=== PATIENT | male | born 1960 | race Caucasian/White ===

== ENCOUNTER 2016-11-16 23:42 | Inpatient (IN) ==
[2016-11-16] MEDS ORDERED: MORPHINE 2 MG/ML SYRINGE IVP STA (23:49)
[2016-11-16] MEDS ORDERED: SOLU-MEDROL 125 MG IVP STA (23:49)
[2016-11-16] MEDS ORDERED: LASIX IVP STA (23:49)
[2016-11-16] MEDS ORDERED: DUONEB NEB STA (23:49)
[2016-11-16] MEDS ORDERED: ROCEPHIN 1 GM in SODIUM CHLORIDE 50 ML IV STA (23:49)
[2016-11-16 23:51] VITALS: BMI 36.6
--- NOTE | 2016-11-16 23:53 | ED.PDOC ---
General ED Provider: Dr. [address]IMA [address] Chief Complaint: Shortness of Air Stated Complaint: Been coughing congestion for 4 days, today short of breath, not able to talk. no chest pain Time Seen by Physician: 23:51 Mode of Arrival: Walk-In Information Source: Patient Primary Care Provider: ANASTASIA RANDALL Nursing and Triage Documentation Reviewed and Agree: Yes Respiratory Complaint Exam - Shortness of Air Complaint/Exam Symptoms Are: Still present Timing: Constant Initial Severity: Severe Current Severity: Severe Character: Reports: Dyspnea at rest Aggravating: Reports: None, Movement Alleviating: Reports: None Associated Signs and Symptoms: Reports: Cough, Wheezing, Rapid breathing. Denies: Chest pain with cough, Chest pain, Fever, Chills, Diaphoresis, Nasal congestion, Dizziness, Calf pain, Calf swelling, Edema, Labored breathing, Decreased intake History of Healthcare-Acquired Pneumonia: No Pulmonary Embolism Risk Factors: Reports: None Cardiac Risk Factors: Reports: Prior ID, CAD, Hypertension, CHF Pseudomonas Risk Factors: Reports: None Tuberculosis Risk Factors: Reports: None Home Oxygen Use: No Recent Stress Test: No Recent Echo/LV Function: No Respiratory Distress: Moderate Stridor Present: No Tracheal Deviation: No Subcutaneous Emphysema: No Accessory Muscle Use: Yes Diminished Breath Sounds: Yes Prolonged Expiratory Phase: Yes Unable to Speak Full Sentences: Yes Fatigue: No Leg Swelling: No Favio's Sign Present: No Grunting Respirations: No Kussmaul Respirations: No Differential Diagnoses: CHF, COPD Exacerbation, ID, Pneumonia Quality Indicators for AMI: EKG in 10min., ASA Given if indicated Review of Systems - Review Of Systems Constitutional: Reports: Weakness Eyes: Reports: No symptoms Ears, Nose, Mouth, Throat: Reports: No symptoms Respiratory: Reports: Cough, Orthopnea, Short of air Cardiac: Reports: No symptoms GI: Reports: No symptoms : Reports: No symptoms Musculoskeletal: Reports: No symptoms Skin: Reports: No symptoms Neurological: Reports: No symptoms Endocrine: Reports: No symptoms Hematologic/Lymphatic: Reports: No symptoms All Other Systems: Reviewed and Negative Past Medical History - Past Medical History Previously Healthy: No Endocrine: Reports: Dyslipidemia Cardiovascular: Reports: CAD, ID, Hypertension Respiratory: Reports: None Hematological: Reports: None Gastrointestinal: Reports: None Genitourinary: Reports: None Neuro/Psych: Reports: Depression Musculoskeletal: Reports: Arthritis, Back Pain Cancer: Reports: None Other Pertinent Past Medical History: htn chol mi depr cabg hernia - Surgical History General Surgical History: Reports: CABG, Hernia Repair - Family History Family History: Reports: Unknown - Social History Smoking Status: Current every day smoker, Light tobacco smoker Smoking Cessation Counseling Time: > 3 min - 10 min Hx Substance Use: No Alcohol Screening: None - Immunizations Tetanus Shot up to Date: Yes Physical Exam - Physical Exam Appearance: Ill-appearing, Obese Ill-appearing: Severe Eyes: WILVER, EOMI, Conjunctiva clear ENT: Ears normal, Nose normal, Oropharynx normal Respiratory: Airway patent, Breath sounds diminished, Crackles Cardiovascular: RRR, Pulses normal, No rub, No murmur GI/: Soft, Nontender, No masses, Bowel sounds normal, No Organomegaly Musculoskeletal: Normal strength, ROM intact, No edema, No calf tenderness Skin: Warm, Dry, Normal color Neurological: Sensation intact, Motor intact, Reflexes intact, Cranial nerves intact, Alert, Oriented Psychiatric: Affect appropriate Interpretation - Radiology Interpretation Radiology Interpretation By: Radiologist Radiology Results: Negative Exam Interpreted: CT Scan Critical Care Note - Critical Care Note Total Time (mins): 0 Course - Course Hematology/Chemistry: 11/16/16 23:48 11/16/16 00:50 Orders, Labs, Meds: Lab Review 11/16/16 11/16/16 11/17/16 00:50 23:48 00:25 WBC 11.99 H RBC 5.65 Hgb 16.3 Hct 49.3 MCV 87.3 MCH 28.8 MCHC 33.1 RDW Coeff of Moris 12.9 Plt Count 249 Immature Gran % (Auto) 0.6 Neut % (Auto) 65.6 Lymph % (Auto) 20.0 [place] % (Auto) 9.0 Eos % (Auto) 4.4 Baso % (Auto) 0.4 Immature Gran # (Auto) 0.1 Neut # 7.9 H Lymph # 2.4 [place] # 1.1 Eos # 0.5 Baso # 0.1 D-Dimer 0.61 Puncture Site O2 Saturation ABG pH ABG pCO2 ABG pO2 ABG HCO3 ABG Total CO2 ABG Base Excess Douglas Test FiO2 % Sodium 139 Potassium 4.0 Chloride 100 Carbon Dioxide 25 Anion Gap 18.0 BUN 12 Creatinine 0.84 Estimated GFR (MDRD) 95.00 BUN/Creatinine Ratio 14.28 Glucose 142 H Calcium 9.8 Total Bilirubin 0.75 AST 30 ALT 33 Alkaline Phosphatase 112 Total Creatine Kinase 96 Troponin I 0.0970 B-Natriuretic Peptide 324 H Total Protein 7.8 Albumin 4.1 Globulin 3.7 Albumin/Globulin Ratio 1.11 Urine Color Yellow Urine Clarity Clear Urine pH 5.5 Ur Specific [place] 1.015 Urine Protein 1+ Urine Glucose (UA) Negative Urine Ketones Negative Urine Blood 3+ Urine Nitrite Negative Urine Bilirubin Negative Urine Urobilinogen 0.2 Ur Leukocyte Esterase Negative Urine Microscopic RBC 10-20 Ur Squamous Epith Cells 0-2 Hyaline Casts 2-5 Granular Casts 2-5 11/17/16 00:31 WBC RBC Hgb Hct MCV MCH MCHC RDW Coeff of Moris Plt Count Immature Gran % (Auto) Neut % (Auto) Lymph % (Auto) [place] % (Auto) Eos % (Auto) Baso % (Auto) Immature Gran # (Auto) Neut # Lymph # [place] # Eos # Baso # D-Dimer Puncture Site Lb O2 Saturation 90.0 L ABG pH 7.395 ABG pCO2 44.8 ABG pO2 60.0 L ABG HCO3 27.5 H ABG Total CO2 29 H ABG Base Excess 3 H Douglas Test + FiO2 % 21.0 Sodium Potassium Chloride Carbon Dioxide Anion Gap BUN Creatinine Estimated GFR (MDRD) BUN/Creatinine Ratio Glucose Calcium Total Bilirubin AST ALT Alkaline Phosphatase Total Creatine Kinase Troponin I B-Natriuretic Peptide Total Protein Albumin Globulin Albumin/Globulin Ratio Urine Color Urine Clarity Urine pH Ur Specific [place] Urine Protein Urine Glucose (UA) Urine Ketones Urine Blood Urine Nitrite Urine Bilirubin Urine Urobilinogen Ur Leukocyte Esterase Urine Microscopic RBC Ur Squamous Epith Cells Hyaline Casts Granular Casts Orders Category Date Time Status ABG DRAW REQUEST Stat CARDIO 11/16/16 23:50 Completed EKG-(ED ONLY) Stat CARDIO 11/16/16 23:49 Completed NEBULIZER TREATMENT Stat CARDIO 11/16/16 23:50 Completed ED IV/MEDIPORT/POWERPORT .ONCE EMERGENCY 11/16/16 23:49 Active ABG Stat LAB 11/17/16 00:31 Completed B-TYPE NATRIURETIC PEPTIDE Stat LAB 11/16/16 00:50 Completed CBC W/ AUTO DIFF Stat LAB 11/16/16 23:48 Completed COMPREHENSIVE METABOLIC PANEL Stat LAB 11/16/16 00:50 Completed CREATINE KINASE Stat LAB 11/16/16 00:50 Completed D-DIMER Stat LAB 11/16/16 00:50 Completed TROPONIN I Stat LAB 11/16/16 00:50 Completed UA [URINALYSIS C & S IF INDICATED] Stat LAB 11/17/16 00:25 Completed 0.9 % Sodium Chloride [Saline Flush] MEDS 11/16/16 23:49 Ordered 1 syr IVF PRN PRN Aspirin [Aspirin Chewable] MEDS 11/16/16 23:54 Discontinued 324 mg PO ONCE STA Ceftriaxone Sodium [Rocephin] MEDS 11/16/16 23:55 Discontinued 1 gm .ROUTE .STK-MED ONE Ceftriaxone Sodium [Rocephin] 1 gm MEDS 11/16/16 23:49 Discontinued 0.9 % Sodium Chloride [Sodium Chloride] 50 ml IV ONCE Furosemide [Lasix] MEDS 11/16/16 23:49 Discontinued 40 mg IVP ONCE STA Ipratropium/Albuterol Neb [Duoneb] MEDS 11/16/16 23:49 Discontinued 1 vial NEB ONCE STA Methylprednisolone Sod Succ/Pf [Solu-Medrol 125 mg] MEDS 11/16/16 23:49 Discontinued 125 mg IVP ONCE STA Morphine Sulfate [Morphine 2 mg/ml Syringe] MEDS 11/16/16 23:49 Discontinued 2 mg IVP ONCE STA CT CHEST W/O CONTRAST Stat RADS 11/16/16 23:49 Completed Medications Generic Name Dose Route Start Last Admin Trade Name Freq PRN Reason Stop Dose Admin Sodium Chloride 1 syr 11/16/16 23:49 11/17/16 00:07 Saline Flush IVF 1 syr PRN PRN Administration To flush IV Discontinued Medications Generic Name Dose Route Start Last Admin Trade Name Freq PRN Reason Stop Dose Admin Albuterol/Ipratropium 1 vial 11/16/16 23:49 11/17/16 00:08 Duoneb NEB 11/16/16 23:50 1 vial ONCE STA Administration Aspirin 324 mg 11/16/16 23:54 11/17/16 00:13 Aspirin Chewable PO 11/16/16 23:55 324 mg ONCE STA Administration Furosemide 40 mg 11/16/16 23:49 11/16/16 23:57 Lasix IVP 11/16/16 23:50 40 mg ONCE STA Administration Ceftriaxone Sodium 1 gm/ 50 mls @ 75 mls/hr 11/16/16 23:49 11/17/16 00:13 Sodium Chloride IV 11/17/16 00:28 75 mls/hr ONCE STA Administration Methylprednisolone Sodium Succinate 125 mg 11/16/16 23:49 11/17/16 00:00 Solu-Medrol 125 Mg IVP 11/16/16 23:50 125 mg ONCE STA Administration Morphine Sulfate 2 mg 11/16/16 23:49 11/17/16 00:02 Morphine 2 Mg/Ml Syringe IVP 11/16/16 23:50 2 mg ONCE STA Administration Vital Signs: Temp Pulse Resp BP Pulse Ox 11/16/16 23:43 98 F 92 H 32 H 222/117 H 88 L Departure - Departure Time of Disposition: 01:08 Disposition: ADMITTED INPATIENT Discharge Problem: Hypertensive urgency, Obstructive chronic bronchitis with exacerbation Instructions: COPD (Chronic Obstructive Pulmonary Disease) (ED) Condition: Stable Pt referred to PMD for follow-up: No Allergies/Adverse Reactions: Allergies No Known Allergies Allergy (Verified 11/16/16 23:51) Home Medications: Ambulatory Orders Aspirin [Adult Low Dose Aspirin EC] 81 mg PO DAILY 06/30/16 Atenolol 25 mg PO BID 06/30/16 Clopidogrel Bisulfate [Plavix] 75 mg PO DAILY 06/30/16 Hydrochlorothiazide 12.5 mg PO DAILY 06/30/16 Hydrocodone/Acetaminophen [[place] 7.5-325 Tablet] 1 tab PO Q6HR PRN #12 tablet Lisinopril [Zestril] 40 mg PO DAILY 06/30/16 Ondansetron HCl [Zofran Tab] 4 mg PO QID PRN #12 tablet 06/30/16 Pravastatin Sodium [Pravachol] 20 mg PO BEDTIME 06/30/16 Disposition Discussed With: Patient
[2016-11-16] MEDS ORDERED: ASPIRIN CHEWABLE PO STA (23:54)
[2016-11-16] MEDS ORDERED: ROCEPHIN ONE (23:55)
[2016-11-16 23:56] LABS: BASOPHILS # (AUTO) 0.1 K/uL (0-0.2); BASOPHILS % (AUTO) 0.4 % (0.0-3.0); EOSINOPHILS # (AUTO) 0.5 K/ul (0.0-0.7); EOSINOPHILS % (AUTO) 4.4 % (0.0-7.0); HEMATOCRIT 49.3 % (42.0-52.0); HEMOGLOBIN 16.3 g/dl (14.0-18.0); IMMATURE GRANULOCYTE % (AUTO) 0.6 % (0.0-5.0); LYMPHOCYTES # (AUTO) 2.4 K/uL (0.60-3.4); MEAN CORPUSCULAR HEMOGLOBIN 28.8 pg (27.0-31.0); MEAN CORPUSCULAR HGB CONC 33.1 (31.8-35.4); MEAN CORPUSCULAR VOLUME 87.3 fl (80.0-94.0); MONOCYTES # (AUTO) 1.1 K/uL (0.4-2.0); NEUTROPHILS # (AUTO) 7.9 K/ul (2.0-6.9); NEUTROPHILS % (AUTO) 65.6; PLATELET COUNT 249 10^3/uL (140-440); RED BLOOD COUNT 5.65 10^6/ul (4.70-6.10); WHITE BLOOD COUNT 11.99 K/ul (4.2-10.2)
[2016-11-17 00:33] LABS: ABG PCO2 44.8 mmHg (35-45); ABG PH 7.395 (7.35-7.45)
[2016-11-17 00:33] LABS: BILIRUBIN,URINE Negative (NEGATIVE); KETONES,URINE Negative (NEGATIVE); LEUKOCYTE ESTERASE ,URINE Negative (NEGATIVE); NITRITE,URINE Negative (NEGATIVE); PH,URINE 5.5 (5-9); PROTEIN,URINE 1+ (NEGATIVE); URINE, BLOOD 3+ (NEGATIVE)
[2016-11-17 00:34] LABS: ABG BASE EXCESS 3 (-2.0-2.0); ABG HCO3 27.5 (22.0-26.0); ABG TCO2 29 (22.0-28.0)
[2016-11-17 00:39] LABS: ADD URINE MICROSCOPIC YES
[2016-11-17 00:42] LABS: ALBUMIN 4.1 g/dL (3.4-5.0); ALBUMIN/GLOBULIN RATIO 1.11; BILIRUBIN,TOTAL 0.75 mg/dL (0.00-1.20); BUN/CREATININE RATIO 14.28; CALCIUM 9.8 mg/dL (8.2-10.2); CREATININE 0.84 mg/dL (0.60-1.10); TOTAL PROTEIN 7.8 g/dL (6.4-8.2); TROPONIN I 0.097 ng/ml (0.0000-0.4000)
--- NOTE | 2016-11-17 01:03 | CT ---
Exam: CT of the chest without contrast History: Shortness of breath Technique: [address] of the chest without intravascular contrast FINDINGS: The lung windows show no infiltrative opacities. There is parenchymal scarring and hyper expansion. Atherosclerotic calcification of the aorta and coronary arteries. Prior coronary bypass . No acute findings of the chest wall soft tissues or bony thorax. No acute findings of the upper abdomen. Impression: 1. Chronic obstructive pulmonary disease and parenchymal scarring. No focal infiltrative opacities .
[2016-11-17] MEDS: DUONEB NEB SCH ×4 (05:05→23:07)
[2016-11-17] MEDS: SOLU-MEDROL 125 MG IVP SCH ×3 (05:18→20:53)
[2016-11-17 07:19] LABS: BASOPHILS % (AUTO) 0.2 % (0.0-3.0); EOSINOPHILS % (AUTO) 0.4 % (0.0-7.0); HEMATOCRIT 49.6 % (42.0-52.0); HEMOGLOBIN 16.7 g/dl (14.0-18.0); IMMATURE GRANULOCYTE % (AUTO) 0.8 % (0.0-5.0); LYMPHOCYTES # (AUTO) 0.9 K/uL (0.60-3.4); LYMPHOCYTES % (AUTO) 11.4 (10.0-50.0); MEAN CORPUSCULAR HEMOGLOBIN 29.3 pg (27.0-31.0); MEAN CORPUSCULAR HGB CONC 33.7 (31.8-35.4); MEAN CORPUSCULAR VOLUME 87.2 fl (80.0-94.0); MONOCYTES # (AUTO) 0.2 K/uL (0.4-2.0); MONOCYTES % (AUTO) 2.8 (0-10); NEUTROPHILS % (AUTO) 84.4; PLATELET COUNT 255 10^3/uL (140-440); RED BLOOD COUNT 5.69 10^6/ul (4.70-6.10); WHITE BLOOD COUNT 8.27 K/ul (4.2-10.2)
[2016-11-17 07:34] LABS: ALBUMIN 3.8 g/dL (3.4-5.0); ALBUMIN/GLOBULIN RATIO 1.06; ANION GAP 14.4; BILIRUBIN,TOTAL 0.54 mg/dL (0.00-1.20); BUN/CREATININE RATIO 13.46; CALCIUM 9.8 mg/dL (8.2-10.2); CREATININE 1.04 mg/dL (0.60-1.10); POTASSIUM 4.4 mmol/L (3.5-5.1); TOTAL PROTEIN 7.4 g/dL (6.4-8.2)
[2016-11-17 07:40] LABS: TROPONIN I 0.078 ng/ml (0.0000-0.4000)
[2016-11-17] MEDS: ASPIRIN EC PO SCH (08:55)
[2016-11-17] MEDS ORDERED: NON-FORMULARY MEDICATION (Hydrochlorothiazide [Hydrochlorothiazide] 12.5 MG) PO SCH ×22 (09:00)
[2016-11-17] MEDS ORDERED: TENORMIN PO SCH (09:00)
[2016-11-17] MEDS: ZESTRIL PO SCH (09:25)
[2016-11-17] MEDS: HYDROCHLOROTHIAZIDE PO SCH (09:25)
[2016-11-17] MEDS: NORCO 7.5-325 PO PRN ×2 (09:25→15:50)
[2016-11-17] MEDS: LOVENOX SUBCUT SCH (09:26)
[2016-11-17] MEDS: PLAVIX PO SCH (09:26)
[2016-11-17 14:06] LABS: TROPONIN I 0.054 ng/ml (0.0000-0.4000)
[2016-11-17] MEDS ORDERED: ROCEPHIN 1 GM in SODIUM CHLORIDE 50 ML IV SCH (21:00)
[2016-11-17] MEDS ORDERED: PRAVACHOL PO SCH (21:00)
[2016-11-17] MEDS ORDERED: AMBIEN PO PRN (21:03)
[2016-11-18] MEDS: DUONEB NEB SCH ×2 (05:22→11:21)
[2016-11-18] MEDS: SOLU-MEDROL 125 MG IVP SCH ×2 (05:48→13:32)
[2016-11-18 05:50] LABS: BASOPHILS % (AUTO) 0.2 % (0.0-3.0); HEMATOCRIT 46.9 % (42.0-52.0); HEMOGLOBIN 15.4 g/dl (14.0-18.0); IMMATURE GRANULOCYTE % (AUTO) 1.8 % (0.0-5.0); LYMPHOCYTES # (AUTO) 1.4 K/uL (0.60-3.4); LYMPHOCYTES % (AUTO) 7.1 (10.0-50.0); MEAN CORPUSCULAR HEMOGLOBIN 29.2 pg (27.0-31.0); MEAN CORPUSCULAR HGB CONC 32.8 (31.8-35.4); MEAN CORPUSCULAR VOLUME 88.8 fl (80.0-94.0); MONOCYTES # (AUTO) 1.2 K/uL (0.4-2.0); NEUTROPHILS # (AUTO) 16.4 K/ul (2.0-6.9); NEUTROPHILS % (AUTO) 84.9; PLATELET COUNT 265 10^3/uL (140-440); RED BLOOD COUNT 5.28 10^6/ul (4.70-6.10); WHITE BLOOD COUNT 19.27 K/ul (4.2-10.2)
[2016-11-18 06:09] LABS: ALBUMIN 3.5 g/dL (3.4-5.0); ALBUMIN/GLOBULIN RATIO 1.13; ANION GAP 12.8; BILIRUBIN,TOTAL 0.26 mg/dL (0.00-1.20); BUN/CREATININE RATIO 20.65; CALCIUM 9.5 mg/dL (8.2-10.2); CREATININE 0.92 mg/dL (0.60-1.10); POTASSIUM 4.8 mmol/L (3.5-5.1); TOTAL PROTEIN 6.6 g/dL (6.4-8.2)
[2016-11-18 06:31] LABS: CHOL/HDL RATIO 3.4 (4.5-6.4)
[2016-11-18] MEDS ORDERED: LASIX TAB PO STA (08:37)
[2016-11-18] MEDS: ASPIRIN EC PO SCH (08:55)
[2016-11-18] MEDS ORDERED: LOPRESSOR PO SCH (09:00)
[2016-11-18] MEDS: PLAVIX PO SCH (09:15)
[2016-11-18] MEDS: ZESTRIL PO SCH (09:15)
[2016-11-18] MEDS: LOVENOX SUBCUT SCH (09:16)
[2016-11-18] MEDS: HYDROCHLOROTHIAZIDE PO SCH (09:16)
[2016-11-18] MEDS: NORCO 7.5-325 PO PRN ×2 (09:23→15:03)
[2016-11-18 09:28] LABS: ABG BASE EXCESS 2 (-2.0-2.0); ABG HCO3 25.9 (22.0-26.0); ABG PCO2 38.2 mmHg (35-45); ABG TCO2 27 (22.0-28.0)
[2016-11-18] MEDS ORDERED: MICRO-K CAP PO SCH (09:30)
[2016-11-18 10:24] VITALS: TEMP 98.2
--- NOTE | 2016-11-18 11:51 | DI ---
EXAM: CHEST FRONTAL AND LATERAL VIEWS HISTORY: Chest pain. COMPARISON: None FINDINGS: Heart size is upper limit normal. Sternotomy wires are noted. There is diffuse, chronic appearing interstitial accentuation. Lungs are hyperinflated and there is relative lucency of the l nahomy zones suggesting emphysema. No acute infiltrates are seen. There is no consolidation, visible pleural fluid or pneumothorax. Bones reveal no acute fracture. IMPRESSION: Chronic obstructive pulmonary disease is suspected. Correlate clinically. No acute ca rdiopulmonary process. ]
--- NOTE | 2016-11-18 11:56 | US ---
EXAM: ULTRASOUND CAROTID DUPLEX, BILATERAL HISTORY: Weakness, lightheadedness and hypertension FINDINGS: Cabezas-scale ultrasound, color Doppler and spectral analysis was performed. Velocities are in meters per second. By cabezas scale and color Doppler imaging, there were regions of heterogeneous plaque formation ident ified within the carotid bulbs and internal carotid arteries. These regions of plaque appeared to r emain easily less than 50% vessel diameter. RIGHT: External carotid artery peak systolic velocity: 1.3 Common carotid artery peak systolic velocity/end diastolic velocity: 0.6/0.1 Internal carotid artery peak systolic velocity: 0.6 ICA/CCA peak systolic velocity ratio: 1.0 ICA end diastolic velocity: 0.2 LEFT: External carotid artery peak systolic velocity: 1.5 Common carotid artery peak systolic velocity/end diastolic velocity: 0.5/0.1 Internal carotid artery peak systolic velocity: 0.5 ICA/CCA peak systolic velocity ratio: 0.8 ICA end diastolic velocity: 0.2 The right and left vertebral arteries were antegrade. IMPRESSION: 1. By cabezas scale and color Doppler imaging, there were regions of heterogeneous plaque formation id entified within the carotid bulbs and internal carotid arteries. These regions of plaque appeared t o remain easily less than 50% vessel diameter. 2. Internal carotid artery peak systolic velocities and ICA/CCA peak systolic velocity ratios indic ate no hemodynamically significant stenosis bilaterally. 3. Both vertebral arteries were antegrade.
--- NOTE | 2016-11-18 13:02 | PCM.PROG ---
Attending Provider: ATTENDING PROVIDER: Dr. ANASTASIA RANDALL DATE OF SERVICE: 11/18/16 SUBJECTIVE: This 56 year old WHITE/ M was hospitalized 11/17/16. The patient was hospitalized with acute pulmonary edema and hypertensive urgency. The patient also had bronchitis with COPD. The patient's condition has improved remarkably and his respiratory failure has resolved. He is up and about. No chest pain, no PND, no orthopnea. No fever, no chills, no symptoms of CHF. The patient' s WBC is high probably due to steroids. REVIEW OF SYSTEMS: CONSTITUTIONAL: No night sweats. No fatigue, malaise, lethargy. No fever or chills. HEENT: Eyes: No visual changes. No eye pain. No eye discharge. ENT: No runny nose. No epistaxis. No sinus pain. No odynophagia. No congestion. RESPIRATORY: No cough, no congestion. No hemoptysis. CARDIOVASCULAR: No angina symptoms. No CHF symptoms. No atypical chest pain for CAD. No palpitations. No shortness of breath. GASTROINTESTINAL: No abdominal pain. No nausea or vomiting. No diarrhea or constipation. No hematemesis. No hematochezia. GENITOURINARY: No urgency. No frequency. No dysuria. No hematuria. No obstructive symptoms. No discharge. No pain. No significant abnormal bleeding. MUSCULOSKELETAL: No musculoskeletal pain; no joint swelling. NEUROLOGICAL: Awake, alert, oriented to time, place and person. No headache. No neck pain. No syncope. No seizures. No dizziness. PSYCHIATRIC: Not anxious. No depression. No suicidal thoughts. No homicidal thoughts. SKIN: No rash. No lesions. No wounds. ENDOCRINE: No unexplained weight loss. No weight gain. HEMATOLOGIC/LYMPHATIC: No anemia. No purpura. No petechiae. No prolonged or excessive bleeding. No palpable lymph nodes. PHYSICAL EXAMINATION: GENERAL: The patient is awake, alert and oriented, lying/sitting in bed in no distress. VITAL SIGNS: Temperature 97.2 F, Pulse 78, Respiratory Rate 15, BP 138/74, Pulse Ox 95% HEENT: Head normocephalic, atraumatic. Eyes: Extraocular muscles are intact. Pupils are equal, round and reactive to light and accommodation. Ears: No lesions. Nose appeared normal. Throat: No exudate or erythema. NECK: Supple. No JVD, no carotid bruit. No lymphadenopathy or thyromegaly. LUNGS: Harsh breath sounds. Clear to auscultation. Percussion note normal. Chest symmetrical. HEART: S1, S2, no S3. No murmurs. No cyanosis or clubbing. No ascites. Pulses: Dorsalis pedis and posterior tibial pulses +1 to +2 both sides. ABDOMEN: Soft. Non-tender. Bowel sounds active. No CVA tenderness. No mass felt. EXTREMITIES: No edema. Full range of motion of all extremities, equal. NEUROLOGIC: No focal deficit. Cranial nerves II through XII are grossly intact. No headache, no double vision or headache. SKIN: Not dry. Intact. Turgor-normal. LYMPHATIC: No palpable lymph nodes/no lymphedema. MUSCULOSKELETAL: Normal joints with no swelling. Muscle tone is normal. LAB REVIEW: 11/18/16 05:30 11/18/16 05:30 11/18/16 05:30: WBC 19.27 H D, RBC 5.28, Hgb 15.4, Hct 46.9, MCV 88.8, MCH 29.2 , MCHC 32.8, RDW Coeff of Moris 13.3, Plt Count 265, Immature Gran % (Auto) 1.8, Neut % (Auto) 84.9, Lymph % (Auto) 7.1 L, [place] % (Auto) 6.0, Eos % (Auto) 0.0, Baso % (Auto) 0.2, Immature Gran # (Auto) 0.4, Neut # 16.4 H, Lymph # 1.4, [place] # 1.2, Eos # 0.0, Baso # 0.0, Sodium 139, Potassium 4.8, Chloride 101, Carbon Dioxide 30, Anion Gap 12.8, BUN 19 H, Creatinine 0.92, Estimated GFR (MDRD) 85.00, BUN/Creatinine Ratio 20.65, Glucose 164 H, Hemoglobin A1c 5.9, Calcium 9.5, Total Bilirubin 0.26, AST 16, ALT 24, Alkaline Phosphatase 106, B- Natriuretic Peptide 174 H, Total Protein 6.6, Albumin 3.5, Globulin 3.1, Albumin /Globulin Ratio 1.13, Triglycerides 61, Cholesterol 124, LDL Cholesterol, Calc 76, VLDL Cholesterol 12, HDL Cholesterol 36, Cholesterol/HDL Ratio 3.4 L 11/17/16 13:20: Total Creatine Kinase 64, Troponin I 0.0540 ASSESSMENT: 1. Acute pulmonary edema resolved 2. Bronchitis resolved 3. COPD 4. Hypertension, under control 5. CABG with no symptoms of CAD 6. WBC is high due to steroids PLAN: 1. Carotid scan before discharge 2. PFT pending 3. Continue all medications - take regularly 4. Discontinue Hydrochlorothiazide 5. Take Lopressor instead of Atenolol 6. PFT is pending 7. Chest x-ray is pending 8. ABG 9. Prednisone 10 mg b.i.d. for 5 days 10. Keflex 500 mg b.i.d. 11. Lasix 20 mg p.o. daily and one now 12. K-Tab 10 mEq daily Plan and coordination of the patient's care discussed in the presence of Water Taxi Boat Mate and nurse. EDUCATION: Discussed discharge plan with the patient. Counseling for smoking done. Lifestyle modifications, weight loss, exercise discussed. Discussed medications and their side effects. Advised to take all medications as instructed on a regular basis. The patient voiced understanding and is in agreement. CONDITION: Stable SCRIBED BY: GURPREET PLATT Agricultural Equipment Test Engineer scribed while in presence of service performed by Dr. ANASTASIA RANDALL on 11/18/16 ([id number])
--- NOTE | 2016-11-18 13:29 | HP ---
DATE OF SERVICE: 11/17/16 REASON FOR HOSPITALIZATION: Shortness of breath HISTORY OF PRESENT ILLNESS: The patient is a 56 year old white male came to the emergency room, walked in with complaint of having shortness of breath, cough and congestive. On further questioning the patient also orthopnea for past couple of days. The patient in the emergency room had pulse of 92 per minute, respiratory rate 32, blood pressure 222/117 with 88% saturation. REVIEW OF SYSTEMS: CONSTITUTIONAL: No night sweats. Fatigue and weaknes. No fever or chills. HEENT: Eyes: No visual changes. No eye pain. No eye discharge. ENT: No runny nose. No epistaxis. No sinus pain. No sore throat. No odynophagia. No ear pain. No congestion. RESPIRATORY: Cough and congestion no yellowish sputum production. No hemoptysis. CARDIOVASCULAR: No angina symptoms. No CHF symptoms. No atypical chest pain for CAD. No palpitations. Shortness of breath on minimal exertion. PND and Orthopnea for last two to three days. no chest pain GASTROINTESTINAL: No abdominal pain. No nausea or vomiting. No diarrhea or constipation. No hematemesis. No hematochezia. Appetite somewhat compromised for last two to three days. GENITOURINARY: No urgency. No frequency. No dysuria. No hematuria. No obstructive symptoms. No discharge. No pain. No significant abnormal bleeding. MUSCULOSKELETAL: No musculoskeletal pain. No joint swelling. No arthritis. NEUROLOGICAL: No headache. No neck pain. No syncope. No seizures. No dizziness. PSYCHIATRIC: Not anxious. No depression. No suicidal thoughts. No homicidal thoughts. SKIN: No rash. No lesions. No wounds. ENDOCRINE: No unexplained weight loss. No weight gain. HEMATOLOGIC/LYMPHATIC: No anemia. No purpura. No petechiae. No prolonged or excessive bleeding. No palpable lymph nodes. PERSONAL/FAMILY/SOCIAL HISTORY: The patient is and lives by himself. He is heavy smoker. No alcohol use , quit drinking. Father at 45 with heart problems and alcoholism. Mother is still living. Brother at age 38 with cancer. 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 PAST MEDICAL/SURGICAL PROBLEMS: Coronary bypass surgery, April 2016 stent with coronary artery disease 2012 History of hypertension Dyslipidemia Obesity, BMI 36 MEDICATIONS: The patient is supposed to be on Zebeta but not taking [place] Hydrochlorothiazide Pravastatin Plavix Lisinopril The patient is still taking Atenolol 25mg twice a day ALLERGIES: None PHYSICAL EXAMINATION: GENERAL: The patient is oriented to time, place and person. VITAL SIGNS: Temperature 98.4, pulse 56, respiratory rate 17, blood pressure 126/68 and pulse ox 95%. HEENT: Head normocephalic, atraumatic. Eyes: Extraocular muscles are intact. Pupils are equal, round and reactive to light and accommodation. Ears: No lesions. Nose appeared normal. Throat: No exudate or erythema. NECK: Supple. No JVP 2cm, no carotid bruit. No lymphadenopathy or thyromegaly. LUNGS: Decreased breath sound with mild wheeze. Percussion note normal. Chest symmetrical. HEART: S1, S2, no S3. No murmurs. No cyanosis or clubbing. No ascites. Pulses: Dorsalis pedis and posterior tibial pulses +1 bilaterally. ABDOMEN: Soft. Nontender. Bowel sounds active. No CVA tenderness. No mass felt. EXTREMITIES: Trace pitting edema. Full range of motion of all extremities, equal. NEUROLOGIC: No focal deficit. Cranial nerves II through XII are grossly intact. No headache, no double vision or headache. Normal deep tendon reflexes. Mental status normal. SKIN: Not dry. Intact. Turgor - normal. LYMPHATIC: No palpable lymph nodes/no lymphedema. MUSCULOSKELETAL: Normal joints with no swelling. Muscle tone is normal. LABS: Hgb 16.3, hct 49, WBC 11,900 normal differential, creatinine 0.8, BUN 12, BNP 324, GFR 95cc per minute, D-dimer negative. ABG pO2 60, PCO2 24.8, pH 7.39 with 90% saturation on room air. Urine shows 3+ blood and 1+ Protein. ASSESSMENT: 1. Acute respiratory failure from acute pulmonary edema 2. Bronchitis with chronic lung disease 3. Severe hypertension 4. Coronary bypass surgery April 2016 5. Coronary artery disease with stent 2012 6. Hypertension 7. Dyslipidemia 8. Smoking 9. 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 History of obesity with BMI 37 PLAN: 1. Telemetry 2. Serial Cardiac Markers 3. Counseling for weight loss diet done, patient's BMI 37 ideal 33 plus or minus 2 4. DASH diet discussed 5. Blood pressure goal discussed which should be 135/85 6. Advised to continue the medications and be compliant 7. Congestive heart failure discussed in detail 8. Echocardiogram to evaluate LV function 9. Continue all the rest of the medications as before 10. Counseling for smoking done 11. Will do PFT 12. The patient will do Lipid profile 13. Discontinue Atenolol, start Lopressor 25mg twice a day 14. Chest x-ray in the morning 15. BNP in the morning. CONDITION: Stable PROGNOSIS: Guarded The patient is non-compliant about the medications and lifestyle. Coronary artery disease risk factors discussed with the patient. The patient is intelligent. TIME SPENT: More than 70 minutes. MTDD
[2016-11-18 14:15] VITALS: BP 124/63
--- NOTE | 2016-11-18 14:25 | CM.DICTOOL ---
ADMISSION: 11/17/16 01:17 DISCHARGE: 11/18/16 DATE OF SERVICE: 11/18/16 FINAL DIAGNOSIS BRONCHITIS, ACUTE (RESOLVED) COPD EXACERBATION CONGESTIVE HEART FAILURE (RESOLVED) HYPERTENSIVE URGENCY (RESOLVED) CAD AND HISTORY OF DC DYSLIPIDEMIA ARTHRITIS (BACK) DEPRESSION/ANXIETY SMOKER OVER 40 YEARS CABG-2 VESSEL, 04/28 HERNIA REPAIR Treatment Plan: IV ROCEPHIN IV SOLU-MEDROL DUONEBS Q 6 HOURS MEDICATION MANAGEMENT OXYGEN LABS/X-RAYS LAST VITALS Temp Pulse Resp BP Pulse Ox 98.2 F 83 20 131/80 91 L 11/18/16 10:00 11/18/16 10:00 11/18/16 10:00 11/18/16 10:00 11/18/16 10:00 ACTIVE MEDICATIONS Acetaminophen/Hydrocodone Bitart ([place] 7.5-325) 1 tab PO Q6HR PRN PRN Reason: Joint Pain Last Admin: 11/18/16 09:23 Dose: 1 tab Aspirin (Aspirin Ec) 81 mg PO DAILYWM [facility] Last Admin: 11/18/16 08:55 Dose: 81 mg Clopidogrel Bisulfate (Plavix) 75 mg PO DAILY [facility] Last Admin: 11/18/16 09:15 Dose: 75 mg Furosemide (Lasix Tab) 20 mg PO QDAC [facility] Lisinopril (Zestril) 40 mg PO DAILY [facility] Last Admin: 11/18/16 09:15 Dose: 40 mg Metoprolol Tartrate (Lopressor) 25 mg PO BID [facility] Last Admin: 11/18/16 09:15 Dose: 25 mg Ondancetrol HCL (Zofran) 4 mg PO QID PRN Potassium Chloride (Micro-K Cap) 10 meq PO DAILY [facility] Last Admin: 11/18/16 09:22 Dose: 10 meq Pravastatin Sodium (Pravachol) 20 mg PO BEDTIME [facility] Last Admin: 11/17/16 20:23 Dose: 20 mg Denotes medications that have been added during this stay that will be continued at discharge. ALLERGIES No Known Allergies Allergy (Verified 11/16/16 23:51) NEW PRESCRIPTIONS: DO NOT TAKE YOUR ATENOLOL (TENORMIN) DO NOT TAKE YOUR HYDROCHLOROTHIAZIDE (HCTZ) NEW PRESCRIPTIONS: K-TAB 10 MEQ, TAKE ONE TABLET BY MOUTH DAILY LASIX 20 MG, TAKE ONE TABLET BY MOUTH DAILY LOPRESSOR (METOPROLOL TARTRATE) 25 MG, TAKE ONE TABLET BY MOUTH TWICE DAILY KEFLEX 500 MG, TAKE ONE TABLET BY MOUTH TWICE DAILY FOR 5 (FIVE) DAYS ONLY PREDNISONE 10 MG, TAKE ONE TABLET BY MOUTH TWICE DAILY FOR 5 (FIVE) DAYS WITH FOOD SMOKING: SMOKING CESSATION TEACHING WAS PROVIDED. BOTH RISKS OF CONTINUATION AND BENEFITS OF CESSATION WERE DISCUSSED. THE PATIENT WAS RECEPTIVE TO THE INFORMATION PROVIDED. HOWEVER, HE DID NOT COMMIT TO A CESSATION PLAN. TEACHING WILL BE REINFORCED DURING THE SUBSEQUENT OFFICE VISITS. DISEASE SPECIFIC EDUCATION: COPD HYPERTENSION LIFE STYLE CHANGES NECESSARY TO REDUCE CARDIOPULMONARY RISK FACTORS HOME MEDICATIONS NEW MEDICATIONS FOLLOW UP LAB REVIEW: 11/18/16 05:30 11/18/16 05:30 11/18/16 09:25: Puncture Site R brach, O2 Saturation 92.0 L, ABG pH 7.440, ABG pCO2 38.2, ABG pO2 62.0 L, ABG HCO3 25.9, ABG Total CO2 27, ABG Base Excess 2, Douglas Test +, FiO2 % 21.0 11/18/16 09:09: Hemoglobin A1c 6.0 11/18/16 05:30: WBC 19.27 H D, RBC 5.28, Hgb 15.4, Hct 46.9, MCV 88.8, MCH 29.2 , MCHC 32.8, RDW Coeff of Moris 13.3, Plt Count 265, Immature Gran % (Auto) 1.8, Neut % (Auto) 84.9, Lymph % (Auto) 7.1 L, Bent % (Auto) 6.0, Eos % (Auto) 0.0, Baso % (Auto) 0.2, Immature Gran # (Auto) 0.4, Neut # 16.4 H, Lymph # 1.4, Bent # 1.2, Eos # 0.0, Baso # 0.0, Sodium 139, Potassium 4.8, Chloride 101, Carbon Dioxide 30, Anion Gap 12.8, BUN 19 H, Creatinine 0.92, Estimated GFR (MDRD) 85.00, BUN/Creatinine Ratio 20.65, Glucose 164 H, Hemoglobin A1c 5.9, Calcium 9.5, Total Bilirubin 0.26, AST 16, ALT 24, Alkaline Phosphatase 106, B- Natriuretic Peptide 174 H, Total Protein 6.6, Albumin 3.5, Globulin 3.1, Albumin /Globulin Ratio 1.13, Triglycerides 61, Cholesterol 124, LDL Cholesterol, Calc 76, VLDL Cholesterol 12, HDL Cholesterol 36, Cholesterol/HDL Ratio 3.4 L PLAN: DISCHARGE HOME TODAY RETURN TO THE OFFICE TO SEE DR. RANDALL IN 5-7 DAYS. PLEASE PHONE TO SCHEDULE YOUR APPOINTMENT [phone] RESUME YOUR HOME MEDICATIONS PER LIST PROVIDED BY THE NURSING STAFF DO NOT TAKE YOUR ATENOLOL (TENORMIN) DO NOT TAKE YOUR HYDROCHLOROTHIAZIDE (HCTZ) NEW PRESCRIPTIONS: K-TAB 10 MEQ, TAKE ONE TABLET BY MOUTH DAILY LASIX 20 MG, TAKE ONE TABLET BY MOUTH DAILY LOPRESSOR (METOPROLOL TARTRATE) 25 MG, TAKE ONE TABLET BY MOUTH TWICE DAILY KEFLEX 500 MG, TAKE ONE TABLET BY MOUTH TWICE DAILY FOR 5 (FIVE) DAYS ONLY PREDNISONE 10 MG, TAKE ONE TABLET BY MOUTH TWICE DAILY FOR 5 (FIVE) DAYS WITH FOOD ACTIVITY: GET PLENTY OF REST AT HOME. GRADUALLY INCREASE YOUR ACTIVITY LEVEL ACCORDING TO YOUR TOLERATION DIET: HEALTHY HEART SUMMARY: THE PATIENT IS ALERT AND ORIENTED X3. HE CURRENTLY RESIDES AT HOME. HE IS INDEPENDENT WITH ADL'S AND IS ABLE TO PROVIDE HIS OWN TRANSPORTATION. HE IS AMBULATORY INDEPENDENTLY AND REQUIRES NO ASSISTIVE DEVICES. HE HAS NO DME, HOME HEALTH OR HOMEMAKING SERVICES. HE DESIRES TO RETURN TO HIS HOME AT DISCHARGE. HIS SKIN TURGOR IS INTACT AND WELL HYDRATED. HE HAS NO DECUBITUS ULCERS AT DISCHARGE. ANASTASIA RANDALL M.D.
[2016-11-19] MEDS ORDERED: LASIX TAB PO SCH (06:30)
--- NOTE | 2016-11-21 13:13 | ECHO2D ---
Date of Exam: 11/17/16 Ordering Physician: ANASTASIA RANDALL Reason for Echo: ORTHOPNEA, PND, SEVERE HTN, CABG,CAD M-Mode Normal Adult Results LV Dimensions Normal Adult Results AoV Opening excursions >1.6 >1.6 LVEDD-base- 3.5-5.8 4,9 Ao root dimensions 2.0-3.7 3.6 LVESD-base- 3.1-4.6 L. Atrium dimensions 1.9-3.8 4.3 Post. Wall thickness 0.8-1.1 1.3 IV septum (thickness) 0.7-1.2 1.6 Post. Wall excursion 0.72-1.3 NORMAL Septal motion 0.4 Systolic motion R. Ventricular cavity 1.5-2.0 NORMAL LVEF 60% 32% Paradoxical septal wall motion MAYBE 2-D : HYPOKINETIC TO PARADOXICAL SEPTAL WALL MOTION, NO EFFUSION, NO THROMBUS, NORMAL VALVES, ENLARGED LEFT ATRIAL CAVITY M-MODE: MV: NORMAL AV: NORMAL TV: NORMAL PV: NORMAL CHAMBER SIZE: ENLARGED LEFT ATRIAL CAVITY WALL MOTION: HYPOKINETIC/PARADOXICAL SEPTAL WALL PERICARDIUM: NORMAL INTERPRETATION: 1. MODERATE LEFT VENTRICULAR HYPERTROPHY WITH ENLARGED LEFT ATRIAL CAVITY 2. LEFT VENTRICULAR EJECTION FRACTION 30 TO 35% 3. PARADOXICAL SEPTAL WALL MOTION 4. VALVES NORMAL MTDD
--- NOTE | 2016-11-24 08:36 | DS ---
DATE OF SERVICE: 11/18/16 FINAL DIAGNOSIS: 1. Bronchitis, acute (resolved) 2. COPD exacerbation 3. Congestive heart failure (resolved) 4. Hypertensive urgency(resolved) 5. CAD and history of [place] 6 Dyslipidemia 7. Arthritis (back) 8. Depression/ Anxiety 9. Smoker over 40 years 10.Coronary artery bypass grafting-2 vessel, 04/28 11.Hernia Repair LAST VITALS: Temperature 98.2, pulse 73, Respiratory rate 20, blood pressure 131/80 and pulse ox 91. DISCHARGE INSTRUCTIONS: Discharge home today. Return to office to see Dr. Rangel in 5-7 dyas. Resume home medications as per list provided by the nursing staff. Do not take Atenolol and do not take Hydrochlorothiazide. MEDICATIONS AT DISCHARGE: [place] 7.5-325 on tablet PO Q 6 hours PRN Aspirin 81mg PO daily Plavix 75mg PO daily Lasix 20mg PO QDAC Zestril 40mg PO daily Lopressor 25mg PO twice a day Zofran 4mg PO four times a day PRN Micro-K cap 10meq PO daily Pravachol 20mg PO bedtime ALLERGIES: No know allergies NEW PRESCRIPTIONS: DO NOT TAKE ATENOLOL( TENORMIN) DO NOT TAKE HYDROCHLOROTHIAZIDE K-Tab 10meq take one tablet by mouth daily Lasix 20mg take one tablet by mouth daily Lopressor 25mg take one tablet by mouth twice daily Keflex 500mg Take one tablet by mouth twice daily fro 5 days only Prednisone 10mg take one tablet by mouth twice daily for five days with food. DIET INSTRUCTIONS: Healthy heart ACTIVITY: Gurpreet plenty of rest at home. Gradually increase your activity level according to toleration SMOKING: Smoking cessation teaching was provided. Both risks of continuation and benefit of cessation were discussed. The patient was receptive to the information provided. However he did not commit to a cessation plan. Teaching will be reinforced during the subsequent office visits. DISEASE SPECIFIC EDUCATION: COPD Hypertension Life style Changes necessary to reduce Cardiopulmonary risk factors Home medications New medications Follow up HOSPITAL COURSE: The patient is a 56 year old male hospitalized with acute respiratory failure. The patient had CHF and bronchitis. The patient had hypertensive urgency and was treated with diarrhetic, steroids and antibiotics. The patient's condition improved and the patient has been discharged on Lasix and potassium. Hydrochlorothiazide was discontinued. Again the patient was strongly advised to quit smoking. All the risk factors for coronary artery disease discussed with him and how to modify them. The patient's BMI is 37 and advised to lose weight. [place] weight should be 23 plus or minus 2 BMI, the patient has a long way to go. The patient realized it would be very important for him to change is lifestyle. Advised to take his medications on regular basis. Echocardiogram was done which showed LVH with stiff left ventricle. His A1c was less than 6, hyperglycemia was from steroid use. His ABG on room with pO2 68, pCO2 35 and oxygen saturation more than 90%. PFT was also done during the hospital stay. CONDITION: Stable. TIME SPENT: More than 60 minutes. MTDD
--- NOTE | 2016-11-24 08:38 | PN ---
11/17/16: Level 5 This is a 24 hour, 2 day hospital stay. MTDD
== END 2016-11-18 15:06 | disposition home or self-care (01) | DRG 202 ==
LOC: ED 23:42 → MEDSURG A 11-17 01:17
PROVIDERS: ADMIT Internal Medicine; ATTEND Internal Medicine
DX: J20.9 Acute bronchitis, unspecified (principal); J81.0 Acute pulmonary edema; J44.0 Chronic obstructive pulmonary disease with (acute) lower respiratory infection; J44.1 Chronic obstructive pulmonary disease with (acute) exacerbation; I16.0 Hypertensive urgency; I50.9 Heart failure, unspecified; I10 Essential (primary) hypertension; E78.5 Hyperlipidemia, unspecified; I51.7 Cardiomegaly; I25.10 Atherosclerotic heart disease of native coronary artery without angina pectoris; M46.90 Unspecified inflammatory spondylopathy, site unspecified; F41.8 Other specified anxiety disorders; F17.210 Nicotine dependence, cigarettes, uncomplicated; I25.2 Old myocardial infarction; Z79.01 Long term (current) use of anticoagulants; Z79.899 Other long term (current) drug therapy; Z91.19 Patient's noncompliance with other medical treatment and regimen; Z95.1 Presence of aortocoronary bypass graft; Z68.37 Body mass index [BMI] 37.0-37.9, adult
CPT/HCPCS: 36415; 80053; 80061; 81001; 82550; 82803; 83036; 83880; 84484; 85025; 85379; 93005; 93010; 94640; 96365; 96375; 99284

== ENCOUNTER 2016-11-22 06:11 | Observation (INO) ==
[2016-11-22 06:12] VITALS: BMI 36.6
[2016-11-22] MEDS ORDERED: NORCO 7.5-325 PO STA (06:47)
[2016-11-22] MEDS ORDERED: DECADRON 4 MG/ML SDV IM STA (06:47)
--- NOTE | 2016-11-22 06:51 | ED.PDOC ---
General Stated Complaint: I went home last week, was doing fine, but still coughing, and today short of breath. brought by EMT, had breathing treatment says he got better. Time Seen by Physician: 06:48 Mode of Arrival: Wheelchair Information Source: Patient Nursing and Triage Documentation Reviewed and Agree: Yes <[address] - Last Filed: 11/22/16 06:53> <GELY HAYES - Last Filed: 11/22/16 08:59> ED Provider: Dr. GELY HAYES ([address]) (GELY HAYES) Chief Complaint: Shortness of Air Primary Care Provider: ANASTASIA RANDALL ([address]) (GELY HAYES) Respiratory Complaint Exam - Shortness of Air Complaint/Exam Symptoms Are: Still present Timing: Constant Initial Severity: Moderate Current Severity: None Character: Reports: Dyspnea at rest, Dyspnea on exertion Aggravating: Reports: Allergens, Movement Alleviating: Reports: None Associated Signs and Symptoms: Reports: Cough. Denies: Wheezing, Chest pain with cough, Chest pain, Fever, Chills, Diaphoresis, Nasal congestion, Dizziness , Calf pain, Calf swelling, Edema, Rapid breathing, Labored breathing, Decreased intake Related History: Reports: Similar episode History of Healthcare-Acquired Pneumonia: No Pulmonary Embolism Risk Factors: Reports: None Cardiac Risk Factors: Reports: None Pseudomonas Risk Factors: Reports: None Tuberculosis Risk Factors: Reports: None Home Oxygen Use: No Recent Stress Test: No Recent Echo/LV Function: Yes Respiratory Distress: None Stridor Present: No Tracheal Deviation: No Subcutaneous Emphysema: No Accessory Muscle Use: No Retractions: Not Present Diminished Breath Sounds: Yes Prolonged Expiratory Phase: No Unable to Speak Full Sentences: No Fatigue: No Leg Swelling: No Favio's Sign Present: No Grunting Respirations: No Differential Diagnoses: Pneumonia, Bronchitis <[address] - Last Filed: 11/22/16 06:53> Review of Systems - Review Of Systems Constitutional: Reports: No symptoms Eyes: Reports: No symptoms Ears, Nose, Mouth, Throat: Reports: No symptoms Respiratory: Reports: Cough, Short of air Cardiac: Reports: No symptoms GI: Reports: No symptoms : Reports: No symptoms Musculoskeletal: Reports: No symptoms Skin: Reports: No symptoms Neurological: Reports: No symptoms Endocrine: Reports: No symptoms Hematologic/Lymphatic: Reports: No symptoms All Other Systems: Reviewed and Negative <[address] - Last Filed: 11/22/16 06:53> Past Medical History - Past Medical History Previously Healthy: No Endocrine: Reports: Dyslipidemia Cardiovascular: Reports: CAD, [place], Hypertension, CHF Respiratory: Reports: None Hematological: Reports: None Gastrointestinal: Reports: None Genitourinary: Reports: None Neuro/Psych: Reports: Depression Musculoskeletal: Reports: Arthritis, Back Pain Cancer: Reports: None Other Pertinent Past Medical History: htn chol mi depr cabg hernia - Surgical History General Surgical History: Reports: CABG, Hernia Repair - Family History Family History: Reports: Unknown - Social History Smoking Status: Former smoker Hx Substance Use: No Alcohol Screening: None - Immunizations Tetanus Shot up to Date: Yes <[address] - Last Filed: 11/22/16 06:53> Physical Exam - Physical Exam Appearance: Well-appearing Eyes: WILVER, EOMI, Conjunctiva clear ENT: Ears normal, Nose normal, Oropharynx normal Respiratory: Airway patent, Breath sounds diminished Cardiovascular: RRR, Pulses normal, No rub, No murmur GI/: Soft, Nontender, No masses, Bowel sounds normal, No Organomegaly Musculoskeletal: Normal strength, ROM intact, No edema, No calf tenderness Skin: Warm, Dry, Normal color Neurological: Sensation intact, Motor intact, Reflexes intact, Cranial nerves intact, Alert, Oriented Psychiatric: Affect appropriate, Mood appropriate <[address] - Last Filed: 11/22/16 06:53> Critical Care Note - Critical Care Note Total Time (mins): 0 <[address] - Last Filed: 11/22/16 06:53> Course - Course Hematology/Chemistry: 11/22/16 07:05 11/22/16 07:05 <GELY HAYES - Last Filed: 11/22/16 08:59> - Course Orders, Labs, Meds: Lab Review 11/22/16 11/22/16 06:54 07:05 WBC 11.38 H D RBC 5.36 Hgb 15.8 Hct 47.5 MCV 88.6 MCH 29.5 MCHC 33.3 RDW Coeff of Moris 12.9 Plt Count 214 Immature Gran % (Auto) 0.9 Neut % (Auto) 72.3 Lymph % (Auto) 15.8 Dixon % (Auto) 7.6 Eos % (Auto) 3.0 Baso % (Auto) 0.4 Immature Gran # (Auto) 0.1 Neut # 8.2 H Lymph # 1.8 Dixon # 0.9 Eos # 0.3 Baso # 0.0 Puncture Site R brach O2 Saturation 91.0 L ABG pH 7.39 ABG pCO2 41.0 ABG pO2 61.0 L ABG HCO3 25 ABG Total CO2 26 ABG Base Excess 0 Douglas Test + FiO2 % 21.0 Sodium 138 Potassium 4.5 Chloride 103 Carbon Dioxide 28 Anion Gap 11.5 BUN 13 Creatinine 0.80 Estimated GFR (MDRD) 100.00 BUN/Creatinine Ratio 16.25 Glucose 112 H Calcium 8.9 Total Bilirubin 0.31 AST 48 H ALT 79 H Alkaline Phosphatase 103 Total Creatine Kinase 70 Troponin I 0.1290 B-Natriuretic Peptide 454 H Total Protein 6.6 Albumin 3.5 Globulin 3.1 Albumin/Globulin Ratio 1.13 Orders Category Date Time Status ABG DRAW REQUEST Stat CARDIO 11/22/16 06:54 Completed EKG-(ED ONLY) Stat CARDIO 11/22/16 06:54 Completed ABG Stat LAB 11/22/16 06:54 Completed BNP [B-TYPE NATRIURETIC PEPTIDE] Stat LAB 11/22/16 07:05 Completed CBC W/ AUTO DIFF Stat LAB 11/22/16 07:05 Completed COMPREHENSIVE METABOLIC PANEL Stat LAB 11/22/16 07:05 Completed CREATINE KINASE Stat LAB 11/22/16 07:05 Completed TROPONIN I Stat LAB 11/22/16 07:05 Completed Dexamethasone 4 mg/ml Inj [Decadron 4 mg/ml Sdv] MEDS 11/22/16 06:47 Discontinued 4 mg IM ONCE STA Hydrocodone Bit/Acetaminophen [[place] 7.5-325] MEDS 11/22/16 06:47 Discontinued 1 tab PO ONCE STA Lisinopril [Zestril] MEDS 11/22/16 08:06 Discontinued 40 mg PO ONCE STA Metoprolol Tartrate [Lopressor] MEDS 11/22/16 08:06 Discontinued 25 mg PO ONCE STA CHEST, 2 VIEWS PA & LAT Stat RADS 11/22/16 06:47 Completed Medications Discontinued Medications Generic Name Dose Route Start Last Admin Trade Name Freq PRN Reason Stop Dose Admin Acetaminophen/Hydrocodone Bitart 1 tab 11/22/16 06:47 11/22/16 07:24 [place] 7.5-325 PO 11/22/16 06:48 1 tab ONCE STA Administration Dexamethasone Sodium Phosphate 4 mg 11/22/16 06:47 11/22/16 07:25 Decadron 4 Mg/Ml Sdv IM 11/22/16 06:48 4 mg ONCE STA Administration Lisinopril 40 mg 11/22/16 08:06 11/22/16 08:17 Zestril PO 11/22/16 08:07 40 mg ONCE STA Administration Metoprolol Tartrate 25 mg 11/22/16 08:06 11/22/16 08:17 Lopressor PO 11/22/16 08:07 25 mg ONCE STA Administration ([address]) (GELY HAYES) Vital Signs: Temp Pulse Resp BP Pulse Ox 11/22/16 06:12 98.2 F 93 H 20 177/86 H 95 ([address]) (GELY HAYES) Departure - Departure Time of Disposition: 07:20 Pt referred to PMD for follow-up: Yes Disposition Discussed With: Patient <[address] - Last Filed: 11/22/16 06:53> - Departure Pt referred to PMD for follow-up: Yes (pmd admitt) <GELY HAYES - Last Filed: 11/22/16 08:59> - Departure Disposition: HOME SELF-CARE Discharge Problem: URTI (acute upper respiratory infection) Instructions: Upper Respiratory Infection (ED) Condition: Stable Additional Instructions: Medication compliance discussed avoid smoke Continue taking Keflex and Prednisone ( patient has them) f/u in office in 2 days Prescriptions: Albuterol Sulfate [Ventolin Hfa] 18 gm IH TID #1 hfa.aer.ad Codeine/Promethazine Syrup [Phenergan with Codeine 6.25/10 mg/5 ml] 5 ml PO Q8H #1 bottle Allergies/Adverse Reactions: Allergies No Known Allergies Allergy (Verified 11/22/16 06:22) Home Medications: Ambulatory Orders Aspirin [Adult Low Dose Aspirin EC] 81 mg PO DAILY 06/30/16 Clopidogrel Bisulfate [Plavix] 75 mg PO DAILY 06/30/16 Hydrocodone/Acetaminophen [[place] 7.5-325 Tablet] 1 tab PO Q6HR PRN #12 tablet 08 /18/16 Lisinopril [Zestril] 40 mg PO DAILY 06/30/16 Ondansetron HCl [Zofran Tab] 4 mg PO QID PRN #12 tablet 06/30/16 Pravastatin Sodium [Pravachol] 20 mg PO BEDTIME 06/30/16 Cephalexin [Keflex] 500 mg PO Q12HR #10 capsule 11/18/16 Furosemide [Lasix Tab] 20 mg PO QDAC #30 tablet 11/18/16 Metoprolol Tartrate [Lopressor] 25 mg PO BID #60 tablet 11/18/16 Potassium Chloride [K-Tab ER] 10 meq PO DAILY #30 tablet.er 11/18/16 Prednisone 10 mg PO BIDWM #10 tablet 11/18/16 Albuterol Sulfate [Ventolin Hfa] 18 gm IH TID #1 hfa.aer.ad 11/22/16 Codeine/Promethazine Syrup [Phenergan with Codeine 6.25/10 mg/5 ml] 5 ml PO Q8H #1 bottle 11/22/16
--- NOTE | 2016-11-22 07:08 | DI ---
EXAM: PA and lateral views of the chest HISTORY: Cough COMPARISON: Chest x-ray 11/18/2016 FINDINGS: The cardiomediastinal silhouette is unchanged with intact sternotomy wires. There is no p neumothorax or pleural effusion. There is no consolidation, nodule or mass. There is flattening of the diaphragm. There is mild central airway thickening. The osseous structures are unremarkable. IMPRESSION: Findings consistent with chronic obstructive pulmonary disease with central airway thic kening that may be a chronic change versus acute small airways inflammation.
[2016-11-22 07:19] LABS: BASOPHILS % (AUTO) 0.4 % (0.0-3.0); EOSINOPHILS # (AUTO) 0.3 K/ul (0.0-0.7); HEMATOCRIT 47.5 % (42.0-52.0); HEMOGLOBIN 15.8 g/dl (14.0-18.0); IMMATURE GRANULOCYTE % (AUTO) 0.9 % (0.0-5.0); LYMPHOCYTES # (AUTO) 1.8 K/uL (0.60-3.4); LYMPHOCYTES % (AUTO) 15.8 (10.0-50.0); MEAN CORPUSCULAR HEMOGLOBIN 29.5 pg (27.0-31.0); MEAN CORPUSCULAR HGB CONC 33.3 (31.8-35.4); MEAN CORPUSCULAR VOLUME 88.6 fl (80.0-94.0); MONOCYTES # (AUTO) 0.9 K/uL (0.4-2.0); MONOCYTES % (AUTO) 7.6 (0-10); NEUTROPHILS # (AUTO) 8.2 K/ul (2.0-6.9); NEUTROPHILS % (AUTO) 72.3; PLATELET COUNT 214 10^3/uL (140-440); RED BLOOD COUNT 5.36 10^6/ul (4.70-6.10); WHITE BLOOD COUNT 11.38 K/ul (4.2-10.2)
[2016-11-22 07:40] LABS: ABG BASE EXCESS 0 (-2.0-2.0); ABG HCO3 25 (22.0-26.0); ABG PH 7.39 (7.35-7.45); ABG TCO2 26 (22.0-28.0)
[2016-11-22 07:59] LABS: ALBUMIN 3.5 g/dL (3.4-5.0); ALBUMIN/GLOBULIN RATIO 1.13; ANION GAP 11.5; BILIRUBIN,TOTAL 0.31 mg/dL (0.00-1.20); BUN/CREATININE RATIO 16.25; CALCIUM 8.9 mg/dL (8.2-10.2); CREATININE 0.8 mg/dL (0.60-1.10); POTASSIUM 4.5 mmol/L (3.5-5.1); TOTAL PROTEIN 6.6 g/dL (6.4-8.2); TROPONIN I 0.129 ng/ml (0.0000-0.4000)
[2016-11-22] MEDS ORDERED: LOPRESSOR PO STA (08:06)
[2016-11-22] MEDS ORDERED: ZESTRIL PO STA (08:06)
[2016-11-22] MEDS ORDERED: LASIX IVP STA (09:08)
[2016-11-22] MEDS ORDERED: SODIUM CHLORIDE 1,000 ML IV SCH ×2 (09:30→12:52)
[2016-11-22] MEDS ORDERED: LASIX TAB PO SCH (10:30)
[2016-11-22] MEDS: PLAVIX PO SCH (10:30)
[2016-11-22] MEDS: MICRO-K CAP PO SCH (10:30)
[2016-11-22] MEDS: ASPIRIN EC PO SCH (10:30)
[2016-11-22] MEDS: PREDNISONE PO SCH ×2 (10:30→16:53)
[2016-11-22] MEDS: KEFLEX PO SCH ×2 (10:30→21:10)
[2016-11-22] MEDS: NORCO 7.5-325 PO PRN (15:00)
[2016-11-22 15:56] LABS: TROPONIN I 0.111 ng/ml (0.0000-0.4000)
[2016-11-22] MEDS ORDERED: PRAVACHOL PO SCH (21:00)
[2016-11-22] MEDS ORDERED: LOPRESSOR PO SCH (21:00)
[2016-11-22] MEDS ORDERED: AMBIEN PO PRN (21:08)
[2016-11-22] MEDS: LIBRIUM PO SCH (21:10)
[2016-11-22 23:21] LABS: TROPONIN I 0.09 ng/ml (0.0000-0.4000)
[2016-11-23] MEDS: NORCO 7.5-325 PO PRN (04:34)
[2016-11-23 05:17] LABS: BASOPHILS # (AUTO) 0.1 K/uL (0-0.2); BASOPHILS % (AUTO) 0.3 % (0.0-3.0); EOSINOPHILS # (AUTO) 0.3 K/ul (0.0-0.7); EOSINOPHILS % (AUTO) 2.3 % (0.0-7.0); HEMATOCRIT 45.6 % (42.0-52.0); HEMOGLOBIN 14.7 g/dl (14.0-18.0); IMMATURE GRANULOCYTE % (AUTO) 0.9 % (0.0-5.0); LYMPHOCYTES # (AUTO) 2.6 K/uL (0.60-3.4); LYMPHOCYTES % (AUTO) 17.1 (10.0-50.0); MEAN CORPUSCULAR HGB CONC 32.2 (31.8-35.4); MEAN CORPUSCULAR VOLUME 89.9 fl (80.0-94.0); MONOCYTES % (AUTO) 6.7 (0-10); NEUTROPHILS # (AUTO) 10.8 K/ul (2.0-6.9); NEUTROPHILS % (AUTO) 72.7; PLATELET COUNT 243 10^3/uL (140-440); RED BLOOD COUNT 5.07 10^6/ul (4.70-6.10); WHITE BLOOD COUNT 14.89 K/ul (4.2-10.2)
[2016-11-23 05:57] LABS: ALBUMIN 3.1 g/dL (3.4-5.0); ALBUMIN/GLOBULIN RATIO 1.11; ANION GAP 9.4; BILIRUBIN,TOTAL 0.52 mg/dL (0.00-1.20); BUN/CREATININE RATIO 18.75; CALCIUM 8.4 mg/dL (8.2-10.2); CREATININE 0.8 mg/dL (0.60-1.10); POTASSIUM 4.4 mmol/L (3.5-5.1); TOTAL PROTEIN 5.9 g/dL (6.4-8.2)
[2016-11-23] MEDS ORDERED: LASIX TAB PO SCH (06:30)
[2016-11-23] MEDS ORDERED: LOPRESSOR PO SCH (09:00)
[2016-11-23] MEDS ORDERED: NON-FORMULARY MEDICATION (Potassium Chloride [K-Tab Er] 10 MEQ) PO SCH (09:00)
[2016-11-23] MEDS ORDERED: ZESTRIL PO SCH (09:00)
[2016-11-23] MEDS ORDERED: NORCO 7.5-325 MG/15 ML PO STA (09:35)
[2016-11-23] MEDS: KEFLEX PO SCH (09:48)
[2016-11-23] MEDS ORDERED: NORCO 7.5-325 PO STA (09:48)
[2016-11-23] MEDS: PLAVIX PO SCH (09:49)
[2016-11-23] MEDS: PREDNISONE PO SCH (09:49)
[2016-11-23] MEDS: ASPIRIN EC PO SCH (09:50)
[2016-11-23] MEDS: LIBRIUM PO SCH (09:50)
[2016-11-23] MEDS: MICRO-K CAP PO SCH (09:51)
[2016-11-23 11:37] VITALS: BP 126/59; TEMP 97.9
--- NOTE | 2016-11-24 12:59 | PN ---
DATE OF SERVICE: 11/22/16 SUBJECTIVE: The patient is a 56 year old gentleman who was recently discharged from the [facility] for the shortness of breath and bronchitis came back today morning to the emergency room for the shortness of breath, coughing and elevated blood pressure. The patient given Decadron breathing treatment and Clonidine despite that the patient blood pressure was still high. Chest x-ray was negative. The patient forgot to take home medication and all of them were given; Zestril and omeprazole by Dr. Carvalho. The blood pressure was still elevated so patient was admitted to the hospital for the observation. REVIEW OF SYSTEMS: CONSTITUTIONAL: No fever, no chills. HEENT: Normal. ENDOCRINE: No weight gain, no weight loss. CVS: No angina symptoms. No CHF symptoms. No palpitations. No atypical chest pain for CAD. No shortness of breath. No PND, no orthopnea. RESPIRATORY: No cough, no hemoptysis. GI: No nausea, no vomiting. No abdominal pain. : No hematuria. No polyuria. MUSCULOSKELETAL:. No joint swelling. PSYCHIATRIC: Not anxious. No depression. No suicidal thoughts. No homicidal thoughts. SKIN: Intact. No rash. PHYSICAL EXAMINATION: V/S: Blood pressure 178/73, respiratory 16, heart rate 73 and temperature afebrile and saturation is 95 % on the room air. HEENT: Normocephalic, atraumatic. Ears, eyes, nose and throat normal. Mucosa dry. Pallor positive. No icterus. NECK: Supple. No JVD, no carotid bruit. No lymphadenopathy. LUNGS:Decreased with some crackles. No rales or rhonchi. HEART: S1, S2 normal. No S3. No murmur, gallop or regurgitation. ABDOMEN: Soft, nontender. Bowel sounds active. No rigidity. No rebound or guarding. No CVA tenderness. EXTREMITIES: No clubbing, cyanosis or pedal edema. MUSCULOSKELETAL: No joint swelling. NEUROLOGIC: Awake, alert, oriented times three. No focal deficit. LYMPHATIC: No lymph nodes palpable. SKIN: Intact. LABS: Sodium 138, potassium 4.5, chloride 103, Bicarb 28, BUN 13, creatinine 0.8, glucose 112, AST 48 ALT 79, BNP 454, WBC 11.38, hgb 15.8, hct 47.5 and plt count 214. ASSESSMENT: 1. Uncontrolled hypertension 2. Upper respiratory infection 3. Chronic heart failure 4. Coronary artery disease, bypass surgery PLAN: 1. Admit patient for the observation 2. Resume home medication 3. Diet is cardiac and healthy 4. Activity as tolerated 5. Librium 10mg twice a day 6. Continue the Keflex and Prednisone Will follow the patient in daily rounds. TIME SPENT: More than 30 minutes MTDD
--- NOTE | 2016-12-07 15:40 | SSS ---
DATE OF SERVICE: 11/23/16 REASON FOR ADMISSION: Uncontrolled hypertension. HISTORY OF PRESENT ILLNESS: Recent hospital stay 11/17/16 to 11/18/16 with hypertensive urgency and COPD. Blood pressure as high as 222/117 then. Back to ER with blood pressure 17/86 despite medication change. REVIEW OF SYSTEMS: CONSTITUTIONAL: No night sweats. No fatigue, malaise, lethargy. No fever or chills. HEENT: Eyes: No visual changes. No eye pain. No eye discharge. ENT: No runny nose. No epistaxis. No sinus pain. No sore throat. No odynophagia. No ear pain. No congestion. RESPIRATORY: Cough, no congestion. No hemoptysis. CARDIOVASCULAR: No angina symptoms. No CHF symptoms. No atypical chest pain for CAD. No palpitations. Shortness of breath improved with NEB. GASTROINTESTINAL: No abdominal pain. No nausea or vomiting. No diarrhea or constipation. No hematemesis. No hematochezia. GENITOURINARY: No urgency. No frequency. No dysuria. No hematuria. No obstructive symptoms. No discharge. No pain. No significant abnormal bleeding. MUSCULOSKELETAL: No musculoskeletal pain. No joint swelling. Neck pain- arthritis. NEUROLOGICAL: Awake, alert, oriented to time, place and person. No headache. No neck pain. No syncope. No seizures. No dizziness. PSYCHIATRIC: Not anxious. No depression. No suicidal thoughts. No homicidal thoughts. SKIN: No rash. No lesions. No wounds. ENDOCRINE: No unexplained weight loss. No weight gain. HEMATOLOGIC/LYMPHATIC: No anemia. No purpura. No petechiae. No prolonged or excessive bleeding. No palpable lymph nodes. PAST HISTORY: Congestive Heart Failure Coronary Artery Disease with history of [place] Status post 2 valve Coronary artery bypass grafting 04/28 Dyslipidemia Arthritis-back Depression/ Anxiety Hernia Repair Smoker x 40 years. PERSONAL/FAMILY HISTORY/SOCIAL HISTORY: Single, resides with significant other. Tobacco use, denies alcohol use or substance use. Independent with ADL's. No Home Health or Homemaking services able to provide own transportation. PHYSICAL EXAMINATION: GENERAL: The patient is a 56 year old male, height 5'5, weight 22 pounds. VITAL SIGNS: Blood pressure 176/88, heart rate 86, respiratory rate 24, temperature 97.8 and pulse ox 93% on room air. HEENT: Head normocephalic, atraumatic. Eyes: Extraocular muscles are intact. Pupils are equal, round and reactive to light and accommodation. Ears: No lesions. Nose appeared normal. Throat: No exudate or erythema. NECK: Supple. No JVD, no carotid bruit. No lymphadenopathy or thyromegaly. LUNGS: Bilaterally equal. Percussion note normal. Chest symmetrical. HEART: S1, S2, no S3. No murmurs. No cyanosis or clubbing. No ascites. Pulses: Dorsalis pedis and posterior tibial pulses +1 to +2 both sides. ABDOMEN: Soft. Nontender. Bowel sounds active. No CVA tenderness. No mass felt. EXTREMITIES: No edema. Full range of motion of all extremities, equal. NEUROLOGIC: No focal deficit. Cranial nerves II through XII are grossly intact. No headache, no double vision or headache. Awake, alert and oriented times 3. SKIN: Not dry. Intact. Turgor - normal. LYMPHATIC: No palpable lymph nodes/no lymphedema. MUSCULOSKELETAL: Normal joints with no swelling. Muscle tone is normal. Old/present records reviewed: Yes. Office records reviewed: Yes. EDUCATION CARRIED OUT: Cardiovascular risk factors Life style changes necessary to reduce. Smoking cessation Medications Follow-up Hypertension ALLERGIES: No known drug allergies MEDICATIONS: Pravachol Zestril Potassium [place] Plavix ASA Lasix Keflex Prednisone Lopressor Codeine with Phenergan Ventolin Hfa LABS/EKG'S/X-RAY/ECHO/ABG: WBC 11.38, hgb 15.8, hct 47.5 and plt count 214. Sodium 138, potassium 4.5, chloride 103, bicarb 28, BUN 13, creatinine 0.80 and glucose 112. Cardiac markers x3 negative. BNP 454. ABG at room air 91% sat, pH 7.39, pCO2 61, HCO3 25 and TCO2 26. Chest x-ray COPD chronic vs acute small airway thickening. PROGRESS NOTES: Feeling better today. Blood pressure increase this AM. Change Lopressor to 25mg PO twice a day. Blood pressure reading is improved with medication changes. DIAGNOSES: 1. Acute Bronchitis 2. Congestive heart failure 3. Coronary artery disease status post stent 4. Nicotine use 5. DJD Spine RECOMMENDATIONS/PLAN: 1. Discharge home 2. Follow-up Dr. Rangel as scheduled 3. Decreased Metoprolol to 50mg PO twice a day 4. Finish Keflex and Prednisone prescriptions 5. Plenty of rest at home 6. Stop Smoking TIME SPENT: More than 70 minutes. MTDD
== END 2016-11-23 13:45 | disposition home or self-care (01) ==
LOC: ED 06:11 → MEDSURG A 09:07 → INTOOBSV 09:07 → OBSVTOIN 09:07
PROVIDERS: ADMIT Emergency Medicine; ATTEND Emergency Medicine
DX: J20.9 Acute bronchitis, unspecified (principal); J44.0 Chronic obstructive pulmonary disease with (acute) lower respiratory infection; I50.9 Heart failure, unspecified; I10 Essential (primary) hypertension; I25.10 Atherosclerotic heart disease of native coronary artery without angina pectoris; I25.2 Old myocardial infarction; E78.5 Hyperlipidemia, unspecified; F17.210 Nicotine dependence, cigarettes, uncomplicated; Z95.1 Presence of aortocoronary bypass graft; Z79.01 Long term (current) use of anticoagulants; Z79.899 Other long term (current) drug therapy
CPT/HCPCS: 36415; 80053; 82550; 82803; 83880; 84484; 85025; 87081; 93005; 93010; 96361; 96372; 96374; 99284

== ENCOUNTER 2016-12-27 08:40 | Inpatient (IN) ==
[2016-12-27 08:47] VITALS: BMI 37.4
[2016-12-27] MEDS ORDERED: DUONEB NEB STA (08:47)
[2016-12-27] MEDS ORDERED: ROBITUSSIN DM SYRUP PO STA (08:53)
[2016-12-27] MEDS ORDERED: NORCO 10-325 PO STA ×2 (09:19→15:57)
--- NOTE | 2016-12-27 09:22 | DI ---
EXAM: Chest two views HISTORY: Chest pain COMPARISON: 11/18/2016 TECHNIQUE: Two views of the chest were performed FINDINGS: There is lower airway bronchial wall thickening. Lungs are mildly hyperinflated There is no definite airspace consolidation. There is no pleural effusion or pneumothorax. The heart is bor derline enlarged, unchanged in size. The mediastinal contour is unchanged, noting atherosclerosis. Median sternotomy wires.. There is no acute abnormality of the bones. IMPRESSION: Lower airway thickening may represent reactive airways disease or bronchiolitis. There may be a component of chronic obstructive pulmonary disease. No definite airspace consolidation.
[2016-12-27 09:30] LABS: BASOPHILS % (AUTO) 0.3 % (0.0-3.0); EOSINOPHILS # (AUTO) 0.1 K/ul (0.0-0.7); EOSINOPHILS % (AUTO) 1.9 % (0.0-7.0); HEMATOCRIT 46.2 % (42.0-52.0); HEMOGLOBIN 15.6 g/dl (14.0-18.0); IMMATURE GRANULOCYTE % (AUTO) 0.6 % (0.0-5.0); LYMPHOCYTES # (AUTO) 1.1 K/uL (0.60-3.4); LYMPHOCYTES % (AUTO) 17.9 (10.0-50.0); MEAN CORPUSCULAR HEMOGLOBIN 29.2 pg (27.0-31.0); MEAN CORPUSCULAR HGB CONC 33.8 (31.8-35.4); MEAN CORPUSCULAR VOLUME 86.5 fl (80.0-94.0); MONOCYTES # (AUTO) 0.8 K/uL (0.4-2.0); MONOCYTES % (AUTO) 12.3 (0-10); NEUTROPHILS # (AUTO) 4.1 K/ul (2.0-6.9); PLATELET COUNT 187 10^3/uL (140-440); RED BLOOD COUNT 5.34 10^6/ul (4.70-6.10); WHITE BLOOD COUNT 6.19 K/ul (4.2-10.2)
[2016-12-27 09:31] LABS: ABG PCO2 38.6 mmHg (35-45); ABG PH 7.431 (7.35-7.45)
[2016-12-27 09:32] LABS: ABG BASE EXCESS 1 (-2.0-2.0); ABG HCO3 25.7 (22.0-26.0); ABG TCO2 27 (22.0-28.0)
--- NOTE | 2016-12-27 09:37 | ED.PDOC ---
General ED Provider: Dr. DOV TSAI JR Chief Complaint: Shortness of Air Stated Complaint: patient states he has been coughing up clear -yellow phlegm. states clear nasal drainage also. patient states lungs are burning. denies fever or chills. states he is very weak.short of breath[ End ]since 12/27 97.8 85 28 88% 195/99 8[ End ]severe soa cough nasal prod clear yellow chf chest discomfort Time Seen by Physician: 08:45 Mode of Arrival: Walk-In Information Source: Patient Exam Limitations: No limitations, Clinical condition Primary Care Provider: ANASTASIA RANDALL Nursing and Triage Documentation Reviewed and Agree: No Review of Systems - Review Of Systems Constitutional: Reports: Malaise, Weakness Eyes: Reports: No symptoms Ears, Nose, Mouth, Throat: Reports: Nose discharge, Throat pain Respiratory: Reports: Cough (productive yellow), Short of air, Wheezing ( gurgling) Cardiac: Denies: Chest pain GI: Reports: No symptoms : Reports: No symptoms Musculoskeletal: Reports: No symptoms Skin: Reports: No symptoms Neurological: Reports: No symptoms Endocrine: Reports: No symptoms Hematologic/Lymphatic: Reports: No symptoms All Other Systems: Other Past Medical History - Past Medical History Previously Healthy: No Endocrine: Reports: Dyslipidemia Cardiovascular: Reports: CAD, [place], Hypertension, CHF Respiratory: Reports: COPD Hematological: Reports: None Gastrointestinal: Reports: None Genitourinary: Reports: Kidney stones Neuro/Psych: Reports: Depression Musculoskeletal: Reports: Arthritis, Back Pain Cancer: Reports: None - Surgical History General Surgical History: Reports: CABG (double bypass 6 months ago), Hernia Repair - Family History Family History: Reports: Unknown - Social History Smoking Status: Former smoker Hx Substance Use: No Alcohol Screening: None Physical Exam - Physical Exam Appearance: Ill-appearing, Obese Ill-appearing: Moderate Pain Distress: Moderate Eyes: WILVER, EOMI, Conjunctiva clear ENT: Ears normal, Nose normal, Oropharynx normal, Erythema (dry mucus membranes) Neck: Supple Respiratory: Airway patent, Breath sounds equal, Breath sounds diminished, Rhonchi, Wheezes Cardiovascular: RRR, Pulses normal, No rub, No murmur GI/: Soft, Nontender, No masses, Bowel sounds normal, No Organomegaly Musculoskeletal: Normal strength, ROM intact, No edema, No calf tenderness Skin: Warm, Dry, Normal color Neurological: Sensation intact, Motor intact, Reflexes intact, Cranial nerves intact, Alert, Oriented Psychiatric: Affect appropriate, Mood appropriate Critical Care Note - Critical Care Note Total Time (mins): 0 Course - Course Hematology/Chemistry: 12/27/16 09:05 12/27/16 09:05 Orders, Labs, Meds: Lab Review 12/27/16 12/27/16 12/27/16 08:46 09:05 11:15 WBC 6.19 RBC 5.34 Hgb 15.6 Hct 46.2 MCV 86.5 MCH 29.2 MCHC 33.8 RDW Coeff of Moris 13.2 Plt Count 187 Immature Gran % (Auto) 0.6 Neut % (Auto) 67.0 Lymph % (Auto) 17.9 [place] % (Auto) 12.3 H Eos % (Auto) 1.9 Baso % (Auto) 0.3 Immature Gran # (Auto) 0.0 Neut # 4.1 Lymph # 1.1 [place] # 0.8 Eos # 0.1 Baso # 0.0 D-Dimer 0.84 Puncture Site Lbrach O2 Saturation 91.0 L ABG pH 7.431 ABG pCO2 38.6 ABG pO2 60.0 L ABG HCO3 25.7 ABG Total CO2 27 ABG Base Excess 1 FiO2 % 21.0 Sodium 139 Potassium 4.2 Chloride 100 Carbon Dioxide 28 Anion Gap 15.2 BUN 9 Creatinine 0.81 Estimated GFR (MDRD) 99.00 BUN/Creatinine Ratio 11.11 Glucose 108 H Calcium 9.7 Total Bilirubin 1.01 AST 30 ALT 39 Alkaline Phosphatase 96 Total Creatine Kinase 127 CK-MB (CK-2) 2.0 CK-MB (CK-2) % 1.01719 Troponin I 0.2120 B-Natriuretic Peptide 895 H Total Protein 7.0 Albumin 3.7 Globulin 3.3 Albumin/Globulin Ratio 1.12 Urine Color Yellow Urine Clarity Clear Urine pH 7.0 Ur Specific [place] 1.015 Urine Protein 1+ Urine Glucose (UA) Negative Urine Ketones Negative Urine Blood 2+ Urine Nitrite Negative Urine Bilirubin Negative Urine Urobilinogen 0.2 Ur Leukocyte Esterase Negative Urine Microscopic RBC 10-20 Ur Squamous Epith Cells Not present Orders Category Date Time Status ABG DRAW REQUEST Stat CARDIO 12/27/16 08:46 Completed EKG-(ED ONLY) Stat CARDIO 12/27/16 08:46 Completed NEBULIZER TREATMENT Stat CARDIO 12/27/16 08:47 Completed ED APPLY O2 .ONCE EMERGENCY 12/27/16 09:38 Active ED IV/MEDIPORT/POWERPORT .ONCE EMERGENCY 12/27/16 08:46 Active ABG Stat LAB 12/27/16 08:46 Completed B-TYPE NATRIURETIC PEPTIDE Stat LAB 12/27/16 09:05 Completed BLOOD CULTURE Stat LAB 12/27/16 09:05 Received CBC W/ AUTO DIFF Stat LAB 12/27/16 09:05 Completed COMPREHENSIVE METABOLIC PANEL Stat LAB 12/27/16 09:05 Completed CREATINE KINASE Stat LAB 12/27/16 09:05 Completed D-DIMER Stat LAB 12/27/16 09:05 Completed SPUTUM CULTURE Stat LAB 12/27/16 10:00 Received TROPONIN I Stat LAB 12/27/16 09:05 Completed UA [URINALYSIS C & S IF INDICATED] Stat LAB 12/27/16 11:15 Completed 0.9 % Sodium Chloride [Saline Flush] MEDS 12/27/16 08:46 Active 1 syr IVF PRN PRN Ceftriaxone Sodium [Rocephin] MEDS 12/27/16 09:43 Discontinued 1 gm .ROUTE .STK-MED ONE Ceftriaxone Sodium [Rocephin] 1 gm MEDS 12/27/16 09:38 Discontinued 0.9 % Sodium Chloride [Sodium Chloride] 100 ml IV ONCE Furosemide [Lasix] MEDS 12/27/16 10:21 Discontinued 60 mg IVP ONCE STA Guaifenesin/Dextromethorphan [Robitussin Dm Syrup] MEDS 12/27/16 08:53 Discontinued 10 ml PO ONCE STA Hydrocodone Bit/Acetaminophen [[place] 10-325] MEDS 12/27/16 09:19 Discontinued 1 tab PO ONCE STA Ipratropium/Albuterol Neb [Duoneb] MEDS 12/27/16 08:47 Discontinued 1 vial NEB ONCE STA Methylprednisolone Sod Succ/Pf [Solu-Medrol 125 mg] MEDS 12/27/16 09:38 Discontinued 125 mg IVP ONCE STA CHEST, 1V AP ONLY Stat RADS 12/27/16 08:46 Completed Medications Generic Name Dose Route Start Last Admin Trade Name Freq PRN Reason Stop Dose Admin Acetaminophen 650 mg 12/27/16 12:27 Tylenol PO Q4H PRN Mild Pain Acetaminophen/Hydrocodone Bitart 1 tab 12/27/16 21:00 [place] 10-325 PO BID JULIANN Albuterol Sulfate 1 puff 12/27/16 15:00 12/27/16 17:34 Proair Hfa IH 1 puff TID JULIANN Administration Aspirin 81 mg 12/28/16 09:00 Aspirin Ec PO DAILY JULIANN Clopidogrel Bisulfate 75 mg 12/27/16 12:30 12/27/16 13:20 Plavix PO 75 mg DAILY JULIANN Administration Furosemide 20 mg 12/27/16 21:00 Lasix Tab PO BID JULIANN Hydrochlorothiazide 12.5 mg 12/28/16 09:00 Hydrochlorothiazide PO DAILY [facility] Ceftriaxone Sodium 1 gm/ 50 mls @ 75 mls/hr 12/28/16 09:00 Sodium Chloride IV DAILY JULIANN Ipratropium [place] 1 vial 12/27/16 18:00 12/27/16 18:25 Atrovent 0.02% Neb NEB 1 vial RTBID JULIANN Administration Lisinopril 40 mg 12/28/16 09:00 Zestril PO DAILY [facility] Methylprednisolone Sodium Succinate 125 mg 12/27/16 18:00 12/27/16 17:34 Solu-Medrol 125 Mg IVP 125 mg Q12H JULIANN Administration Metoprolol Tartrate 25 mg 12/27/16 21:00 Lopressor PO BID [facility] Potassium Chloride 10 meq 12/28/16 09:00 Micro-K Cap PO DAILY [facility] Pravastatin Sodium 20 mg 12/27/16 21:00 Pravachol PO BEDTIME JULIANN Sodium Chloride 1 syr 12/27/16 08:46 12/27/16 09:50 Saline Flush IVF 1 syr PRN PRN Administration To flush IV Discontinued Medications Generic Name Dose Route Start Last Admin Trade Name Freq PRN Reason Stop Dose Admin Acetaminophen/Hydrocodone Bitart 1 tab 12/27/16 09:19 12/27/16 09:27 [place] 10-325 PO 12/27/16 09:20 1 tab ONCE STA Administration Acetaminophen/Hydrocodone Bitart 1 tab 12/27/16 15:57 12/27/16 17:34 [place] 10-325 PO 12/27/16 15:58 1 tab ONCE STA Administration Albuterol/Ipratropium 1 vial 12/27/16 08:47 12/27/16 09:24 Duoneb NEB 12/27/16 08:48 1 vial ONCE STA Administration Furosemide 60 mg 12/27/16 10:21 12/27/16 10:28 Lasix IVP 12/27/16 10:22 60 mg ONCE STA Administration Guaifenesin/Dextromethorphan 10 ml 12/27/16 08:53 12/27/16 09:15 Robitussin Dm Syrup PO 12/27/16 08:54 10 ml ONCE STA Administration Ceftriaxone Sodium 1 gm/ 100 mls @ 100 mls/hr 12/27/16 09:38 12/27/16 09:53 Sodium Chloride IV 12/27/16 10:37 100 mls/hr ONCE STA Administration Methylprednisolone Sodium Succinate 125 mg 12/27/16 09:38 12/27/16 09:52 Solu-Medrol 125 Mg IVP 12/27/16 09:39 125 mg ONCE STA Administration Methylprednisolone Sodium Succinate 125 mg 12/27/16 13:00 Solu-Medrol 125 Mg IVP Q12HR JULIANN Vital Signs: Temp Pulse Resp BP Pulse Ox 12/27/16 08:45 97.8 F 85 28 H 195/99 H 88 L Departure - Departure Time of Disposition: 12:25 Disposition: ADMITTED INPATIENT Discharge Problem: Obstructive chronic bronchitis with exacerbation Condition: Stable Pt referred to PMD for follow-up: Yes Allergies/Adverse Reactions: Allergies No Known Allergies Allergy (Verified 12/27/16 08:47) Home Medications: Ambulatory Orders Aspirin [Adult Low Dose Aspirin EC] 81 mg PO DAILY 06/30/16 Clopidogrel Bisulfate [Plavix] 75 mg PO DAILY 06/30/16 Lisinopril [Zestril] 40 mg PO DAILY 06/30/16 Pravastatin Sodium [Pravachol] 20 mg PO BEDTIME 06/30/16 Potassium Chloride [K-Tab ER] 10 meq PO DAILY #30 tablet.er 11/18/16 Albuterol Sulfate [Ventolin Hfa] 18 gm IH TID #1 hfa.aer.ad 11/22/16 Furosemide [Lasix Tab] 20 mg PO BID 12/27/16 Hydrochlorothiazide 12.5 mg PO DAILY 12/27/16 Hydrocodone Bit/Acetaminophen [[place] 10-325] 1 tab PO BID 12/27/16 Metoprolol Tartrate [Lopressor] 25 mg PO BID 12/27/16
[2016-12-27] MEDS ORDERED: SOLU-MEDROL 125 MG IVP STA (09:38)
[2016-12-27] MEDS ORDERED: ROCEPHIN 1 GM in SODIUM CHLORIDE 100 ML IV STA (09:38)
[2016-12-27] MEDS ORDERED: ROCEPHIN ONE (09:43)
[2016-12-27 10:04] LABS: ALBUMIN 3.7 g/dL (3.4-5.0); ALBUMIN/GLOBULIN RATIO 1.12; ANION GAP 15.2; BILIRUBIN,TOTAL 1.01 mg/dL (0.00-1.20); BUN/CREATININE RATIO 11.11; CALCIUM 9.7 mg/dL (8.2-10.2); CREATININE 0.81 mg/dL (0.60-1.10); POTASSIUM 4.2 mmol/L (3.5-5.1); TROPONIN I 0.212 ng/ml (0.0000-0.4000)
[2016-12-27] MEDS ORDERED: LASIX IVP STA (10:21)
[2016-12-27 11:18] LABS: BILIRUBIN,URINE Negative (NEGATIVE); KETONES,URINE Negative (NEGATIVE); LEUKOCYTE ESTERASE ,URINE Negative (NEGATIVE); NITRITE,URINE Negative (NEGATIVE); PROTEIN,URINE 1+ (NEGATIVE); URINE, BLOOD 2+ (NEGATIVE)
[2016-12-27 11:19] LABS: ADD URINE MICROSCOPIC YES
[2016-12-27] MEDS ORDERED: TYLENOL PO PRN (12:27)
[2016-12-27] MEDS ORDERED: SOLU-MEDROL 125 MG IVP SCH (13:00)
[2016-12-27] MEDS: PLAVIX PO SCH (13:20)
--- NOTE | 2016-12-27 14:03 | HP ---
DATE OF SERVICE: 12/27/16 REASON FOR HOSPITALIZATION: Shortness of breath HISTORY OF PRESENT ILLNESS: The patient is a 56 year old male with history of coronary artery disease, CABG , congestive heart failure, non-compliant with medications and doesn't usually come to the office. The patient has been having coughing, congestion from 2-3 days. Woke up today very short of breath and not able to breath so came to the emergency room and seen by Dr. Ferreira in the emergency room. Blood pressure 195/99 , respiratory rate 28, heart rate 85, saturation [address] at [address] time [address] Ferreira did the ABG and showed the pH 7.43, pCO2 38.6, pO2 60. Chest x-ray showed the pulmonary congestion, BNP 895 and at that time the patient was admitted the hospital secondary to the hypertensive urgency, acute on chronic heart failure. REVIEW OF SYSTEMS: CONSTITUTIONAL: No night sweats. Weakness and tiredness. No fever or chills. HEENT: Eyes: No visual changes. No eye pain. No eye discharge. ENT: No runny nose. No epistaxis. No sinus pain. No sore throat. No odynophagia. No ear pain. No congestion. RESPIRATORY: No cough, no congestion. No hemoptysis. CARDIOVASCULAR: No angina symptoms. No CHF symptoms. No atypical chest pain for CAD. No palpitations. Shortness of breath. GASTROINTESTINAL: No abdominal pain. No nausea or vomiting. No diarrhea or constipation. No hematemesis. No hematochezia. GENITOURINARY: No urgency. No frequency. No dysuria. No hematuria. No obstructive symptoms. No discharge. No pain. No significant abnormal bleeding. MUSCULOSKELETAL: No musculoskeletal pain. No joint swelling. No arthritis. NEUROLOGICAL: No headache. No neck pain. No syncope. No seizures. No dizziness. PSYCHIATRIC: Not anxious. No depression. No suicidal thoughts. No homicidal thoughts. SKIN: No rash. No lesions. No wounds. ENDOCRINE: No unexplained weight loss. No weight gain. HEMATOLOGIC/LYMPHATIC: No anemia. No purpura. No petechiae. No prolonged or excessive bleeding. No palpable lymph nodes. PERSONAL/FAMILY/SOCIAL HISTORY: The patient smokes 2-3 cigarettes per day. No alcohol and no drugs. Family history is significant for the diabetes. PAST MEDICAL/SURGICAL PROBLEMS: CAD, status post stent in 2012 and 2013 and 2016 double bypass Heart attack 2013 Hypertension Dyslipidemia Osteoarthritis Nicotine use Non-compliance Bypass surgery Double hernia surgery Depression MEDICATIONS: Prevocal Zestril Aspirin Plavix Potassium Ventolin [place] Hydrochlorothiazide Lopressor Lasix ALLERGIES: No known allergies. PHYSICAL EXAMINATION: VITAL SIGNS: Blood pressure 195/99, respiratory rate 28, heart rate 88, temperature 97.8 by time I examined the patient already had a Lasix and the saturation went up to 92%, respiratory rate 20 and blood pressure 156/90. HEENT: Head normocephalic, atraumatic. Eyes: Extraocular muscles are intact. Pupils are equal, round and reactive to light and accommodation. Ears: No lesions. Nose appeared normal. Throat: No exudate or erythema. Mucosa dry. NECK: Supple. No JVD, no carotid bruit. No lymphadenopathy or thyromegaly. LUNGS: Decreased and clear to auscultation. Percussion note normal. Chest symmetrical. HEART: S1, S2, no S3. No murmurs. No cyanosis or clubbing. No ascites. Pulses: Dorsalis pedis and posterior tibial pulses +1 to +2 both sides. ABDOMEN: Soft. Nontender. Bowel sounds active. No CVA tenderness. No mass felt. EXTREMITIES: No edema. Full range of motion of all extremities, equal. NEUROLOGIC: No focal deficit. Cranial nerves II through XII are grossly intact. No headache, no double vision or headache. SKIN: Not dry. Intact. Turgor - normal. LYMPHATIC: No palpable lymph nodes/no lymphedema. MUSCULOSKELETAL: Normal joints with no swelling. Muscle tone is normal. LABS: WBC 6.19, hgb 15.6, hct 46.2, plt count 187, sodium 139, potassium 4.2, chloride 100, bicarb 28, BUN 9, creatinine 0.81 and glucose 108. BNP 895. First set of cardiac enzymes are negative. EKG no acute changes. Chest x-ray pulmonary congestion. ASSESSMENT: 1. Acute on chronic heart failure 2. Hypertension 3. Dyslipidemia 4. CABG 5. Osteoarthritis 6. DJD spine PLAN: 1. Admit patient to the regular floor 2. CBC and CMP today and and daily 3. Cardiac enzymes and Troponin 4. Lasix 5. Continue Albuterol 6. Aspirin 7. Plavix 8. Hydrochlorothiazide 9. Hydrocodone 10.Lisinopril 11.Lopressor 12.Potassium 13.Pravastatin 14.Daily I&O's 15.Activity as much as tolerated Will follow the patient in daily rounds. TIME SPENT: More than 65 minutes. MTDD
[2016-12-27] MEDS: SOLU-MEDROL 125 MG IVP SCH (17:34)
[2016-12-27] MEDS: PROAIR HFA IH SCH ×2 (17:34→21:31)
[2016-12-27] MEDS: ATROVENT 0.02% NEB NEB SCH (18:25)
[2016-12-27 18:58] LABS: TROPONIN I 0.158 ng/ml (0.0000-0.4000)
[2016-12-27 19:00] LABS: CREATINE KINASE MB 2.4 ng/ml (0.0-3.6)
[2016-12-27] MEDS ORDERED: LOPRESSOR PO SCH (21:00)
[2016-12-27] MEDS: NORCO 10-325 PO SCH (21:31)
[2016-12-27] MEDS: LOPRESSOR PO SCH (21:31)
[2016-12-27] MEDS: PRAVACHOL PO SCH (21:32)
[2016-12-27] MEDS: LASIX TAB PO SCH (21:32)
[2016-12-28 03:11] LABS: BASOPHILS % (AUTO) 0.2 % (0.0-3.0); HEMOGLOBIN 14.7 g/dl (14.0-18.0); IMMATURE GRANULOCYTE % (AUTO) 0.6 % (0.0-5.0); LYMPHOCYTES # (AUTO) 0.9 K/uL (0.60-3.4); LYMPHOCYTES % (AUTO) 7.7 (10.0-50.0); MEAN CORPUSCULAR HEMOGLOBIN 29.1 pg (27.0-31.0); MEAN CORPUSCULAR HGB CONC 33.4 (31.8-35.4); MEAN CORPUSCULAR VOLUME 87.1 fl (80.0-94.0); MONOCYTES # (AUTO) 0.6 K/uL (0.4-2.0); NEUTROPHILS # (AUTO) 10.3 K/ul (2.0-6.9); NEUTROPHILS % (AUTO) 86.5; PLATELET COUNT 208 10^3/uL (140-440); RED BLOOD COUNT 5.05 10^6/ul (4.70-6.10); WHITE BLOOD COUNT 11.91 K/ul (4.2-10.2)
[2016-12-28 03:31] LABS: ALBUMIN 3.3 g/dL (3.4-5.0); ALBUMIN/GLOBULIN RATIO 1.03; BILIRUBIN,TOTAL 0.43 mg/dL (0.00-1.20); BUN/CREATININE RATIO 23.8; CALCIUM 9.4 mg/dL (8.2-10.2); CREATININE 0.84 mg/dL (0.60-1.10); TOTAL PROTEIN 6.5 g/dL (6.4-8.2)
[2016-12-28 03:49] LABS: TROPONIN I 0.119 ng/ml (0.0000-0.4000)
[2016-12-28 03:50] LABS: CREATINE KINASE MB 2.7 ng/ml (0.0-3.6)
[2016-12-28] MEDS: ATROVENT 0.02% NEB NEB SCH (05:13)
[2016-12-28] MEDS: SOLU-MEDROL 125 MG IVP SCH (05:26)
[2016-12-28] MEDS: LASIX TAB PO SCH ×2 (08:51→17:10)
[2016-12-28] MEDS: ZESTRIL PO SCH (08:51)
[2016-12-28] MEDS: NORCO 10-325 PO SCH (08:51)
[2016-12-28] MEDS: ASPIRIN EC PO SCH (08:51)
[2016-12-28] MEDS: ROCEPHIN 1 GM in SODIUM CHLORIDE 100 ML IV SCH (08:51)
[2016-12-28] MEDS: PLAVIX PO SCH (08:51)
[2016-12-28] MEDS: MICRO-K CAP PO SCH (08:52)
[2016-12-28] MEDS: HYDROCHLOROTHIAZIDE PO SCH (08:52)
[2016-12-28] MEDS: LOPRESSOR PO SCH ×2 (08:52→21:09)
[2016-12-28] MEDS ORDERED: NON-FORMULARY MEDICATION (Hydrochlorothiazide [Hydrochlorothiazide] 12.5 MG) PO SCH ×22 (09:00)
[2016-12-28] MEDS ORDERED: NON-FORMULARY MEDICATION (Potassium Chloride [K-Tab Er] 10 MEQ) PO SCH (09:00)
[2016-12-28] MEDS ORDERED: ROCEPHIN 1 GM in SODIUM CHLORIDE 50 ML IV SCH (09:00)
[2016-12-28] MEDS: DUONEB NEB SCH ×3 (11:11→23:05)
[2016-12-28] MEDS: SOLU-MEDROL 40 MG IVP SCH ×2 (13:51→22:02)
[2016-12-28] MEDS ORDERED: NORCO 10-325 ONE (15:20)
[2016-12-28] MEDS: NORCO 10-325 PO PRN ×2 (15:22→21:22)
[2016-12-28] MEDS: PRAVACHOL PO SCH (21:09)
[2016-12-29] MEDS: DUONEB NEB SCH ×2 (05:06→11:20)
[2016-12-29] MEDS: SOLU-MEDROL 40 MG IVP SCH ×2 (05:38→14:22)
[2016-12-29] MEDS: LASIX TAB PO SCH (05:38)
[2016-12-29 07:02] LABS: BASOPHILS % (AUTO) 0.1 % (0.0-3.0); HEMATOCRIT 48.2 % (42.0-52.0); HEMOGLOBIN 15.8 g/dl (14.0-18.0); IMMATURE GRANULOCYTE % (AUTO) 3.2 % (0.0-5.0); LYMPHOCYTES # (AUTO) 1.6 K/uL (0.60-3.4); LYMPHOCYTES % (AUTO) 7.4 (10.0-50.0); MEAN CORPUSCULAR HEMOGLOBIN 29.2 pg (27.0-31.0); MEAN CORPUSCULAR HGB CONC 32.8 (31.8-35.4); MEAN CORPUSCULAR VOLUME 88.9 fl (80.0-94.0); MONOCYTES # (AUTO) 1.3 K/uL (0.4-2.0); NEUTROPHILS # (AUTO) 17.7 K/ul (2.0-6.9); NEUTROPHILS % (AUTO) 83.3; PLATELET COUNT 261 10^3/uL (140-440); RED BLOOD COUNT 5.42 10^6/ul (4.70-6.10); WHITE BLOOD COUNT 21.25 K/ul (4.2-10.2)
[2016-12-29 08:18] LABS: ALBUMIN 3.8 g/dL (3.4-5.0); ALBUMIN/GLOBULIN RATIO 1.09; ANION GAP 20.4; BILIRUBIN,TOTAL 0.31 mg/dL (0.00-1.20); BUN/CREATININE RATIO 27.9; CALCIUM 9.4 mg/dL (8.2-10.2); CREATININE 0.86 mg/dL (0.60-1.10); POTASSIUM 4.4 mmol/L (3.5-5.1); TOTAL PROTEIN 7.3 g/dL (6.4-8.2)
[2016-12-29] MEDS: ROCEPHIN 1 GM in SODIUM CHLORIDE 100 ML IV SCH (09:53)
[2016-12-29] MEDS: ASPIRIN EC PO SCH (09:53)
[2016-12-29] MEDS: HYDROCHLOROTHIAZIDE PO SCH (09:54)
[2016-12-29] MEDS: LOPRESSOR PO SCH (09:54)
[2016-12-29] MEDS: PLAVIX PO SCH (09:55)
[2016-12-29] MEDS: ZESTRIL PO SCH (09:55)
[2016-12-29] MEDS: MICRO-K CAP PO SCH (09:55)
[2016-12-29] MEDS: NORCO 10-325 PO PRN (10:04)
--- NOTE | 2016-12-29 11:38 | CM.DICTOOL ---
ADMISSION: 12/27/16 11:57 DISCHARGE: 12/29/16 DATE OF SERVICE: 12/29/16 FINAL DIAGNOSIS BRONCHITIS, ACUTE COPD CAD WITH HISTORY OF DC HYPERTENSION CHF ARTHRITIS (BACK) DEPRESSION/ANXIETY FORMER SMOKER (40 YEARS) CABG X2 VESSEL, 07/29 HERNIA REPAIR LAST VITALS Temp Pulse Resp BP Pulse Ox 98.1 F 86 20 164/82 H 94 L 12/29/16 06:00 12/29/16 06:00 12/29/16 06:00 12/29/16 06:00 12/29/16 06:00 ACTIVE MEDICATIONS Acetaminophen/Hydrocodone Bitart ([place] 10-325) 1 tab PO BID PRN PRN Reason: pain Last Admin: 12/29/16 10:04 Dose: 1 tab Albuterol Sulfate (Ventolin Hfa) 18 gm IH TID Aspirin (Aspirin Ec) 81 mg PO DAILY [facility] Last Admin: 12/29/16 09:53 Dose: 81 mg Clopidogrel Bisulfate (Plavix) 75 mg PO DAILY [facility] Last Admin: 12/29/16 09:55 Dose: 75 mg Furosemide (Lasix Tab) 20 mg PO BIDAC [facility] Last Admin: 12/29/16 05:38 Dose: 20 mg Hydrochlorothiazide (Hydrochlorothiazide) 12.5 mg PO DAILY [facility] Last Admin: 12/29/16 09:54 Dose: 12.5 mg Lisinopril (Zestril) 40 mg PO DAILY [facility] Last Admin: 12/29/16 09:55 Dose: 40 mg Metoprolol Tartrate (Lopressor) 25 mg PO BID [facility] Last Admin: 12/29/16 09:54 Dose: 25 mg Potassium Chloride (Micro-K Cap) 10 meq PO DAILY [facility] Last Admin: 12/29/16 09:55 Dose: 10 meq Pravastatin Sodium (Pravachol) 20 mg PO BEDTIME [facility] Last Admin: 12/28/16 21:09 Dose: 20 mg ALLERGIES No Known Allergies Allergy (Verified 12/27/16 08:47) NEW PRESCRIPTIONS: 1. KELFEX 500 MG, TAKE ONE TABLET BY MOUTH TWICE DAILY FOR 5 (FIVE) DAYS 2. PREDNISONE 10 MG, TAKE ONE TABLET BY MOUTH TWICE DAILY WITH FOOD FOR 5 ( FIVE) DAYS 3. USE CONTINUOUS OXYGEN AT 2L/NC SMOKING: STOPPED SMOKING JUST RECENTLY ENCOURAGEMENT PROVIDED WITH REGARD TO CONTINUATION OF THE COMPLETE SMOKING CESSATION. THE PATIENT HAS VERBALIZED HIS PLAN TO CONTINUE COMPLETE CESSATION. DISEASE SPECIFIC EDUCATION: BRONCHITIS COPD OXYGEN USE HOME MEDICATIONS NEW PRESCRIPTIONS FOLLOW UP LAB REVIEW: 12/29/16 06:30 12/29/16 06:30 12/29/16 06:30: WBC 21.25 H D, RBC 5.42, Hgb 15.8, Hct 48.2, MCV 88.9, MCH 29.2 , MCHC 32.8, RDW Coeff of [place] 13.5, Plt Count 261, Immature Gran % (Auto) 3.2, Neut % (Auto) 83.3, Lymph % (Auto) 7.4 L, [place] % (Auto) 6.0, Eos % (Auto) 0.0, Baso % (Auto) 0.1, Immature Gran # (Auto) 0.7, Neut # 17.7 H, Lymph # 1.6, [place] # 1.3, Eos # 0.0, Baso # 0.0, Sodium 139, Potassium 4.4, Chloride 98, Carbon Dioxide 25, Anion Gap 20.4, BUN 24 H, Creatinine 0.86, Estimated GFR (MDRD) 92.00, BUN/Creatinine Ratio 27.90, Glucose 113 H, Calcium 9.4, Total Bilirubin 0.31, AST 39 H, ALT 54, Alkaline Phosphatase 113, Total Protein 7.3, Albumin 3.8 , Globulin 3.5, Albumin/Globulin Ratio 1.09 PLAN: DISCHARGE HOME TODAY RETURN TO SEE DR. STREET IN 5-7 DAYS. PHONE THE OFFICE TO SCHEDULE YOUR APPOINTMENT ([phone]) RESUME YOUR HOME MEDICATIONS PER LIST PROVIDED BY THE NURSING STAFF NEW PRESCRIPTIONS: 1. KELFEX 500 MG, TAKE ONE TABLET BY MOUTH TWICE DAILY FOR 5 (FIVE) DAYS 2. PREDNISONE 10 MG, TAKE ONE TABLET BY MOUTH TWICE DAILY WITH FOOD FOR 5 ( FIVE) DAYS 3. USE CONTINUOUS OXYGEN AT 2L/NC [facility] WILL PROVIDE YOUR OXYGEN AND SUPPLIES # [phone] DIET: HEALTHY HEART ACTIVITY: GET PLENTY OF REST AT HOME. GRADUALLY INCREASE YOUR ACTIVITY LEVEL ACCORDING TO YOUR TOLERATION SUMMARY: THE PATIENT IS ALERT AND ORIENTED X3. HE CURRENTLY RESIDES AT HOME. HE HAS BEEN INDEPENDENT WITH ADL'S. AT DISCHARGE MR. PEREIRA WILL REQUIRE CONTINUOUS OXYGEN AT 2L/NC. WE HAVE DISCUSSED HIS OXYGEN NEEDS WITH HIM. HE HAS VOICED A GOOD UNDERSTANDING OF THE INFORMATION PROVIDED AND IS AGREEABLE TO BE COMPLIANT WITH THESE OXYGEN INSTRUCTIONS. AT DISCHARGE HE DESIRES TO RETURN TO HIS HOME. HIS SKIN TURGOR IS INTACT AND WITHOUT DECUBITUS ULCERS. MR. PEREIRA IS AFEBRILE. HE IS ABLE TO BE UP AND AMBULATORY INDEPENDENTLY. THE PATIENT IS AWARE AND AGREEABLE FOR DISCHARGE TODAY. HALIMA STREET M.D.
--- NOTE | 2016-12-29 12:41 | DI ---
Examination: Two radiographic images of the chest. Comparison: 12/27/2016. Reason for study: Shortness of breath with cough. FINDINGS: No pneumothorax, pleural effusion, focal consolidation. Similar appearing operative teran ges are noted after midline sternotomy. There is flattening of the hemidiaphragms bilaterally. The cardiac silhouette is unchanged. Impression: 1. No acute cardiopulmonary findings. 2. Likely chronic obstructive pulmonary disease.
[2016-12-29 14:25] VITALS: BP 151/72; TEMP 98
--- NOTE | 2017-01-04 12:49 | DS ---
DATE OF SERVICE: 12/29/16 FINAL DIAGNOSIS: 1. Acute on chronic heart failure 2. Bronchitis, acute 3. COPD 4. Coronary artery disease with history of [place] 5. Hypertension 6. Congestive heart failure 7. Arthritis (back) 8. Depression/anxiety 9. Former smoker(40 years) 10. CABG x2 vessel, 07/29 11. Hernia repair. LAST VITALS: Temperature 98.1, pulse 86, respiratory rate 20, blood pressure 164/82 and pulse ox 94%. DISCHARGE INSTRUCTIONS: Discharge home today. Return to Dr. Mcnamara in 5-7 days. Resume home medication sas per list provided by the nursing staff. MEDICATIONS AT DISCHARGE: [place] 10-325 PO twice a day PRN Ventolin 18grams IH three times a day Plavix 75mg PO daily Lasix 20mg PO twice a day Hydrochlorothiazide 12.5mg PO daily Zestril 40mg PO daily Lopressor 25mg Po twice a day Micro-k Cap 10 meq PO daily Pravachol 20mg PO bedtime ALLERGIES: No known allergies NEW PRESCRIPTIONS: Keflex 500mg , take one tablet by mouth twice daily for five days Prednisone 10mg take one tablet by mouth twice daily with food for five days Use Continuous oxygen at 2 liters nasal cannula DIET INSTRUCTIONS: Healthy heart ACTIVITY: Get plenty of rest at home. Gradually increase activity level according to toleration. SMOKING: Stopped smoking just recently Encouragement provided with regard to continuation of the complete smoking cessation. The patient has verbalized his plan to continue complete cessation. DISEASE SPECIFIC EDUCATION: Bronchitis COPD Oxygen use Home medications New prescriptions Followup. HOSPITAL COURSE: This is a 56 year old male with a history of COPD, acute heart failure history with bypass surgery came to the emergency room with the shortness of breath, cough and congestion. ABG showed the pH 7.431, pCO2 38.6, pO2 60 and BNP 895. The chest x-ray showed the pulmonary congestion and at that time the patient is admitted to the hospital with antibiotics, steroids and Lasix were give. With the given Lasix the patient was a lot better. With breathing treatment, steroids and antibiotics he was more up and about and walking. Ambulated out of the room to the outside. The patient was hypoxic and was elevated for the home oxygen. Repeat chest x-ray did not show any acute findings, COPD. WBC was 21, 000 mostly from the steroids. As patient was doing fine and did not have any complications the patient being discharged home. TIME SPENT: More than 40 minutes today. MAURICE
--- NOTE | 2017-01-04 12:55 | PN ---
DATE OF SERVICE: 12/29/16 SUBJECTIVE: This is a 56 year old male with a history of COPD, acute heart failure history with bypass surgery came to the emergency room with the shortness of breath, cough and congestion. ABG showed the pH 7.431, pCO2 38.6, pO2 60 and BNP 895. The chest x-ray showed the pulmonary congestion and at that time the patient is admitted to the hospital with antibiotics, steroids and Lasix were give. With the given Lasix the patient was a lot better. With breathing treatment, steroids and antibiotics he was more up and about and walking. Ambulated out of the room to the outside. The patient was hypoxic and was elevated for the home oxygen. Repeat chest x-ray did not show any acute findings, COPD. WBC was 21, 000 mostly from the steroids. As patient was doing fine and did not have any complications the patient being discharged home. REVIEW OF SYSTEMS: CONSTITUTIONAL: No fever, no chills. HEENT: Normal. ENDOCRINE: No weight gain, no weight loss. CVS: No angina symptoms. No CHF symptoms. No palpitations. No atypical chest pain for CAD. No shortness of breath. No PND, no orthopnea. RESPIRATORY: No cough, no hemoptysis. GI: No nausea, no vomiting. No abdominal pain. : No hematuria. No polyuria. MUSCULOSKELETAL:. No joint swelling. PSYCHIATRIC: Not anxious. No depression. No suicidal thoughts. No homicidal thoughts. SKIN: Intact. No rash. PHYSICAL EXAMINATION: V/S: blood pressure 115/72, respiratory rate 16, heart rate 75 and temperature 98.0. HEENT: Normocephalic, atraumatic. Ears, eyes, nose and throat normal. Mucosa dry. NECK: Supple. No JVD, no carotid bruit. No lymphadenopathy. LUNGS: Decreased and clear to auscultation. No rales or rhonchi. HEART: S1, S2 normal. No S3. No murmur, gallop or regurgitation. ABDOMEN: Soft, nontender. Bowel sounds active. No rigidity. No rebound or guarding. No CVA tenderness. EXTREMITIES: No clubbing, cyanosis or pedal edema. MUSCULOSKELETAL: No joint swelling. NEUROLOGIC: Awake, alert, oriented times three. No focal deficit. LYMPHATIC: No lymph nodes palpable. SKIN: Intact. LABS: WBc 21.25, hgb 15.8, hct 48.2, plt count 261, sodium 139, potassium 4.4, chloride 98, bicarb 21, BUN 24, creatinine 0.86 and glucose 113. ASSESSMENT: 1. Acute on chronic heart failure 2. Bronchitis 3. Coronary artery disease with history of [place] 4. Hypertension 5. Congestive heart failure 6. Arthritis 7. Depression/anxiety 8. Former smoker 9. CABG 10. Hernia repair. PLAN: 1. Discharge patient home 2. New medication Keflex, Prednisone 3. Continue the Oxygen at 2 liters, the patient does qualify for the oxygen and he had completed a 2-step exercised for 5-10 minutes which dropped the saturation below 88% so he is automatically qualified. Discussed about the oxygen use and the importance and the patient verbalized the understanding. TIME SPENT: More than 30 minutes MTDD
--- NOTE | 2017-01-04 13:20 | PN ---
DATE OF SERVICE: 12/28/16 SUBJECTIVE: The patient was admitted with the congestive heart failure exacerbation, shortness of breath. He is feeling better going in and out of the hospital and walking all over the hospital. Says that the oxygen is helping him and he is feeling better. He did not have any questions. Still has some coughing and congestion otherwise no new problems. REVIEW OF SYSTEMS: CONSTITUTIONAL: No fever, no chills. HEENT: Normal. ENDOCRINE: No weight gain, no weight loss. CVS: No angina symptoms. No CHF symptoms. No palpitations. No atypical chest pain for CAD. No shortness of breath. No PND, no orthopnea. RESPIRATORY: Some cough and congestion, no hemoptysis. GI: No nausea, no vomiting. No abdominal pain. : No hematuria. No polyuria. MUSCULOSKELETAL:. No joint swelling. PSYCHIATRIC: Not anxious. No depression. No suicidal thoughts. No homicidal thoughts. SKIN: Intact. No rash. PHYSICAL EXAMINATION: V/S: Blood pressure 127/69, respiratory rate 16, heart rate 70 and temperature 96.9. HEENT: Normocephalic, atraumatic. Ears, eyes, nose and throat normal. Mucosa dry. NECK: Supple. No JVD, no carotid bruit. No lymphadenopathy. LUNGS: Decreased and clear to auscultation. No rales or rhonchi. HEART: S1, S2 normal. No S3. No murmur, gallop or regurgitation. ABDOMEN: Soft, nontender. Bowel sounds active. No rigidity. No rebound or guarding. No CVA tenderness. EXTREMITIES: No clubbing, cyanosis or pedal edema. MUSCULOSKELETAL: No joint swelling. NEUROLOGIC: Awake, alert, oriented times three. No focal deficit. LYMPHATIC: No lymph nodes palpable. SKIN: Intact. LABS: WBC 11.91, hgb 14.7, hct 44.0, plt count 208, sodium 137, potassium 4.0, chloride 98, bicarb 28, BUN 20 and creatinine 0.84. ASSESSMENT: 1. Acute on chronic heart failure 2. Upper respiratory infection 3. Coronary artery disease, bypass surgery 4. Diabetes Mellitus 5. Hypertension 6. Dyslipidemia PLAN: 1. Continue Rocephin, DUO NEBS and steroids 2. Daily I&O's 3. Out of bed to chair activity as tolerated. TIME SPENT: More than 30 minutes MTDD
== END 2016-12-29 14:25 | disposition home or self-care (01) | DRG 292 ==
LOC: ED 08:40 → MEDSURG B 11:57
PROVIDERS: ADMIT Emergency Medicine; ATTEND Emergency Medicine
DX: I50.9 Heart failure, unspecified (principal); J44.0 Chronic obstructive pulmonary disease with (acute) lower respiratory infection; J44.1 Chronic obstructive pulmonary disease with (acute) exacerbation; J20.9 Acute bronchitis, unspecified; E11.9 Type 2 diabetes mellitus without complications; I10 Essential (primary) hypertension; I25.10 Atherosclerotic heart disease of native coronary artery without angina pectoris; I25.2 Old myocardial infarction; E78.5 Hyperlipidemia, unspecified; M19.90 Unspecified osteoarthritis, unspecified site; F41.8 Other specified anxiety disorders; Z95.1 Presence of aortocoronary bypass graft; Z87.891 Personal history of nicotine dependence; Z79.01 Long term (current) use of anticoagulants; Z79.899 Other long term (current) drug therapy
CPT/HCPCS: 36415; 80053; 81001; 82550; 82553; 82803; 83880; 84484; 85025; 85379; 87040; 87070; 87081; 93005; 93010; 94640; 94761; 96365; 96375; 99284

== ENCOUNTER 2017-01-03 13:50 | Outpatient (CLI) ==
--- NOTE | 2017-01-03 14:56 | CT ---
EXAM: CT abdomen pelvis with contrast HISTORY: Abdominal pain and distension with back pain and known history of injury. Patient with hi story of prior appendectomy and hysterectomy. COMPARISON: None TECHNIQUE: Serial axial images of the abdomen pelvis were performed after IV contrast was administe red. These were obtained from the lung bases through the inferior pelvis. FINDINGS: The lung bases demonstrate ground-glass nodule in the left lung base measuring 0.6 cm in diameter on image six. The liver is unremarkable. The gallbladder is normal without inflammation. The adrenal glands are unremarkable. The kidneys are normal. The spleen is unremarkable. The pancreas is normal. The st omach is normal. The small bowel in the abdomen pelvis is normal. The colon demonstrates diverticulosis without dive rticulitis. Appendix is not identified consistent with prior appendectomy. There has been a prior hysterectomy. The urinary bladder is partially distended. There is no free air, free fluid or lymp hadenopathy. The osseous structures demonstrate degenerative disease and facet arthropathy. IMPRESSION: 1. No acute intra-abdominal or pelvic process to account for patient's symptoms. 2. Changes of prior hysterectomy and appendectomy. 3. 0.6 cm ground-glass nodule in the left lung base may be postinflammatory. Follow-up as clinical ly indicated. 4. Diverticulosis without diverticulitis.
== END 2017-01-03 13:51 | disposition home or self-care (01) ==
LOC: RAD 13:50
PROVIDERS: ATTEND Internal Medicine
DX: M54.5 Low back pain (principal)

== ENCOUNTER 2017-01-04 12:21 | Outpatient (CLI) ==
--- NOTE | 2017-01-04 13:44 | DI ---
EXAM: Left knee, two-view HISTORY: Bilateral knee pain COMPARISON: None FINDINGS: No fracture or dislocation. Small retropatellar osteophyte formation. The medial, latera l, and patellofemoral compartments are normal in height. No joint effusion. Atherosclerotic vascular calcification. IMPERSSION: Very mild patellofemoral osteoarthritis.
--- NOTE | 2017-01-04 13:44 | DI ---
EXAM: RIGHT KNEE. HISTORY: Knee pain. FINDINGS: Right knee two-view. Articular cartilage width is normal. There is no fracture or joint effusion. Bone density and soft tissues are within normal limits. IMPRESSION: Within normal limits.
--- NOTE | 2017-01-04 13:53 | DI ---
EXAM: Cervical spine three views HISTORY: Neck pain COMPARISON: None TECHNIQUE: Three-view cervical spine were performed FINDINGS: Vertebral bodies normal height. No fracture. No subluxation. Mild marginal osteophyte formation. Mild uncovertebral and facet hypertrophy. Prevertebral soft tissues appear normal. Mil d atherosclerotic carotid calcifications on the left. IMPRESSION: Mild chronic discogenic degenerative disease and facet arthrosis.
== END 2017-01-04 12:22 | disposition home or self-care (01) ==
LOC: RAD 12:21
PROVIDERS: ATTEND Internal Medicine
DX: M25.562 Pain in left knee (principal); M25.561 Pain in right knee; M54.2 Cervicalgia

== ENCOUNTER 2017-03-10 09:07 | Outpatient (CLI) ==
--- NOTE | 2017-03-10 10:37 | DI ---
EXAM: Chest two views HISTORY: Cough and COMPARISON: 12/29/2016 TECHNIQUE: Two views of the chest were performed FINDINGS: Lungs are hyperinflated with scarring. No airspace consolidation There is no pleural ef fusion or pneumothorax. The heart is normal in size. The mediastinal contour is normal. Median st ernotomy wires.. There are no acute abnormalities of the bones. IMPRESSION: Chronic obstructive pulmonary disease with scarring . No acute cardiopulmonary process .
== END 2017-03-10 09:08 | disposition home or self-care (01) ==
LOC: RAD 09:07
PROVIDERS: ATTEND Emergency Medicine
DX: R05 Cough (principal)

== ENCOUNTER 2017-03-10 16:11 | Emergency (ER) ==
[2017-03-10 16:16] VITALS: BP 171/85; TEMP 97.7; BMI 38.4
[2017-03-10] MEDS ORDERED: ATIVAN PO STA (16:30)
[2017-03-10] MEDS ORDERED: DUONEB NEB STA (16:44)
[2017-03-10 16:52] LABS: BASOPHILS % (AUTO) 0.3 % (0.0-3.0); EOSINOPHILS # (AUTO) 0.3 K/ul (0.0-0.7); EOSINOPHILS % (AUTO) 3.8 % (0.0-7.0); HEMATOCRIT 43.8 % (42.0-52.0); HEMOGLOBIN 14.3 g/dl (14.0-18.0); IMMATURE GRANULOCYTE % (AUTO) 0.3 % (0.0-5.0); LYMPHOCYTES # (AUTO) 1.4 K/uL (0.60-3.4); LYMPHOCYTES % (AUTO) 18.5 (10.0-50.0); MEAN CORPUSCULAR HEMOGLOBIN 28.7 pg (27.0-31.0); MEAN CORPUSCULAR HGB CONC 32.6 (31.8-35.4); MEAN CORPUSCULAR VOLUME 87.8 fl (80.0-94.0); MONOCYTES # (AUTO) 0.4 K/uL (0.4-2.0); MONOCYTES % (AUTO) 5.9 (0-10); NEUTROPHILS # (AUTO) 5.3 K/ul (2.0-6.9); NEUTROPHILS % (AUTO) 71.2; PLATELET COUNT 184 10^3/uL (140-440); RED BLOOD COUNT 4.99 10^6/ul (4.70-6.10); WHITE BLOOD COUNT 7.46 K/ul (4.2-10.2)
[2017-03-10 17:10] LABS: ABG BASE EXCESS 5 (-2.0-2.0); ABG HCO3 29.8 (22.0-26.0); ABG PCO2 51.2 mmHg (35-45); ABG PH 7.373 (7.35-7.45); ABG TCO2 31 (22.0-28.0)
[2017-03-10 17:23] LABS: ALBUMIN 3.6 g/dL (3.4-5.0); ALBUMIN/GLOBULIN RATIO 1.2; ANION GAP 13.1; BILIRUBIN,TOTAL 0.31 mg/dL (0.00-1.20); BUN/CREATININE RATIO 23.68; CALCIUM 9.5 mg/dL (8.2-10.2); CREATININE 0.76 mg/dL (0.60-1.10); POTASSIUM 4.1 mmol/L (3.5-5.1); TOTAL PROTEIN 6.6 g/dL (6.4-8.2); TROPONIN I 0.071 ng/ml (0.0000-0.4000)
[2017-03-10] MEDS ORDERED: DECADRON 4 MG/ML SDV IM STA (17:41)
--- NOTE | 2017-03-10 17:45 | ED.PDOC ---
General ED Provider: Dr. GELY HAYES Chief Complaint: Shortness of Air Stated Complaint: shortness of breath Time Seen by Physician: 16:11 Mode of Arrival: Walk-In Information Source: Patient Exam Limitations: No limitations Primary Care Provider: ANASTASIA RANDALL Nursing and Triage Documentation Reviewed and Agree: Yes Respiratory Complaint Exam - Respiratory Complaint/Exam Symptoms Are: Resolved Timing: Intermittent Initial Severity: Mild Current Severity: None Location: Chest Character: Reports: Non-productive cough Aggravating: Reports: None Alleviating: Reports: Spontaneous resolution Associated Signs and Symptoms: Denies: Rapid breathing, Dyspnea, Fever, Chills, Chest pain, Pleuritic chest pain, Wheezing, Hemoptysis, Dizziness, Calf pain, Calf swelling, Edema, URI, Nasal congestion, Hoarseness, Sinus discomfort, Vomiting, Sore throat, Weight loss, Decreased oral intake, Increased thirst, Increased appetite, Increased urination Related History: Reports: Similar episode History of Healthcare-Acquired Pneumonia: No Related Surgical History: Reports: None Review of Systems - Review Of Systems Constitutional: Reports: No symptoms Eyes: Reports: No symptoms Ears, Nose, Mouth, Throat: Reports: No symptoms Respiratory: Reports: Cough, Short of air Cardiac: Reports: No symptoms GI: Reports: No symptoms : Reports: No symptoms Musculoskeletal: Reports: No symptoms Skin: Reports: No symptoms Neurological: Reports: No symptoms Endocrine: Reports: No symptoms Hematologic/Lymphatic: Reports: No symptoms All Other Systems: Reviewed and Negative Past Medical History - Past Medical History Previously Healthy: No Endocrine: Reports: Dyslipidemia Cardiovascular: Reports: CAD, [place], Hypertension, CHF Respiratory: Reports: COPD Hematological: Reports: None Gastrointestinal: Reports: None Genitourinary: Reports: Kidney stones Neuro/Psych: Reports: Depression Musculoskeletal: Reports: Arthritis, Back Pain Cancer: Reports: None Other Pertinent Past Medical History: htn chol mi depr cabg hernia - Surgical History General Surgical History: Reports: CABG (double bypass 6 months ago), Hernia Repair - Family History Family History: Reports: Unknown - Social History Smoking Status: Former smoker Hx Substance Use: No Alcohol Screening: None Physical Exam - Physical Exam Appearance: Well-appearing, No pain distress, Well-nourished Eyes: WILVER, EOMI, Conjunctiva clear ENT: Ears normal, Nose normal, Oropharynx normal Respiratory: Airway patent, Breath sounds clear, Breath sounds equal, Respirations nonlabored Cardiovascular: RRR, Pulses normal, No rub, No murmur GI/: Soft, Nontender, No masses, Bowel sounds normal, No Organomegaly Musculoskeletal: Normal strength, ROM intact, No edema, No calf tenderness Skin: Warm, Dry, Normal color Neurological: Sensation intact, Motor intact, Reflexes intact, Cranial nerves intact, Alert, Oriented Psychiatric: Affect appropriate, Mood appropriate Interpretation - Radiology Interpretation Radiology Interpretation By: Radiologist (COPD) Physician Notification - Case Discussed Physician Notified: RANDALL Time of Notification: 17:46 Critical Care Note - Critical Care Note Total Time (mins): 0 Course - Course Hematology/Chemistry: 03/10/17 14:45 03/10/17 14:45 Orders, Labs, Meds: Lab Review 03/10/17 03/10/17 14:45 16:46 WBC 7.46 RBC 4.99 Hgb 14.3 Hct 43.8 MCV 87.8 MCH 28.7 MCHC 32.6 RDW Coeff of Moris 12.8 Plt Count 184 Immature Gran % (Auto) 0.3 Neut % (Auto) 71.2 Lymph % (Auto) 18.5 Banks % (Auto) 5.9 Eos % (Auto) 3.8 Baso % (Auto) 0.3 Immature Gran # (Auto) 0.0 Neut # 5.3 Lymph # 1.4 Banks # 0.4 Eos # 0.3 Baso # 0.0 Puncture Site Rr O2 Saturation 92.0 L ABG pH 7.373 ABG pCO2 51.2 H ABG pO2 68.0 L ABG HCO3 29.8 H ABG Total CO2 31 H ABG Base Excess 5 H Douglas Test + O2 Delivery Device Nc Oxygen Liter Flow 3.00 FiO2 % 32.0 Sodium 138 Potassium 4.1 Chloride 102 Carbon Dioxide 27 Anion Gap 13.1 BUN 18 Creatinine 0.76 Estimated GFR (MDRD) 106.00 BUN/Creatinine Ratio 23.68 Glucose 169 H Calcium 9.5 Total Bilirubin 0.31 AST 30 ALT 33 Alkaline Phosphatase 87 Total Creatine Kinase 110 Troponin I 0.0710 B-Natriuretic Peptide 231 H Total Protein 6.6 Albumin 3.6 Globulin 3.0 Albumin/Globulin Ratio 1.20 Orders Category Date Time Status ABG DRAW REQUEST Stat CARDIO 03/10/17 16:46 Completed EKG-(ED ONLY) Stat CARDIO 03/10/17 16:45 Completed NEBULIZER TREATMENT Stat CARDIO 03/10/17 16:44 Completed ABG Stat LAB 03/10/17 16:46 Completed B-TYPE NATRIURETIC PEPTIDE Stat LAB 03/10/17 14:45 Completed CBC W/ AUTO DIFF Stat LAB 03/10/17 14:45 Completed COMPREHENSIVE METABOLIC PANEL Stat LAB 03/10/17 14:45 Completed CREATINE KINASE Stat LAB 03/10/17 14:45 Completed TROPONIN I Stat LAB 03/10/17 14:45 Completed Ipratropium/Albuterol Neb [Duoneb] MEDS 03/10/17 16:44 Discontinued 1 vial NEB ONCE STA Lorazepam [Ativan] MEDS 03/10/17 16:30 Discontinued 0.5 mg PO ONCE STA Medications Discontinued Medications Generic Name Dose Route Start Last Admin Trade Name Freq PRN Reason Stop Dose Admin Albuterol/Ipratropium 1 vial 03/10/17 16:44 03/10/17 17:21 Duoneb NEB 03/10/17 16:45 1 vial ONCE STA Administration Lorazepam 0.5 mg 03/10/17 16:30 03/10/17 17:02 Ativan PO 03/10/17 16:31 0.5 mg ONCE STA Administration Vital Signs: Temp Pulse Resp BP Pulse Ox 03/10/17 16:11 97.7 F 82 20 171/85 H 84 L Departure - Departure Time of Disposition: 17:46 (DISCUSSED LABS, ABG TODAY CXR PT MAY GO HOME) Disposition: HOME SELF-CARE Discharge Problem: COPD exacerbation Instructions: COPD (Chronic Obstructive Pulmonary Disease) (ED), How Your Lungs Work (ED), Chronic Bronchitis (ED), Emphysema (ED) Condition: Good Pt referred to PMD for follow-up: No Additional Instructions: Please call your Family Physician as soon as possible to schedule a follow-up appointment. Allergies/Adverse Reactions: Allergies No Known Allergies Allergy (Verified 12/27/16 08:47) Home Medications: Ambulatory Orders Aspirin [Adult Low Dose Aspirin EC] 81 mg PO DAILY 06/30/16 Clopidogrel Bisulfate [Plavix] 75 mg PO DAILY 06/30/16 Lisinopril [Zestril] 40 mg PO DAILY 06/30/16 Pravastatin Sodium [Pravachol] 20 mg PO BEDTIME 06/30/16 Potassium Chloride [K-Tab ER] 10 meq PO DAILY #30 tablet.er 11/18/16 Albuterol Sulfate [Ventolin Hfa] 18 gm IH TID #1 hfa.aer.ad 11/22/16 Furosemide [Lasix Tab] 20 mg PO BID 12/27/16 Hydrochlorothiazide 12.5 mg PO DAILY 12/27/16 Hydrocodone Bit/Acetaminophen [[place] 10-325] 1 tab PO BID 12/27/16 Metoprolol Tartrate [Lopressor] 25 mg PO BID 12/27/16
== END 2017-03-10 17:55 | disposition home or self-care (01) ==
LOC: ED 16:11
DX: J44.1 Chronic obstructive pulmonary disease with (acute) exacerbation (principal); I25.810 Atherosclerosis of coronary artery bypass graft(s) without angina pectoris; I10 Essential (primary) hypertension; I50.9 Heart failure, unspecified; E78.5 Hyperlipidemia, unspecified; I25.2 Old myocardial infarction; Z79.899 Other long term (current) drug therapy; R05 Cough
CPT/HCPCS: 36415; 80053; 82550; 82803; 83880; 84484; 85025; 93005; 93010; 94640; 99283

== ENCOUNTER 2017-03-27 14:57 | Emergency (ER) ==
[2017-03-27 15:04] VITALS: BP 174/72; TEMP 98.3; BMI 37.4
[2017-03-27] MEDS ORDERED: NORCO 10-325 PO STA (16:02)
[2017-03-27] MEDS ORDERED: DUONEB NEB STA (16:03)
[2017-03-27] MEDS ORDERED: SOLU-MEDROL 125 MG IM STA (16:03)
--- NOTE | 2017-03-27 16:04 | ED.PDOC ---
General ED Provider: Dr. DOV TSAI JR Chief Complaint: Respiratory Complaint Stated Complaint: short of air coughing, I am tired of coming here- won't I get better after stopping smoing? No income staying with friend who smokes Time Seen by Physician: 16:04 Mode of Arrival: Walk-In Information Source: Patient, Family Exam Limitations: No limitations Primary Care Provider: ANASTASIA RANDALL Nursing and Triage Documentation Reviewed and Agree: No Review of Systems - Review Of Systems Constitutional: Reports: Malaise, Weakness Eyes: Reports: No symptoms Ears, Nose, Mouth, Throat: Reports: No symptoms Respiratory: Reports: Cough, Short of air Cardiac: Reports: No symptoms GI: Reports: No symptoms : Reports: No symptoms Musculoskeletal: Reports: No symptoms Skin: Reports: No symptoms Neurological: Reports: No symptoms Hematologic/Lymphatic: Reports: No symptoms All Other Systems: Other Past Medical History - Past Medical History Previously Healthy: No Endocrine: Reports: Dyslipidemia Cardiovascular: Reports: CAD, [place], Hypertension, CHF Respiratory: Reports: COPD Hematological: Reports: None Gastrointestinal: Reports: None Genitourinary: Reports: Kidney stones Neuro/Psych: Reports: Depression Musculoskeletal: Reports: Arthritis, Back Pain Cancer: Reports: None - Surgical History General Surgical History: Reports: CABG (double bypass 6 months ago), Hernia Repair - Family History Family History: Reports: Unknown - Social History Smoking Status: Former smoker Hx Substance Use: No Alcohol Screening: None 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 Lives: Alone (with smoker) - Immunizations Tetanus Shot up to Date: Yes Physical Exam - Physical Exam Appearance: Well-appearing, Obese Ill-appearing: Mild Pain Distress: Mild Eyes: WILVER ENT: Ears normal, Nose normal, Oropharynx normal Neck: Supple Respiratory: Airway patent, Breath sounds equal, Breath sounds diminished, Respirations nonlabored, Rhonchi, Wheezes Cardiovascular: RRR, Pulses normal, No rub, No murmur GI/: Soft, Nontender, No masses, Bowel sounds normal, No Organomegaly Musculoskeletal: Normal strength, ROM intact, No edema, No calf tenderness Skin: Warm Neurological: Sensation intact, Motor intact, Reflexes intact, Cranial nerves intact, Alert, Oriented Psychiatric: Affect appropriate, Mood appropriate Interpretation - Radiology Interpretation Radiology Interpretation By: Radiologist Radiology Results: No acute changes Exam Interpreted: CXR Critical Care Note - Critical Care Note Total Time (mins): 0 Course - Course Orders, Labs, Meds: Orders Category Date Time Status NEBULIZER TREATMENT Stat CARDIO 03/27/17 16:03 Completed Hydrocodone Bit/Acetaminophen [[place] 10-325] MEDS 03/27/17 16:02 Discontinued 1 tab PO ONCE STA Ipratropium/Albuterol Neb [Duoneb] MEDS 03/27/17 16:03 Discontinued 1 vial NEB ONCE STA Methylprednisolone Sod Succ/Pf [Solu-Medrol 125 mg] MEDS 03/27/17 16:03 Discontinued 125 mg IM ONCE STA CHEST, 2 VIEWS PA & LAT Stat RADS 03/27/17 16:01 Completed Medications Discontinued Medications Generic Name Dose Route Start Last Admin Trade Name Freq PRN Reason Stop Dose Admin Acetaminophen/Hydrocodone Bitart 1 tab 03/27/17 16:02 03/27/17 16:22 [place] 10-325 PO 03/27/17 16:03 1 tab ONCE STA Administration Albuterol/Ipratropium 1 vial 03/27/17 16:03 03/27/17 16:21 Duoneb NEB 03/27/17 16:04 1 vial ONCE STA Administration Methylprednisolone Sodium Succinate 125 mg 03/27/17 16:03 03/27/17 16:23 Solu-Medrol 125 Mg IM 03/27/17 16:04 125 mg ONCE STA Administration Vital Signs: Temp Pulse Resp BP Pulse Ox 03/27/17 14:58 98.3 F 93 H 24 174/72 H 96 Departure - Departure Time of Disposition: 16:04 Disposition: HOME SELF-CARE Discharge Problem: Bronchitis, COPD exacerbation Instructions: Emphysema (ED), COPD (Chronic Obstructive Pulmonary Disease) (ED) , Chronic Lung Disease and Infection Prevention (ED), Smoke Inhalation (ED) Condition: Stable Pt referred to PMD for follow-up: Yes Additional Instructions: follow up PMD discuss pulmonary rehabilitation antibiotic until gone may use albuterol as needed for wheezing Prescriptions: Sulfamethoxazole/Trimethoprim [Bactrim Ds Tablet] 1 tab PO Q12HR #20 tablet Albuterol Sulfate [Proventil Hfa] 6.7 gm IH QID PRN #1 hfa.aer.ad PRN Reason: Wheezing Allergies/Adverse Reactions: Allergies No Known Allergies Allergy (Verified 12/27/16 08:47) Home Medications: Ambulatory Orders Aspirin [Adult Low Dose Aspirin EC] 81 mg PO DAILY 06/30/16 Clopidogrel Bisulfate [Plavix] 75 mg PO DAILY 06/30/16 Lisinopril [Zestril] 40 mg PO DAILY 06/30/16 Pravastatin Sodium [Pravachol] 20 mg PO BEDTIME 06/30/16 Potassium Chloride [K-Tab ER] 10 meq PO DAILY #30 tablet.er 11/18/16 Albuterol Sulfate [Ventolin Hfa] 18 gm IH TID #1 hfa.aer.ad 11/22/16 Furosemide [Lasix Tab] 20 mg PO BID 12/27/16 Hydrochlorothiazide 12.5 mg PO DAILY 12/27/16 Hydrocodone Bit/Acetaminophen [[place] 10-325] 1 tab PO BID 12/27/16 Metoprolol Tartrate [Lopressor] 25 mg PO BID 12/27/16 Albuterol Sulfate [Proventil Hfa] 6.7 gm IH QID PRN #1 hfa.aer.ad 03/27/17 Sulfamethoxazole/Trimethoprim [Bactrim Ds Tablet] 1 tab PO Q12HR #20 tablet
--- NOTE | 2017-03-27 16:30 | DI ---
EXAM: Chest two view, frontal and lateral views. HISTORY: Cough. COMPARISON: 03/10/2017. FINDINGS: Post CABG changes noted. Heart size is normal. Lungs are hyperexpanded with increased in terstitial markings and scattered areas of scarring which appears stable. No new consolidation, ple ural effusion or pneumothorax identified. Since the prior study, there has been no significant inte rval change. IMPRESSION: No acute process. Stable chronic changes.
== END 2017-03-27 17:51 | disposition home or self-care (01) ==
LOC: ED 14:57
DX: J44.0 Chronic obstructive pulmonary disease with (acute) lower respiratory infection (principal); J20.9 Acute bronchitis, unspecified; J44.1 Chronic obstructive pulmonary disease with (acute) exacerbation; Z79.899 Other long term (current) drug therapy; Z77.22 Contact with and (suspected) exposure to environmental tobacco smoke (acute) (chronic)
CPT/HCPCS: 94640; 96372; 99283

== ENCOUNTER 2017-08-01 12:29 | Outpatient (CLI) ==
[2017-08-01 12:55] LABS: BASOPHILS # (AUTO) 0.1 K/uL (0-0.2); BASOPHILS % (AUTO) 0.5 % (0.0-3.0); EOSINOPHILS # (AUTO) 0.5 K/ul (0.0-0.7); HEMATOCRIT 45.5 % (42.0-52.0); HEMOGLOBIN 15.3 g/dl (14.0-18.0); IMMATURE GRANULOCYTE % (AUTO) 0.3 % (0.0-5.0); LYMPHOCYTES # (AUTO) 2.2 K/uL (0.60-3.4); LYMPHOCYTES % (AUTO) 23.7 (10.0-50.0); MEAN CORPUSCULAR HEMOGLOBIN 29.1 pg (27.0-31.0); MEAN CORPUSCULAR HGB CONC 33.6 (31.8-35.4); MEAN CORPUSCULAR VOLUME 86.5 fl (80.0-94.0); MONOCYTES # (AUTO) 0.8 K/uL (0.4-2.0); MONOCYTES % (AUTO) 8.3 (0-10); NEUTROPHILS # (AUTO) 5.8 K/ul (2.0-6.9); NEUTROPHILS % (AUTO) 62.2; PLATELET COUNT 218 10^3/uL (140-440); RED BLOOD COUNT 5.26 10^6/ul (4.70-6.10); WHITE BLOOD COUNT 9.28 K/ul (4.2-10.2)
[2017-08-01 13:35] LABS: ALBUMIN 3.4 g/dL (3.4-5.0); ALBUMIN/GLOBULIN RATIO 0.92; ANION GAP 11.5; BILIRUBIN,TOTAL 0.44 mg/dL (0.00-1.20); BUN/CREATININE RATIO 13.15; CALCIUM 9.9 mg/dL (8.2-10.2); CHOL/HDL RATIO 3.4 (4.5-6.4); CREATININE 0.76 mg/dL (0.60-1.10); POTASSIUM 3.5 mmol/L (3.5-5.1); TOTAL PROTEIN 7.1 g/dL (6.4-8.2)
== END 2017-08-01 12:30 | disposition home or self-care (01) ==
LOC: LAB 12:29
PROVIDERS: ATTEND Internal Medicine
DX: E78.5 Hyperlipidemia, unspecified (principal); E66.9 Obesity, unspecified; J44.9 Chronic obstructive pulmonary disease, unspecified; Z12.5 Encounter for screening for malignant neoplasm of prostate
CPT/HCPCS: 36415; 80053; 80061; 83036; 84443; 85025

== ENCOUNTER 2017-08-02 11:56 | Observation (INO) ==
[2017-08-02] MEDS ORDERED: XOPENEX 1.25 MG NEB ONE (12:17)
[2017-08-02] MEDS ORDERED: TORADOL IVP STA (12:20)
[2017-08-02] MEDS ORDERED: ZOFRAN 4 MG/2 ML IVP STA (12:20)
[2017-08-02 12:28] VITALS: BMI 38.4
[2017-08-02 12:29] LABS: ABG BASE EXCESS 5 (-2.0-2.0); ABG HCO3 29.8 (22.0-26.0); ABG PCO2 49.8 mmHg (35-45); ABG PH 7.384 (7.35-7.45); ABG TCO2 31 (22.0-28.0)
[2017-08-02] MEDS ORDERED: NITROSTAT SL PRN ×2 (12:30→14:12)
[2017-08-02] MEDS: NORCO 10-325 PO PRN ×2 (12:53→21:03)
[2017-08-02] MEDS: LASIX IVP SCH (13:00)
[2017-08-02] MEDS: ZITHROMAX PO SCH (13:00)
[2017-08-02] MEDS: ROCEPHIN 1 GM in SODIUM CHLORIDE 50 ML IV SCH (13:00)
[2017-08-02] MEDS ORDERED: ATROPINE SULFATE PFS IVP PRN (14:12)
[2017-08-02] MEDS ORDERED: MORPHINE 4 MG/ML VIAL IVP PRN (14:12)
[2017-08-02] MEDS ORDERED: VISTARIL INJ IM PRN (14:12)
[2017-08-02] MEDS ORDERED: TYLENOL PO PRN (14:12)
[2017-08-02] MEDS: TUSSIONEX PO SCH ×2 (14:26→21:02)
[2017-08-02 15:13] LABS: ADD URINE MICROSCOPIC YES; BILIRUBIN,URINE Negative (NEGATIVE); KETONES,URINE Negative (NEGATIVE); LEUKOCYTE ESTERASE ,URINE Negative (NEGATIVE); NITRITE,URINE Negative (NEGATIVE); PROTEIN,URINE 1+ (NEGATIVE); URINE, BLOOD 2+ (NEGATIVE)
[2017-08-02 15:13] LABS: TROPONIN I 0.077 ng/ml (0.0000-0.4000)
[2017-08-02 15:14] LABS: CREATINE KINASE MB 3.3 ng/ml (0.0-3.6)
--- NOTE | 2017-08-02 15:35 | DI ---
Exam: Three x-rays of the chest. Comparison: By 15, 17 Reason for exam: Cough. FINDINGS: No pneumothorax, pleural effusion, or focal consolidation. There is flattening of the hem idiaphragms not significantly changed from the previous exam. Operative changes are seen after midli ne sternotomy and CABG. Impression: 1. No acute cardiopulmonary process. 2. Similar appearing postoperative changes and hemidiaphragmatic flattening consistent with chronic obstructive pulmonary disease.
[2017-08-02] MEDS: ATIVAN PO SCH ×2 (16:16→21:04)
[2017-08-02] MEDS: XOPENEX 1.25 MG NEB SCH ×2 (17:06→23:18)
[2017-08-02] MEDS: PULMICORT 0.5 MG/2 ML NEB SCH (17:07)
[2017-08-02] MEDS ORDERED: PULMICORT 0.25 MG/2 ML NEB SCH (18:00)
[2017-08-02] MEDS: PRAVACHOL PO SCH (21:03)
[2017-08-02] MEDS: LOPRESSOR PO SCH (21:04)
[2017-08-02 23:16] LABS: TROPONIN I 0.083 ng/ml (0.0000-0.4000)
[2017-08-02 23:23] LABS: CREATINE KINASE MB 3.2 ng/ml (0.0-3.6)
[2017-08-03] MEDS: XOPENEX 1.25 MG NEB SCH ×4 (05:04→22:48)
[2017-08-03] MEDS: PULMICORT 0.5 MG/2 ML NEB SCH ×2 (05:04→16:50)
[2017-08-03] MEDS: LASIX IVP SCH (05:58)
[2017-08-03] MEDS: ATIVAN PO SCH ×3 (08:18→21:25)
[2017-08-03] MEDS: PLAVIX PO SCH (08:18)
[2017-08-03] MEDS: TUSSIONEX PO SCH ×2 (08:18→21:26)
[2017-08-03] MEDS: HYDROCHLOROTHIAZIDE PO SCH (08:19)
[2017-08-03] MEDS: MICRO-K CAP PO SCH (08:19)
[2017-08-03] MEDS: ZESTRIL PO SCH (08:19)
[2017-08-03] MEDS: ZITHROMAX PO SCH (08:19)
[2017-08-03] MEDS: ASPIRIN EC PO SCH (08:20)
[2017-08-03] MEDS: LOPRESSOR PO SCH ×2 (08:21→21:25)
[2017-08-03] MEDS: ROCEPHIN 1 GM in SODIUM CHLORIDE 50 ML IV SCH (08:22)
[2017-08-03] MEDS ORDERED: DECADRON 4 MG/ML SDV IM STA (08:52)
[2017-08-03] MEDS ORDERED: NON-FORMULARY MEDICATION (Potassium Chloride [K-Tab Er] 10 MEQ) PO SCH (09:00)
[2017-08-03] MEDS ORDERED: NON-FORMULARY MEDICATION (Hydrochlorothiazide [Hydrochlorothiazide] 12.5 MG) PO SCH ×22 (09:00)
[2017-08-03] MEDS: NORCO 10-325 PO PRN ×3 (09:05→20:34)
--- NOTE | 2017-08-03 09:36 | PCM.PROG ---
Attending Provider: ATTENDING PROVIDER: Dr. ANASTASIA RANDALL DATE OF SERVICE: 08/03/17 SUBJECTIVE: This 57 year old WHITE/ M was hospitalized 08/02/17. The patient is seen with Janene, Nurse Practitioner. The patient is alert, sitting in chair. He states breathing is better today with chest x-ray showing COPD. REVIEW OF SYSTEMS: CONSTITUTIONAL: No night sweats. No fatigue, malaise, lethargy. No fever or chills. HEENT: Eyes: No visual changes. No eye pain. No eye discharge. ENT: No runny nose. No epistaxis. No sinus pain. No odynophagia. No congestion. RESPIRATORY: Cough productive of clear phlegm. No hemoptysis. No shortness of breath. CARDIOVASCULAR: No angina symptoms. No CHF symptoms. No atypical chest pain for CAD. No palpitations. No orthopnea.. GASTROINTESTINAL: No abdominal pain. No nausea or vomiting. No diarrhea or constipation. No hematemesis. No hematochezia. GENITOURINARY: No urgency. No frequency. No dysuria. No hematuria. No obstructive symptoms. No discharge. No pain. No significant abnormal bleeding. MUSCULOSKELETAL: No musculoskeletal pain; no joint swelling. NEUROLOGICAL: Awake, alert, oriented to time, place and person. No headache. No neck pain. No syncope. No seizures. No dizziness. PSYCHIATRIC: Not anxious. No depression. No suicidal thoughts. No homicidal thoughts. SKIN: No rash. No lesions. No wounds. ENDOCRINE: No unexplained weight loss. No weight gain. HEMATOLOGIC/LYMPHATIC: No anemia. No purpura. No petechiae. No prolonged or excessive bleeding. No palpable lymph nodes. PHYSICAL EXAMINATION: GENERAL: The patient is awake, alert and oriented, sitting in chair in no distress. VITAL SIGNS: Temperature 98.0 F, Pulse 80, Respiratory Rate 20, BP 164/86, Pulse Ox 93% HEENT: Head normocephalic, atraumatic. Eyes: Extraocular muscles are intact. Pupils are equal, round and reactive to light and accommodation. Ears: No lesions. Nose appeared normal. Throat: No exudate or erythema. NECK: Supple. No JVD, no carotid bruit. No lymphadenopathy or thyromegaly. LUNGS: Decreased breath sounds bilaterally. Clear to auscultation. Percussion note normal. Chest symmetrical. HEART: S1, S2, no S3. No murmurs. No cyanosis or clubbing. No ascites. Pulses: Dorsalis pedis and posterior tibial pulses +1 to +2 both sides. ABDOMEN: Soft. Non-tender. Bowel sounds active. No CVA tenderness. No mass felt. EXTREMITIES: No edema. Full range of motion of all extremities, equal. NEUROLOGIC: No focal deficit. Cranial nerves II through XII are grossly intact. No headache, no double vision or headache. SKIN: Not dry. Intact. Turgor-normal. LYMPHATIC: No palpable lymph nodes/no lymphedema. MUSCULOSKELETAL: Normal joints with no swelling. Muscle tone is normal. 08/02/17 22:40: Total Creatine Kinase 154, CK-MB (CK-2) 3.2, CK-MB (CK-2) % 2.59721, Myoglobin 84, Troponin I 0.0830 08/02/17 15:10: Urine Color Yellow, Urine Clarity Clear, Urine pH 6.0, Ur Specific [place] 1.020, Urine Protein 1+, Urine Glucose (UA) Negative, Urine Ketones Negative, Urine Blood 2+, Urine Nitrite Negative, Urine Bilirubin Negative, Urine Urobilinogen 0.2, Ur Leukocyte Esterase Negative, Urine Microscopic RBC 10-20, Urine Microscopic WBC 0-2, Ur Squamous Epith Cells Not present, Ur Renal Epithelial Cell 0-2 08/02/17 14:30: Total Creatine Kinase 146, CK-MB (CK-2) 3.3, CK-MB (CK-2) % 2.16933, Myoglobin 68, Troponin I 0.0770 08/02/17 14:16: Urine Color Cancelled, Urine Clarity Cancelled, Urine pH Cancelled, Ur Specific [place] Cancelled, Urine Protein Cancelled, Urine Glucose (UA) Cancelled, Urine Ketones Cancelled, Urine Blood Cancelled, Urine Nitrite Cancelled, Urine Bilirubin Cancelled, Urine Urobilinogen Cancelled, Ur Leukocyte Esterase Cancelled, Ur Microscopic Indic Cancelled, Urine Microscopic RBC Cancelled, Urine Microscopic WBC Cancelled, Ur Squamous Epith Cells Cancelled, Ur Transition Epith Cell Cancelled, Ur Renal Epithelial Cell Cancelled, Calcium Phosphate Cryst Cancelled, Calcium Oxalate Crystal Cancelled , Cystine Crystals Cancelled, Uric Acid Crystals Cancelled, Triple Phos Crystals Cancelled, Tyrosine Crystals Cancelled, Other Crystals Cancelled, Amorphous Sediment Cancelled, Urine Bacteria Cancelled, Fatty Casts Cancelled, Hyaline Casts Cancelled, Granular Casts Cancelled, Fine Granular Casts Cancelled , Coarse Granular Casts Cancelled, Waxy Casts Cancelled, RBC Casts Cancelled, Other Casts Cancelled, Urine Starch Cancelled, Urine Mucus Cancelled, Urine Trichomonas Cancelled, Urine Yeast Cancelled, Urine Sperm Cancelled, Ur Oval Fat Bodies Cancelled 08/02/17 12:45: TSH 0.630, Free T4 1.00 08/02/17 12:15: Puncture Site R rad, O2 Saturation 94.0 L, ABG pH 7.384, ABG pCO2 49.8 H, ABG pO2 71.0 L, ABG HCO3 29.8 H, ABG Total CO2 31 H, ABG Base Excess 5 H, Douglas Test +, O2 Delivery Device Nc, Oxygen Liter Flow 2.00 ASSESSMENT: 1. Acute bronchitis 2. COPD 3. Anxiety 4. Former smoker times 40 years PLAN: 1. 4 mg Decadron today 2. Rest 3. Anticipate d/c tomorrow 4. Continue nebs Plan and coordination of the patient's care discussed in the presence of Lieutenant Shift Supervisor and nurse. CONDITION: Stable SCRIBED BY: GURPREET PLATT Gas Distribution Supervisor scribed while in presence of service performed by Dr. ANASTASIA RANDALL/JANENE DOUGHERTY APRN on 08/03/17 ([id number])
[2017-08-03] MEDS: PRAVACHOL PO SCH (21:26)
[2017-08-04] MEDS: XOPENEX 1.25 MG NEB SCH ×4 (05:11→22:53)
[2017-08-04] MEDS: PULMICORT 0.5 MG/2 ML NEB SCH ×2 (05:11→17:17)
[2017-08-04] MEDS: LASIX IVP SCH (05:41)
[2017-08-04 05:47] LABS: BASOPHILS % (AUTO) 0.2 % (0.0-3.0); EOSINOPHILS # (AUTO) 0.1 K/ul (0.0-0.7); HEMATOCRIT 41.2 % (42.0-52.0); HEMOGLOBIN 13.9 g/dl (14.0-18.0); LYMPHOCYTES # (AUTO) 2.5 K/uL (0.60-3.4); LYMPHOCYTES % (AUTO) 18.7 (10.0-50.0); MEAN CORPUSCULAR HEMOGLOBIN 29.1 pg (27.0-31.0); MEAN CORPUSCULAR HGB CONC 33.7 (31.8-35.4); MEAN CORPUSCULAR VOLUME 86.4 fl (80.0-94.0); MONOCYTES # (AUTO) 1.1 K/uL (0.4-2.0); MONOCYTES % (AUTO) 8.2 (0-10); NEUTROPHILS # (AUTO) 9.3 K/ul (2.0-6.9); NEUTROPHILS % (AUTO) 70.9; PLATELET COUNT 205 10^3/uL (140-440); RED BLOOD COUNT 4.77 10^6/ul (4.70-6.10); WHITE BLOOD COUNT 13.15 K/ul (4.2-10.2)
[2017-08-04 06:12] LABS: ALBUMIN 3.2 g/dL (3.4-5.0); ALBUMIN/GLOBULIN RATIO 0.97; BILIRUBIN,TOTAL 0.27 mg/dL (0.00-1.20); BUN/CREATININE RATIO 23.28; CALCIUM 9.3 mg/dL (8.2-10.2); CREATININE 0.73 mg/dL (0.60-1.10); TOTAL PROTEIN 6.5 g/dL (6.4-8.2)
[2017-08-04] MEDS: ASPIRIN EC PO SCH (09:27)
[2017-08-04] MEDS: PREDNISONE PO SCH (09:28)
[2017-08-04] MEDS: ATIVAN PO SCH ×3 (09:28→21:45)
[2017-08-04] MEDS: HYDROCHLOROTHIAZIDE PO SCH (09:28)
[2017-08-04] MEDS: LOPRESSOR PO SCH ×2 (09:29→21:46)
[2017-08-04] MEDS: ZESTRIL PO SCH (09:29)
[2017-08-04] MEDS: TUSSIONEX PO SCH ×2 (09:30→21:46)
[2017-08-04] MEDS: PLAVIX PO SCH (09:30)
[2017-08-04] MEDS: MICRO-K CAP PO SCH (09:34)
[2017-08-04] MEDS: NORCO 10-325 PO PRN ×3 (09:35→21:46)
--- NOTE | 2017-08-04 09:57 | PCM.PROG ---
Attending Provider: ATTENDING PROVIDER: Dr. ANASTASIA RANDALL This patient is seen with Janene Marinelli, Nurse Practioner DATE OF SERVICE: 08/04/17 SUBJECTIVE: This 57 year old WHITE/ M was hospitalized 08/02/17. The patient is sitting in chair. He is alert, cough is productive of clear phlegm. Breathing is better. He has been eating 100% of meals. REVIEW OF SYSTEMS: CONSTITUTIONAL: No night sweats. No fatigue, malaise, lethargy. No fever or chills. HEENT: Eyes: No visual changes. No eye pain. No eye discharge. ENT: No runny nose. No epistaxis. No sinus pain. No odynophagia. No congestion. RESPIRATORY: Cough and congestion. No hemoptysis. No shortness of breath. CARDIOVASCULAR: No angina symptoms. No CHF symptoms. No atypical chest pain for CAD. No palpitations. No orthopnea.. GASTROINTESTINAL: No abdominal pain. No nausea or vomiting. No diarrhea or constipation. No hematemesis. No hematochezia. GENITOURINARY: No urgency. No frequency. No dysuria. No hematuria. No obstructive symptoms. No discharge. No pain. No significant abnormal bleeding. MUSCULOSKELETAL: No musculoskeletal pain; no joint swelling. NEUROLOGICAL: Awake, alert, oriented to time, place and person. No headache. No neck pain. No syncope. No seizures. No dizziness. PSYCHIATRIC: Not anxious. No depression. No suicidal thoughts. No homicidal thoughts. SKIN: No rash. No lesions. No wounds. ENDOCRINE: No unexplained weight loss. No weight gain. HEMATOLOGIC/LYMPHATIC: No anemia. No purpura. No petechiae. No prolonged or excessive bleeding. No palpable lymph nodes. PHYSICAL EXAMINATION: GENERAL: The patient is awake, alert and oriented, sitting in chair in no distress. VITAL SIGNS: Temperature 98.0 F, Pulse 94, Respiratory Rate 18, BP 122/71, Pulse Ox 95% HEENT: Head normocephalic, atraumatic. Eyes: Extraocular muscles are intact. Pupils are equal, round and reactive to light and accommodation. Ears: No lesions. Nose appeared normal. Throat: No exudate or erythema. NECK: Supple. No JVD, no carotid bruit. No lymphadenopathy or thyromegaly. LUNGS: Diminished breath sounds bilaterally. Clear to auscultation. Percussion note normal. Chest symmetrical. HEART: S1, S2, no S3. No murmurs. No cyanosis or clubbing. No ascites. Pulses: Dorsalis pedis and posterior tibial pulses +1 to +2 both sides. ABDOMEN: Soft. Non-tender. Bowel sounds active. No CVA tenderness. No mass felt. EXTREMITIES: No edema. Full range of motion of all extremities, equal. NEUROLOGIC: No focal deficit. Cranial nerves II through XII are grossly intact. No headache, no double vision or headache. SKIN: Not dry. Intact. Turgor-normal. LYMPHATIC: No palpable lymph nodes/no lymphedema. MUSCULOSKELETAL: Normal joints with no swelling. Muscle tone is normal. LAB REVIEW: 08/04/17 05:30 08/04/17 05:30 08/04/17 05:30: Sodium 138, Potassium 4.0, Chloride 101, Carbon Dioxide 25, Anion Gap 16.0, BUN 17, Creatinine 0.73, Estimated GFR (MDRD) 111.00, BUN/ Creatinine Ratio 23.28, Glucose 117 H, Calcium 9.3, Total Bilirubin 0.27, AST 23 , ALT 27, Alkaline Phosphatase 105, Total Protein 6.5, Albumin 3.2 L, Globulin 3.3, Albumin/Globulin Ratio 0.97 08/04/17 05:30: WBC 13.15 H, RBC 4.77, Hgb 13.9 L, Hct 41.2 L, MCV 86.4, MCH 29.1, MCHC 33.7, RDW Coeff of Moris 13.4, Plt Count 205, Immature Gran % (Auto) 1.0, Neut % (Auto) 70.9, Lymph % (Auto) 18.7, [place] % (Auto) 8.2, Eos % (Auto) 1.0, Baso % (Auto) 0.2, Immature Gran # (Auto) 0.1, Neut # 9.3 H, Lymph # 2.5, [place] # 1.1, Eos # 0.1, Baso # 0.0 ASSESSMENT: 1. Acute bronchitis 2. COPD 3. Anxiety 4. Former smoker times 40 years PLAN: 1. Stop Zithromax 2. Keflex 500 mg t.i.d. for 5 days 3. Prednisone 10 mg daily for 5 days 4. Nebulizer machine ordered for home due to COPD, long-term smoker, and chronic bronchitis. I discussed with the patient the need for this and he is willing to comply. Plan and coordination of the patient's care discussed in the presence of Cabin Worker and nurse. CONDITION: Stable SCRIBED BY: GURPREET PLATT Leather Flesher scribed while in presence of service performed by Dr. Randall/Janene Marinelli APRN on 08/04/17 ([id number])
[2017-08-04] MEDS: KEFLEX PO SCH ×2 (13:21→21:46)
--- NOTE | 2017-08-04 15:56 | HP ---
DATE OF SERVICE: 08/02/17 REASON FOR HOSPITALIZATION/HISTORY OF PRESENT ILLNESS: Complains of cough, congestion with yellow sputum with maybe fever x4 days, Orthopnea positive. Appetite is OK. Shortness of breath with exertion. . REVIEW OF SYSTEMS: CONSTITUTIONAL: No fever, Fatigue. HEENT: No sinus drainage, no sore throat. RESPIRATORY: Cough, no congestion. CARDIOVASCULAR: Atypical chest pain for coronary artery disease with cough right sided . No angina, CHF symptoms, palpitations. Shortness of breath. GASTROINTESTINAL: No melena or abdominal pain. No GERD. GENITOURINARY: No hematuria, no prostatism, no polyuria. COMPLIANCE AND CONTROL ANALYST: No blackout, no dizziness, no headache, no double vision. Gait. MUSCULOSKELETAL: Osteoarthritis pain unable to do activity, no joint swelling. ENDOCRINE: No weight loss, Weight gain 2 pounds in 2 weeks. SKIN: Not dry, no rash. PSYCHIATRIC: Anxious with shortness of breath, no depression, no suicidal thoughts, no homicidal thoughts. SOCIAL HISTORY: Marital Status: three times. Alcohol Usage: No. Tobacco Usage: No quit in 2015. FAMILY HISTORY: Father age 45 cardiac(alcoholic) Mother living Brother one twice brother age 38 cancer Sister one. MEDICAL/SURGICAL HISTORY: Hypertension High cholesterol Cardiac Hernia, years ago Stent 2012 CABG 04/29/16 MEDICATIONS: Aspirin 81mg PO daily Plavix 75mg PO daily Metoprolol tartrate 25mg twice a day K-tab 10mg PO daily Lisinopril 40mg PO daily Pravastatin 20mg PO daily [place] 10-325mg PO twice a day Nitroglycerin 0.4mg SL ALLERGIES: No known allergies. PHYSICAL EXAMINATION: V/S: Pulse 60, blood pressure 124/78, temperature 98.8 and pulse ox 92%. GENERAL APPEARANCE: Oriented times three. HEENT: Normal. NECK: No JVP, no bruits. RESPIRATORY: Decreased breath sounds. CARDIOVASCULAR: S1, S2, no S3, no murmurs. No cyanosis, clubbing. No ascites. GI/ABDOMEN: No tenderness. Bowel sounds are active. EXTREMITIES: edema, pulses +1, equal. COMPLIANCE AND CONTROL ANALYST: Deep tendon reflexes, sensory, motor and gait all normal. RECTAL: Refused/PROSTATE: 07/30 (0.5). ASSESSMENT: 1. Acute bronchitis/ COPD 2. CAD with stent 2012 3. CABG 2015 4. Quit smoking 2015 5. History fo CHF 6. COPD on oxygen 2 liter nasal cannula 7. Obesity 8. Dyslipidemia 9. 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 Gayle 04/28 PLAN: 1. Admit Regular 2. Routine Telemetry orders 3. Lasix 20mg IV now and QAM 4. ABG now 5. Oxygen 2 liter/cannula/min 6. T4 TSH 7. Diet Regular 8. Blood culture x2 9. Sputum culture 10. Rocephin 1 gram IV 24 hourly and one done now. 11. Toradol 30mg IV now / Zofran 4mg IV now. 12. Zithromax 500mg PO daily x3 days 13. Tussionex one teaspoon PO twice a day 14. Xopenex Q 6 hourly 15. NEBS 16. Pulmicort twice a day 17. Continue all home medications 18. Discontinue PO Lasix TIME SPENT: More than 70 minutes. MTDD
[2017-08-04] MEDS: PRAVACHOL PO SCH (21:45)
[2017-08-05 05:10] LABS: BASOPHILS # (AUTO) 0.1 K/uL (0-0.2); BASOPHILS % (AUTO) 0.6 % (0.0-3.0); EOSINOPHILS # (AUTO) 0.3 K/ul (0.0-0.7); HEMATOCRIT 39.6 % (42.0-52.0); HEMOGLOBIN 13.4 g/dl (14.0-18.0); IMMATURE GRANULOCYTE % (AUTO) 0.5 % (0.0-5.0); LYMPHOCYTES # (AUTO) 3.3 K/uL (0.60-3.4); MEAN CORPUSCULAR HEMOGLOBIN 29.6 pg (27.0-31.0); MEAN CORPUSCULAR HGB CONC 33.8 (31.8-35.4); MEAN CORPUSCULAR VOLUME 87.6 fl (80.0-94.0); MONOCYTES # (AUTO) 0.9 K/uL (0.4-2.0); MONOCYTES % (AUTO) 8.3 (0-10); NEUTROPHILS # (AUTO) 5.7 K/ul (2.0-6.9); NEUTROPHILS % (AUTO) 55.6; PLATELET COUNT 174 10^3/uL (140-440); RED BLOOD COUNT 4.52 10^6/ul (4.70-6.10); WHITE BLOOD COUNT 10.28 K/ul (4.2-10.2)
[2017-08-05] MEDS: PULMICORT 0.5 MG/2 ML NEB SCH (05:12)
[2017-08-05] MEDS: XOPENEX 1.25 MG NEB SCH ×2 (05:12→11:57)
[2017-08-05 05:37] LABS: ALBUMIN/GLOBULIN RATIO 1.03; ANION GAP 13.9; BILIRUBIN,TOTAL 0.22 mg/dL (0.00-1.20); BUN/CREATININE RATIO 30.13; CREATININE 0.73 mg/dL (0.60-1.10); POTASSIUM 3.9 mmol/L (3.5-5.1); TOTAL PROTEIN 5.9 g/dL (6.4-8.2)
[2017-08-05] MEDS: LASIX IVP SCH (05:41)
[2017-08-05] MEDS: NORCO 10-325 PO PRN ×2 (05:41→13:33)
[2017-08-05] MEDS: KEFLEX PO SCH ×2 (05:41→13:32)
[2017-08-05] MEDS: LOPRESSOR PO SCH (08:45)
[2017-08-05] MEDS: MICRO-K CAP PO SCH (08:45)
[2017-08-05] MEDS: ATIVAN PO SCH (08:46)
[2017-08-05] MEDS: ASPIRIN EC PO SCH (08:46)
[2017-08-05] MEDS: PLAVIX PO SCH (08:46)
[2017-08-05] MEDS: PREDNISONE PO SCH (08:46)
[2017-08-05] MEDS: ZESTRIL PO SCH (08:46)
[2017-08-05] MEDS: TUSSIONEX PO SCH (08:47)
[2017-08-05] MEDS: HYDROCHLOROTHIAZIDE PO SCH (08:47)
[2017-08-05 10:57] VITALS: BP 115/63; TEMP 96.9
--- NOTE | 2017-09-19 08:39 | PN ---
DATE OF SERVICE: 08/04/17 SUBJECTIVE: 57 year old white male hospitalized with acute bronchitis and severe chronic lung disease. The patient's shortness of breath has subsided and he is laying quietly without any distress in his bed. PHYSICAL EXAMINATION: VITAL SIGNS: Temperature 98, pulse 94, respiratory rate 18, blood pressure 122/ 71 and pulse ox 95%. HEENT: Head normocephalic, atraumatic. Eyes: Extraocular muscles are intact. Pupils are equal, round and reactive to light and accommodation. Ears: No lesions. Nose appeared normal. Throat: No exudate or erythema. NECK: Supple. No JVD, no carotid bruit. No lymphadenopathy or thyromegaly. LUNGS: Decreased breath sounds but clear to auscultation. Percussion note normal. Chest symmetrical. HEART: S1, S2, no S3. No murmurs. No cyanosis or clubbing. No ascites. Pulses: Dorsalis pedis and posterior tibial pulses +1 to +2 both sides. ABDOMEN: Soft. Nontender. Bowel sounds active. No CVA tenderness. No mass felt. EXTREMITIES: No edema. Full range of motion of all extremities, equal. NEUROLOGIC: No focal deficit. Cranial nerves II through XII are grossly intact. No headache, no double vision or headache. SKIN: Not dry. Intact. Turgor - normal. LYMPHATIC: No palpable lymph nodes/no lymphedema. MUSCULOSKELETAL: Normal joints with no swelling. Muscle tone is normal. CONDITION: Stable, cardiovascular status is stable. PLAN: 1. Strongly advised to quit smoking 2. His BMI is in the range of morbid obesity, strongly advised to lose weight 3. Counseling for weight loss 4. The patient is also advised to joint pulmonary rehab TIME SPENT: More than 30 minutes. Plan and coordination of the patient's care discussed in the presence of nurse. MAURICE
--- NOTE | 2017-09-27 15:27 | PN ---
DATE OF SERVICE: 08/05/17 SUBJECTIVE: 57 year old white male hospitalized on observation with shortness of breath, acute bronchitis, chronic lung disease. The patient almost had a panic type of problem with bronchospasm. The patient's condition has improved remarkably. REVIEW OF SYSTEMS: CONSTITUTIONAL: No night sweats. No fatigue, malaise, lethargy. No fever or chills. HEENT: Eyes: No visual changes. No eye pain. No eye discharge. ENT: No runny nose. No epistaxis. No sinus pain. No sore throat. No odynophagia. No congestion. RESPIRATORY: No cough, no congestion. No hemoptysis. No shortness of breath. CARDIOVASCULAR: No angina symptoms. No CHF symptoms. No atypical chest pain for CAD. No palpitations. No orthopnea. GASTROINTESTINAL: No abdominal pain. No nausea or vomiting. No diarrhea or constipation. No hematemesis. No hematochezia. GENITOURINARY: No urgency. No frequency. No dysuria. No hematuria. No obstructive symptoms. No discharge. No pain. No significant abnormal bleeding. MUSCULOSKELETAL: No musculoskeletal pain; no joint swelling. NEUROLOGICAL: No headache. No neck pain. No syncope. No seizures. No dizziness. PSYCHIATRIC: Not anxious. No depression. No suicidal thoughts. No homicidal thoughts. SKIN: No rash. No lesions. No wounds. ENDOCRINE: No unexplained weight loss. No weight gain. HEMATOLOGIC/LYMPHATIC: No anemia. No purpura. No petechiae. No prolonged or excessive bleeding. No palpable lymph nodes. PHYSICAL EXAMINATION: VITAL SIGNS: Temperature 97.1, pulse 82, respiratory rate 20, blood pressure 116/78 and pulse ox 91% on room air. HEENT: Head normocephalic, atraumatic. Eyes: Extraocular muscles are intact. Pupils are equal, round and reactive to light and accommodation. Ears: No lesions. Nose appeared normal. Throat: No exudate or erythema. NECK: Supple. No JVD, no carotid bruit. No lymphadenopathy or thyromegaly. LUNGS: Decreased breath sounds but clear to auscultation. Percussion note normal. Chest symmetrical. HEART: S1, S2, no S3. No murmurs. No cyanosis or clubbing. No ascites. Pulses: Dorsalis pedis and posterior tibial pulses +1 to +2 both sides. ABDOMEN: Soft. Nontender. Bowel sounds active. No CVA tenderness. No mass felt. EXTREMITIES: No edema. Full range of motion of all extremities, equal. NEUROLOGIC: No focal deficit. Cranial nerves II through XII are grossly intact. No headache, no double vision or headache. SKIN: Not dry. Intact. Turgor - normal. LYMPHATIC: No palpable lymph nodes/no lymphedema. MUSCULOSKELETAL: Normal joints with no swelling. Muscle tone is normal. ASSESSMENT: 1. Acute bronchitis seems to be resolving has responded to NEBS treatment and we are going to send him home with NEBS. Prescription written. We will also send him on steroids and antibiotics. PLAN: 1. The patient is advised to join cardiopulmonary rehab. He has history of coronary artery disease with stent, declined. 2. The patient is morbidly obese with BMI of close to 40 to exact 39. The patient is advised to lose weight. 3. Advised to quit smoking, counseling done TIME SPENT: More than 30 minutes. Plan and coordination of the patient's care discussed in the presence of nurse. MAURICE
--- NOTE | 2017-09-28 08:25 | DS ---
DATE OF SERVICE: 08/05/17 FINAL DIAGNOSIS: 1. Acute bronchitis with severe chronic lung disease 2. Chronic respiratory failure 3. Non-compliance in medications, lifestyle and followup 4. Coronary artery disease with stent 5. Morbid obesity 6. Hypertension 7. Dyslipidemia DISCHARGE INSTRUCTIONS: Discharge home. Have echocardiogram done as outpatient 2DM mode. Advised to discontinue Hydrochlorothiazide. Instruction to come back to my office visit for followup on Monday or Monday morning. MEDICATIONS AT DISCHARGE: Aspirin Plavix Zestril Pravastatin Potassium Lasix Snyder Metoprolol NEW PRESCRIPTIONS: Prednisone Keflex for four days NEBS treatment, prescription given DIET INSTRUCTIONS: Healthy heart ACTIVITY: Get plenty of rest at home. Gradually increase your activity level as tolerated. SMOKING: Counseling for smoking done. DISEASE SPECIFIC EDUCATION: New Medications Side effects Smoking Weight loss diet Anxiety HOSPITAL COURSE: 57 year old white male hospitalized with panic type of disorder a long with acute bronchitis with chronic lung disease. He was short of breath on minimal exertion, very anxious. The patient was put on angiolithic along with NEBS, steroids and antibiotics. His condition improved and he was educated about how to take long deep breaths when he has panic. He realized that was what he had. He was up and about. Cardiovascular status was stable with no evidence of CHF. The patient was discharged on Keflex and steroids. Side effects of steroids including avascular necrosis of the bone discussed. Also he is morbidly obese, advised to lose weight. Weight reducing diet discussed. Advised to quit smoking , counseling for smoking done. LABS: Hgb 13.4, hct 36, WBC 10,000 normal differential, creatinine 0.7, BUN 22, potassium 3.9. T4 and TSH normal. TIME SPENT: More than 60 minutes. CONDITION: Stable. MTDD
--- NOTE | 2017-09-28 08:26 | PN ---
08/02/17: Level 5, Observation 08/03/17: Intermediate, Observation 08/04/17: Intermediate, Observation 08/05/17: D as in discharge. Extensive MTDD
== END 2017-08-05 14:45 | disposition home or self-care (01) ==
LOC: OBSVTOIN 11:56 → MEDSURG B 11:56 → INTOOBSV 11:56
PROVIDERS: ADMIT Internal Medicine; ATTEND Internal Medicine
DX: J20.9 Acute bronchitis, unspecified (principal); J44.0 Chronic obstructive pulmonary disease with (acute) lower respiratory infection; J96.10 Chronic respiratory failure, unspecified whether with hypoxia or hypercapnia; R06.02 Shortness of breath; Z91.19 Patient's noncompliance with other medical treatment and regimen; I25.10 Atherosclerotic heart disease of native coronary artery without angina pectoris; E66.01 Morbid (severe) obesity due to excess calories; I10 Essential (primary) hypertension; E78.5 Hyperlipidemia, unspecified; F41.0 Panic disorder [episodic paroxysmal anxiety]; Z95.5 Presence of coronary angioplasty implant and graft; Z79.02 Long term (current) use of antithrombotics/antiplatelets; Z87.891 Personal history of nicotine dependence; Z71.3 Dietary counseling and surveillance; Z99.81 Dependence on supplemental oxygen; Z68.39 Body mass index [BMI] 39.0-39.9, adult
CPT/HCPCS: 36415; 80053; 81001; 82550; 82553; 82803; 83874; 84439; 84443; 84484; 85025; 87040; 87070; 93005; 93010; 94640; 99217; 99220; 99225

== ENCOUNTER 2017-08-26 07:51 | Emergency (ER) ==
[2017-08-26 08:03] VITALS: BP 198/111; TEMP 97.2; BMI 38.2
--- NOTE | 2017-08-26 08:13 | ED.PDOC ---
General ED Provider: Dr. SOFY HODGES Chief Complaint: Respiratory Complaint Stated Complaint: Pt with COPD presents with having run out of duoneb for his nebulizer and scared he will go into resp failure in few hours. Patient's duoneb is rx'd BID but patient has been using it TID or more. Has not called his PCP. Currently nervous but no resp distress. Pt also did not take any of his daily meds this AM because he was "focused on getting here." Time Seen by Physician: 08:00 Mode of Arrival: Walk-In Information Source: Patient Exam Limitations: No limitations Primary Care Provider: ANASTASIA RANDALL Nursing and Triage Documentation Reviewed and Agree: Yes Respiratory Complaint Exam - Shortness of Air Complaint/Exam Symptoms Are: Still present Timing: Constant Initial Severity: Mild Current Severity: Moderate Character: Reports: Dyspnea at rest, Dyspnea on exertion Aggravating: Reports: None Alleviating: Reports: Bronchodilators, Oxygen History of Healthcare-Acquired Pneumonia: No Pulmonary Embolism Risk Factors: Reports: None Cardiac Risk Factors: Reports: Prior HI, CAD, Hypertension Tuberculosis Risk Factors: Reports: None Home Oxygen Use: Yes (doesn't have his portable unit with him, tubing at mothers , bottle empty) Recent Stress Test: No Recent Echo/LV Function: No Respiratory Distress: Mild Stridor Present: No Tracheal Deviation: No Subcutaneous Emphysema: No Accessory Muscle Use: No Retractions: Not Present Diminished Breath Sounds: No Prolonged Expiratory Phase: No Unable to Speak Full Sentences: No Fatigue: No Leg Swelling: No Favio's Sign Present: No Grunting Respirations: No Kussmaul Respirations: No Differential Diagnoses: CHF, COPD Exacerbation, HI, Pneumonia, Pulmonary Embolism, Bronchitis Review of Systems - Review Of Systems Constitutional: Reports: No symptoms Eyes: Reports: No symptoms Ears, Nose, Mouth, Throat: Reports: No symptoms Respiratory: Reports: Cough (occasional OPERATIONAL REVIEW SERGEANT cough, no worse than normal for him) , Short of air Cardiac: Reports: No symptoms GI: Reports: No symptoms : Reports: No symptoms Musculoskeletal: Reports: Joint pain (chronic costochondritis on left side since CABG) Skin: Reports: No symptoms Neurological: Reports: No symptoms All Other Systems: Reviewed and Negative Past Medical History - Past Medical History Previously Healthy: No Endocrine: Reports: Dyslipidemia Cardiovascular: Reports: CAD, HI, Hypertension, CHF Respiratory: Reports: COPD Hematological: Reports: None Gastrointestinal: Reports: None Genitourinary: Reports: Kidney stones Neuro/Psych: Reports: Depression Musculoskeletal: Reports: Arthritis, Back Pain ("always painful" no worse this AM) Cancer: Reports: None Other Pertinent Past Medical History: htn chol mi depr cabg hernia - Surgical History General Surgical History: Reports: CABG (double bypass 6 months ago), Hernia Repair - Family History Family History: Reports: Unknown - Social History Smoking Status: Former smoker Hx Substance Use: No Alcohol Screening: None Lives: Alone - Immunizations Tetanus Shot up to Date: No Influenza Vaccine within 12 Months: No Pneumococcal Vaccine up to Date: No Physical Exam - Physical Exam Appearance: Well-appearing, No pain distress, Well-nourished Ill-appearing: None Pain Distress: None Eyes: WILVER, EOMI, Conjunctiva clear ENT: Ears normal, Nose normal, Oropharynx normal Neck: Supple Respiratory: Airway patent, Breath sounds equal, Respirations nonlabored, Wheezes (scattered end expiratory wheezes) Cardiovascular: RRR, Pulses normal, No rub, No murmur GI/: Soft, Nontender, No masses, Bowel sounds normal, No Organomegaly Musculoskeletal: Normal strength, ROM intact, No edema, No calf tenderness Skin: Warm, Dry, Normal color Neurological: Sensation intact, Motor intact, Reflexes intact, Cranial nerves intact, Alert, Oriented Psychiatric: Affect appropriate, Mood appropriate Interpretation - Radiology Interpretation Radiology Interpretation By: Radiologist Radiology Results: No acute changes Exam Interpreted: CXR Xray Comments: COPD Radiology Interpretation By: Radiologist Radiology Results: No acute changes Exam Interpreted: CT Scan Xray Comments: Chest PE protocol: No PE. COPD - EKG Interpretation Time of EKG #1: 08:46 Rate: Normal Rhythm: Sinus Ectopy: PVCs (occasional) [place]: NL ST Segment: Normal Interpretation: Possible Anterior infarct, age unknown;possible lateral ischemia Re-Evaluation - Re-Evaluation Time of Re-Evaluation: 10:03 Status: Improved Vital Signs Stable: Yes (BP: 190/101) Pain Level: 3/10 (chronic back pain - stable) Appearance: NAD Lungs: Clear Skin: Warm and Dry Neuro: Alert and Oriented X3 CV: RRR Critical Care Note - Critical Care Note Total Time (mins): 0 Course - Course Hematology/Chemistry: 08/26/17 08:40 08/26/17 08:40 Orders, Labs, Meds: Lab Review 08/26/17 08/26/17 08/26/17 08:40 08:40 08:40 WBC 8.41 RBC 5.08 Hgb 14.9 Hct 43.7 MCV 86.0 MCH 29.3 MCHC 34.1 RDW Coeff of Moris 13.7 Plt Count 176 Immature Gran % (Auto) 0.5 Neut % (Auto) 63.1 Lymph % (Auto) 21.9 [place] % (Auto) 6.8 Eos % (Auto) 7.3 H Baso % (Auto) 0.4 Immature Gran # (Auto) 0.0 Neut # 5.3 Lymph # 1.8 [place] # 0.6 Eos # 0.6 Baso # 0.0 D-Dimer (Manual) Sodium 137 Potassium 4.2 Chloride 106 Carbon Dioxide 26 Anion Gap 9.2 BUN 9 Creatinine 0.74 Estimated GFR (MDRD) 109.00 BUN/Creatinine Ratio 12.16 Glucose 113 H Calcium 9.6 Total Bilirubin 0.38 AST 21 ALT 29 Alkaline Phosphatase 97 Total Creatine Kinase 72 Troponin I 0.0970 B-Natriuretic Peptide 132 H Total Protein 6.5 Albumin 3.3 L Globulin 3.2 Albumin/Globulin Ratio 1.03 08/26/17 08:40 WBC RBC Hgb Hct MCV MCH MCHC RDW Coeff of Moris Plt Count Immature Gran % (Auto) Neut % (Auto) Lymph % (Auto) [place] % (Auto) Eos % (Auto) Baso % (Auto) Immature Gran # (Auto) Neut # Lymph # [place] # Eos # Baso # D-Dimer (Manual) 678.24 Sodium Potassium Chloride Carbon Dioxide Anion Gap BUN Creatinine Estimated GFR (MDRD) BUN/Creatinine Ratio Glucose Calcium Total Bilirubin AST ALT Alkaline Phosphatase Total Creatine Kinase Troponin I B-Natriuretic Peptide Total Protein Albumin Globulin Albumin/Globulin Ratio Orders Category Date Time Status EKG-(ED ONLY) Stat CARDIO 08/26/17 08:27 Completed NEBULIZER TREATMENT Stat CARDIO 08/26/17 08:21 Completed NPO REMINDER: IMAGING ONCE CARE 08/26/17 09:23 Completed BNP [B-TYPE NATRIURETIC PEPTIDE] Stat LAB 08/26/17 08:40 Completed CBC W/ AUTO DIFF Stat LAB 08/26/17 08:40 Completed CK [CREATINE KINASE] Stat LAB 08/26/17 08:40 Completed COMPREHENSIVE METABOLIC PANEL Stat LAB 08/26/17 08:40 Completed D-DIMER Stat LAB 08/26/17 08:40 Completed TROPONIN I Stat LAB 08/26/17 08:40 Completed Furosemide [Lasix Tab] MEDS 08/26/17 09:39 Discontinued 20 mg PO ONCE STA Hydrochlorothiazide MEDS 08/26/17 09:40 Discontinued 12.5 mg PO ONCE STA Ipratropium/Albuterol Neb [Duoneb] MEDS 08/26/17 08:21 Discontinued 1 vial NEB ONCE STA Lisinopril [Zestril] MEDS 08/26/17 09:38 Discontinued 40 mg PO ONCE STA Metoprolol Tartrate [Lopressor] MEDS 08/26/17 09:38 Discontinued 25 mg PO ONCE STA CHEST, 2 VIEWS PA & LAT Stat RADS 08/26/17 08:[address] CHEST PE PROTOCOL Stat RADS 08/26/17 09:23 Taken Medications Discontinued Medications Generic Name Dose Route Start Last Admin Trade Name Freq PRN Reason Stop Dose Admin Albuterol/Ipratropium 1 vial 08/26/17 08:21 08/26/17 08:30 Duoneb NEB 08/26/17 08:22 1 vial ONCE STA Administration Furosemide 20 mg 08/26/17 09:39 08/26/17 09:50 Lasix Tab PO 08/26/17 09:40 20 mg ONCE STA Administration Hydrochlorothiazide 12.5 mg 08/26/17 09:40 08/26/17 09:50 Hydrochlorothiazide PO 08/26/17 09:41 12.5 mg ONCE STA Administration Lisinopril 40 mg 08/26/17 09:38 08/26/17 09:49 Zestril PO 08/26/17 09:39 40 mg ONCE STA Administration Metoprolol Tartrate 25 mg 08/26/17 09:38 08/26/17 09:50 Lopressor PO 08/26/17 09:39 25 mg ONCE STA Administration Vital Signs: Temp Pulse Resp BP Pulse Ox 08/26/17 07:52 97.2 F L 87 22 198/111 H 89 L Departure - Departure Time of Disposition: 10:29 Disposition: HOME SELF-CARE Discharge Problem: COPD exacerbation Condition: Good Pt referred to PMD for follow-up: Yes (next week) Additional Instructions: call your doctor regarding getting samples of meds to last until can fill Rx Prescriptions: Ipratropium/Albuterol Neb [Duoneb] 1 vial NEB TID #40 vial.neb Allergies/Adverse Reactions: Allergies No Known Allergies Allergy (Verified 08/26/17 08:02) Home Medications: Ambulatory Orders Aspirin [Adult Low Dose Aspirin EC] 81 mg PO DAILY 06/30/16 Clopidogrel Bisulfate [Plavix] 75 mg PO DAILY 06/30/16 Lisinopril [Zestril] 40 mg PO DAILY 06/30/16 Pravastatin Sodium [Pravachol] 20 mg PO BEDTIME 06/30/16 Potassium Chloride [K-Tab ER] 10 meq PO DAILY #30 tablet.er 11/18/16 Furosemide [Lasix Tab] 20 mg PO BID 12/27/16 Hydrochlorothiazide 12.5 mg PO DAILY 12/27/16 Hydrocodone Bit/Acetaminophen [[place] 10-325] 1 tab PO BID 12/27/16 Metoprolol Tartrate [Lopressor] 25 mg PO BID 12/27/16 Nitroglycerin [Nitrostat] 0.4 mg SL DIRECTED 08/02/17 Ipratropium/Albuterol Neb [Duoneb] 1 vial NEB RTBID #60 vial.neb 08/05/17 Prednisone 10 mg PO BIDWM #10 tablet 08/05/17 Ipratropium/Albuterol Neb [Duoneb] 1 vial NEB TID #40 vial.neb 08/26/17 Disposition Discussed With: Patient
[2017-08-26] MEDS: DUONEB NEB STA (08:30)
[2017-08-26 08:45] LABS: BASOPHILS % (AUTO) 0.4 % (0.0-3.0); EOSINOPHILS # (AUTO) 0.6 K/ul (0.0-0.7); EOSINOPHILS % (AUTO) 7.3 % (0.0-7.0); HEMATOCRIT 43.7 % (42.0-52.0); HEMOGLOBIN 14.9 g/dl (14.0-18.0); IMMATURE GRANULOCYTE % (AUTO) 0.5 % (0.0-5.0); LYMPHOCYTES # (AUTO) 1.8 K/uL (0.60-3.4); LYMPHOCYTES % (AUTO) 21.9 (10.0-50.0); MEAN CORPUSCULAR HEMOGLOBIN 29.3 pg (27.0-31.0); MEAN CORPUSCULAR HGB CONC 34.1 (31.8-35.4); MONOCYTES # (AUTO) 0.6 K/uL (0.4-2.0); MONOCYTES % (AUTO) 6.8 (0-10); NEUTROPHILS # (AUTO) 5.3 K/ul (2.0-6.9); NEUTROPHILS % (AUTO) 63.1; PLATELET COUNT 176 10^3/uL (140-440); RED BLOOD COUNT 5.08 10^6/ul (4.70-6.10); WHITE BLOOD COUNT 8.41 K/ul (4.2-10.2)
--- NOTE | 2017-08-26 09:01 | DI ---
EXAM: Two-view chest. HISTORY: Chronic obstructive pulmonary disease exacerbation. COMPARISON: 08/02/2017. FINDINGS: Frontal and lateral views of the chest. There are postoperative changes from prior CABG. The lungs are hyperexpanded. Linear opacities seen in the upper lobes which has appearance of fibro tic change. The heart size and pulmonary vasculature are within normal limits. There is a nodular density overlying the anterior left third rib. This measures up to 10 mm and was not seen on prior study. The pulmonary interstitium is normal. The aorta is tortuous and calcified. The osseous st ructures show mild degenerative changes consistent with age. IMPRESSION: 1. Hyperexpansion of the chest consistent with chronic obstructive pulmonary disease. 2. No acute consolidation or effusion. Fibrotic changes. 3. Nodular density in left upper lobe is likely due to summation of rib shadows and vasculature. Re commend follow-up PA and lateral views the chest.
[2017-08-26 09:09] LABS: ALBUMIN 3.3 g/dL (3.4-5.0); ALBUMIN/GLOBULIN RATIO 1.03; ANION GAP 9.2; BILIRUBIN,TOTAL 0.38 mg/dL (0.00-1.20); BUN/CREATININE RATIO 12.16; CALCIUM 9.6 mg/dL (8.2-10.2); CREATININE 0.74 mg/dL (0.60-1.10); POTASSIUM 4.2 mmol/L (3.5-5.1); TOTAL PROTEIN 6.5 g/dL (6.4-8.2); TROPONIN I 0.097 ng/ml (0.0000-0.4000)
[2017-08-26] MEDS: ZESTRIL PO STA (09:49)
[2017-08-26] MEDS: LOPRESSOR PO STA (09:50)
[2017-08-26] MEDS: HYDROCHLOROTHIAZIDE PO STA (09:50)
[2017-08-26] MEDS: LASIX TAB PO STA (09:50)
--- NOTE | 2017-08-26 10:28 | CT ---
Exam: CT pulmonary angiography. HISTORY: Shortness of breath. Chronic obstructive pulmonary disease . COMPARISON: CT without contrast dated 11/17/2016. CONTRAST: 125 ml of Omnipaque 350 TECHNIQUE: Contiguous axial images at 3 mm intervals were obtained from the base of the lungs to the upper chest. IV contrast was given. 3D volume rendered images were also reviewed and saved to PACS . Coronaland sagittal MIP reformats were reviewed. FINDINGS: The pulmonary arteries are well opacified. There are no filling defects to suggest acute pulmonary embolus. The aorta is not well opacified. There is no aneurysm. No definite dissection. The great vessels are within normal limits. The heart size is within normal limits. There are posto perative changes from prior CABG. Coronary calcifications are seen. There is thickening of the left ventricular wall. There is a right hilar lymph node measuring 1.6 cm. No other significant adenopa thy is seen. Emphysematous changes and bullous changes are seen bilaterally. Focal linear opacities seen left upp er lobe which has appearance of atelectasis or fibrosis. This is increased in comparison to prior st udy. Superimposed pneumonia cannot be excluded. There are no suspicious pulmonary nodules. Airways are widely patent. There is no pleural thickening or pleural effusion. Limited views of the upper abdomen are unremarkable. IMPRESSION: 1. No CT evidence of acute pulmonary embolus or aortic dissection. 2. Diffuse emphysematous changes of the lungs with bullous disease. 3. Linear opacity in the left upper lobe has the appearance of atelectasis or fibrosis. This is inc reased in comparison to prior study. Superimposed pneumonia cannot be excluded. Correlate with hist ory and symptoms. 4. Right hilar adenopathy measuring up to 1.5 cm. 5. Coronary artery disease. Prior CABG.
== END 2017-08-26 10:44 | disposition home or self-care (01) ==
LOC: ED 07:51
DX: J44.1 Chronic obstructive pulmonary disease with (acute) exacerbation (principal); I10 Essential (primary) hypertension; I25.810 Atherosclerosis of coronary artery bypass graft(s) without angina pectoris; E78.5 Hyperlipidemia, unspecified; I25.2 Old myocardial infarction; Z79.899 Other long term (current) drug therapy; Z99.81 Dependence on supplemental oxygen
CPT/HCPCS: 36415; 80053; 82550; 83880; 84484; 85025; 85379; 93005; 93010; 94640; 99283

== ENCOUNTER 2017-08-26 12:16 | Emergency (ER) ==
[2017-08-26 12:16] VITALS: BMI 38.2
[2017-08-26 12:20] VITALS: BP 185/96; TEMP 98.6
--- NOTE | 2017-08-26 13:13 | ED.PDOC ---
General ED Provider: Dr. SOFY HODGES Chief Complaint: Shortness of Air Stated Complaint: Patient seen here for COPD exacerbation secondary to running out of Duonebs. Discharged at 1044. Returns because he is SOB again. Hasn't been home. Is O2 dependent but portable tanke is empty and tubing is at his mom' s which he can't get to because he has no transportation. States since discharge has been trying to fill Duoneb Rx despite having no money. Also c/o chronic back pain for which he takes pain med at home but didn't today. Requests one dose of pain for his 8-10 pain. Time Seen by Physician: 13:09 Mode of Arrival: Walk-In Information Source: Patient Exam Limitations: Physical impairment Primary Care Provider: ANASTASIA RANDALL Nursing and Triage Documentation Reviewed and Agree: Yes Respiratory Complaint Exam - Shortness of Air Complaint/Exam Onset/Duration: 1 day Symptoms Are: Still present Timing: Constant Initial Severity: Mild Current Severity: Moderate Character: Reports: Dyspnea at rest, Dyspnea on exertion Aggravating: Reports: None Alleviating: Reports: Bronchodilators, Oxygen Associated Signs and Symptoms: Reports: Cough (mild, nonproductive) Related History: Reports: Similar episode (COPD exacerbations) History of Healthcare-Acquired Pneumonia: No Pulmonary Embolism Risk Factors: Reports: None Cardiac Risk Factors: Reports: Smoking (doesn't smoke, dips snuff) Pseudomonas Risk Factors: Reports: Chronic Lung Disease Home Oxygen Use: Yes Recent Stress Test: No Recent Echo/LV Function: No Respiratory Distress: Mild Stridor Present: No Tracheal Deviation: No Subcutaneous Emphysema: No Accessory Muscle Use: No Retractions: Not Present Diminished Breath Sounds: No Prolonged Expiratory Phase: No Unable to Speak Full Sentences: No Fatigue: No Leg Swelling: No Favio's Sign Present: No Grunting Respirations: No Kussmaul Respirations: No Differential Diagnoses: COPD Exacerbation Review of Systems - Review Of Systems Constitutional: Reports: No symptoms Eyes: Reports: No symptoms Ears, Nose, Mouth, Throat: Reports: No symptoms Respiratory: Reports: Cough, Short of air Cardiac: Reports: No symptoms GI: Reports: No symptoms : Reports: No symptoms Musculoskeletal: Reports: No symptoms Skin: Reports: No symptoms Neurological: Reports: Anxiety All Other Systems: Reviewed and Negative Past Medical History - Past Medical History Previously Healthy: No Endocrine: Reports: Dyslipidemia Cardiovascular: Reports: CAD, [place], Hypertension, CHF Respiratory: Reports: COPD Hematological: Reports: None Gastrointestinal: Reports: None Genitourinary: Reports: Kidney stones Neuro/Psych: Reports: Depression Musculoskeletal: Reports: Arthritis, Back Pain ("always painful" no worse this AM) Cancer: Reports: None Other Pertinent Past Medical History: htn chol mi depr cabg hernia - Surgical History General Surgical History: Reports: CABG (double bypass 6 months ago), Hernia Repair - Family History Family History: Reports: Unknown - Social History Smoking Status: Former smoker Hx Substance Use: No Alcohol Screening: None - Immunizations Influenza Vaccine within 12 Months: No Pneumococcal Vaccine up to Date: No Physical Exam - Physical Exam Appearance: Well-appearing, Well-nourished Ill-appearing: None Pain Distress: Moderate Eyes: WILVER, EOMI, Conjunctiva clear ENT: Ears normal Neck: Supple Respiratory: Airway patent, Breath sounds clear, Breath sounds equal, Respirations nonlabored Cardiovascular: RRR, Pulses normal, No rub, No murmur GI/: Soft, Nontender, No masses, Bowel sounds normal, No Organomegaly Skin: Warm, Dry, Normal color Neurological: Sensation intact, Motor intact, Reflexes intact, Cranial nerves intact, Alert, Oriented Psychiatric: Affect appropriate, Mood appropriate Critical Care Note - Critical Care Note Total Time (mins): 0 Course - Course Vital Signs: Temp Pulse Resp BP Pulse Ox 08/26/17 12:17 98.6 F 90 20 185/96 H 89 L Departure - Departure Time of Disposition: 13:23 Disposition: HOME SELF-CARE Discharge Problem: COPD exacerbation COPD (chronic obstructive pulmonary disease) Qualifiers: COPD type: COPD with acute exacerbation Qualified Code(s): J44.1 - Chronic obstructive pulmonary disease with (acute) exacerbation Instructions: COPD (Chronic Obstructive Pulmonary Disease) (ED) Condition: Good Pt referred to PMD for follow-up: Yes Allergies/Adverse Reactions: Allergies No Known Allergies Allergy (Verified 08/26/17 08:02) Home Medications: Ambulatory Orders Aspirin [Adult Low Dose Aspirin EC] 81 mg PO DAILY 06/30/16 Clopidogrel Bisulfate [Plavix] 75 mg PO DAILY 06/30/16 Lisinopril [Zestril] 40 mg PO DAILY 06/30/16 Pravastatin Sodium [Pravachol] 20 mg PO BEDTIME 06/30/16 Potassium Chloride [K-Tab ER] 10 meq PO DAILY #30 tablet.er 11/18/16 Furosemide [Lasix Tab] 20 mg PO BID 12/27/16 Hydrochlorothiazide 12.5 mg PO DAILY 12/27/16 Hydrocodone Bit/Acetaminophen [[place] 10-325] 1 tab PO BID 12/27/16 Metoprolol Tartrate [Lopressor] 25 mg PO BID 12/27/16 Nitroglycerin [Nitrostat] 0.4 mg SL DIRECTED 08/02/17 Ipratropium/Albuterol Neb [Duoneb] 1 vial NEB RTBID #60 vial.neb 08/05/17 Prednisone 10 mg PO BIDWM #10 tablet 08/05/17 Ipratropium/Albuterol Neb [Duoneb] 1 vial NEB TID #40 vial.neb 08/26/17 Disposition Discussed With: Patient
[2017-08-26] MEDS: NORCO 10-325 PO STA (13:27)
[2017-08-26] MEDS: DUONEB NEB STA (13:32)
== END 2017-08-26 13:46 | disposition home or self-care (01) ==
LOC: ED 12:16
DX: J44.1 Chronic obstructive pulmonary disease with (acute) exacerbation (principal)
CPT/HCPCS: 94640; 99283

== ENCOUNTER 2017-10-06 11:08 | Emergency (ER) ==
[2017-10-06 11:08] VITALS: BMI 38.2
[2017-10-06] MEDS ORDERED: MORPHINE 4 MG/ML VIAL IVP STA ×3 (11:10→13:07)
[2017-10-06] MEDS ORDERED: ZOFRAN 4 MG/2 ML IVP STA (11:10)
[2017-10-06 11:13] VITALS: BP 220/132; TEMP 96
[2017-10-06 11:21] LABS: BASOPHILS # (AUTO) 0.1 K/uL (0-0.2); BASOPHILS % (AUTO) 0.6 % (0.0-3.0); EOSINOPHILS # (AUTO) 0.6 K/ul (0.0-0.7); EOSINOPHILS % (AUTO) 5.9 % (0.0-7.0); HEMATOCRIT 48.3 % (42.0-52.0); HEMOGLOBIN 16.4 g/dl (14.0-18.0); IMMATURE GRANULOCYTE % (AUTO) 0.3 % (0.0-5.0); LYMPHOCYTES # (AUTO) 2.3 K/uL (0.60-3.4); LYMPHOCYTES % (AUTO) 22.4 (10.0-50.0); MEAN CORPUSCULAR HEMOGLOBIN 29.2 pg (27.0-31.0); MEAN CORPUSCULAR VOLUME 86.1 fl (80.0-94.0); MONOCYTES % (AUTO) 9.7 (0-10); NEUTROPHILS # (AUTO) 6.1 K/ul (2.0-6.9); NEUTROPHILS % (AUTO) 61.1; PLATELET COUNT 229 10^3/uL (140-440); RED BLOOD COUNT 5.61 10^6/ul (4.70-6.10); WHITE BLOOD COUNT 10.04 K/ul (4.2-10.2)
[2017-10-06 11:22] LABS: ABG BASE EXCESS 2 (-2.0-2.0); ABG HCO3 25.8 (22.0-26.0); ABG PCO2 37.8 mmHg (35-45); ABG PH 7.442 (7.35-7.45); ABG TCO2 27 (22.0-28.0)
[2017-10-06 11:41] LABS: PARTIAL THROMBOPLASTIN TIME 22.5 SEC (23.9-40.0); PROTHROMBIN TIME 10.2 SEC (9.3-11.0)
[2017-10-06] MEDS ORDERED: MORPHINE 10 MG/ML SYRINGE IVP STA (11:42)
[2017-10-06] MEDS ORDERED: DUONEB NEB STA (11:42)
--- NOTE | 2017-10-06 11:46 | DI ---
Exam: Single x-ray of the chest. Comparison: CT PE protocol performed 08/26/2017. Chest x-ray performed 08/26/2017. Reason for exam: Pain, short of breath. FINDINGS: No pneumothorax, pleural effusion, or focal consolidation. There is blunting of the left costophrenic angle likely accentuated by positioning. Operative changes are seen after midline muniz otomy and CABG. Impression: Blunting of the left costophrenic angle may represent atelectasis or pneumonia and is likely accentua mohinder by positioning. Report faxed at [id number] hours on 10/06/2017
[2017-10-06 11:59] LABS: ALBUMIN 3.9 g/dL (3.4-5.0); ANION GAP 13.8; BILIRUBIN,TOTAL 0.44 mg/dL (0.00-1.20); BUN/CREATININE RATIO 15.85; CALCIUM 10.3 mg/dL (8.2-10.2); CREATININE 0.82 mg/dL (0.60-1.10); POTASSIUM 3.8 mmol/L (3.5-5.1); TOTAL PROTEIN 7.8 g/dL (6.4-8.2); TROPONIN I 0.13 ng/ml (0.0000-0.4000)
[2017-10-06 12:00] LABS: CREATINE KINASE MB 4.4 ng/ml (0.0-3.6)
[2017-10-06] MEDS ORDERED: LOPRESSOR IVP STA ×2 (12:08→13:07)
--- NOTE | 2017-10-06 12:25 | ED.PDOC ---
General ED Provider: Dr. GELY HAYES Chief Complaint: Chest Pain Stated Complaint: chest pain Time Seen by Physician: 11:13 (chest pain x 2 hours ) Mode of Arrival: Walk-In Information Source: Patient Exam Limitations: No limitations Primary Care Provider: ANASTASIA RANDALL Nursing and Triage Documentation Reviewed and Agree: Yes Cardiovascular Complaint Exam - Chest Pain Complaint/Exam Onset: Gradual Duration: 2 hours prior to arrival Symptoms Are: Still present (on arrival 05/22) Timing: Intermittent Length of Chest Pain Episodes: 2 hrs Initial Severity: Moderate Current Severity: Moderate Location: Reports: Midsternal, Left anterior Pain Radiates: Reports: None Character: Reports: Aching Aggravating: Reports: None (pain occured at rest he took 2 [employer]N [employer] ) Alleviating: Reports: Rest, Nitro Associated Signs and Symptoms: Reports: Cough, Short of air. Denies: Diaphoresis, Nausea, Vomiting, Fever, Palpitations, Hemoptysis (ON HOME 02 AT ALL TIMES ), Back pain, Abdominal pain, Dizziness, Calf pain, Calf swelling Related History: Reports: Similar episode History of Healthcare-Acquired Pneumonia: Reports: No AMI/ACS Risk Factors: Reports: Myocardial Infarction, Sedentary, Hypertension TAD Risk Factors: Reports: Hypertension Pulmonary Embolism Risk Factors: Reports: Bedrest Prior Care for this Complaint: Yes Recent Stress Test: No Recent Echo/LV Function: No JVD Present: No Subcutaneous Emphysema Present: No Diminshed Breath Sounds: Yes Reproducible Chest Wall Pain: No Bilateral Pulses Present: Yes Unequal Pulses Noted: No If Risk Factors for AMI/ACS Consider: EKG, Cardiac Enzymes Differential Diagnoses: Unstable Angina, CHF, Lower Resp. Infection Quality Indicators For Acute NE or Cardiac Chest Pain: EKG in 10min. Review of Systems - Review Of Systems Constitutional: Reports: Malaise Eyes: Reports: No symptoms Ears, Nose, Mouth, Throat: Reports: No symptoms Respiratory: Reports: Cough Cardiac: Reports: Chest pain GI: Reports: No symptoms : Reports: No symptoms Musculoskeletal: Reports: No symptoms Skin: Reports: No symptoms Neurological: Reports: No symptoms Endocrine: Reports: No symptoms Hematologic/Lymphatic: Reports: No symptoms All Other Systems: Reviewed and Negative Past Medical History - Past Medical History Previously Healthy: No Endocrine: Reports: Dyslipidemia Cardiovascular: Reports: CAD, [place], Hypertension, CHF Respiratory: Reports: COPD Hematological: Reports: None Gastrointestinal: Reports: None Genitourinary: Reports: Kidney stones Neuro/Psych: Reports: Depression Musculoskeletal: Reports: Arthritis, Back Pain ("always painful" no worse this AM) Cancer: Reports: None Other Pertinent Past Medical History: htn chol mi depr cabg hernia - Surgical History General Surgical History: Reports: CABG (double bypass 6 months ago), Hernia Repair - Family History Family History: Reports: Unknown - Social History Smoking Status: Former smoker Hx Substance Use: No Alcohol Screening: None - Immunizations Tetanus Shot up to Date: Yes Influenza Vaccine within 12 Months: No Pneumococcal Vaccine up to Date: No Physical Exam - Physical Exam Appearance: Well-appearing, No pain distress, Well-nourished Eyes: WILVER, EOMI, Conjunctiva clear ENT: Ears normal, Nose normal, Oropharynx normal Respiratory: Airway patent, Breath sounds clear, Breath sounds equal, Respirations nonlabored Cardiovascular: RRR, Pulses normal, No rub, No murmur GI/: Soft, Nontender, No masses, Bowel sounds normal, No Organomegaly Musculoskeletal: Normal strength, ROM intact, No edema, No calf tenderness Skin: Warm, Dry, Normal color Neurological: Sensation intact, Motor intact, Reflexes intact, Cranial nerves intact, Alert, Oriented Psychiatric: Affect appropriate, Mood appropriate Interpretation - Radiology Interpretation Radiology Interpretation By: Radiologist Radiology Results: No acute changes - Beauty Operator Apprentice Rate: Tachy Rhythm: Sinus - EKG Interpretation Rate: Tachy Rhythm: Sinus Physician Notification - Case Discussed Physician Notified: PMD Time of Notification: 12:26 (TRANSFER ) Critical Care Note - Critical Care Note Total Time (mins): 0 Course - Course Hematology/Chemistry: 10/06/17 11:15 10/06/17 11:15 Orders, Labs, Meds: Lab Review 10/06/17 10/06/17 10/06/17 11:10 11:15 11:15 WBC 10.04 RBC 5.61 Hgb 16.4 Hct 48.3 MCV 86.1 MCH 29.2 MCHC 34.0 RDW Coeff of Moris 13.3 Plt Count 229 Immature Gran % (Auto) 0.3 Neut % (Auto) 61.1 Lymph % (Auto) 22.4 [place] % (Auto) 9.7 Eos % (Auto) 5.9 Baso % (Auto) 0.6 Immature Gran # (Auto) 0.0 Neut # 6.1 Lymph # 2.3 [place] # 1.0 Eos # 0.6 Baso # 0.1 PT 10.2 INR 1.00 APTT 22.5 L D-Dimer (Manual) Puncture Site Rbrach O2 Saturation 95.0 ABG pH 7.442 ABG pCO2 37.8 ABG pO2 74.0 L ABG HCO3 25.8 ABG Total CO2 27 ABG Base Excess 2 O2 Delivery Device Nc Oxygen Liter Flow 3.00 Sodium Potassium Chloride Carbon Dioxide Anion Gap BUN Creatinine Estimated GFR (MDRD) BUN/Creatinine Ratio Glucose Calcium Total Bilirubin AST ALT Alkaline Phosphatase Total Creatine Kinase CK-MB (CK-2) CK-MB (CK-2) % Troponin I Total Protein Albumin Globulin Albumin/Globulin Ratio 10/06/17 10/06/17 11:15 11:15 WBC RBC Hgb Hct MCV MCH MCHC RDW Coeff of Moris Plt Count Immature Gran % (Auto) Neut % (Auto) Lymph % (Auto) [place] % (Auto) Eos % (Auto) Baso % (Auto) Immature Gran # (Auto) Neut # Lymph # [place] # Eos # Baso # PT INR APTT D-Dimer (Manual) 840.60 Puncture Site O2 Saturation ABG pH ABG pCO2 ABG pO2 ABG HCO3 ABG Total CO2 ABG Base Excess O2 Delivery Device Oxygen Liter Flow Sodium 139 Potassium 3.8 Chloride 101 Carbon Dioxide 28 Anion Gap 13.8 BUN 13 Creatinine 0.82 Estimated GFR (MDRD) 97.00 BUN/Creatinine Ratio 15.85 Glucose 112 H Calcium 10.3 H Total Bilirubin 0.44 AST 26 ALT 35 Alkaline Phosphatase 98 Total Creatine Kinase 131 CK-MB (CK-2) 4.4 H CK-MB (CK-2) % 3.17192 Troponin I 0.1300 Total Protein 7.8 Albumin 3.9 Globulin 3.9 Albumin/Globulin Ratio 1.00 Orders Category Date Time Status ABG DRAW REQUEST Stat CARDIO 10/06/17 11:10 Completed EKG-(ED ONLY) Stat CARDIO 10/06/17 11:09 Completed NEBULIZER TREATMENT Stat CARDIO 10/06/17 11:42 Ordered ED IV/MEDIPORT/POWERPORT .ONCE EMERGENCY 10/06/17 11:09 Active ABG Stat LAB 10/06/17 11:10 Completed CBC W/ AUTO DIFF Stat LAB 10/06/17 11:15 Completed COMPREHENSIVE METABOLIC PANEL Stat LAB 10/06/17 11:15 Completed CREATINE KINASE Stat LAB 10/06/17 11:15 Completed D-DIMER Stat LAB 10/06/17 11:15 Completed PARTIAL THROMBOPLASTIN TIME Stat LAB 10/06/17 11:15 Completed PT WITH INR Stat LAB 10/06/17 11:15 Completed TROPONIN I Stat LAB 10/06/17 11:15 Completed 0.9 % Sodium Chloride [Saline Flush] MEDS 10/06/17 11:09 Active 1 syr IVF PRN PRN Ipratropium/Albuterol Neb [Duoneb] MEDS 10/06/17 11:42 Discontinued 1 vial NEB ONCE STA Metoprolol Tartrate [Lopressor] MEDS 10/06/17 12:08 Discontinued 2.5 mg IVP ONCE STA Morphine Sulfate [Morphine 10 mg/ml Syringe] MEDS 10/06/17 11:42 Discontinued 4 mg IVP ONCE STA Morphine Sulfate [Morphine 4 mg/ml Vial] MEDS 10/06/17 11:10 Discontinued 4 mg IVP ONCE STA Morphine Sulfate [Morphine 4 mg/ml Vial] MEDS 10/06/17 11:47 Discontinued 4 mg IVP ONCE STA Ondansetron HCl/Pf [Zofran 4 mg/2 ml] MEDS 10/06/17 11:10 Discontinued 4 mg IVP ONCE STA CHEST, 1V AP ONLY Stat RADS 10/06/17 11:09 Completed Medications Generic Name Dose Route Start Last Admin Trade Name Freq PRN Reason Stop Dose Admin Sodium Chloride 1 syr 10/06/17 11:09 Saline Flush IVF PRN PRN To flush IV Discontinued Medications Generic Name Dose Route Start Last Admin Trade Name Freq PRN Reason Stop Dose Admin Albuterol/Ipratropium 1 vial 10/06/17 11:42 10/06/17 11:49 Duoneb NEB 10/06/17 11:43 1 vial ONCE STA Administration Metoprolol Tartrate 2.5 mg 10/06/17 12:08 10/06/17 12:19 Lopressor IVP 10/06/17 12:09 2.5 mg ONCE STA Administration Morphine Sulfate 4 mg 10/06/17 11:10 10/06/17 11:25 Morphine 4 Mg/Ml Vial IVP 10/06/17 11:11 4 mg ONCE STA Administration Morphine Sulfate 4 mg 10/06/17 11:42 10/06/17 11:50 Morphine 10 Mg/Ml Syringe IVP 10/06/17 11:43 Not Given ONCE STA Morphine Sulfate 4 mg 10/06/17 11:47 10/06/17 11:54 Morphine 4 Mg/Ml Vial IVP 10/06/17 11:48 4 mg ONCE STA Administration Ondansetron HCl 4 mg 10/06/17 11:10 10/06/17 11:25 Zofran 4 Mg/2 Ml IVP 10/06/17 11:11 4 mg ONCE STA Administration Vital Signs: Temp Pulse Resp BP Pulse Ox 10/06/17 11:09 96 F L 112 H 20 220/132 H 94 L WM Risk Score WM Risk Score: Risk Score Odds of by 30D 0 0.1 (0.1-0.2) 1 0.3 (0.2-0.3) 2 0.4 (0.3-0.5) 3 0.7 (0.6-0.9) 4 1.2 (1.0-1.5) 5 2.2 (1.9-2.6) 6 3.0 (2.5-3.6) 7 4.8 (3.8-6.1) Departure - Departure Time of Disposition: 12:26 Disposition: TSF SHORT-TRM HOSP Discharge Problem: Chest pain Instructions: Chest Pain (ED), Angina (ED) Condition: Good Pt referred to PMD for follow-up: Yes Additional Instructions: Please call your Family Physician as soon as possible to schedule a follow-up appointment. Allergies/Adverse Reactions: Allergies No Known Allergies Allergy (Verified 10/06/17 11:23) Home Medications: Ambulatory Orders Aspirin [Adult Low Dose Aspirin EC] 81 mg PO DAILY 06/30/16 Clopidogrel Bisulfate [Plavix] 75 mg PO DAILY 06/30/16 Lisinopril [Zestril] 40 mg PO DAILY 06/30/16 Pravastatin Sodium [Pravachol] 20 mg PO BEDTIME 06/30/16 Potassium Chloride [K-Tab ER] 10 meq PO DAILY #30 tablet.er 11/18/16 Furosemide [Lasix Tab] 20 mg PO BID 12/27/16 Hydrochlorothiazide 12.5 mg PO DAILY 12/27/16 Hydrocodone Bit/Acetaminophen [[place] 10-325] 1 tab PO BID 12/27/16 Metoprolol Tartrate [Lopressor] 25 mg PO BID 12/27/16 Nitroglycerin [Nitrostat] 0.4 mg SL DIRECTED 08/02/17 Ipratropium/Albuterol Neb [Duoneb] 1 vial NEB RTBID #60 vial.neb 08/05/17 Ipratropium/Albuterol Neb [Duoneb] 1 vial NEB TID #40 vial.neb 08/26/17 Disposition Discussed With: Patient
--- NOTE | 2017-10-06 13:38 | CT ---
EXAM: CTA chest with contrast using PE protocol. TECHNIQUE: Helical CTA of the chest was performed with contrast in axial plane with coronal and sagit sameer reconstructions and separate work station 3-D renderings. COMPARISON: CT chest from 08/26/2017 HISTORY: Chest pain. Short of breath FINDINGS: There are no filling defects in the pulmonary arteries to the level of the subsegmental branches. The re is no sign of ventricular strain. There is very advanced emphysematous change. Previously noted l inear scarring in the left anterior lung is improved on today's exam. There is no pathologic supracl avicular, axillary, mediastinal or hilar adenopathy. There is no pericardial effusion or pneumothorax. The aorta demonstrates minimal atherosclerotic calc ifications with no dissection or aneurysm. There are coronary calcifications. The upper abdomen is be nign with no acute abnormality. There are no acute osseous abnormalities. IMPRESSION: 1. No evidence for pulmonary embolus. 2. Advanced emphysematous changes. 3. Coronary calcifications.
== END 2017-10-06 14:00 | disposition short-term general hospital (02) ==
LOC: ED 11:08
DX: R07.9 Chest pain, unspecified (principal); R06.02 Shortness of breath; R05 Cough; I10 Essential (primary) hypertension; E78.5 Hyperlipidemia, unspecified; I25.2 Old myocardial infarction; I25.810 Atherosclerosis of coronary artery bypass graft(s) without angina pectoris; I50.9 Heart failure, unspecified; J44.9 Chronic obstructive pulmonary disease, unspecified; Z79.899 Other long term (current) drug therapy
CPT/HCPCS: 36415; 80053; 82550; 82553; 82803; 84484; 85025; 85379; 85610; 85730; 93005; 93010; 94640; 96374; 96375; 96376; 99285

== ENCOUNTER 2017-10-06 14:06 | Outpatient (CLI) ==
[2017-10-06 11:08] VITALS: BMI 38.2
== END 2017-10-06 14:07 | disposition short-term general hospital (02) ==
LOC: AMBL 14:06
PROVIDERS: ATTEND Internal Medicine
DX: R07.9 Chest pain, unspecified (principal); R00.0 Tachycardia, unspecified; R06.2 Wheezing

== ENCOUNTER 2017-10-24 03:04 | Inpatient (IN) ==
[2017-10-24] MEDS ORDERED: LASIX IVP STA (03:06)
[2017-10-24] MEDS ORDERED: SOLU-MEDROL 125 MG IVP STA (03:06)
[2017-10-24] MEDS ORDERED: DUONEB NEB STA (03:07)
[2017-10-24] MEDS ORDERED: XOPENEX 1.25 MG NEB STA (03:07)
[2017-10-24 03:20] LABS: BASOPHILS # (AUTO) 0.1 K/uL (0-0.2); BASOPHILS % (AUTO) 0.4 % (0.0-3.0); EOSINOPHILS # (AUTO) 0.6 K/ul (0.0-0.7); EOSINOPHILS % (AUTO) 5.2 % (0.0-7.0); HEMATOCRIT 46.6 % (42.0-52.0); HEMOGLOBIN 15.6 g/dl (14.0-18.0); IMMATURE GRANULOCYTE % (AUTO) 0.4 % (0.0-5.0); LYMPHOCYTES # (AUTO) 2.8 K/uL (0.60-3.4); MEAN CORPUSCULAR HEMOGLOBIN 29.4 pg (27.0-31.0); MEAN CORPUSCULAR HGB CONC 33.5 (31.8-35.4); MEAN CORPUSCULAR VOLUME 87.8 fl (80.0-94.0); MONOCYTES # (AUTO) 1.1 K/uL (0.4-2.0); MONOCYTES % (AUTO) 9.3 (0-10); NEUTROPHILS # (AUTO) 7.1 K/ul (2.0-6.9); NEUTROPHILS % (AUTO) 60.7; PLATELET COUNT 222 10^3/uL (140-440); RED BLOOD COUNT 5.31 10^6/ul (4.70-6.10); WHITE BLOOD COUNT 11.73 K/ul (4.2-10.2)
[2017-10-24 03:28] LABS: ABG BASE EXCESS -3 (-2.0-2.0); ABG HCO3 25.5 (22.0-26.0); ABG PCO2 67.8 mmHg (35-45); ABG PH 7.1854 (7.35-7.45); ABG TCO2 28 (22.0-28.0)
--- NOTE | 2017-10-24 03:34 | DI ---
EXAM: Single-view chest HISTORY: Dyspnea COMPARISON: Single-view chest 10/06/2017 FINDINGS: The cardiomediastinal silhouette is stable. There are emphysematous changes.. Sternal wi re sutures noted from previous CABG. . Subsegmental atelectasis is seen in both perihilar regions le ft greater than right.. There is no evidence of infiltrate or effusion. IMPRESSION: Stable cardiomediastinal silhouette. Emphysematous changes. Bilateral perihilar subsegmental atelectasis left greater than right
[2017-10-24] MEDS ORDERED: ATIVAN IVP STA (03:49)
[2017-10-24 04:12] LABS: ALBUMIN 3.3 g/dL (3.4-5.0); ALBUMIN/GLOBULIN RATIO 0.92; ANION GAP 15.2; BILIRUBIN,TOTAL 0.42 mg/dL (0.00-1.20); BUN/CREATININE RATIO 16.21; CALCIUM 9.1 mg/dL (8.2-10.2); CREATININE 0.74 mg/dL (0.60-1.10); POTASSIUM 4.2 mmol/L (3.5-5.1); TOTAL PROTEIN 6.9 g/dL (6.4-8.2); TROPONIN I 0.093 ng/ml (0.0000-0.4000)
[2017-10-24 04:13] LABS: CREATINE KINASE MB 6.6 ng/ml (0.0-3.6)
[2017-10-24 04:39] LABS: ABG BASE EXCESS 2 (-2.0-2.0); ABG HCO3 27.8 (22.0-26.0); ABG PCO2 50.4 mmHg (35-45); ABG TCO2 29 (22.0-28.0)
--- NOTE | 2017-10-24 05:35 | ED.PDOC ---
General ED Provider: Dr. NAVJOT KIM-ER Chief Complaint: Shortness of Air Stated Complaint: im sob Time Seen by Physician: 03:10 Mode of Arrival: Ambulance Information Source: EMT Exam Limitations: No limitations Primary Care Provider: ANASTASIA MEYER Nursing and Triage Documentation Reviewed and Agree: Yes Respiratory Complaint Exam - Respiratory Complaint/Exam Onset/Duration: a few hours Symptoms Are: Still present Timing: Constant Initial Severity: Mild Current Severity: Mild Character: Reports: Dry cough Aggravating: Reports: None Alleviating: Reports: Bronchodilators Associated Signs and Symptoms: Reports: Rapid breathing, Dyspnea. Denies: Fever , Chills, Chest pain, Pleuritic chest pain, Wheezing, Hemoptysis, Dizziness, Calf pain, Calf swelling, Edema, URI, Nasal congestion, Hoarseness, Sinus discomfort, Vomiting, Sore throat, Weight loss, Decreased oral intake, Increased thirst, Increased appetite, Increased urination Related History: Reports: Similar episode History of Healthcare-Acquired Pneumonia: No Cardiac Risk Factors: Reports: CAD, Elevated lipids, Diabetes, Hypertension, CHF Pseudomonas Risk Factors: Reports: Chronic Lung Disease Tuberculosis Risk Factors: Reports: Diabetes, Chronic Resp. Faliure Status Asthmaticus Risk Factors: Reports: None Home Oxygen Use: Yes Recent Stress Test: No Recent Echo/LV Function: No Current Antibiotic Use: No Current Asthma Medication Use: No Respiratory Distress: Moderate Inadequate Respiratory Effort: No Dysphagia Present: No Stridor Present: No JVD Present: No Accessory Muscle Use: No Retractions: Intercostal Diminished Breath Sounds: Yes Sinus Tenderness: None Grunting Respirations: No Kussmaul Respirations: No Differential Diagnoses: CHF, Pulmonary Edema, COPD Exacerbation, Pneumonia Non-Traumatic Chest Pain Syncope: EKG Performed Review of Systems - Review Of Systems Constitutional: Reports: No symptoms Eyes: Reports: No symptoms Ears, Nose, Mouth, Throat: Reports: No symptoms Respiratory: Reports: Cough, Short of air Cardiac: Reports: No symptoms GI: Reports: No symptoms : Reports: No symptoms Musculoskeletal: Reports: No symptoms Skin: Reports: No symptoms Neurological: Reports: No symptoms Endocrine: Reports: No symptoms Hematologic/Lymphatic: Reports: No symptoms All Other Systems: Reviewed and Negative Past Medical History - Past Medical History Previously Healthy: No Endocrine: Reports: Dyslipidemia Cardiovascular: Reports: CAD, [place], Hypertension, CHF Respiratory: Reports: COPD Hematological: Reports: None Gastrointestinal: Reports: None Genitourinary: Reports: Kidney stones Neuro/Psych: Reports: Depression Musculoskeletal: Reports: Arthritis, Back Pain ("always painful" no worse this AM) Cancer: Reports: None Other Pertinent Past Medical History: htn chol mi depr cabg hernia - Surgical History General Surgical History: Reports: CABG (double bypass 6 months ago), Hernia Repair - Family History Family History: Reports: Unknown - Social History Smoking Status: Former smoker Hx Substance Use: No Alcohol Screening: None - Immunizations Tetanus Shot up to Date: (UNKNOWN) Influenza Vaccine within 12 Months: No Pneumococcal Vaccine up to Date: No Physical Exam - Physical Exam Appearance: Well-appearing, No pain distress, Well-nourished Eyes: WILVER ENT: Ears normal, Nose normal, Oropharynx normal Neck: Supple Respiratory: Breath sounds diminished, Crackles, Wheezes, Retractions Cardiovascular: RRR GI/: Soft, Nontender, No masses, Bowel sounds normal, No Organomegaly Musculoskeletal: Normal strength, ROM intact, No edema, No calf tenderness Skin: Warm, Dry, Normal color Neurological: Sensation intact, Motor intact, Reflexes intact, Cranial nerves intact, Alert, Oriented Psychiatric: Affect appropriate, Mood appropriate, Anxious Interpretation - Radiology Interpretation Radiology Interpretation By: Radiologist Radiology Results: Negative Exam Interpreted: CT Scan - EKG Interpretation Time of EKG #1: 05:47 Rate: Normal Rhythm: Sinus Ectopy: None [place]: NL ST Segment: Normal Re-Evaluation - Re-Evaluation Time of Re-Evaluation: 05:47 Status: Improved Vital Signs Stable: Yes Pain Level: 0 Appearance: NAD Lungs: Clear Skin: Warm and Dry Neuro: Alert and Oriented X3 CV: RRR Physician Notification - Case Discussed Physician Notified: dr meyer Time of Notification: 05:47 Critical Care Note - Critical Care Note Total Time (mins): 60 Course - Course Hematology/Chemistry: 10/24/17 03:16 10/24/17 03:16 Orders, Labs, Meds: Lab Review 10/24/17 10/24/17 10/24/17 03:05 03:16 03:16 WBC 11.73 H RBC 5.31 Hgb 15.6 Hct 46.6 MCV 87.8 MCH 29.4 MCHC 33.5 RDW Coeff of Moris 13.3 Plt Count 222 Immature Gran % (Auto) 0.4 Neut % (Auto) 60.7 Lymph % (Auto) 24.0 [place] % (Auto) 9.3 Eos % (Auto) 5.2 Baso % (Auto) 0.4 Immature Gran # (Auto) 0.1 Neut # 7.1 H Lymph # 2.8 [place] # 1.1 Eos # 0.6 Baso # 0.1 D-Dimer (Manual) Puncture Site Lb O2 Saturation 99.0 ABG pH 7.1854 L* ABG pCO2 67.8 H ABG pO2 155.0 H ABG HCO3 25.5 ABG Total CO2 28 ABG Base Excess -3 L [place] Test + O2 Delivery Device Nrb Oxygen Liter Flow 15.00 FiO2 % 100.0 Sodium 136 Potassium 4.2 Chloride 101 Carbon Dioxide 24 Anion Gap 15.2 BUN 12 Creatinine 0.74 Estimated GFR (MDRD) 109.00 BUN/Creatinine Ratio 16.21 Glucose 178 H Lactic Acid Calcium 9.1 Total Bilirubin 0.42 AST 23 ALT 25 Alkaline Phosphatase 106 Total Creatine Kinase 136 CK-MB (CK-2) 6.6 H* CK-MB (CK-2) % 4.31527 Troponin I 0.0930 B-Natriuretic Peptide Total Protein 6.9 Albumin 3.3 L Globulin 3.6 Albumin/Globulin Ratio 0.92 Procalcitonin 10/24/17 10/24/17 10/24/17 03:16 03:16 03:30 WBC RBC Hgb Hct MCV MCH MCHC RDW Coeff of Moris Plt Count Immature Gran % (Auto) Neut % (Auto) Lymph % (Auto) [place] % (Auto) Eos % (Auto) Baso % (Auto) Immature Gran # (Auto) Neut # Lymph # [place] # Eos # Baso # D-Dimer (Manual) 899.75 Puncture Site O2 Saturation ABG pH ABG pCO2 ABG pO2 ABG HCO3 ABG Total CO2 ABG Base Excess [place] Test O2 Delivery Device Oxygen Liter Flow FiO2 % Sodium Potassium Chloride Carbon Dioxide Anion Gap BUN Creatinine Estimated GFR (MDRD) BUN/Creatinine Ratio Glucose Lactic Acid 12.8 Calcium Total Bilirubin AST ALT Alkaline Phosphatase Total Creatine Kinase CK-MB (CK-2) CK-MB (CK-2) % Troponin I B-Natriuretic Peptide 196 H Total Protein Albumin Globulin Albumin/Globulin Ratio Procalcitonin 10/24/17 10/24/17 03:30 04:30 WBC RBC Hgb Hct MCV MCH MCHC RDW Coeff of Moris Plt Count Immature Gran % (Auto) Neut % (Auto) Lymph % (Auto) [place] % (Auto) Eos % (Auto) Baso % (Auto) Immature Gran # (Auto) Neut # Lymph # [place] # Eos # Baso # D-Dimer (Manual) Puncture Site Lb O2 Saturation 96.0 ABG pH 7.350 ABG pCO2 50.4 H ABG pO2 91.0 ABG HCO3 27.8 H ABG Total CO2 29 H ABG Base Excess 2 [place] Test + O2 Delivery Device Bipap Oxygen Liter Flow FiO2 % 40.0 Sodium Potassium Chloride Carbon Dioxide Anion Gap BUN Creatinine Estimated GFR (MDRD) BUN/Creatinine Ratio Glucose Lactic Acid Calcium Total Bilirubin AST ALT Alkaline Phosphatase Total Creatine Kinase CK-MB (CK-2) CK-MB (CK-2) % Troponin I B-Natriuretic Peptide Total Protein Albumin Globulin Albumin/Globulin Ratio Procalcitonin < 0.05 Orders Category Date Time Status ABG DRAW REQUEST DAILY@0600 CARDIO 10/25/17 06:00 Ordered ABG DRAW REQUEST DAILY@0600 CARDIO 10/26/17 06:00 Ordered ABG DRAW REQUEST DAILY@0600 CARDIO 10/27/17 06:00 Ordered ABG DRAW REQUEST Stat CARDIO 10/24/17 03:05 Ordered ABG DRAW REQUEST Timed CARDIO 10/24/17 04:30 Ordered BIPAP Routine CARDIO 10/24/17 03:53 Ordered EKG-(ED ONLY) Stat CARDIO 10/24/17 03:05 Ordered NEBULIZER TREATMENT Stat CARDIO 10/24/17 03:07 Ordered NPO REMINDER: IMAGING ONCE CARE 10/24/17 04:06 Completed Senior Interaction Designer [ED CHILD CARE AIDE APPLIED] .ONCE EMERGENCY 10/24/17 03:07 Active ED IV/MEDIPORT/POWERPORT .ONCE EMERGENCY 10/24/17 03:06 Active ABG DAILY@0600 LAB 10/24/17 04:30 Completed ABG DAILY@0600 LAB 10/25/17 06:00 Ordered ABG DAILY@0600 LAB 10/26/17 06:00 Ordered ABG DAILY@0600 LAB 10/27/17 06:00 Ordered ABG Stat LAB 10/24/17 03:05 Completed B-TYPE NATRIURETIC PEPTIDE Stat LAB 10/24/17 03:16 Completed BLOOD CULTURE (ED ONLY) Stat LAB 10/24/17 03:30 Received CBC W/ AUTO DIFF Stat LAB 10/24/17 03:16 Completed COMPREHENSIVE METABOLIC PANEL Stat LAB 10/24/17 03:16 Completed CREATINE KINASE Stat LAB 10/24/17 03:16 Completed D-DIMER Stat LAB 10/24/17 03:16 Completed LACTIC ACID Stat LAB 10/24/17 03:30 Completed PROCALCITONIN Stat LAB 10/24/17 03:30 Completed TROPONIN I Stat LAB 10/24/17 03:16 Completed 0.9 % Sodium Chloride [Saline Flush] MEDS 10/24/17 03:06 Ordered 1 syr IVF PRN PRN Furosemide [Lasix] MEDS 10/24/17 03:06 Discontinued 40 mg IVP ONCE STA Ipratropium/Albuterol Neb [Duoneb] MEDS 10/24/17 03:07 Discontinued 1 vial NEB ONCE STA Levalbuterol HCl [Xopenex 1.25 mg] MEDS 10/24/17 03:07 Discontinued 1 vial NEB ONCE STA Lorazepam Inj [Ativan] MEDS 10/24/17 03:49 Discontinued 0.5 mg IVP ONCE STA Methylprednisolone Sod Succ/Pf [Solu-Medrol 125 mg] MEDS 10/24/17 03:06 Discontinued [address]CE [address] CHEST PE PROTOCOL Stat RADS 10/24/17 04:06 Completed CXR [CHEST, 1V AP ONLY] Stat RADS 10/24/17 03:06 Completed Medications Generic Name Dose Route Start Last Admin Trade Name Freq PRN Reason Stop Dose Admin Sodium Chloride 1 syr 10/24/17 03:06 10/24/17 03:14 Saline Flush IVF 1 syr PRN PRN Administration To flush IV Discontinued Medications Generic Name Dose Route Start Last Admin Trade Name Freq PRN Reason Stop Dose Admin Albuterol/Ipratropium 1 vial 10/24/17 03:07 10/24/17 03:05 Duoneb NEB 10/24/17 03:08 1 vial ONCE STA Administration Furosemide 40 mg 10/24/17 03:06 10/24/17 03:13 Lasix IVP 10/24/17 03:07 40 mg ONCE STA Administration Levalbuterol HCl 1 vial 10/24/17 03:07 10/24/17 03:55 Xopenex 1.25 Mg NEB 10/24/17 03:08 1 vial ONCE STA Administration Lorazepam 0.5 mg 10/24/17 03:49 10/24/17 03:58 Ativan IVP 10/24/17 03:50 0.5 mg ONCE STA Administration Methylprednisolone Sodium Succinate 125 mg 10/24/17 03:06 10/24/17 03:14 Solu-Medrol 125 Mg IVP 10/24/17 03:07 125 mg ONCE STA Administration Vital Signs: Temp Pulse Resp BP Pulse Ox 10/24/17 03:59 96.1 F L 10/24/17 03:50 97 10/24/17 03:05 95.4 F L 112 H 32 H 257/132 H 97 Departure - Departure Time of Disposition: 05:48 Disposition: ADMITTED INPATIENT Discharge Problem: Acute respiratory failure Qualifiers: Respiratory failure complication: hypoxia and hypercapnia Qualified Code(s): J96.01 - Acute respiratory failure with hypoxia; J96.02 - Acute respiratory failure with hypercapnia; J96.02 - Acute respiratory failure with hypercapnia; J96.02 - Acute respiratory failure with hypercapnia Instructions: COPD (Chronic Obstructive Pulmonary Disease) (ED) Condition: Stable Pt referred to PMD for follow-up: Yes Allergies/Adverse Reactions: Allergies No Known Allergies Allergy (Verified 10/24/17 03:13) Home Medications: Ambulatory Orders Aspirin [Adult Low Dose Aspirin EC] 81 mg PO DAILY 06/30/16 Clopidogrel Bisulfate [Plavix] 75 mg PO DAILY 06/30/16 Lisinopril [Zestril] 40 mg PO DAILY 06/30/16 Pravastatin Sodium [Pravachol] 20 mg PO BEDTIME 06/30/16 Potassium Chloride [K-Tab ER] 10 meq PO DAILY #30 tablet.er 11/18/16 Furosemide [Lasix Tab] 20 mg PO BID 12/27/16 Hydrochlorothiazide 12.5 mg PO DAILY 12/27/16 Hydrocodone Bit/Acetaminophen [[place] 10-325] 1 tab PO BID 12/27/16 Metoprolol Tartrate [Lopressor] 25 mg PO BID 12/27/16 Nitroglycerin [Nitrostat] 0.4 mg SL DIRECTED 08/02/17 Ipratropium/Albuterol Neb [Duoneb] 1 vial NEB RTBID #60 vial.neb 08/05/17 Ipratropium/Albuterol Neb [Duoneb] 1 vial NEB TID #40 vial.neb 08/26/17 Disposition Discussed With: Patient
--- NOTE | 2017-10-24 05:40 | CT ---
EXAM: CTA thorax HISTORY: Dyspnea elevated D-dimer COMPARISON: CTA thorax 10/06/2017 FINDINGS: Contiguous axial images obtained through the thorax following uneventful administration in travenous contrast utilizing 3-mm collimation.. Sagittal and coronal reconstructions were imaged and reviewed.. Source images were utilized to create rotating 3-D MIP images. The thoracic inlet is un remarkable.. There are subcentimeter pretracheal, AP and right hilar lymph nodes. Heart is normal in size without pericardial effusion. Sternal wire sutures noted from previous CABG. There is no evid ence of pulmonary embolus.. Redemonstrated are scattered areas of parenchymal scarring bilaterally wi th associated subsegmental atelectasis within both upper lobes and right middle lobe. There is no ev idence of infiltrate or effusion.. There are moderate emphysematous changes.. An incompletely visua lized cyst is seen within the interpolar region left kidney. IMPRESSION: No evidence of pulmonary embolus. Emphysematous changes with scattered areas of subsegmental atelectasis and scarring as described.. Prior median sternotomy and CABG
[2017-10-24] MEDS ORDERED: NITROSTAT SL PRN (06:00)
[2017-10-24 06:33] VITALS: BMI 40.1
[2017-10-24] MEDS: DUONEB NEB SCH ×5 (06:41→21:20)
[2017-10-24] MEDS: ROCEPHIN 1 GM in SODIUM CHLORIDE 50 ML IV SCH ×2 (08:40→09:00)
[2017-10-24] MEDS: MICRO-K CAP PO SCH (08:47)
[2017-10-24] MEDS: LOPRESSOR PO SCH ×2 (08:47→20:04)
[2017-10-24] MEDS: NORCO 10-325 PO SCH ×2 (08:47→20:03)
[2017-10-24] MEDS: ASPIRIN EC PO SCH (08:47)
[2017-10-24] MEDS: HYDROCHLOROTHIAZIDE PO SCH (08:48)
[2017-10-24] MEDS: LASIX TAB PO SCH ×2 (08:48→17:15)
[2017-10-24] MEDS: ZESTRIL PO SCH (08:48)
[2017-10-24] MEDS: PLAVIX PO SCH (08:49)
[2017-10-24] MEDS: SOLU-MEDROL 125 MG IVP SCH ×3 (08:49→20:05)
[2017-10-24] MEDS: LOVENOX SUBCUT SCH (08:49)
[2017-10-24] MEDS ORDERED: NON-FORMULARY MEDICATION (Potassium Chloride [K-Tab Er] 10 MEQ) PO SCH (09:00)
[2017-10-24] MEDS ORDERED: NON-FORMULARY MEDICATION (Hydrochlorothiazide [Hydrochlorothiazide] 12.5 MG) PO SCH ×22 (09:00)
--- NOTE | 2017-10-24 09:15 | PCM.PROG ---
Attending Provider: ATTENDING PROVIDER: Dr. ANASTASIA RANDALL DATE OF SERVICE: 10/24/17 SUBJECTIVE: This 57 year old WHITE/ M was hospitalized 10/24/17. The patient is hospitalized with acute respiratory failure. The patient is quite comfortable now, is not in distress. REVIEW OF SYSTEMS: CONSTITUTIONAL: No night sweats. No fatigue, malaise, lethargy. No fever or chills. HEENT: Eyes: No visual changes. No eye pain. No eye discharge. ENT: No runny nose. No epistaxis. No sinus pain. No odynophagia. No congestion. RESPIRATORY: Mild cough and shortness of breath on exertion. No hemoptysis. No PND. CARDIOVASCULAR: No angina symptoms. No CHF symptoms or coronary insufficiency. No atypical chest pain for CAD. No palpitations. No orthopnea.. GASTROINTESTINAL: No abdominal pain. No nausea or vomiting. No diarrhea or constipation. No hematemesis. No hematochezia. GENITOURINARY: No urgency. No frequency. No dysuria. No hematuria. No obstructive symptoms. No discharge. No pain. No significant abnormal bleeding. MUSCULOSKELETAL: No musculoskeletal pain; no joint swelling. NEUROLOGICAL: Awake, alert, oriented to time, place and person. No headache. No neck pain. No syncope. No seizures. No dizziness. PSYCHIATRIC: Not anxious. No depression. No suicidal thoughts. No homicidal thoughts. SKIN: No rash. No lesions. No wounds. ENDOCRINE: No unexplained weight loss. No weight gain. HEMATOLOGIC/LYMPHATIC: No anemia. No purpura. No petechiae. No prolonged or excessive bleeding. No palpable lymph nodes. PHYSICAL EXAMINATION: GENERAL: The patient is awake, alert and oriented, lying in bed in no distress. VITAL SIGNS: Temperature 97.6 F, Pulse 94, Respiratory Rate 24, BP 257/132, Pulse Ox 96% HEENT: Head normocephalic, atraumatic. Eyes: Extraocular muscles are intact. Pupils are equal, round and reactive to light and accommodation. Ears: No lesions. Nose appeared normal. Throat: No exudate or erythema. NECK: Supple. No JVD, no carotid bruit. No lymphadenopathy or thyromegaly. LUNGS: Clear to auscultation. Percussion note normal. Chest symmetrical. HEART: S1, S2, no S3. No murmurs. No cyanosis or clubbing. No ascites. Pulses: Dorsalis pedis and posterior tibial pulses +1 to +2 both sides. ABDOMEN: Soft. Non-tender. Bowel sounds active. No CVA tenderness. No mass felt. EXTREMITIES: No edema. Full range of motion of all extremities, equal. NEUROLOGIC: Alert, oriented times three. No focal deficit. Cranial nerves II through XII are grossly intact. No headache, no double vision or headache. SKIN: Warm, dry. Intact. Turgor-normal. LYMPHATIC: No palpable lymph nodes/no lymphedema. MUSCULOSKELETAL: Normal joints with no swelling. Muscle tone is normal. ASSESSMENT: 1. Acute respiratory failure resolving 2. Acute bronchitis 3. Chronic lung disease 4. Coronary artery disease 5. Hypertension 6. Dyslipidemia PLAN: 1. Continue steroids 2. Continue antibiotics 3. Continue nebs 4. Continue oxygen DISCUSSION: The patient is strongly advised to lose weight. He has massive abdominal obesity compromising the emphysematous lungs. Also advised pulmonary rehabilitation. The patient's problem is noncompliance of medications, diet, followup. He is intelligent. The patient's other problem is difficult to get consultants on case because in nearby area no one accepts IDPA and he has to travel long distance to see consultants like pulmonary, materials handling coordinator and he doesn' t have good transportation system to take him or has desire to go and wait for the physician to come and see him. If he has to wait a few minutes extra he walks out. I explained to him the seriousness of his medical conditions and advised to take care of himself Prognosis is poor unless he changes his lifestyle and follows the direction that health care personnel gives him. Plan and coordination of the patient's care discussed in the presence of Hand Frame Surgical Elastic Knitter and nurse. CONDITION: Stable SCRIBED BY: GURPREET PLATT Night Clerk Auditor scribed while in presence of service performed by Dr. ANASTASIA RANDALL on 10/24/17 ([id number])
[2017-10-24 09:36] LABS: CHOL/HDL RATIO 4.1 (4.5-6.4)
--- NOTE | 2017-10-24 14:35 | HP ---
DATE OF SERVICE: 10/24/17 HISTORY OF PRESENT ILLNESS: This is a 57-year-old white male who presented to the emergency room complaining of shortness of breath. He has a long history of COPD and CHF. PAST MEDICAL HISTORY: Coronary artery disease COPD on 3L of oxygen dependent Obesity Dyslipidemia Hypertension Osteoarthritis of the knees Degenerative joint disease of the spine Family history of colon cancer Congestive heart failure Status post double hernia repair Long history of noncompliance History of smoking PAST SURGICAL HISTORY: Coronary artery disease with two stents placed in [address] Gayle in April of 2016 Status post double hernia repair REVIEW OF SYSTEMS: CONSTITUTIONAL: No night sweats. No fatigue, malaise, lethargy. No fever or chills. The patient is in mild distress. HEENT: Eyes: No visual changes. No eye pain. No eye discharge. No blurry vision. ENT: No runny nose. No nasal congestion. No epistaxis. No sinus pain. No sore throat. No odynophagia. No ear pain. No congestion. RESPIRATORY: Positive for cough, no congestion. No hemoptysis. Positive for shortness of breath. CARDIOVASCULAR: No angina symptoms. No CHF symptoms. No atypical chest pain for CAD. No palpitations. No orthopnea. GASTROINTESTINAL: No abdominal pain. No nausea or vomiting. No diarrhea or constipation. No hematemesis. No hematochezia. GENITOURINARY: No urgency. No frequency. No dysuria. No hematuria. No obstructive symptoms. No discharge. No pain. No significant abnormal bleeding. MUSCULOSKELETAL: Positive for osteoarthritis. No joint swelling or redness. NEUROLOGICAL: The patient is alert, no confusion. No dizziness. No headache. No neck pain. No syncope. No seizures. No dizziness. PSYCHIATRIC: Anxious. No depression. No suicidal thoughts. No homicidal thoughts. SKIN: No rash. No lesions. No wounds. ENDOCRINE: No unexplained weight loss. No weight gain. HEMATOLOGIC/LYMPHATIC: No anemia. No purpura. No petechiae. No prolonged or excessive bleeding. No palpable lymph nodes. FAMILY: Father is at age 45. He was an alcoholic and had coronary artery disease. His mother is living. He had one brother who age 38 of some type of cancer. SOCIAL HISTORY: Single. He is a reformed smoker and has quit for several years. He did smoke one pack per day for approximately 30 years. He does not work. He has one child. He denies any alcohol or ilicit drug use. MEDICATIONS: Aspirin 81 mg daily Plavix 75 mg daily Lasix 20 mg b.i.d. Metoprolol Tartrate 25 mg b.i.d. K-Tab 10 mEq daily Pravastatin 20 mg daily [place] 10/325 b.i.d. p.r.n. Nitroglycerin p.r.n. Duonebs p.r.n. Hydrochlorothiazide 12.5 daily Buspar 5 mg daily Symbicort 160/4.5 two puffs daily ALLERGIES: PERCOCET PHYSICAL EXAMINATION: VITAL SIGNS: Temperature 96.1, heart rate 112, respirations 32, BP 257/132, pulse ox 97%. GENERAL: The patient is in mild respiratory distress. He is well-nourished. No pain or distress. HEENT: Head normocephalic, atraumatic. Eyes: Extraocular muscles are intact. Pupils are equal, round and reactive to light and accommodation. Ears: TMs within normal limits. No lesions. Nose appeared normal. Throat: No exudate or erythema. NECK: Supple. No JVD, no carotid bruit. No lymphadenopathy or thyromegaly. LUNGS: Severely diminished breath sounds bilaterally with bilateral expiratory wheezes, mild retractions. HEART: Regular rate and rhythm with sinus tachycardia. S1, S2, no S3. No murmurs, clicks or rubs. No cyanosis or clubbing. No ascites. Pulses: Dorsalis pedis and posterior tibial pulses +1 to +2 both sides. ABDOMEN: Soft. Nontender. Positive for abdominal obesity. Bowel sounds active times four quadrants. No palpable hepatosplenomegaly. No CVA tenderness. No mass felt. EXTREMITIES: No edema. Full range of motion of all extremities, equal. NEUROLOGIC: The patient is anxious. Alert and oriented times three. No focal deficit. Cranial nerves II through XII are grossly intact. No headache, no double vision or headache. SKIN: [employer], warm and dry. Intact. Turgor - normal. LYMPHATIC: No palpable lymph nodes/no lymphedema. MUSCULOSKELETAL: The patient has full range of motion of all four extremities, normal strength. No clubbing, no cyanosis. No joint swelling. No redness. Trace edema lower extremity. Negative Favio's sign bilaterally. LABS ON ADMISSION: White count 11.73, hemoglobin 15.6, hematocrit 46.6, platelet count 222. Sodium 136, potassium 4.2, BUN 12, creatinine 0.74, glucose 178. Initial blood gases on non rebreather at 100% with 15L of flow. 02 sat 99. pH 7.1854, pc02 67.8, p02 155, bicarb 25.5, total c02 28, base excess of negative 3. Repeat blood gases at 0430 this a.m. on an FI02 of 40% BIPAP showed 02 sat of 96, pH improved 7.350, pc02 50.4, p02 91, bicarb 27.8, total c02 29, base excess 2. AST 23, ALT 25, alkaline phosphatase 106, CK-MB 6.6, troponin 0.09, total protein 6.9, albumin 3.3, globulin 3.6, D. dimer 899. Lactic acid 12.8, BNP 196. Chest x-ray revealed stable cardiomediastinal silhouette, emphysematous changes, bilateral perihilar subsegmental atelectasis left greater than right. CTA of the thorax revealed no evidence of PE, changes associated with emphysema , atelectasis and scarring. ASSESSMENT: 1. ACUTE RESPIRATORY FAILURE 2. COPD, SEVERE, OXYGEN DEPENDENT 3. OBESITY 4. HISTORY OF NONCOMPLIANCE 5. FORMER SMOKER 6. HYPERTENSION PLAN: 1. Admit to Special Care Unit 2. Routine telemetry orders 3. Vasotec 1.25 mg IV for systolic greater than [address] on Lovenox 40 mg subQ daily 5. Continue home medications 6. Solu-Medrol 125 mg IV q.8hr 7. Rocephin 1 gm IV daily 8. Respiratory therapy consultation and evaluation 9. Neb treatments q.6hr scheduled 10. CBC, CMP daily 11. Will monitor closely TIME SPENT: More than 70 minutes. MTDD
[2017-10-24] MEDS: PULMICORT 0.5 MG/2 ML NEB SCH (17:54)
[2017-10-24] MEDS: PRAVACHOL PO SCH (20:03)
[2017-10-25] MEDS: DUONEB NEB SCH ×5 (01:00→22:52)
[2017-10-25 04:58] LABS: BASOPHILS % (AUTO) 0.1 % (0.0-3.0); HEMOGLOBIN 13.7 g/dl (14.0-18.0); IMMATURE GRANULOCYTE % (AUTO) 1.2 % (0.0-5.0); LYMPHOCYTES # (AUTO) 0.9 K/uL (0.60-3.4); MEAN CORPUSCULAR HEMOGLOBIN 29.3 pg (27.0-31.0); MEAN CORPUSCULAR HGB CONC 33.4 (31.8-35.4); MEAN CORPUSCULAR VOLUME 87.6 fl (80.0-94.0); MONOCYTES # (AUTO) 0.7 K/uL (0.4-2.0); MONOCYTES % (AUTO) 4.7 (0-10); NEUTROPHILS # (AUTO) 13.3 K/ul (2.0-6.9); PLATELET COUNT 229 10^3/uL (140-440); RED BLOOD COUNT 4.68 10^6/ul (4.70-6.10)
[2017-10-25] MEDS: PULMICORT 0.5 MG/2 ML NEB SCH ×2 (05:10→16:55)
[2017-10-25] MEDS: SOLU-MEDROL 125 MG IVP SCH ×3 (05:16→20:47)
[2017-10-25 05:21] LABS: ALBUMIN 2.9 g/dL (3.4-5.0); ALBUMIN/GLOBULIN RATIO 0.91; BILIRUBIN,TOTAL 0.26 mg/dL (0.00-1.20); BUN/CREATININE RATIO 26.19; CALCIUM 9.4 mg/dL (8.2-10.2); CREATININE 0.84 mg/dL (0.60-1.10); TOTAL PROTEIN 6.1 g/dL (6.4-8.2)
[2017-10-25 06:39] LABS: ABG BASE EXCESS 7 (-2.0-2.0); ABG HCO3 31.3 (22.0-26.0); ABG PCO2 47.1 mmHg (35-45); ABG TCO2 33 (22.0-28.0)
[2017-10-25] MEDS: HYDROCHLOROTHIAZIDE PO SCH (08:51)
[2017-10-25] MEDS: ROCEPHIN 1 GM in SODIUM CHLORIDE 50 ML IV SCH (08:51)
[2017-10-25] MEDS: ASPIRIN EC PO SCH (08:51)
[2017-10-25] MEDS: NORCO 10-325 PO PRN ×2 (08:51→17:43)
[2017-10-25] MEDS: LOPRESSOR PO SCH ×2 (08:52→20:48)
[2017-10-25] MEDS: ZESTRIL PO SCH (08:52)
[2017-10-25] MEDS: PLAVIX PO SCH (08:52)
[2017-10-25] MEDS: LOVENOX SUBCUT SCH (08:52)
[2017-10-25] MEDS: MICRO-K CAP PO SCH (08:52)
[2017-10-25] MEDS: LASIX TAB PO SCH ×2 (08:54→17:43)
[2017-10-25 09:13] LABS: ABG BASE EXCESS 4 (-2.0-2.0); ABG HCO3 27.9 (22.0-26.0); ABG PCO2 42.3 mmHg (35-45); ABG PH 7.427 (7.35-7.45); ABG TCO2 29 (22.0-28.0)
[2017-10-25] MEDS ORDERED: XANAX PO STA (10:36)
[2017-10-25] MEDS ORDERED: XANAX PO PRN (10:36)
--- NOTE | 2017-10-25 10:42 | PCM.PROG ---
Attending Provider: ATTENDING PROVIDER: Dr. ANASTASIA RANDALL DATE OF SERVICE: 10/25/17 SUBJECTIVE: This 57 year old WHITE/ M was hospitalized 10/24/17. The patient is hospitalized with acute respiratory failure. Condition improved. REVIEW OF SYSTEMS: CONSTITUTIONAL: No night sweats. No fatigue, malaise, lethargy. No fever or chills. HEENT: Eyes: No visual changes. No eye pain. No eye discharge. ENT: No runny nose. No epistaxis. No sinus pain. No odynophagia. No congestion. RESPIRATORY: Shortness of breath on minimal exertion. No cough, no congestion. No hemoptysis. CARDIOVASCULAR: No angina symptoms. No CHF symptoms. No atypical chest pain for CAD. No palpitations. No orthopnea.. GASTROINTESTINAL: No abdominal pain. No nausea or vomiting. No diarrhea or constipation. No hematemesis. No hematochezia. GENITOURINARY: No urgency. No frequency. No dysuria. No hematuria. No obstructive symptoms. No discharge. No pain. No significant abnormal bleeding. MUSCULOSKELETAL: No musculoskeletal pain; no joint swelling. NEUROLOGICAL: Awake, alert, oriented to time, place and person. No headache. No neck pain. No syncope. No seizures. No dizziness. PSYCHIATRIC: Not anxious. No depression. No suicidal thoughts. No homicidal thoughts. SKIN: No rash. No lesions. No wounds. ENDOCRINE: No unexplained weight loss. No weight gain. HEMATOLOGIC/LYMPHATIC: No anemia. No purpura. No petechiae. No prolonged or excessive bleeding. No palpable lymph nodes. PHYSICAL EXAMINATION: GENERAL: The patient is awake, alert and oriented, sitting in chair in no distress. VITAL SIGNS: Temperature 97.6 F, Pulse 91, Respiratory Rate 20, BP 140/60, Pulse Ox 92% HEENT: Head normocephalic, atraumatic. Eyes: Extraocular muscles are intact. Pupils are equal, round and reactive to light and accommodation. Ears: No lesions. Nose appeared normal. Throat: No exudate or erythema. NECK: Supple. No JVD, no carotid bruit. No lymphadenopathy or thyromegaly. LUNGS: Diminished breath sounds with wheeze. Percussion note normal. Chest symmetrical. HEART: S1, S2, no S3. No murmurs. No cyanosis or clubbing. No ascites. Pulses: Dorsalis pedis and posterior tibial pulses +1 to +2 both sides. ABDOMEN: Soft. Non-tender. Bowel sounds active. No CVA tenderness. No mass felt. EXTREMITIES: No edema. Full range of motion of all extremities, equal. NEUROLOGIC: No focal deficit. Cranial nerves II through XII are grossly intact. No headache, no double vision or headache. SKIN: Not dry. Intact. Turgor-normal. LYMPHATIC: No palpable lymph nodes/no lymphedema. MUSCULOSKELETAL: Normal joints with no swelling. Muscle tone is normal. LAB REVIEW: 10/25/17 04:30 10/25/17 04:30 10/25/17 06:00: Puncture Site R radial, O2 Saturation 95.0, ABG pH 7.430, ABG pCO2 47.1 H, ABG pO2 72.0 L, ABG HCO3 31.3 H, ABG Total CO2 33 H, ABG Base Excess 7 H, Douglas Test +, O2 Delivery Device Venturi mask, FiO2 % 40.0 10/25/17 04:30: Sodium 135 L, Potassium 4.0, Chloride 96 L, Carbon Dioxide 28, Anion Gap 15.0, BUN 22 H, Creatinine 0.84, Estimated GFR (MDRD) 95.00, BUN/ Creatinine Ratio 26.19, Glucose 161 H, Calcium 9.4, Total Bilirubin 0.26, AST 16 , ALT 20, Alkaline Phosphatase 89, Total Protein 6.1 L, Albumin 2.9 L, Globulin 3.2, Albumin/Globulin Ratio 0.91 10/25/17 04:30: WBC 15.10 H, RBC 4.68 L, Hgb 13.7 L, Hct 41.0 L, MCV 87.6, MCH 29.3, MCHC 33.4, RDW Coeff of Moris 13.3, Plt Count 229, Immature Gran % (Auto) 1.2, Neut % (Auto) 88.0, Lymph % (Auto) 6.0 L, [place] % (Auto) 4.7, Eos % (Auto) 0.0, Baso % (Auto) 0.1, Immature Gran # (Auto) 0.2, Neut # 13.3 H, Lymph # 0.9, [place] # 0.7, Eos # 0.0, Baso # 0.0 ASSESSMENT: 1. Acute respiratory failure seems to be resolving PLAN: 1. Oxygen saturation more than 92% on Venti-mask, decrease 3L 2. ABG on room air 3. Encourage to be up and about 4. The patient agreed to pulmonary rehab 5. Audio Engineer consulted for weight loss diet 6. Xanax 0.5 mg to help with sleep 7. PFT 8. Discussed pulmonary rehabilitation and the patient is interested Plan and coordination of the patient's care discussed in the presence of Teller Manager and nurse. CONDITION: Stable SCRIBED BY: GURPREET PLATT Social Services Manager scribed while in presence of service performed by Dr. ANASTASIA RANDALL on 10/25/17 ([id number])
[2017-10-25] MEDS ORDERED: XANAX PO SCH (20:00)
[2017-10-25] MEDS: XANAX PO SCH (20:47)
[2017-10-25] MEDS: PRAVACHOL PO SCH (20:48)
[2017-10-26 04:36] LABS: ABG BASE EXCESS 9 (-2.0-2.0); ABG HCO3 33.4 (22.0-26.0); ABG PCO2 53.8 mmHg (35-45); ABG PH 7.401 (7.35-7.45); ABG TCO2 35 (22.0-28.0)
[2017-10-26 04:59] LABS: BASOPHILS % (AUTO) 0.1 % (0.0-3.0); EOSINOPHILS % (AUTO) 0.1 % (0.0-7.0); HEMATOCRIT 42.7 % (42.0-52.0); HEMOGLOBIN 14.3 g/dl (14.0-18.0); IMMATURE GRANULOCYTE % (AUTO) 2.6 % (0.0-5.0); LYMPHOCYTES # (AUTO) 0.9 K/uL (0.60-3.4); LYMPHOCYTES % (AUTO) 5.6 (10.0-50.0); MEAN CORPUSCULAR HEMOGLOBIN 29.5 pg (27.0-31.0); MEAN CORPUSCULAR HGB CONC 33.5 (31.8-35.4); MONOCYTES # (AUTO) 0.6 K/uL (0.4-2.0); MONOCYTES % (AUTO) 3.7 (0-10); NEUTROPHILS # (AUTO) 14.3 K/ul (2.0-6.9); NEUTROPHILS % (AUTO) 87.9; PLATELET COUNT 223 10^3/uL (140-440); RED BLOOD COUNT 4.85 10^6/ul (4.70-6.10); WHITE BLOOD COUNT 16.27 K/ul (4.2-10.2)
[2017-10-26] MEDS: PULMICORT 0.5 MG/2 ML NEB SCH ×2 (05:00→17:22)
[2017-10-26] MEDS: DUONEB NEB SCH ×4 (05:00→22:48)
[2017-10-26 05:19] LABS: ALBUMIN 3.2 g/dL (3.4-5.0); ALBUMIN/GLOBULIN RATIO 0.91; BILIRUBIN,TOTAL 0.23 mg/dL (0.00-1.20); BUN/CREATININE RATIO 28.37; CALCIUM 9.7 mg/dL (8.2-10.2); CREATININE 0.74 mg/dL (0.60-1.10); TOTAL PROTEIN 6.7 g/dL (6.4-8.2)
[2017-10-26] MEDS: SOLU-MEDROL 125 MG IVP SCH ×2 (06:06→12:50)
[2017-10-26] MEDS: NORCO 10-325 PO PRN ×2 (06:07→16:15)
[2017-10-26] MEDS: LASIX TAB PO SCH ×2 (06:07→16:16)
[2017-10-26] MEDS: ASPIRIN EC PO SCH (08:56)
[2017-10-26] MEDS: HYDROCHLOROTHIAZIDE PO SCH (08:56)
[2017-10-26] MEDS: PLAVIX PO SCH (08:57)
[2017-10-26] MEDS: ROCEPHIN 1 GM in SODIUM CHLORIDE 50 ML IV SCH (08:57)
[2017-10-26] MEDS: LOVENOX SUBCUT SCH (08:57)
[2017-10-26] MEDS: MICRO-K CAP PO SCH (08:57)
[2017-10-26] MEDS: LOPRESSOR PO SCH ×2 (08:57→20:55)
[2017-10-26] MEDS: ZESTRIL PO SCH (08:58)
--- NOTE | 2017-10-26 09:44 | PCM.PROG ---
Attending Provider: ATTENDING PROVIDER: Dr. ANASATSIA RANDALL DATE OF SERVICE: 10/26/17 SUBJECTIVE: This 57 year old WHITE/ M was hospitalized 10/24/17. The patient is admitted with acute respiratory failure. The patient has chronic respiratory failure with severe hypoxemia and severe chronic lung disease. The patient has insomnia, is anxious and will add Trazodone. REVIEW OF SYSTEMS: CONSTITUTIONAL: No night sweats. No fatigue, malaise, lethargy. No fever or chills. HEENT: Eyes: No visual changes. No eye pain. No eye discharge. ENT: No runny nose. No epistaxis. No sinus pain. No odynophagia. No congestion. RESPIRATORY: Shortness of breath on exertion but in no distress. No cough, no congestion. No hemoptysis. CARDIOVASCULAR: No angina symptoms. No CHF symptoms or symptoms of coronary insufficiency. No atypical chest pain for CAD. No palpitations. No orthopnea.. GASTROINTESTINAL: No abdominal pain. No nausea or vomiting. No diarrhea or constipation. No hematemesis. No hematochezia. GENITOURINARY: No urgency. No frequency. No dysuria. No hematuria. No obstructive symptoms. No discharge. No pain. No significant abnormal bleeding. MUSCULOSKELETAL: No musculoskeletal pain; no joint swelling. NEUROLOGICAL: Awake, alert, oriented to time, place and person. No headache. No neck pain. No syncope. No seizures. No dizziness. PSYCHIATRIC: Anxious feeling. No depression. No suicidal thoughts. No homicidal thoughts. SKIN: No rash. No lesions. No wounds. ENDOCRINE: No unexplained weight loss. No weight gain. HEMATOLOGIC/LYMPHATIC: No anemia. No purpura. No petechiae. No prolonged or excessive bleeding. No palpable lymph nodes. PHYSICAL EXAMINATION: GENERAL: The patient is awake, alert and oriented, sitting in chair in no distress. VITAL SIGNS: Temperature 97.3 F, Pulse 56, Respiratory Rate 20, BP 132/60, Pulse Ox 94% HEENT: Head normocephalic, atraumatic. Eyes: Extraocular muscles are intact. Pupils are equal, round and reactive to light and accommodation. Ears: No lesions. Nose appeared normal. Throat: No exudate or erythema. NECK: Supple. No JVD, no carotid bruit. No lymphadenopathy or thyromegaly. LUNGS: Clear to auscultation. Percussion note normal. Chest symmetrical. HEART: S1, S2, no S3. No murmurs. No cyanosis or clubbing. No ascites. Pulses: Dorsalis pedis and posterior tibial pulses +1 to +2 both sides. ABDOMEN: Soft. Non-tender. Bowel sounds active. No CVA tenderness. No mass felt. EXTREMITIES: No edema. Full range of motion of all extremities, equal. NEUROLOGIC: No focal deficit. Cranial nerves II through XII are grossly intact. No headache, no double vision or headache. SKIN: Not dry. Intact. Turgor-normal. LYMPHATIC: No palpable lymph nodes/no lymphedema. MUSCULOSKELETAL: Normal joints with no swelling. Muscle tone is normal. LAB REVIEW: 10/26/17 04:30 10/26/17 04:30 10/26/17 04:30: Sodium 139, Potassium 4.0, Chloride 97 L, Carbon Dioxide 29, Anion Gap 17.0, BUN 21 H, Creatinine 0.74, Estimated GFR (MDRD) 109.00, BUN/ Creatinine Ratio 28.37, Glucose 172 H, Calcium 9.7, Total Bilirubin 0.23, AST 20 , ALT 24, Alkaline Phosphatase 108, Total Protein 6.7, Albumin 3.2 L, Globulin 3.5, Albumin/Globulin Ratio 0.91 10/26/17 04:30: WBC 16.27 H, RBC 4.85, Hgb 14.3, Hct 42.7, MCV 88.0, MCH 29.5, MCHC 33.5, RDW Coeff of [place]is 13.4, Plt Count 223, Immature Gran % (Auto) 2.6, Neut % (Auto) 87.9, Lymph % (Auto) 5.6 L, [place] % (Auto) 3.7, Eos % (Auto) 0.1, Baso % (Auto) 0.1, Immature Gran # (Auto) 0.4, Neut # 14.3 H, Lymph # 0.9, [place] # 0.6, Eos # 0.0, Baso # 0.0 10/26/17 04:30: Puncture Site Lb, O2 Saturation 90.0 L, ABG pH 7.401, ABG pCO2 53.8 H, ABG pO2 61.0 L, ABG HCO3 33.4 H, ABG Total CO2 35 H, ABG Base Excess 9 H , Douglas Test +, O2 Delivery Device Bnc, Oxygen Liter Flow 3.00, FiO2 % 32.0 10/25/17 09:10: Puncture Site R rad, O2 Saturation 92.0 L, ABG pH 7.427, ABG pCO2 42.3, ABG pO2 62.0 L, ABG HCO3 27.9 H, ABG Total CO2 29 H, ABG Base Excess 4 H, [place] Test +, O2 Delivery Device Nc, Oxygen Liter Flow 3.00 ASSESSMENT: 1. Acute respiratory failure resolved 2. The patient has chronic respiratory failure 3. Obesity 4. CAD 5. History of CHF 6. Dyslipidemia 7. Hypertension PLAN: 1. Continue steroids in the form of p.o. Prednisone 2. Nebs treatment 3. Antibiotics 4. The patient has agreed for pulmonary rehabilitation. 5. Trazodone is added 6. Xanax to be continued 7. D/C Solu-Medrol Plan and coordination of the patient's care discussed in the presence of Powerhouse Mechanic Apprentice and nurse. CONDITION: Stable SCRIBED BY: GURPREET PLATT Revenue Field Agent scribed while in presence of service performed by Dr. ANASTASIA RANDALL on 10/26/17 ([id number])
[2017-10-26] MEDS: XANAX PO SCH (20:55)
[2017-10-26] MEDS: PRAVACHOL PO SCH (20:55)
[2017-10-26] MEDS ORDERED: DESYREL PO SCH (21:00)
[2017-10-27] MEDS: DUONEB NEB SCH ×2 (05:03→11:03)
[2017-10-27] MEDS: PULMICORT 0.5 MG/2 ML NEB SCH (05:04)
[2017-10-27] MEDS: LASIX TAB PO SCH (05:35)
[2017-10-27] MEDS: NORCO 10-325 PO PRN ×2 (05:35→12:50)
[2017-10-27 05:51] LABS: BASOPHILS % (AUTO) 0.1 % (0.0-3.0); EOSINOPHILS % (AUTO) 0.1 % (0.0-7.0); HEMATOCRIT 43.9 % (42.0-52.0); HEMOGLOBIN 14.4 g/dl (14.0-18.0); IMMATURE GRANULOCYTE % (AUTO) 2.2 % (0.0-5.0); LYMPHOCYTES # (AUTO) 1.3 K/uL (0.60-3.4); LYMPHOCYTES % (AUTO) 9.4 (10.0-50.0); MEAN CORPUSCULAR HEMOGLOBIN 29.1 pg (27.0-31.0); MEAN CORPUSCULAR HGB CONC 32.8 (31.8-35.4); MEAN CORPUSCULAR VOLUME 88.7 fl (80.0-94.0); MONOCYTES # (AUTO) 0.8 K/uL (0.4-2.0); MONOCYTES % (AUTO) 5.6 (0-10); NEUTROPHILS # (AUTO) 11.4 K/ul (2.0-6.9); NEUTROPHILS % (AUTO) 82.6; PLATELET COUNT 224 10^3/uL (140-440); RED BLOOD COUNT 4.95 10^6/ul (4.70-6.10); WHITE BLOOD COUNT 13.87 K/ul (4.2-10.2)
[2017-10-27 06:14] LABS: ALBUMIN 3.1 g/dL (3.4-5.0); ALBUMIN/GLOBULIN RATIO 0.94; ANION GAP 15.3; BILIRUBIN,TOTAL 0.24 mg/dL (0.00-1.20); BUN/CREATININE RATIO 27.63; CALCIUM 9.4 mg/dL (8.2-10.2); CREATININE 0.76 mg/dL (0.60-1.10); POTASSIUM 4.3 mmol/L (3.5-5.1); TOTAL PROTEIN 6.4 g/dL (6.4-8.2)
[2017-10-27] MEDS ORDERED: PREDNISONE PO SCH (08:00)
[2017-10-27] MEDS: PLAVIX PO SCH (09:22)
[2017-10-27] MEDS: ROCEPHIN 1 GM in SODIUM CHLORIDE 50 ML IV SCH (09:22)
[2017-10-27] MEDS: MICRO-K CAP PO SCH (09:22)
[2017-10-27] MEDS: HYDROCHLOROTHIAZIDE PO SCH (09:22)
[2017-10-27] MEDS: ASPIRIN EC PO SCH (09:23)
[2017-10-27] MEDS: LOPRESSOR PO SCH (09:23)
[2017-10-27] MEDS: ZESTRIL PO SCH (09:23)
[2017-10-27] MEDS: LOVENOX SUBCUT SCH (09:23)
--- NOTE | 2017-10-27 09:33 | PCM.PROG ---
Attending Provider: ATTENDING PROVIDER: Dr. ANASTASIA RANDALL DATE OF SERVICE: 10/27/17 SUBJECTIVE: This 57 year old WHITE/ M was hospitalized 10/24/17. The patient is hospitalized with acute respiratory failure and acute bronchitis. He is noncompliant. Condition is improved. ABG on 3L: 02 sat 90.0% oxygen saturation , p02 61, pc02 53.8 with normal pH. The patient doesn't have any symptoms of CHF or coronary insufficiency. REVIEW OF SYSTEMS: CONSTITUTIONAL: No night sweats. No fatigue, malaise, lethargy. No fever or chills. HEENT: Eyes: No visual changes. No eye pain. No eye discharge. ENT: No runny nose. No epistaxis. No sinus pain. No odynophagia. No congestion. RESPIRATORY: No cough, no congestion. No hemoptysis. No shortness of breath. CARDIOVASCULAR: No angina symptoms. No CHF symptoms. No atypical chest pain for CAD. No palpitations. No orthopnea.. GASTROINTESTINAL: No abdominal pain. No nausea or vomiting. No diarrhea or constipation. No hematemesis. No hematochezia. GENITOURINARY: No urgency. No frequency. No dysuria. No hematuria. No obstructive symptoms. No discharge. No pain. No significant abnormal bleeding. MUSCULOSKELETAL: No musculoskeletal pain; no joint swelling. NEUROLOGICAL: Awake, alert, oriented to time, place and person. No headache. No neck pain. No syncope. No seizures. No dizziness. PSYCHIATRIC: Not anxious. No depression. No suicidal thoughts. No homicidal thoughts. SKIN: No rash. No lesions. No wounds. ENDOCRINE: No unexplained weight loss. No weight gain. HEMATOLOGIC/LYMPHATIC: No anemia. No purpura. No petechiae. No prolonged or excessive bleeding. No palpable lymph nodes. PHYSICAL EXAMINATION: GENERAL: The patient is awake, alert and oriented, lying in bed in no distress. VITAL SIGNS: Temperature 97.4 F, Pulse 67, Respiratory Rate 18, BP 114/58, Pulse Ox 96% HEENT: Head normocephalic, atraumatic. Eyes: Extraocular muscles are intact. Pupils are equal, round and reactive to light and accommodation. Ears: No lesions. Nose appeared normal. Throat: No exudate or erythema. NECK: Supple. No JVD, no carotid bruit. No lymphadenopathy or thyromegaly. LUNGS: Decreased breath sounds. Clear to auscultation. Percussion note normal. Chest symmetrical. HEART: S1, S2, no S3. No murmurs. No cyanosis or clubbing. No ascites. Pulses: Dorsalis pedis and posterior tibial pulses +1 to +2 both sides. ABDOMEN: Soft. Non-tender. Bowel sounds active. No CVA tenderness. No mass felt. EXTREMITIES: No edema. Full range of motion of all extremities, equal. NEUROLOGIC: No focal deficit. Cranial nerves II through XII are grossly intact. No headache, no double vision or headache. SKIN: Not dry. Intact. Turgor-normal. LYMPHATIC: No palpable lymph nodes/no lymphedema. MUSCULOSKELETAL: Normal joints with no swelling. Muscle tone is normal. LAB REVIEW: 10/27/17 05:00 10/27/17 05:00 10/27/17 05:00: Sodium 142, Potassium 4.3, Chloride 97 L, Carbon Dioxide 34 H, Anion Gap 15.3, BUN 21 H, Creatinine 0.76, Estimated GFR (MDRD) 106.00, BUN/ Creatinine Ratio 27.63, Glucose 118 H, Calcium 9.4, Total Bilirubin 0.24, AST 63 H D, ALT 109 H D, Alkaline Phosphatase 101, Total Protein 6.4, Albumin 3.1 L , Globulin 3.3, Albumin/Globulin Ratio 0.94 10/27/17 05:00: WBC 13.87 H, RBC 4.95, Hgb 14.4, Hct 43.9, MCV 88.7, MCH 29.1, MCHC 32.8, RDW Coeff of Moris 13.4, Plt Count 224, Immature Gran % (Auto) 2.2, Neut % (Auto) 82.6, Lymph % (Auto) 9.4 L, [place] % (Auto) 5.6, Eos % (Auto) 0.1, Baso % (Auto) 0.1, Immature Gran # (Auto) 0.3, Neut # 11.4 H, Lymph # 1.3, [place] # 0.8, Eos # 0.0, Baso # 0.0 ASSESSMENT: 1. Acute respiratory failure under control. 2. Chronic respiratory failure; discussed and explained about it. The patient declined to go and see a pulmonary physician in the [facility]. 3. COPD 3. Obesity, morbid 4. CAD 5. History of CHF 6. Dyslipidemia 7. Hypertension PLAN: 1. Weight loss diet discussed - he will join pulmonary rehab 2. Continue antibiotics, nebs and steroids 3. ABGs on room air 4. The patient has gone out to smoke. Counseling for smoking done. Plan and coordination of the patient's care discussed in the presence of Orthopedic Physician Assistant and nurse. CONDITION: Stable PROGNOSIS: Poor considering the patient is noncompliant. SCRIBED BY: GURPREET PLATT Pharmacy Clerk scribed while in presence of service performed by Dr. ANASTASIA RANDALL on 10/27/17 ([id number])
[2017-10-27 09:34] LABS: ABG PCO2 44.9 mmHg (35-45); ABG PH 7.449 (7.35-7.45)
[2017-10-27 09:36] LABS: ABG BASE EXCESS 7 (-2.0-2.0); ABG HCO3 31.1 (22.0-26.0); ABG TCO2 32 (22.0-28.0)
[2017-10-27 10:01] VITALS: TEMP 98.6
[2017-10-27 10:04] VITALS: BP 110/64
--- NOTE | 2017-10-27 14:23 | CM.DICTOOL ---
ADMISSION: 10/24/17 05:51 DISCHARGE: October 27, 2017 DATE OF SERVICE: 10/27/17 FINAL DIAGNOSIS Acute respiratory failure COPD, Severe (oxygen dependent) Obesity Hypertension Dyslipidemia CAD with stent application Osteoarthritis DJD Spine History of Non-Compliance Continued Smoking Anxiety LVH CABG, 2016 Bilateral Inguinal Hernia Repair LAST VITALS Temp Pulse Resp BP Pulse Ox 98.6 F 78 20 110/64 96 10/27/17 10:00 10/27/17 10:00 10/27/17 10:00 10/27/17 10:00 10/27/17 10:00 ACTIVE MEDICATIONS Acetaminophen/Hydrocodone Bitart ([place] 10-325) 1 tab PO BID PRN PRN Reason: Analgesia Last Admin: 10/27/17 12:50 Dose: 1 tab Albuterol/Ipratropium (Duoneb) 1 vial NEB TID COUNTS INCLUDE 234 BEDS AT THE [facility] Last Admin: 10/27/17 11:03 Dose: 1 vial Aspirin (Aspirin Ec) 81 mg PO DAILYWM COUNTS INCLUDE 234 BEDS AT THE [facility] Last Admin: 10/27/17 09:23 Dose: 81 mg Clopidogrel Bisulfate (Plavix) 75 mg PO DAILY COUNTS INCLUDE 234 BEDS AT THE [facility] Last Admin: 10/27/17 09:22 Dose: 75 mg Furosemide (Lasix Tab) 20 mg PO BIDAC COUNTS INCLUDE 234 BEDS AT THE [facility] Last Admin: 10/27/17 05:35 Dose: 20 mg Hydrochlorothiazide (Hydrochlorothiazide) 12.5 mg PO DAILY COUNTS INCLUDE 234 BEDS AT THE [facility] Last Admin: 10/27/17 09:22 Dose: 12.5 mg Lisinopril (Zestril) 40 mg PO DAILY COUNTS INCLUDE 234 BEDS AT THE [facility] Last Admin: 10/27/17 09:23 Dose: 40 mg Metoprolol Tartrate (Lopressor) 25 mg PO BID COUNTS INCLUDE 234 BEDS AT THE [facility] Last Admin: 10/27/17 09:23 Dose: 25 mg Nitroglycerin (Nitrostat) 0.4 mg SL Q5MIN X 3 DOSES PRN PRN Reason: CHEST PAIN Potassium Chloride (Micro-K Cap) 10 meq PO DAILYWM COUNTS INCLUDE 234 BEDS AT THE [facility] Last Admin: 10/27/17 09:22 Dose: 10 meq Pravastatin Sodium (Pravachol) 20 mg PO BEDTIME COUNTS INCLUDE 234 BEDS AT THE [facility] Last Admin: 10/26/17 20:55 Dose: 20 mg ALLERGIES No Known Allergies Allergy (Verified 10/24/17 03:13) NEW PRESCRIPTIONS: Keflex 500 mg BID for 7 days Trazodone 50 mg daily at bedtime Prednisone 20 mg daily for 3 days, then 10 mg daily for 5 days SMOKING: Advised to stop smoking DISEASE SPECIFIC EDUCATION: COPD Weight loss Pulmonary Rehab Oxygen use Nebulizer use Appointments LAB REVIEW: 10/27/17 05:00 10/27/17 05:00 10/27/17 09:25: Puncture Site R brach, O2 Saturation 90.0 L, ABG pH 7.449, ABG pCO2 44.9, ABG pO2 57.0 L*, ABG HCO3 31.1 H, ABG Total CO2 32 H, ABG Base Excess 7 H, Douglas Test +, FiO2 % 21.0 10/27/17 05:00: Sodium 142, Potassium 4.3, Chloride 97 L, Carbon Dioxide 34 H, Anion Gap 15.3, BUN 21 H, Creatinine 0.76, Estimated GFR (MDRD) 106.00, BUN/ Creatinine Ratio 27.63, Glucose 118 H, Calcium 9.4, Total Bilirubin 0.24, AST 63 H D, ALT 109 H D, Alkaline Phosphatase 101, Total Protein 6.4, Albumin 3.1 L , Globulin 3.3, Albumin/Globulin Ratio 0.94 10/27/17 05:00: WBC 13.87 H, RBC 4.95, Hgb 14.4, Hct 43.9, MCV 88.7, MCH 29.1, MCHC 32.8, RDW Coeff of Moris 13.4, Plt Count 224, Immature Gran % (Auto) 2.2, Neut % (Auto) 82.6, Lymph % (Auto) 9.4 L, [place] % (Auto) 5.6, Eos % (Auto) 0.1, Baso % (Auto) 0.1, Immature Gran # (Auto) 0.3, Neut # 11.4 H, Lymph # 1.3, [place] # 0.8, Eos # 0.0, Baso # 0.0 PLAN: Discharge home Diet: Heart Healthy Advised to lose weight Activity: resume activity as tolerated Continue home oxygen at 3 liters. Do not increase your oxygen. Continue nebulizer treatments Do not take Pravachol until further notice Do not take any NSAIDS You have information regarding pulmonary rehab. Please contact them for start date You are scheduled for a sleep study on November 01 at 7 pm at the [facility] An appointment is scheduled with Dr. Rangel on October 31 at 11:30 am. You have been given an outpatient slip for a CBC, CMP to be done on October 30. An appointment is scheduled with Dr. Gage Wood on at 11 am in [place], [place] Mr. Glass is alert and oriented x 3. He is independent with ADL'S. He is ambulatory independently and does not use an assistive device. He uses oxygen at 3 liters during the day and night, but will remove for ambulation in the hallways and when going outside to smoke. He denies abdominal pain or nausea. He is eating 100% of all meals. He has a home nebulizer and [facility] He is aware of all scheduled appointments. The skin is intact and free of decubitus ulcers. Onofre Rangel MD Janene Marinelli APRN
--- NOTE | 2017-10-31 07:48 | ECHO2D ---
Date of Exam: 10/27/17 Ordering Physician: ANASTASIA RANDALL Room #: SCU3 Reason for Echo: SHORT OF AIR M-Mode Normal Adult Results LV Dimensions Normal Adult Results AoV Opening excursions >1.6 >1.6 LVEDD-base- 3.5-5.8 5.2 Ao root dimensions 2.0-3.7 3.5 LVESD-base- 3.1-4.6 L. Atrium dimensions 1.9-3.8 4.5 Post. Wall thickness 0.8-1.1 1.5 IV septum (thickness) 0.7-1.2 1.5 Post. Wall excursion 0.72-1.3 NORMAL Septal motion 0.4 Systolic motion R. Ventricular cavity 1.5-2.0 NORMAL LVEF 60% 50% Paradoxical septal wall motion NORMAL 2-D : STIFF HYPOKINETIC SEPTUM--NORMAL VALVES--ENLARGED LEFT ATRIAL CAVITY--NO EFFUSION, NO THROMBUS M-MODE: MV: NORMAL AV: NORMAL TV: NORMAL PV: CHAMBER SIZE: ENLARGED LEFT ATRIAL CAVITY WALL MOTION: STIFF SEPTUM PERICARDIUM: NORMAL INTERPRETATION: 1. MODERATE LEFT VENTRICULAR HYPERTROPHY 2. ENLARGED LEFT ATRIAL CAVITY 3. STIFF HYPOKINETIC SEPTUM 4. LEFT VENTRICULAR EJECTION FRACTION 50% 5. NORMAL VALVES MTDD
--- NOTE | 2017-11-10 13:22 | DS ---
DATE OF SERVICE: 10/27/17 FINAL DIAGNOSIS: 1. ACUTE RESPIRATORY FAILURE 2. COPD, SEVERE (OXYGEN DEPENDENT) 3. OBESITY 4. HYPERTENSION 5. DYSLIPIDEMIA 6. CAD WITH STENT APPLICATION 7. OSTEOARTHRITIS 8. DJD SPINE 9. HISTORY OF NON COMPLIANCE 10. CONTINUED SMOKING 11. ANXIETY 12. LVH 13. CABG, 2016 14. BILATERAL INGUINAL HERNIA REPAIR DISCHARGE INSTRUCTIONS: 1. Followup appointments: Dr. Rangel 10/31/17 at 11:30 a.m. You have been given an outpatient slip for a CBC, CMP to be done on 10/30/17. An appointment is scheduled with Dr. Gage Wood on 11/30/16 at 11 a.m. in [place], [place]. 2. Continue home oxygen at 3L. Do not increase your oxygen. 3. Continue nebulizer treatments. 4. You have information regarding pulmonary rehab, please contact them for a start date. 5. You are scheduled for a sleep study on 11/01/17 at 7 p.m. at the [facility]. MEDICATIONS AT DISCHARGE: DO NOT TAKE PRAVACHOL UNTIL FURTHER NOTICE DO NOT TAKE ANY NSAIDS 1. [place] 10-325 one tab p.o. b.i.d. p.r.n. 2. Duoneb one vial neb t.i.d. JULIANN 3. Aspirin 81 mg p.o. daily with meal JULIANN 4. Clopidogrel (Plavix) 75 mg p.o. daily JULIANN 5. Lasix 20 mg p.o. b.i.d. a.c. JULIANN 6. Hydrochlorothiazide 12.5 mg p.o. daily JULIANN 7. Zestril 40 mg p.o. daily JULIANN 8. Lopressor 25 mg p.o. b.i.d. JULIANN 9. Nitrostat 0.4 mg SL q.5min times three doses p.r.n. 10. Micro-K cap 10 mEq p.o. daily with meal JULIANN 11. Pravachol 20 mg p.o. bedtime JULIANN NEW PRESCRIPTIONS: Keflex 500 mg b.i.d. for 7 days Trazodone 50 mg daily at bedtime Prednisone 20 mg daily for 3 days, then 10 mg daily for 5 days DIET INSTRUCTIONS: Heart Healthy. Advised to lose weight. ACTIVITY: Resume activity as tolerated. SMOKING: Advised to stop smoking DISEASE SPECIFIC EDUCATION: COPD Weight loss Pulmonary rehab Oxygen use Nebulizer use Appointments HOSPITAL COURSE: 57-year-old white male hospitalized with acute respiratory failure, severe hypercarbia. The patient was treated aggressively in the emergency room with IV steroids, nebs treatment. The patient's condition turned around. At the time of discharge his p02 was close to 55-60 with pc02 of 45 with oxygen saturation 90% on room air. On physical exam, lungs have decreased breath sounds but good air entry. The patient's echocardiogram showed hypokinetic septum with LVH with enlarged LA cavity with ejection fraction close to 50 to 55% with stiff left ventricle. The patient is noncompliant, has continued to smoke. He went out to smoke during the stay in the hospital. He doesn't take his medications regularly. He doesn't come for followup regularly. He expects other people to do his work. He has agreed for pulmonary rehab. Steroid side effects with cataracts, osteoporosis, avascular necrosis of the liver all discussed. CONDITION AT TIME OF DISCHARGE: Stable. PROGNOSIS: Poor considering the patient's multiple medical problems and his noncompliance with followup, medications, lifestyle. TIME SPENT: More than 60 minutes. MAURICE
--- NOTE | 2017-11-10 13:29 | PN ---
CODING FOR BILLING 10/24/17 LEVEL 5 10/25/17 INTERMEDIATE 10/26/17 INTERMEDIATE 10/27/[address] Rangel says 10/28/17 the patient is discharged however the computer shows the patient was discharged on 10/27/17 MTDD
== END 2017-10-27 15:37 | disposition home or self-care (01) | DRG 189 ==
LOC: ED 03:04 → SCU 05:51
PROVIDERS: ADMIT Internal Medicine; ATTEND Internal Medicine
DX: J96.02 Acute respiratory failure with hypercapnia (principal); J96.01 Acute respiratory failure with hypoxia; I51.7 Cardiomegaly; R06.02 Shortness of breath; J44.9 Chronic obstructive pulmonary disease, unspecified; I50.9 Heart failure, unspecified; I10 Essential (primary) hypertension; E78.5 Hyperlipidemia, unspecified; I25.10 Atherosclerotic heart disease of native coronary artery without angina pectoris; M47.9 Spondylosis, unspecified; I25.2 Old myocardial infarction; E66.01 Morbid (severe) obesity due to excess calories; M17.0 Bilateral primary osteoarthritis of knee; F41.9 Anxiety disorder, unspecified; F17.200 Nicotine dependence, unspecified, uncomplicated; Z95.1 Presence of aortocoronary bypass graft; Z91.19 Patient's noncompliance with other medical treatment and regimen; Z99.81 Dependence on supplemental oxygen; Z79.02 Long term (current) use of antithrombotics/antiplatelets; Z79.899 Other long term (current) drug therapy; Z95.5 Presence of coronary angioplasty implant and graft; Z98.890 Other specified postprocedural states
CPT/HCPCS: 36415; 80053; 80061; 82550; 82553; 82803; 83036; 83605; 83880; 84145; 84484; 85025; 85379; 87040; 87081; 93005; 93010; 94640; 94660; 96360; 96375; 97802; 99285

== ENCOUNTER 2017-11-19 11:24 | Emergency (ER) ==
[2017-11-19 11:27] VITALS: BP 182/72; TEMP 97.2; BMI 39.4
[2017-11-19] MEDS ORDERED: SOLU-MEDROL 125 MG IM STA (11:39)
[2017-11-19] MEDS ORDERED: DUONEB NEB STA (12:00)
--- NOTE | 2017-11-19 12:03 | ED.PDOC ---
General ED Provider: Dr. GREGOR BERNAL Chief Complaint: Respiratory Complaint Stated Complaint: Patient is a 57 year old male who has a history of COPD who was placed on oxygen afew weeks ago. Comes to the ER with progressive shortness of breath and cough. He was unable to get relief from breathing treatments. He states that Dr Randall told him he would get steroids when he came to the ER for symptoms. Time Seen by Physician: 11:30 Mode of Arrival: Walk-In Information Source: Patient Primary Care Provider: ANASTASIA RANDALL Nursing and Triage Documentation Reviewed and Agree: Yes Reviewed sepsis parameters & appropriate labs ordered?: Yes System Inflammatory Response Syndrome: Not Applicable Sepsis Protocol: For patient's 13 years and over: Temp is 96.8 and below OR 101 and greater Pulse >90 BPM Resp >20/minute Acutely Altered Mental Status Are patient's symptoms suggestive of a new infection, such as: -Pneumonia -Skin, Soft Tissue -Endocarditis -UTI -Bone, Joint Infection -Implantable Device -Acute Abdominal Infection -Wound Infection -Meningitis -Blood Stream Catheter Infection -Unknown Respiratory Complaint Exam - Shortness of Air Complaint/Exam Onset/Duration: 2 days Timing: Constant Initial Severity: Moderate Current Severity: Severe Character: Reports: Dyspnea at rest Review of Systems - Review Of Systems Constitutional: Reports: No symptoms Eyes: Reports: No symptoms Ears, Nose, Mouth, Throat: Reports: No symptoms Respiratory: Reports: Cough, Short of air, Wheezing Cardiac: Reports: No symptoms GI: Reports: No symptoms : Reports: No symptoms Musculoskeletal: Reports: No symptoms Skin: Reports: No symptoms Neurological: Reports: Anxiety Endocrine: Reports: No symptoms Hematologic/Lymphatic: Reports: No symptoms All Other Systems: Reviewed and Negative Past Medical History - Past Medical History Previously Healthy: No Endocrine: Reports: Dyslipidemia Cardiovascular: Reports: CAD, [place], Hypertension, CHF Respiratory: Reports: COPD Hematological: Reports: None Gastrointestinal: Reports: None Genitourinary: Reports: Kidney stones Neuro/Psych: Reports: Depression Musculoskeletal: Reports: Arthritis, Back Pain ("always painful" no worse this AM) Cancer: Reports: None Other Pertinent Past Medical History: htn chol mi depr cabg hernia - Surgical History General Surgical History: Reports: CABG (double bypass 6 months ago), Hernia Repair - Family History Family History: Reports: Unknown - Social History Smoking Status: Former smoker Hx Substance Use: No Alcohol Screening: None - Immunizations Influenza Vaccine within 12 Months: No Pneumococcal Vaccine up to Date: No Physical Exam - Physical Exam Appearance: Ill-appearing, Obese Ill-appearing: Moderate Eyes: WILVER, EOMI, Conjunctiva clear ENT: Ears normal, Nose normal, Oropharynx normal Respiratory: Airway patent, Breath sounds equal, Breath sounds diminished, Respirations nonlabored, Wheezes Cardiovascular: RRR, Pulses normal, No rub, No murmur GI/: Soft, Nontender, No masses, Bowel sounds normal, No Organomegaly Musculoskeletal: Normal strength, ROM intact, No edema, No calf tenderness Skin: Warm, Dry, Normal color Neurological: Sensation intact, Motor intact, Reflexes intact, Cranial nerves intact, Alert, Oriented Psychiatric: Anxious Interpretation - Radiology Interpretation Radiology Interpretation By: Radiologist Radiology Results: Negative Exam Interpreted: CXR - EKG Interpretation Time of EKG #1: 12:43 Rate: Normal Rhythm: Sinus Ectopy: None ST Segment: Other (old septal infarct) Interpretation: in complete RBBB Critical Care Note - Critical Care Note Total Time (mins): 0 Course - Course Hematology/Chemistry: 11/19/17 11:38 11/19/17 11:58 Orders, Labs, Meds: Lab Review 11/19/17 11/19/17 11/19/17 11:37 11:38 11:58 WBC 6.48 RBC 4.54 L Hgb 13.6 L Hct 40.3 L MCV 88.8 MCH 30.0 MCHC 33.7 RDW Coeff of Moris 13.3 Plt Count 244 Immature Gran % (Auto) 0.5 Neut % (Auto) 58.9 Lymph % (Auto) 22.1 [place] % (Auto) 11.4 H Eos % (Auto) 6.8 Baso % (Auto) 0.3 Immature Gran # (Auto) 0.0 Neut # 3.8 Lymph # 1.4 [place] # 0.7 Eos # 0.4 Baso # 0.0 Puncture Site Rr O2 Saturation 95.0 ABG pH 7.461 H ABG pCO2 43.1 ABG pO2 71.0 L ABG HCO3 30.7 H ABG Total CO2 32 H ABG Base Excess 7 H Douglas Test + O2 Delivery Device Nc Oxygen Liter Flow 3.00 FiO2 % 32.0 Sodium 139 Potassium 3.8 Chloride 101 Carbon Dioxide 29 Anion Gap 12.8 BUN 15 Creatinine 0.80 Estimated GFR (MDRD) 100.00 BUN/Creatinine Ratio 18.75 Glucose 121 H Lactic Acid Calcium 9.5 Total Bilirubin < 0.3 AST 19 ALT 19 Alkaline Phosphatase 100 Troponin I Total Protein 6.7 Albumin 3.0 L Globulin 3.7 Albumin/Globulin Ratio 0.81 Procalcitonin Influenza A (Rapid) Influenza B (Rapid) 11/19/17 11/19/17 11/19/17 11:58 11:58 11:58 WBC RBC Hgb Hct MCV MCH MCHC RDW Coeff of Moris Plt Count Immature Gran % (Auto) Neut % (Auto) Lymph % (Auto) [place] % (Auto) Eos % (Auto) Baso % (Auto) Immature Gran # (Auto) Neut # Lymph # [place] # Eos # Baso # Puncture Site O2 Saturation ABG pH ABG pCO2 ABG pO2 ABG HCO3 ABG Total CO2 ABG Base Excess Douglas Test O2 Delivery Device Oxygen Liter Flow FiO2 % Sodium Potassium Chloride Carbon Dioxide Anion Gap BUN Creatinine Estimated GFR (MDRD) BUN/Creatinine Ratio Glucose Lactic Acid 12.2 Calcium Total Bilirubin AST ALT Alkaline Phosphatase Troponin I Total Protein Albumin Globulin Albumin/Globulin Ratio Procalcitonin < 0.05 Influenza A (Rapid) Negative by naat Influenza B (Rapid) Negative by naat 11/19/17 11:58 WBC RBC Hgb Hct MCV MCH MCHC RDW Coeff of Moris Plt Count Immature Gran % (Auto) Neut % (Auto) Lymph % (Auto) [place] % (Auto) Eos % (Auto) Baso % (Auto) Immature Gran # (Auto) Neut # Lymph # [place] # Eos # Baso # Puncture Site O2 Saturation ABG pH ABG pCO2 ABG pO2 ABG HCO3 ABG Total CO2 ABG Base Excess Douglas Test O2 Delivery Device Oxygen Liter Flow FiO2 % Sodium Potassium Chloride Carbon Dioxide Anion Gap BUN Creatinine Estimated GFR (MDRD) BUN/Creatinine Ratio Glucose Lactic Acid Calcium Total Bilirubin AST ALT Alkaline Phosphatase Troponin I 0.0740 Total Protein Albumin Globulin Albumin/Globulin Ratio Procalcitonin Influenza A (Rapid) Influenza B (Rapid) Orders Category Date Time Status ABG DRAW REQUEST Stat CARDIO 11/19/17 11:39 Completed EKG-(ED ONLY) Stat CARDIO 11/19/17 12:18 Completed NEBULIZER TREATMENT Stat CARDIO 11/19/17 12:00 Completed ABG Stat LAB 11/19/17 11:37 Completed BLOOD CULTURE (ED ONLY) Stat LAB 11/19/17 11:58 Received CBC W/ AUTO DIFF Stat LAB 11/19/17 11:38 Completed COMPREHENSIVE METABOLIC PANEL Stat LAB 11/19/17 11:58 Completed LACTIC ACID Stat LAB 11/19/17 11:58 Completed MOLECULAR FLU A/B Stat LAB 11/19/17 11:58 Completed PROCALCITONIN Stat LAB 11/19/17 11:58 Completed TROPONIN I Stat LAB 11/19/17 11:58 Completed Hydrocodone Bit/Acetaminophen [[place] 5-325] MEDS 11/19/17 12:25 Discontinued 2 tab PO ONCE STA Ipratropium/Albuterol Neb [Duoneb] MEDS 11/19/17 12:00 Discontinued 1 vial NEB ONCE STA Methylprednisolone Sod Succ/Pf [Solu-Medrol 125 mg] MEDS 11/19/17 11:39 Discontinued 125 mg IM ONCE STA CHEST, 2 VIEWS PA & LAT Stat RADS 11/19/17 11:38 Completed Medications Discontinued Medications Generic Name Dose Route Start Last Admin Trade Name Liya PRN Reason Stop Dose Admin Acetaminophen/Hydrocodone Bitart 2 tab 11/19/17 12:25 11/19/17 12:46 [place] 5-325 PO 11/19/17 12:26 2 tab ONCE STA Administration Albuterol/Ipratropium 1 vial 11/19/17 12:00 11/19/17 12:38 Duoneb NEB 11/19/17 12:01 1 vial ONCE STA Administration Methylprednisolone Sodium Succinate 125 mg 11/19/17 11:39 11/19/17 12:06 Solu-Medrol 125 Mg IM 11/19/17 11:40 125 mg ONCE STA Administration Vital Signs: Temp Pulse Resp BP Pulse Ox 11/19/17 11:24 97.2 F L 81 24 182/72 H 90 L Departure - Departure Time of Disposition: 13:00 Disposition: HOME SELF-CARE Discharge Problem: Acute asthmatic bronchitis Instructions: Acute Bronchitis (ED) Condition: Stable Pt referred to PMD for follow-up: Yes Additional Instructions: Take Medications as prescribed Follow up with PCP in 3 days Prescriptions: Azithromycin [Zithromax] 250 mg PO DIRECTED #6 tablet Methylprednisolone [Medrol Dosepak] 4 mg PO DIRECTED #1 pkg Allergies/Adverse Reactions: Allergies No Known Allergies Allergy (Verified 11/19/17 11:27) Home Medications: Ambulatory Orders Aspirin [Adult Low Dose Aspirin EC] 81 mg PO DAILY 06/30/16 Clopidogrel Bisulfate [Plavix] 75 mg PO DAILY 06/30/16 Lisinopril [Zestril] 40 mg PO DAILY 06/30/16 Potassium Chloride [K-Tab ER] 10 meq PO DAILY #30 tablet.er 11/18/16 Furosemide [Lasix Tab] 20 mg PO BID 12/27/16 Hydrochlorothiazide 12.5 mg PO DAILY 12/27/16 Hydrocodone Bit/Acetaminophen [[place] 10-325] 1 tab PO BID 12/27/16 Metoprolol Tartrate [Lopressor] 25 mg PO BID 12/27/16 Nitroglycerin [Nitrostat] 0.4 mg SL DIRECTED 08/02/17 Ipratropium/Albuterol Neb [Duoneb] 1 vial NEB TID #40 vial.neb 08/26/17 Trazodone HCl 50 mg PO BEDTIME #30 tablet 10/27/17 Azithromycin [Zithromax] 250 mg PO DIRECTED #6 tablet 11/19/17 Methylprednisolone [Medrol Dosepak] 4 mg PO DIRECTED #1 pkg 11/19/17 Disposition Discussed With: Patient
--- NOTE | 2017-11-19 12:04 | DI ---
EXAM: Chest PA and lateral HISTORY: Cough and shortness of breath FINDINGS: Wire sternal sutures are unchanged since 10/24/2017. The lungs are hyperinflated. Minimal chronic bibasilar opacities are noted. No acute consolidation is appreciated. The aorta is atherosc lerotic. The heart size is normal. The bones are intact. No pneumothorax or pleural effusions are det ected. IMPRESSION: No acute cardiopulmonary disease. Chronic pulmonary parenchymal scarring in the lung bases and emphysema. Aortic atherosclerosis and prior sternotomy.
[2017-11-19] MEDS ORDERED: NORCO 5-325 PO STA (12:25)
== END 2017-11-19 13:12 | disposition home or self-care (01) ==
LOC: ED 11:24
DX: J44.9 Chronic obstructive pulmonary disease, unspecified (principal); J20.9 Acute bronchitis, unspecified; Z99.81 Dependence on supplemental oxygen; I25.810 Atherosclerosis of coronary artery bypass graft(s) without angina pectoris; I25.2 Old myocardial infarction; I50.9 Heart failure, unspecified; E78.5 Hyperlipidemia, unspecified; I10 Essential (primary) hypertension; Z79.899 Other long term (current) drug therapy
CPT/HCPCS: 36415; 80053; 82803; 83605; 84145; 84484; 85025; 87040; 87502; 93005; 93010; 94640; 96372; 99283

== ENCOUNTER 2017-12-11 10:53 | Inpatient (IN) ==
[2017-12-11] MEDS ORDERED: SOLU-MEDROL 125 MG IVP STA (10:58)
[2017-12-11] MEDS ORDERED: DUONEB NEB STA (10:58)
--- NOTE | 2017-12-11 11:27 | DI ---
EXAM: Single view of the chest. History: Short of breath Comparison: Chest radiograph 11/19/2017 Findings: Heart size is borderline enlarged. Emphysema. Sternotomy wires. Increasing left lower l obe infiltrate. No pneumothorax. No acute osseous abnormalities. Impression: Increasing left lower lobe infiltrate suspicious for pneumonia. Emphysema.
[2017-12-11] MEDS ORDERED: NORCO 10-325 PO STA (11:44)
--- NOTE | 2017-12-11 12:38 | CT ---
Exam: CTA chest with intravenous contrast. 3-D MIP reformats. PE protocol Comparison: PE protocol performed 10/24/2017. Chest x-ray performed on the same day. Reason for exam: Short of breath. FINDINGS: Emphysematous disease is seen throughout the lung parenchyma. There is nodular pleural th ickening in the left apex on axial image number 28, left lower lobe on axial image number 52, and rig ht lower lobe on axial image number 69. No pleural effusion or pneumothorax. The aorta is normal in course and caliber. The heart is not enlarged. No main, proximal, or segmental pulmonary arterial filling defect is seen. No suspicious appearing o steoblastic or osteolytic lesions. Operative changes are seen after midline sternotomy. Impression: 1. Bullous emphysematous disease is seen throughout the lung parenchyma. 2. Nodular pleural thickening in the left apex, left lower lobe and right lower lobe. 3. No main, proximal, or segmental pulmonary arterial filling defect.
--- NOTE | 2017-12-11 13:27 | ED.PDOC ---
General ED Provider: Dr. GELY HAYES Chief Complaint: Shortness of Air Stated Complaint: short of air Time Seen by Physician: 11:00 (seen with entire nursing staff) Mode of Arrival: Wheelchair Information Source: Patient Exam Limitations: No limitations Primary Care Provider: ANASTASIA RANDALL Nursing and Triage Documentation Reviewed and Agree: Yes Reviewed sepsis parameters & appropriate labs ordered?: Yes System Inflammatory Response Syndrome: Not Applicable Sepsis Protocol: For patient's 13 years and over: Temp is 96.8 and below OR 101 and greater Pulse >90 BPM Resp >20/minute Acutely Altered Mental Status Are patient's symptoms suggestive of a new infection, such as: -Pneumonia -Skin, Soft Tissue -Endocarditis -UTI -Bone, Joint Infection -Implantable Device -Acute Abdominal Infection -Wound Infection -Meningitis -Blood Stream Catheter Infection -Unknown System Inflammatory Response Syndrome: Not Applicable Respiratory Complaint Exam - Respiratory Complaint/Exam Onset/Duration: 1 week worse today Symptoms Are: Still present Timing: Constant Initial Severity: Moderate Current Severity: Moderate Location: Throat, Chest Character: Reports: Non-productive cough Aggravating: Reports: None Alleviating: Reports: Bronchodilators, Spontaneous resolution Associated Signs and Symptoms: Reports: Wheezing, URI, Nasal congestion Related History: Reports: Similar episode History of Healthcare-Acquired Pneumonia: No Related Surgical History: Reports: CABG Pulmonary Embolism Risk Factors: Bedrest Cardiac Risk Factors: Reports: Hypertension Pseudomonas Risk Factors: Reports: Chronic Lung Disease Tuberculosis Risk Factors: Reports: None Status Asthmaticus Risk Factors: Reports: None Home Oxygen Use: No Recent Stress Test: No Recent Echo/LV Function: No Current Antibiotic Use: No Current Asthma Medication Use: No Respiratory Distress: Moderate Inadequate Respiratory Effort: Yes Dysphagia Present: No Stridor Present: No JVD Present: No Retractions: Intercostal, Diaphragmatic Diminished Breath Sounds: Yes Prolonged Respiration: Expiratory phase Sinus Tenderness: None Grunting Respirations: No Kussmaul Respirations: No Differential Diagnoses: Pneumonia, Bronchitis, Lower Resp. Infection Review of Systems - Review Of Systems Constitutional: Reports: Malaise Eyes: Reports: No symptoms Ears, Nose, Mouth, Throat: Reports: No symptoms Respiratory: Reports: Cough, Wheezing Cardiac: Reports: No symptoms GI: Reports: No symptoms : Reports: No symptoms Musculoskeletal: Reports: No symptoms Skin: Reports: No symptoms Neurological: Reports: No symptoms Endocrine: Reports: No symptoms Hematologic/Lymphatic: Reports: No symptoms All Other Systems: Reviewed and Negative Past Medical History - Past Medical History Previously Healthy: No Endocrine: Reports: Dyslipidemia Cardiovascular: Reports: CAD, [place], Hypertension, CHF Respiratory: Reports: COPD Hematological: Reports: None Gastrointestinal: Reports: None Genitourinary: Reports: Kidney stones Neuro/Psych: Reports: Depression Musculoskeletal: Reports: Arthritis, Back Pain ("always painful" no worse this AM) Cancer: Reports: None Other Pertinent Past Medical History: htn chol mi depr cabg hernia - Surgical History General Surgical History: Reports: CABG (double bypass 6 months ago), Hernia Repair - Family History Family History: Reports: Unknown - Social History Smoking Status: Former smoker Hx Substance Use: No Alcohol Screening: None - Immunizations Influenza Vaccine within 12 Months: No Pneumococcal Vaccine up to Date: No Physical Exam - Physical Exam Appearance: Ill-appearing Ill-appearing: Moderate Pain Distress: Moderate Eyes: WILVER, EOMI, Conjunctiva clear ENT: Ears normal, Nose normal, Oropharynx normal Respiratory: Wheezes Cardiovascular: RRR, Pulses normal, No rub, No murmur GI/: Soft, Nontender, No masses, Bowel sounds normal, No Organomegaly Musculoskeletal: Normal strength, ROM intact, No edema, No calf tenderness Skin: Warm, Dry, Normal color Neurological: Sensation intact, Motor intact, Reflexes intact, Cranial nerves intact, Alert, Oriented Psychiatric: Affect appropriate, Mood appropriate Interpretation - Radiology Interpretation Radiology Interpretation By: Radiologist Radiology Results: No acute changes - Sociology Research Assistant Rate: Tachy Rhythm: Sinus - EKG Interpretation Rate: Tachy Rhythm: Sinus Re-Evaluation - Re-Evaluation Time of Re-Evaluation: 11:30 Status: Improved Vital Signs Stable: Yes Pain Level: 0 Appearance: NAD Lungs: Clear Skin: Warm and Dry Neuro: Alert and Oriented X3 CV: RRR - Re-Evaluation Time of Re-Evaluation: 12:39 Status: Improved Vital Signs Stable: Yes Pain Level: 0 Appearance: NAD Skin: Warm and Dry Neuro: Alert and Oriented X3 CV: RRR Physician Notification - Case Discussed Physician Notified: pmd Time of Notification: 13:28 (seem pt IN ED) Admit To: Inpatient Critical Care Note - Critical Care Note Total Time (mins): 0 Course - Course Hematology/Chemistry: 12/11/17 10:55 12/11/17 10:55 Orders, Labs, Meds: Lab Review 01/12/11/17 12/11/17 10:55 10:55 10:55 WBC 12.80 H RBC 5.58 Hgb 16.6 Hct 49.7 MCV 89.1 MCH 29.7 MCHC 33.4 RDW Coeff of Moris 13.6 Plt Count 258 Immature Gran % (Auto) 0.5 Neut % (Auto) 50.0 Lymph % (Auto) 33.2 [place] % (Auto) 8.8 Eos % (Auto) 7.0 Baso % (Auto) 0.5 Immature Gran # (Auto) 0.1 Neut # 6.4 Lymph # 4.[address] [place] # 1.1 Eos # 0.9 H Baso # 0.1 Puncture Site O2 Saturation ABG pH ABG pCO2 ABG pO2 ABG HCO3 ABG Total CO2 ABG Base Excess [place] Test O2 Delivery Device Oxygen Liter Flow Sodium 138 Potassium 4.4 Chloride 99 Carbon Dioxide 28 Anion Gap 15.4 BUN 15 Creatinine 0.81 Estimated GFR (MDRD) 99.00 BUN/Creatinine Ratio 18.51 Glucose 138 H Lactic Acid Calcium 9.9 Total Bilirubin 0.7 AST 28 ALT 33 Alkaline Phosphatase 99 Total Creatine Kinase 103 Troponin I 0.0900 Total Protein 7.4 Albumin 3.7 Globulin 3.7 Albumin/Globulin Ratio 1.00 Procalcitonin < 0.05 Influenza A (Rapid) Influenza B (Rapid) 12/11/17 12/11/17 12/11/17 10:55 11:00 11:10 WBC RBC Hgb Hct MCV MCH MCHC RDW Coeff of Moris Plt Count Immature Gran % (Auto) Neut % (Auto) Lymph % (Auto) [place] % (Auto) Eos % (Auto) Baso % (Auto) Immature Gran # (Auto) Neut # Lymph # [place] # Eos # Baso # Puncture Site R brach O2 Saturation 91.0 L ABG pH 7.298 L* ABG pCO2 51.8 H ABG pO2 67.0 L ABG HCO3 25.4 ABG Total CO2 27 ABG Base Excess -1 Douglas Test + O2 Delivery Device Nc Oxygen Liter Flow 3.00 Sodium Potassium Chloride Carbon Dioxide Anion Gap BUN Creatinine Estimated GFR (MDRD) BUN/Creatinine Ratio Glucose Lactic Acid 27.3 H Calcium Total Bilirubin AST ALT Alkaline Phosphatase Total Creatine Kinase Troponin I Total Protein Albumin Globulin Albumin/Globulin Ratio Procalcitonin Influenza A (Rapid) Negative by naat Influenza B (Rapid) Negative by naat 12/11/17 13:05 WBC RBC Hgb Hct MCV MCH MCHC RDW Coeff of Moris Plt Count Immature Gran % (Auto) Neut % (Auto) Lymph % (Auto) [place] % (Auto) Eos % (Auto) Baso % (Auto) Immature Gran # (Auto) Neut # Lymph # [place] # Eos # Baso # Puncture Site R brach O2 Saturation 97.0 ABG pH 7.399 ABG pCO2 47.3 H ABG pO2 93.0 ABG HCO3 29.2 H ABG Total CO2 31 H ABG Base Excess 4 H Douglas Test + O2 Delivery Device Nc Oxygen Liter Flow 3.00 Sodium Potassium Chloride Carbon Dioxide Anion Gap BUN Creatinine Estimated GFR (MDRD) BUN/Creatinine Ratio Glucose Lactic Acid Calcium Total Bilirubin AST ALT Alkaline Phosphatase Total Creatine Kinase Troponin I Total Protein Albumin Globulin Albumin/Globulin Ratio Procalcitonin Influenza A (Rapid) Influenza B (Rapid) Orders Category Date Time Status ABG DRAW REQUEST Stat CARDIO 12/11/17 10:57 Ordered ABG DRAW REQUEST Stat CARDIO 12/11/17 13:00 Ordered EKG-(ED ONLY) Stat CARDIO 12/11/17 10:57 Ordered NEBULIZER TREATMENT Stat CARDIO 12/11/17 10:58 Ordered NPO REMINDER: IMAGING ONCE CARE 12/11/17 11:44 Ordered ED IV/MEDIPORT/POWERPORT .ONCE EMERGENCY 12/11/17 10:56 Ordered ABG Stat LAB 12/11/17 10:57 Ordered ABG Stat LAB 12/11/17 13:00 Ordered BLOOD CULTURE (ED ONLY) Stat LAB 12/11/17 Ordered CBC W/ AUTO DIFF Stat LAB 12/11/17 10:56 Ordered COMPREHENSIVE METABOLIC PANEL Stat LAB 12/11/17 10:56 Ordered CREATINE KINASE Stat LAB 12/11/17 10:56 Ordered FLU A/B MOLECULAR Stat LAB 12/11/17 10:56 Uncollected LACTIC ACID Stat LAB 12/11/17 10:58 Ordered PROCALCITONIN Stat LAB 12/11/17 Ordered TROPONIN I Stat LAB 12/11/17 10:56 Ordered 0.9 % Sodium Chloride [Saline Flush] MEDS 12/11/17 10:56 Ordered 1 syr IVF PRN PRN Hydrocodone Bit/Acetaminophen [[place] 10-325] MEDS 12/11/17 11:44 Stat 1 tab PO ONCE STA Ipratropium/Albuterol Neb [Duoneb] MEDS 12/11/17 10:58 Stat 1 vial NEB ONCE STA Methylprednisolone Sod Succ/Pf [Solu-Medrol 125 mg] MEDS 12/11/17 10:58 Stat 125 mg IVP ONCE STA CHEST, 1V AP ONLY Stat RADS 12/11/17 11:[address] CHEST PE PROTOCOL Stat RADS 12/11/17 11:43 Ordered Medications Generic Name Dose Route Start Last Admin Trade Name Freq PRN Reason Stop Dose Admin Sodium Chloride 1 syr 12/11/17 10:56 12/11/17 11:06 Saline Flush IVF 1 syr PRN PRN Administration To flush IV Discontinued Medications Generic Name Dose Route Start Last Admin Trade Name Freq PRN Reason Stop Dose Admin Acetaminophen/Hydrocodone Bitart 1 tab 12/11/17 11:44 12/11/17 11:50 [place] 10-325 PO 12/11/17 11:45 1 tab ONCE STA Administration Albuterol/Ipratropium 1 vial 12/11/17 10:58 12/11/17 11:01 Duoneb NEB 12/11/17 10:59 1 vial ONCE STA Administration Methylprednisolone Sodium Succinate 125 mg 12/11/17 10:58 12/11/17 11:06 Solu-Medrol 125 Mg IVP 12/11/17 10:59 125 mg ONCE STA Administration Vital Signs: Temp Pulse Resp BP Pulse Ox 12/11/17 11:29 81 20 136/80 12/11/17 10:54 95.9 F L 100 H 28 H 154/104 H 96 Departure - Departure Time of Disposition: 13:28 Disposition: ADMITTED INPATIENT Discharge Problem: Acute respiratory failure Instructions: COPD (Chronic Obstructive Pulmonary Disease) (ED) Condition: Good Pt referred to PMD for follow-up: Yes IPMP verified?: Yes Additional Instructions: Please call your Family Physician as soon as possible to schedule a follow-up appointment. Allergies/Adverse Reactions: Allergies No Known Allergies Allergy (Verified 12/11/17 11:07) Home Medications: Ambulatory Orders Aspirin [Adult Low Dose Aspirin EC] 81 mg PO DAILY 06/30/16 Clopidogrel Bisulfate [Plavix] 75 mg PO DAILY 06/30/16 Lisinopril [Zestril] 40 mg PO DAILY 06/30/16 Potassium Chloride [K-Tab ER] 10 meq PO DAILY #30 tablet.er 11/18/16 Furosemide [Lasix Tab] 20 mg PO BID 12/27/16 Hydrochlorothiazide 12.5 mg PO DAILY 12/27/16 Hydrocodone Bit/Acetaminophen [[place] 10-325] 1 tab PO BID 12/27/16 Metoprolol Tartrate [Lopressor] 25 mg PO BID 12/27/16 Nitroglycerin [Nitrostat] 0.4 mg SL DIRECTED 08/02/17 Ipratropium/Albuterol Neb [Duoneb] 1 vial NEB TID #40 vial.neb 08/26/17 Trazodone HCl 50 mg PO BEDTIME #30 tablet 10/27/17
[2017-12-11] MEDS ORDERED: TYLENOL PO PRN (14:51)
[2017-12-11] MEDS ORDERED: MORPHINE 4 MG/ML VIAL IVP PRN (14:51)
[2017-12-11] MEDS ORDERED: NITROSTAT SL PRN ×2 (14:51→16:31)
[2017-12-11] MEDS ORDERED: ATROPINE SULFATE PFS IVP PRN (14:51)
[2017-12-11] MEDS ORDERED: VISTARIL INJ IM PRN (14:51)
[2017-12-11 15:18] VITALS: BMI 39.4
[2017-12-11] MEDS: ZITHROMAX PO SCH (15:31)
[2017-12-11] MEDS ORDERED: NON-FORMULARY MEDICATION (Buspirone Hcl [Buspirone Hcl] 5 MG) PO SCH (16:45)
[2017-12-11] MEDS ORDERED: NON-FORMULARY MEDICATION (Hydrochlorothiazide [Hydrochlorothiazide] 12.5 MG) PO SCH (16:45)
[2017-12-11] MEDS ORDERED: NON-FORMULARY MEDICATION (Potassium Chloride [K-Tab Er] 10 MEQ) PO SCH (16:45)
[2017-12-11] MEDS: SYMBICORT 160-4.5 MCG INHALER IH SCH (16:55)
[2017-12-11] MEDS: HYDROCHLOROTHIAZIDE PO SCH (16:55)
[2017-12-11] MEDS: LASIX TAB PO SCH (16:55)
[2017-12-11] MEDS: ZESTRIL PO SCH (16:55)
[2017-12-11] MEDS: LOPRESSOR PO SCH ×2 (16:56→20:24)
[2017-12-11] MEDS: PLAVIX PO SCH (16:56)
[2017-12-11] MEDS: MICRO-K CAP PO SCH (16:56)
[2017-12-11] MEDS: BUSPAR PO SCH (16:57)
[2017-12-11] MEDS ORDERED: LOPRESSOR PO SCH (17:00)
[2017-12-11] MEDS: SOLU-CORTEF 250 MG IVP SCH (17:04)
[2017-12-11] MEDS: NORCO 10-325 PO PRN (17:40)
[2017-12-11] MEDS: XOPENEX 1.25 MG NEB SCH ×2 (17:44→22:53)
[2017-12-11] MEDS ORDERED: NORCO 10-325 PO SCH (21:00)
[2017-12-12] MEDS: SOLU-CORTEF 250 MG IVP SCH ×4 (00:57→17:57)
[2017-12-12] MEDS: NORCO 10-325 PO PRN ×2 (02:49→09:55)
[2017-12-12] MEDS: XOPENEX 1.25 MG NEB SCH ×4 (04:55→23:00)
[2017-12-12] MEDS: LASIX TAB PO SCH ×2 (05:37→17:03)
[2017-12-12] MEDS ORDERED: ASPIRIN EC PO SCH (08:00)
[2017-12-12] MEDS: ASPIRIN EC PO SCH (08:38)
[2017-12-12] MEDS: SYMBICORT 160-4.5 MCG INHALER IH SCH (09:53)
[2017-12-12] MEDS: ZESTRIL PO SCH (09:53)
[2017-12-12] MEDS: BUSPAR PO SCH (09:54)
[2017-12-12] MEDS: HYDROCHLOROTHIAZIDE PO SCH (09:56)
[2017-12-12] MEDS: ZITHROMAX PO SCH (09:56)
[2017-12-12] MEDS: PLAVIX PO SCH (09:56)
[2017-12-12] MEDS: LOPRESSOR PO SCH ×2 (09:57→20:25)
[2017-12-12] MEDS: MICRO-K CAP PO SCH (09:57)
[2017-12-12] MEDS: ROCEPHIN 1 GM in SODIUM CHLORIDE 50 ML IV SCH (09:58)
[2017-12-13] MEDS: SOLU-CORTEF 250 MG IVP SCH ×2 (00:19→05:08)
[2017-12-13] MEDS: XOPENEX 1.25 MG NEB SCH ×4 (04:45→22:45)
[2017-12-13] MEDS: LASIX TAB PO SCH ×2 (05:36→16:45)
--- NOTE | 2017-12-13 08:37 | PCM.PROG ---
Attending Provider: ATTENDING PROVIDER: Dr. ANASTASIA RANDALL DATE OF SERVICE: 12/13/17 SUBJECTIVE: This 57 year old WHITE/ M was hospitalized 12/11/17 with acute respiratory failure, acute bronchitis and COPD. The patient's condition has improved remarkably. Oxygen saturation on room air is 90%. REVIEW OF SYSTEMS: CONSTITUTIONAL: No night sweats. No fatigue, malaise, lethargy. No fever or chills. HEENT: Eyes: No visual changes. No eye pain. No eye discharge. ENT: No runny nose. No epistaxis. No sinus pain. No odynophagia. No congestion. RESPIRATORY: No cough, no congestion. No hemoptysis. Shortness of breath with minimal exertion. The patient is up and about all over the hospital. CARDIOVASCULAR: No angina symptoms. No CHF symptoms. No atypical chest pain for CAD. No palpitations. No orthopnea.. GASTROINTESTINAL: No abdominal pain. No nausea or vomiting. No diarrhea or constipation. No hematemesis. No hematochezia. GENITOURINARY: No urgency. No frequency. No dysuria. No hematuria. No obstructive symptoms. No discharge. No pain. No significant abnormal bleeding. MUSCULOSKELETAL: No musculoskeletal pain; no joint swelling. NEUROLOGICAL: Awake, alert, oriented to time, place and person. No headache. No neck pain. No syncope. No seizures. No dizziness. PSYCHIATRIC: Not anxious. No depression. No suicidal thoughts. No homicidal thoughts. SKIN: No rash. No lesions. No wounds. ENDOCRINE: No unexplained weight loss. No weight gain. HEMATOLOGIC/LYMPHATIC: No anemia. No purpura. No petechiae. No prolonged or excessive bleeding. No palpable lymph nodes. PHYSICAL EXAMINATION: GENERAL: The patient is awake, alert and oriented, lying/sitting in bed in no distress. VITAL SIGNS: Temperature 98.2 F, Pulse 88, Respiratory Rate 20, BP 128/80, Pulse Ox 95% HEENT: Head normocephalic, atraumatic. Eyes: Extraocular muscles are intact. Pupils are equal, round and reactive to light and accommodation. Ears: No lesions. Nose appeared normal. Throat: No exudate or erythema. NECK: Supple. No JVD, no carotid bruit. No lymphadenopathy or thyromegaly. LUNGS: Decreased breath sounds but clear to auscultation. Percussion note normal. Chest symmetrical. HEART: S1, S2, no S3. No murmurs. No cyanosis or clubbing. No ascites. Pulses: Dorsalis pedis and posterior tibial pulses +1 to +2 both sides. ABDOMEN: Soft. Non-tender. Bowel sounds active. No CVA tenderness. No mass felt. EXTREMITIES: No edema. Full range of motion of all extremities, equal. NEUROLOGIC: No focal deficit. Cranial nerves II through XII are grossly intact. No headache, no double vision or headache. SKIN: Warm and dry. Intact. Turgor-normal. LYMPHATIC: No palpable lymph nodes/no lymphedema. MUSCULOSKELETAL: Normal joints with no swelling. Muscle tone is normal. LAB REVIEW: 12/13/17 04:00 12/13/17 04:00 12/13/17 06:00: Puncture Site R rad, O2 Saturation 90.0 L, ABG pH 7.44, ABG pCO2 42.0, ABG pO2 57.0 L*, ABG HCO3 29 H, ABG Total CO2 30 H, ABG Base Excess 4 H, Douglas Test +, FiO2 % 21.0 12/13/17 04:00: Sodium 140, Potassium 4.0, Chloride 102, Carbon Dioxide 32, Anion Gap 10.0, BUN 19 H, Creatinine 0.74, Estimated GFR (MDRD) 109.00, BUN/ Creatinine Ratio 25.67, Glucose 138 H, Calcium 9.1, Total Bilirubin 0.3, AST 22 , ALT 28, Alkaline Phosphatase 80, Total Protein 6.2 L, Albumin 3.3 L, Globulin 2.9, Albumin/Globulin Ratio 1.14 12/13/17 04:00: WBC 17.28 H, RBC 4.52 L, Hgb 13.4 L, Hct 40.4 L, MCV 89.4, MCH 29.6, MCHC 33.2, RDW Coeff of Moris 14.0, Plt Count 230, Immature Gran % (Auto) 1.0, Neut % (Auto) 84.2, Lymph % (Auto) 10.9, [place] % (Auto) 3.8, Eos % (Auto) 0.0, Baso % (Auto) 0.1, Immature Gran # (Auto) 0.2, Neut # 14.5 H, Lymph # 1.9, [place] # 0.7, Eos # 0.0, Baso # 0.0 12/12/17 13:25: Urine Color Yellow, Urine Clarity Clear, Urine pH 5.5, Ur Specific [place] 1.020, Urine Protein 1+, Urine Glucose (UA) Negative, Urine Ketones Negative, Urine Blood 2+, Urine Nitrite Negative, Urine Bilirubin Negative, Urine Urobilinogen 0.2, Ur Leukocyte Esterase Negative, Urine Microscopic RBC 0-2, Urine Microscopic WBC 2-5, Ur Squamous Epith Cells Not present, Urine Bacteria 1+ ASSESSMENT: Please see below. Acute respiratory failure seems to have resolved Chronic hypoxemia from chronic lung disease Acute bronchitis Morbid obesity Coronary artery disease Non compliance Smoking PLAN: Counseling for smoking done The patient is walking around the hospital asking for cigarettes and getting extra food from cafeteria. Weight loss diet discussed Advise pulmonary rehab Noncompliance of followup life, style and medication Plan and coordination of the patient's care discussed in the presence of Health Care Recruiter and nurse. CONDITION: Poor SCRIBED BY: JOAQUIN RODRIGUES Product Merchandiser scribed while in presence of service performed by Dr. ANASTASIA RANDALL on 12/13/17 ([id number])
[2017-12-13] MEDS: ROCEPHIN 1 GM in SODIUM CHLORIDE 50 ML IV SCH (09:06)
[2017-12-13] MEDS: SYMBICORT 160-4.5 MCG INHALER IH SCH (09:07)
[2017-12-13] MEDS: PLAVIX PO SCH (09:08)
[2017-12-13] MEDS: BUSPAR PO SCH (09:08)
[2017-12-13] MEDS: ZESTRIL PO SCH (09:09)
[2017-12-13] MEDS: LOPRESSOR PO SCH ×2 (09:09→21:04)
[2017-12-13] MEDS: ZITHROMAX PO SCH (09:09)
[2017-12-13] MEDS: HYDROCHLOROTHIAZIDE PO SCH (09:09)
[2017-12-13] MEDS: MICRO-K CAP PO SCH (09:09)
[2017-12-13] MEDS: ASPIRIN EC PO SCH (09:10)
[2017-12-13] MEDS: NORCO 10-325 PO PRN ×2 (09:10→13:01)
[2017-12-13] MEDS: PREDNISONE PO SCH (12:42)
[2017-12-14] MEDS: NORCO 10-325 PO PRN ×2 (03:32→08:27)
[2017-12-14] MEDS: XOPENEX 1.25 MG NEB SCH (03:40)
[2017-12-14] MEDS: LASIX TAB PO SCH (05:46)
[2017-12-14] MEDS: MICRO-K CAP PO SCH (08:19)
[2017-12-14] MEDS: ROCEPHIN 1 GM in SODIUM CHLORIDE 50 ML IV SCH (08:19)
[2017-12-14] MEDS: SYMBICORT 160-4.5 MCG INHALER IH SCH (08:19)
[2017-12-14] MEDS: ASPIRIN EC PO SCH (08:20)
[2017-12-14] MEDS: BUSPAR PO SCH (08:20)
[2017-12-14] MEDS: LOPRESSOR PO SCH (08:20)
[2017-12-14] MEDS: PLAVIX PO SCH (08:20)
[2017-12-14] MEDS: ZESTRIL PO SCH (08:21)
[2017-12-14] MEDS: HYDROCHLOROTHIAZIDE PO SCH (08:21)
[2017-12-14] MEDS: PREDNISONE PO SCH (08:22)
--- NOTE | 2017-12-14 09:17 | CM.DICTOOL ---
ADMISSION: 12/11/17 13:39 DISCHARGE: 2017 DATE OF SERVICE: 12/14/17 FINAL DIAGNOSIS Acute respiratory failure Chronic hypoxemia from chronic lung disease Acute Bronchitis CAD with stent application CABG, 2016 Osteoarthritis Morbid Obesity Non-Compliance LVH per Echo 10/2017 LVEF 50% per Echo 10/2017 Bilateral Hernia Repair LAST VITALS Temp Pulse Resp BP Pulse Ox 97.5 F L 112 H 20 145/69 H 100 12/14/17 05:27 12/14/17 05:27 12/14/17 05:27 12/14/17 05:27 12/14/17 05:27 ACTIVE HOME MEDICATIONS Acetaminophen/Hydrocodone Bitart ([place] 10-325) 1 tab PO BID PRN PRN Reason: Moderate to Severe Pain Last Admin: 12/14/17 08:27 Dose: 1 tab [facility] Admin: 12/14/17 08:20 Dose: 81 mg Budesonide/Formoterol Fumarate (Symbicort 160-4.5 Mcg Inhaler) 2 puff IH DAILY [facility] Last Admin: 12/14/17 08:19 Dose: 2 puff Buspirone HCl (Buspar) 5 mg PO DAILY [facility] Last Admin: 12/14/17 08:20 Dose: 5 mg Clopidogrel Bisulfate (Plavix) 75 mg PO DAILY [facility] Last Admin: 12/14/17 08:20 Dose: 75 mg Furosemide (Lasix Tab) 20 mg PO BIDAC [facility] Last Admin: 12/14/17 05:46 Dose: 20 mg Hydrochlorothiazide (Hydrochlorothiazide) 12.5 mg PO DAILY [facility] Last Admin: 12/14/17 08:21 Dose: 12.5 mg Ipratropium/Albuterol Neb (Duoneb) 1 vial Neb Q 4 hours Last Admin: Lisinopril (Zestril) 40 mg PO DAILY [facility] Last Admin: 12/14/17 08:21 Dose: 40 mg Metoprolol Tartrate (Lopressor) 25 mg PO BID [facility] Last Admin: 12/14/17 08:20 Dose: 25 mg Nitroglycerin (Nitrostat) 0.4 mg SL Q5MIN X 3 DOSES PRN PRN Reason: Chest Pain Potassium Chloride (Micro-K Cap) 10 meq PO DAILY [facility] Last Admin: 12/14/17 08:19 Dose: 10 meq ALLERGIES No Known Allergies Allergy (Verified 12/11/17 11:07) NEW PRESCRIPTIONS: Keflex 500 mg TID for 7 days Prednisone 20 mg daily for 5 days, then 10 mg daily for 5 days SMOKING: Advised to stop smoking DISEASE SPECIFIC EDUCATION: Smoking cessation Diet Use of steroids and risk of GI upset, bone demineralization Importance of physician follow-up LAB REVIEW: 12/14/17 07:25 12/13/17 04:00 12/14/17 07:25: WBC 13.81 H, RBC 4.74, Hgb 14.1, Hct 42.6, MCV 89.9, MCH 29.7, MCHC 33.1, RDW Coeff of Moris 14.1, Plt Count 219, Immature Gran % (Auto) 0.8, Neut % (Auto) 60.4, Lymph % (Auto) 31.9, [place] % (Auto) 6.2, Eos % (Auto) 0.4, Baso % (Auto) 0.3, Immature Gran # (Auto) 0.1, Neut # 8.3 H, Lymph # 4.4 H, [place] # 0.9, Eos # 0.1, Baso # 0.0 PLAN: Discharge home Diet: Regular diet. Advised to reduce portion sizes, limit fruits, snack type foods. Activity: Resume as tolerated. Continue to use nebulizer treatments every 4 hours Continue to use oxygen per nasal cannula at 2 liters per cannula Continue medications as listed on nursing discharge information sheet An appointment is scheduled with Dr. Rangel/Janene Marinelli APRN on Dec.19 at 11:15 am Mr. Glass is alert and oriented x 3. He is ambulatory in the hallways without use of oxygen or any assistive devices. He is independent with activities of daily living. Meal intakes are good at 100% and are supplemented by snack items obtained by the patient. No reports of abdominal pain or nausea. Skin is in good condition and free of decubitus ulcers, rashes or irritation. Mr. Glass has oxygen continuously, portable oxygen and a nebulizer with medications at home. Onofre Rangel MD Janene Marinelli APRN
--- NOTE | 2017-12-14 09:32 | PCM.PROG ---
Attending Provider: ATTENDING PROVIDER: Dr. ANASTASIA RANDALL This patient is seen with Janene Marinelli, Nurse Practitioner. DATE OF SERVICE: 12/14/17 SUBJECTIVE: This 57 year old WHITE/ M was hospitalized 12/11/17. The patient is sitting up in the chair. He states he is ready to go home. He is noncompliant with lifestyle medications and followup discussed with patient. REVIEW OF SYSTEMS: CONSTITUTIONAL: No night sweats. No fatigue, malaise, lethargy. No fever or chills. HEENT: Eyes: No visual changes. No eye pain. No eye discharge. ENT: No runny nose. No epistaxis. No sinus pain. No odynophagia. No congestion. RESPIRATORY: Cough; shortness of breath, both improved. No congestion. No hemoptysis. CARDIOVASCULAR: No angina symptoms. No CHF symptoms. No atypical chest pain for CAD. No palpitations. No orthopnea.. GASTROINTESTINAL: No abdominal pain. No nausea or vomiting. No diarrhea or constipation. No hematemesis. No hematochezia. GENITOURINARY: No urgency. No frequency. No dysuria. No hematuria. No obstructive symptoms. No discharge. No pain. No significant abnormal bleeding. MUSCULOSKELETAL: No musculoskeletal pain; no joint swelling. NEUROLOGICAL: Awake, alert, oriented to time, place and person. No headache. No neck pain. No syncope. No seizures. No dizziness. PSYCHIATRIC: Not anxious. No depression. No suicidal thoughts. No homicidal thoughts. SKIN: No rash. No lesions. No wounds. ENDOCRINE: No unexplained weight loss. No weight gain. HEMATOLOGIC/LYMPHATIC: No anemia. No purpura. No petechiae. No prolonged or excessive bleeding. No palpable lymph nodes. PHYSICAL EXAMINATION: GENERAL: The patient is awake, alert and oriented, sitting in chair in no distress. VITAL SIGNS: Temperature 97.5 F, Pulse 112, Respiratory Rate 20, BP 145/69, Pulse Ox 100% HEENT: Head normocephalic, atraumatic. Eyes: Extraocular muscles are intact. Pupils are equal, round and reactive to light and accommodation. Ears: No lesions. Nose appeared normal. Throat: No exudate or erythema. NECK: Supple. No JVD, no carotid bruit. No lymphadenopathy or thyromegaly. LUNGS: Diminished breath sounds. Clear to auscultation. Percussion note normal. Chest symmetrical. HEART: S1, S2, no S3. No murmurs. No cyanosis or clubbing. No ascites. Pulses: Dorsalis pedis and posterior tibial pulses +1 to +2 both sides. ABDOMEN: Soft. Non-tender. Bowel sounds active. No CVA tenderness. No mass felt. EXTREMITIES: No edema. Full range of motion of all extremities, equal. NEUROLOGIC: No focal deficit. Cranial nerves II through XII are grossly intact. No headache, no double vision or headache. SKIN: Not dry. Intact. Turgor-normal. LYMPHATIC: No palpable lymph nodes/no lymphedema. MUSCULOSKELETAL: Normal joints with no swelling. Muscle tone is normal. LAB REVIEW: 12/14/17 07:25 12/13/17 04:00 12/14/17 07:25: WBC 13.81 H, RBC 4.74, Hgb 14.1, Hct 42.6, MCV 89.9, MCH 29.7, MCHC 33.1, RDW Coeff of Moris 14.1, Plt Count 219, Immature Gran % (Auto) 0.8, Neut % (Auto) 60.4, Lymph % (Auto) 31.9, [place] % (Auto) 6.2, Eos % (Auto) 0.4, Baso % (Auto) 0.3, Immature Gran # (Auto) 0.1, Neut # 8.3 H, Lymph # 4.4 H, [place] # 0.9, Eos # 0.1, Baso # 0.0 ASSESSMENT: Acute respiratory failure seems to have resolved Chronic hypoxemia from chronic lung disease Acute bronchitis Morbid obesity Coronary artery disease Non compliance Smoking PLAN: Discharge home Counseling for smoking done Keflex 500 t.i.d. for 7 days Prednisone 20 mg for 5 days then 10 mg for 5 days Followup next week in the office with Janene Marinelli APRN/Dr. Randall Plan and coordination of the patient's care discussed in the presence of Records Associate and nurse. CONDITION: Stable SCRIBED BY: GURPREET PLATT, Pipe Wrapping Machine Operator scribed while in presence of service performed by Dr. Randall/Janene Marinelli APRN on 12/14/17 (0809)
[2017-12-14 09:50] VITALS: BP 105/56; TEMP 98.1
--- NOTE | 2017-12-14 11:35 | HP ---
DATE OF SERVICE: 12/12/17 REASON FOR HOSPITALIZATION/HISTORY OF PRESENT ILLNESS: This is a 57 year old white male with a long history of COPD and chronic respiratory failure. He continues to smoke. He has been hospitalized multiple times for acute respiratory failure. He presented to the emergency room with shortness of breath. PAST MEDICAL HISTORY: Obesity Dyslipidemia Coronary artery disease History of myocardial infarction Hypertension History CHF COPD Severe oxygen dependant History of kidney stones Depression Osteoarthritis Chronic back pain Depression PAST SURGICAL HISTORY: CABG 6 months ago Hernia repair REVIEW OF SYSTEMS: CONSTITUTIONAL: No night sweats. Fatigue and malaise. No fever or chills. HEENT: Eyes: No visual changes. No eye pain. No eye discharge. ENT: No runny nose. No epistaxis. No sinus pain. No sore throat. No odynophagia. No ear pain. No congestion. RESPIRATORY: Cough and wheezing, no congestion. No hemoptysis. Shortness of breath. CARDIOVASCULAR: No angina symptoms. No CHF symptoms. No atypical chest pain for CAD. No palpitations. No orthopnea. GASTROINTESTINAL: No abdominal pain. No nausea or vomiting. No diarrhea or constipation. No hematemesis. No hematochezia. GENITOURINARY: No urgency. No frequency. No dysuria. No hematuria. No obstructive symptoms. No discharge. No pain. No significant abnormal bleeding. MUSCULOSKELETAL: No musculoskeletal pain. No joint swelling. No arthritis. NEUROLOGICAL: No headache. No neck pain. No syncope. No seizures. No dizziness. PSYCHIATRIC: Not anxious. No depression. No suicidal thoughts. No homicidal thoughts. SKIN: No rash. No lesions. No wounds. ENDOCRINE: No unexplained weight loss. No weight gain. HEMATOLOGIC/LYMPHATIC: No anemia. No purpura. No petechiae. No prolonged or excessive bleeding. No palpable lymph nodes. PERSONAL/FAMILY/SOCIAL HISTORY: The patient is smoker. Denies any alcohol or illicit drug use. Lives at home alone. MEDICATIONS: Aspirin 81mg daily Plavix 75mg daily Zestril 40mg daily Potassium chloride 10meq daily Lasix 20mg twice a day [place] 10-325mg twice a day Lopressor 25mg twice a day Nitro PRN DUO NEBS Three times a day Buspar 5mg daily Hydrochlorothiazide 12.5mg daily ALLERGIES: No known allergies PHYSICAL EXAMINATION: HEENT: Head normocephalic, atraumatic. Eyes: Extraocular muscles are intact. Pupils are equal, round and reactive to light and accommodation. Ears: No lesions. Nose appeared normal. Throat: No exudate or erythema. NECK: Supple. No JVD, no carotid bruit. No lymphadenopathy or thyromegaly. LUNGS: Mild respiratory distress. Diminished breath sounds bilaterally with bilateral wheezing. Percussion note normal. Chest symmetrical. HEART: S1, S2, no S3. No murmurs. No cyanosis or clubbing. No ascites. Pulses: Dorsalis pedis and posterior tibial pulses +1 to +2 both sides. ABDOMEN: Soft. Nontender. Bowel sounds active. No CVA tenderness. No mass felt. EXTREMITIES: Trace edema bilateral lower extremities. Full range of motion of all extremities, equal. NEUROLOGIC: No focal deficit. Cranial nerves II through XII are grossly intact. No headache, no double vision or headache. SKIN: Not dry. Intact. Turgor - normal. LYMPHATIC: No palpable lymph nodes/no lymphedema. MUSCULOSKELETAL: Normal joints with no swelling. Muscle tone is normal. LABS: WBC 12.80, hgb 16.6, hct 49.7, plt count 258, sodium 138, potassium 4.4, BUN 15 , creatinine 0.81, glucose 138, AST 28, ALT 33, Total CK 103, Total protein 7.4 , ABG on 3 liters nasal cannula O2 sat 91, pH 7.298, pCO2 51.8, pO2 67, bicarb 25.4, total Co2 27, base excess of negative 1. Lactic acid is 27.3. Influenza A and B were both negative. Chest x-ray showed changes associated with COPD, possible bronchitis. ASSESSMENT: 1. Acute respiratory failure 2. Acute bronchitis 3. COPD oxygen dependant 4. Obesity noncompliance lifestyle, medications 5. Coronary artery disease 6. History of ID and CABG 7. Smoker PLAN: 1. Will admit to the floor 2. CBC and CMP daily 3. Continue home medication 4. Routine telemetry orders 5. Xopenex NEBS treatments Q 6 hours scheduled 6. Symbicort inhaler twice a day 7. Solu-Cortef IV 125mg Q 6 hours 8. Zithromax 500mg Po daily times three days 9. Oxygen at 3 liters 10. Low sodium ADA diet Will follow closely TIME SPENT: More than 70 minutes. MTDD
--- NOTE | 2017-12-15 11:09 | PN ---
DATE OF SERVICE: 12/11/17 SUBJECTIVE: 57-year-old white male was seen in the emergency room by me before admission. The patient had come in with shortness of breath. On admission his ABGs showed pH 7.29 with p02 of 67, pc02 51 with 91% saturation on 3L. After treatment, a couple of hours later on his pH was 7.39 with p02 in upper 60s to 70s with normal PC02. The patient had remarkable improvement with oxygen saturation of 93 % with 3L. The patient is noncompliant, hasn't come for followup after his last hospitalization. He is Influenza A and Rapid Flu B negative. PHYSICAL EXAMINATION: GENERAL: The patient is oriented to time, place and person. HEENT: Head normocephalic, atraumatic. Eyes: Extraocular muscles are intact. Pupils are equal, round and reactive to light and accommodation. Ears: No lesions. Nose appeared normal. Throat: No exudate or erythema. NECK: Supple. No JVD, no carotid bruit. No lymphadenopathy or thyromegaly. LUNGS: Clear to auscultation. Percussion note normal. Chest symmetrical. HEART: S1, S2, no S3. No murmurs. No cyanosis or clubbing. No ascites. Pulses: Dorsalis pedis and posterior tibial pulses +1 to +2 both sides. ABDOMEN: Soft. Nontender. Bowel sounds active. No CVA tenderness. No mass felt. EXTREMITIES: No edema. Full range of motion of all extremities, equal. NEUROLOGIC: No focal deficit. Cranial nerves II through XII are grossly intact. No headache, no double vision or headache. SKIN: Not dry. Intact. Turgor - normal. LYMPHATIC: No palpable lymph nodes/no lymphedema. MUSCULOSKELETAL: Normal joints with no swelling. Muscle tone is normal. LABS: The patient's sepsis protocol was negative. Chest x-ray showed possibility of infiltrate, pneumonia. PLAN: The patient is strongly advised to be transferred for further care because of his bad pulmonary problems. He declined to be transferred. He wants to be treated under me and I told him that I would do the best I could and he was acceptable to him. If I don't admit him here under me then he would sign out and go home. The patient was hospitalized and he will be on Zithromax, steroids , nebs treatment and routine telemetry orders. CONDITION: Stable TIME SPENT: More than 30 minutes. Plan and coordination of the patient's care discussed in the presence of nurse. MAURICE
--- NOTE | 2017-12-15 13:15 | PN ---
DATE OF SERVICE: 12/12/17 SUBJECTIVE: Fabien Glass was hospitalized with respiratory failure. The patient is a 57-year -old white male, noncompliant. The patient is feeling a lot better. His oxygen saturation is 98% on 2L. ABGs showed further improvement. REVIEW OF SYSTEMS: CONSTITUTIONAL: No night sweats. No fatigue, malaise, lethargy. No fever or chills. HEENT: Eyes: No visual changes. No eye pain. No eye discharge. ENT: No runny nose. No epistaxis. No sinus pain. No sore throat. No odynophagia. No congestion. RESPIRATORY: Mild cough. No congestion. No hemoptysis. No shortness of breath. CARDIOVASCULAR: No angina symptoms. No CHF symptoms. No atypical chest pain for CAD. No palpitations. No orthopnea. GASTROINTESTINAL: No abdominal pain. No nausea or vomiting. No diarrhea or constipation. No hematemesis. No hematochezia. GENITOURINARY: No urgency. No frequency. No dysuria. No hematuria. No obstructive symptoms. No discharge. No pain. No significant abnormal bleeding. MUSCULOSKELETAL: No musculoskeletal pain; no joint swelling. NEUROLOGICAL: No headache. No neck pain. No syncope. No seizures. No dizziness. PSYCHIATRIC: Not anxious. No depression. No suicidal thoughts. No homicidal thoughts. SKIN: No rash. No lesions. No wounds. ENDOCRINE: No unexplained weight loss. No weight gain. HEMATOLOGIC/LYMPHATIC: No anemia. No purpura. No petechiae. No prolonged or excessive bleeding. No palpable lymph nodes. PHYSICAL EXAMINATION: GENERAL: The patient is oriented to time, place and person. HEENT: Head normocephalic, atraumatic. Eyes: Extraocular muscles are intact. Pupils are equal, round and reactive to light and accommodation. Ears: No lesions. Nose appeared normal. Throat: No exudate or erythema. NECK: Supple. No JVD, no carotid bruit. No lymphadenopathy or thyromegaly. LUNGS: Decreased breath sounds but clear to auscultation. Percussion note normal. Chest symmetrical. HEART: S1, S2, no S3. No murmurs. No cyanosis or clubbing. No ascites. Pulses: Dorsalis pedis and posterior tibial pulses +1 to +2 both sides. ABDOMEN: Soft. Nontender. Bowel sounds active. No CVA tenderness. No mass felt. EXTREMITIES: No edema. Full range of motion of all extremities, equal. NEUROLOGIC: No focal deficit. Cranial nerves II through XII are grossly intact. No headache, no double vision or headache. SKIN: Not dry. Intact. Turgor - normal. LYMPHATIC: No palpable lymph nodes/no lymphedema. MUSCULOSKELETAL: Normal joints with no swelling. Muscle tone is normal. ASSESSMENT: 1. ACUTE RESPIRATORY FAILURE - RESOLVED 2. PNEUMONIA BEING TREATED WITH ROCEPHIN AND ZITHROMAX 3. COPD TREATED WITH STEROIDS, NEBS TREATMENT PLAN: 1. Advised to lose weight. 80 to 90 lbs, diet discussed. The patient is compulsive. He has an eating disorder, noncompliant. He doesn't come for followup, takes medications as he wants. PROGNOSIS: Poor considering his multiple medical problems. He is intelligent enough to understand that. TIME SPENT: More than 30 minutes. Plan and coordination of the patient's care discussed in the presence of nurse. MAURICE
--- NOTE | 2017-12-20 11:24 | PN ---
DATE OF SERVICE: 12/14/17 SUBJECTIVE: The patient was seen and examined with the nurse practitioner. The patient's conditon has improved. Blood gases look a lot better. The patient is noncompliant, has continued to smoke even in the hospital. Strongly advised to lose weight. Diet discussed but he has been eating 2 to 3 portions. He does not followup for different reasons even by him with pulmonary physician, Dr. Wood. Also, did not go for sleep study as dictated before. The patient is noncompliant. He has multiple medical probllems, some of them are end-stage. He has continued to smoke. Counseling for smoking done. Weight loss diet discussed with him. He is noncompliant of medications. He doesnt' come for followup in the office. The patient's prognosis is poor. He is intelligent. TIME SPENT: More than 30 minutes. Plan and coordination of the patient's care discussed in the presence of nurse. MAURICE
--- NOTE | 2017-12-20 11:25 | PN ---
CODING FOR BILLING 12/11/17 LEVEL 5 12/12/17 INTERMEDIATE 12/13/17 INTERMEDIATE 12/14/17 DISCHARGE MTDD
--- NOTE | 2017-12-21 07:04 | PN ---
DATE OF SERVICE: 12/14/17 SUBJECTIVE: The patient was seen and examined with nurse practitioner. The patient's condition has improved. Blood gases looked a lot better. The patient is noncompliant, has continued to smoke even in the hospital. The patient is strongly advised to lose weight. Diet discussed but he has been eating two to three portions. He does not followup for different reasons even by him with pulmonary physician, Dr. Wood. Also did not go for sleep study. As dictated before, the patient is noncompliant, has multiple medical problems. All of them are end-stage. He has continued to smoke. Counseling for smoking done. Weight loss diet discussed with him. He is noncompliant of medications. He doesn't come for followup in the office. The patient's prognosis is poor. He is intelligent. TIME SPENT: More than 30 minutes. Plan and coordination of the patient's care discussed in the presence of nurse. MAURICE
--- NOTE | 2017-12-21 07:06 | PN ---
CODING FOR BILLING 12/11/17 LEVEL 5 12/12/17 INTERMEDIATE 12/13/17 INTERMEDIATE 12/14/17 DISCHARGE MTDD
--- NOTE | 2018-01-15 08:26 | DS ---
DATE OF SERVICE: 12/14/17 FINAL DIAGNOSIS: 1. Acute respiratory failure 2. Chronic hypoxemia from chronic lung disease 3. Acute bronchitis 4. CAD with stent application. 5. CABG, 2016 6. Osteoarthritis 7. Morbid obesity 8. Non-compliance of medication 9. LVH per echo 12/2016 10.LVEF 50% per echo 10/2017 11.Bilateral hernia repair. LAST VITALS: Temperature 97.5, pulse 112, respiratory rate 20, blood pressure 145/69 and pulse ox 100%. DISCHARGE INSTRUCTIONS: Discharge home. Continue to use nebulizer treatments every 4 hours. Continue to use oxygen per nasal canula at 2 liters per canula. Continue medications as listed on nursing discharge information sheet. An appointment is scheduled with Dr. Rangel/Janene Marinelli APRN on December 19 at 11:15pm. MEDICATIONS AT DISCHARGE: [place] 10-325 one tablet PO twice a day PRN Aspirin 81mg PO daily Symbicort 160-4.5mcg inhaler two puffs IG daily Buspar 5mg Po daily Plavix 75mg PO daily Lasix 20mg PO twice a day Hydrochlorothiazide 12.5mg PO daily DUONEB 1 vial NEB Q 4 hours Zestril 40mg PO daily Lopressor 25mg PO twice a day Nitrostat 0.4mg SL Q 5 minutes x 3 doses PRN Micro-K capsule 10meq PO daily ALLERGIES: No known allergies. NEW PRESCRIPTIONS: Keflex 500mg three times a day for 7 days Prednisone 20mg daily for 5 dyas, then 10mg daily for 5 days. DIET INSTRUCTIONS: Regular diet. Advised to reduce portion sizes, limit fruits, snack type foods. ACTIVITY: Resume as tolerated. SMOKING: Advised to stop smoking DISEASE SPECIFIC EDUCATION: Smoking cessation Diet Use of steroids and risk of GI upset, bone demineralization Importance of physician followup. HOSPITAL COURSE: This is a 57 year old white male with a history of COPD, heavy smoker and chronic respiratory failure who presented to the emergency room complaining of shortness of breath and inability to breath. Chest x-ray revealed changes associated with bronchitis, no pneumonia. Initial pO2 was low 50's. He wears oxygen continuously. He is in and out of the hospital due to noncompliance of lifestyle, followup medications. He was admitted placed on IV steroids, Solu- Cortef 125mg IV Q 8 hours and started on Rocephin 1gram IV daily. Started on Xopenex NEB treatment Q 6 hours scheduled and given oxygen at 3 liters. He was admitted and put on routine telemetry orders and all of his home medications were continued. Labs have been stable. Today on day of discharge WBC 17.28 likely elevated due to aggressive IV steroids use, Hgb 13.4, hct 40.4, plt count 230, sodium 140, potassium 4.0, BUN 19, creatinine 0.74 and glucose 138. He improved remarkably after getting in a controlled environment doing his nebulizer regularly and staying on O2. Again he has a history of being noncompliant and very anxious and agitated so it is thought that he gets up walks around without his oxygen and then becomes anxious that he is short of breath and subsequently hyperventilates. Extensive education was providing regards the need for him to compliant with his medications, his lifestyle and his followup. He has been instructed to lose weight as his BMI is 39 and his weights 237 pounds. He has been instructed to decrease on his salt intake due to elevated blood pressure. He is on medications. He is instructed to wear his oxygen at all times and do his nebulizer treatment regularly and he needs to quit smoking. Again he has a history of this. He also has a history of CHF which there was evidence of on admission. His Lasix was continued as it is at home. Again once in a controlled environment he improved remarkably. Vital signs have been stable; Temperature 97.5, pulse ox 100 on 3 liters, blood pressure 140/69 , pulse 100 and respirations 20. He has been up and about walking around the hospital for the past 48 hours. His shortness of breath is only mild. He is no longer in acute respiratory failure this has resolved. He is instructed to followup with us next week. He last had an echo on his previous hospitalization in October of 2017 which showed mild LVH. We will send him home on Keflex 500mg PO three times a day for 7 days and Prednisone 20mg daily for 5 days and 10mg daily for 5 days. We will see him next week in the office. TIME SPENT: More than 60 minutes. MAURICE
== END 2017-12-14 09:45 | disposition home or self-care (01) | DRG 189 ==
LOC: ED 10:53 → MEDSURG A 13:39
PROVIDERS: ADMIT Internal Medicine; ATTEND Internal Medicine
DX: J96.01 Acute respiratory failure with hypoxia (principal); I50.1 Left ventricular failure, unspecified; J44.9 Chronic obstructive pulmonary disease, unspecified; J20.9 Acute bronchitis, unspecified; I25.10 Atherosclerotic heart disease of native coronary artery without angina pectoris; Z95.1 Presence of aortocoronary bypass graft; M19.90 Unspecified osteoarthritis, unspecified site; E66.01 Morbid (severe) obesity due to excess calories; Z91.14 Patient's other noncompliance with medication regimen; Z98.890 Other specified postprocedural states
CPT/HCPCS: 36415; 80053; 81001; 82550; 82803; 83605; 84145; 84484; 85025; 87040; 87086; 87502; 93005; 93010; 94640; 96374; 97802; 99223; 99232; 99239; 99284

== ENCOUNTER 2018-04-11 07:28 | Observation (INO) ==
[2018-04-11] MEDS ORDERED: LOPRESSOR IVP STA (07:43)
[2018-04-11] MEDS ORDERED: ZOFRAN 4 MG/2 ML IVP STA (08:02)
[2018-04-11] MEDS ORDERED: MORPHINE 4 MG/ML SYRINGE IVP STA (08:02)
--- NOTE | 2018-04-11 08:13 | DI ---
EXAM: Single view of the chest. History: Chest pain. Comparison: Chest radiograph 12/11/2017, chest CT 12/11/2017 Findings: Heart is mildly enlarged. Emphysema. Bilateral perihilar infiltrates. No appreciable pl eural fluid and no pneumothorax. No acute osseous abnormalities. Sternotomy wires. Impression: 1. Mild cardiomegaly. 2. Bilateral perihilar subsegmental atelectasis or pneumonia.
--- NOTE | 2018-04-11 08:57 | ED.PDOC ---
General ED Provider: Dr. GELY HAYES Chief Complaint: Chest Pain Stated Complaint: chest pain Time Seen by Physician: 07:30 (seen with pt's nurse at all times ) Mode of Arrival: Walk-In Information Source: Patient Exam Limitations: No limitations Primary Care Provider: ANASTASIA RANDALL Nursing and Triage Documentation Reviewed and Agree: Yes Reviewed sepsis parameters & appropriate labs ordered?: No System Inflammatory Response Syndrome: Not Applicable Sepsis Protocol: For patient's 13 years and over: Temp is 96.8 and below OR 101 and greater Pulse >90 BPM Resp >20/minute Acutely Altered Mental Status Are patient's symptoms suggestive of a new infection, such as: -Pneumonia -Skin, Soft Tissue -Endocarditis -UTI -Bone, Joint Infection -Implantable Device -Acute Abdominal Infection -Wound Infection -Meningitis -Blood Stream Catheter Infection -Unknown System Inflammatory Response Syndrome: Not Applicable Cardiovascular Complaint Exam - Chest Pain Complaint/Exam Onset: Gradual Duration: 4 hrs ago, took 2 sln, and full asprin dose Symptoms Are: Still present Timing: Intermittent Length of Chest Pain Episodes: 1 hr Initial Severity: Mild Current Severity: None Location: Reports: Discrete, Midsternal Pain Radiates: Reports: None Character: Reports: Dull Aggravating: Reports: None Alleviating: Reports: Rest, Oxygen, Upright position, Spontaneous resolution Associated Signs and Symptoms: Denies: Diaphoresis, Nausea, Vomiting, Fever, Palpitations, Cough, Hemoptysis, Back pain, Abdominal pain, Dizziness, Short of air, Calf pain, Calf swelling Related History: Reports: Similar episode Related Surgical History: Reports: None History of Healthcare-Acquired Pneumonia: Reports: No AMI/ACS Risk Factors: Reports: Obesity, Hypertension TAD Risk Factors: Reports: Hypertension Pulmonary Embolism Risk Factors: Reports: Bedrest Prior Care for this Complaint: Yes Recent Stress Test: Yes Recent Echo/LV Function: Yes JVD Present: No Subcutaneous Emphysema Present: No Diminshed Breath Sounds: No Reproducible Chest Wall Pain: No Bilateral Pulses Present: Yes Unequal Pulses Noted: No If Risk Factors for AMI/ACS Consider: EKG, Cardiac Enzymes Differential Diagnoses: Lower Resp. Infection Review of Systems - Review Of Systems Constitutional: Reports: No symptoms Eyes: Reports: No symptoms Ears, Nose, Mouth, Throat: Reports: No symptoms Respiratory: Reports: Cough Cardiac: Reports: Chest pain GI: Reports: No symptoms : Reports: No symptoms Musculoskeletal: Reports: No symptoms Skin: Reports: No symptoms Neurological: Reports: No symptoms Endocrine: Reports: No symptoms Hematologic/Lymphatic: Reports: No symptoms All Other Systems: Reviewed and Negative Past Medical History - Past Medical History Previously Healthy: No Endocrine: Reports: Dyslipidemia Cardiovascular: Reports: CAD, NE, Hypertension, CHF Respiratory: Reports: COPD Hematological: Reports: None Gastrointestinal: Reports: None Genitourinary: Reports: Kidney stones Neuro/Psych: Reports: Depression Musculoskeletal: Reports: Arthritis, Back Pain ("always painful" no worse this AM) Cancer: Reports: None Other Pertinent Past Medical History: htn chol mi depr cabg hernia - Surgical History General Surgical History: Reports: CABG (double bypass 6 months ago), Hernia Repair - Family History Family History: Reports: Unknown - Social History Smoking Status: Former smoker Hx Substance Use: No Alcohol Screening: None - Immunizations Influenza Vaccine within 12 Months: No Pneumococcal Vaccine up to Date: No Physical Exam - Physical Exam Appearance: Well-appearing, No pain distress, Well-nourished Eyes: WILVER, EOMI, Conjunctiva clear ENT: Ears normal, Nose normal, Oropharynx normal Respiratory: Airway patent, Breath sounds clear, Breath sounds equal, Respirations nonlabored Cardiovascular: RRR, Pulses normal, No rub, No murmur GI/: Soft, Nontender, No masses, Bowel sounds normal, No Organomegaly Musculoskeletal: Normal strength, ROM intact, No edema, No calf tenderness Skin: Warm, Dry, Normal color Neurological: Sensation intact, Motor intact, Reflexes intact, Cranial nerves intact, Alert, Oriented Psychiatric: Affect appropriate, Mood appropriate Interpretation - Radiology Interpretation Radiology Interpretation By: Radiologist Radiology Results: Positive (bilateral perilar atelectasis, vs penumonia) - Lockstitch Topstitcher Rate: Normal Rhythm: Sinus - EKG Interpretation Rate: Normal Rhythm: Sinus Physician Notification - Case Discussed Physician Notified: pmd Time of Notification: 08:59 Admit To: Inpatient Critical Care Note - Critical Care Note Total Time (mins): 0 Course - Course Hematology/Chemistry: 04/11/18 07:35 04/11/18 07:35 Orders, Labs, Meds: Lab Review 04/11/18 04/11/18 04/11/18 07:35 07:35 07:55 WBC 11.89 H RBC 5.90 Hgb 17.6 Hct 51.2 MCV 86.8 MCH 29.8 MCHC 34.4 RDW Coeff of Moris 13.6 Plt Count 250 Immature Gran % (Auto) 0.5 Neut % (Auto) 68.4 Lymph % (Auto) 21.2 [place] % (Auto) 7.5 Eos % (Auto) 2.1 Baso % (Auto) 0.3 Immature Gran # (Auto) 0.1 Neut # (Auto) 8.1 H Lymph # (Auto) 2.5 [place] # (Auto) 0.9 Eos # (Auto) 0.3 Baso # (Auto) 0.0 PT 11.6 H INR 1.17 APTT 25.3 Puncture Site O2 Saturation ABG pH ABG pCO2 ABG pO2 ABG HCO3 ABG Total CO2 ABG Base Excess Douglas Test O2 Delivery Device FiO2 % Sodium 138 Potassium 4.1 Chloride 102 Carbon Dioxide 23 Anion Gap 17.1 BUN 12 Creatinine 0.82 Estimated GFR (MDRD) 97.00 BUN/Creatinine Ratio 14.63 Glucose 145 H Calcium 9.7 Total Bilirubin 0.8 AST 27 ALT 35 Alkaline Phosphatase 95 Total Creatine Kinase 82 Troponin I 0.0760 Total Protein 7.4 Albumin 3.6 Globulin 3.8 Albumin/Globulin Ratio 0.95 04/11/18 07:56 WBC RBC Hgb Hct MCV MCH MCHC RDW Coeff of Moris Plt Count Immature Gran % (Auto) Neut % (Auto) Lymph % (Auto) [place] % (Auto) Eos % (Auto) Baso % (Auto) Immature Gran # (Auto) Neut # (Auto) Lymph # (Auto) [place] # (Auto) Eos # (Auto) Baso # (Auto) PT INR APTT Puncture Site R brach O2 Saturation 89.0 L ABG pH 7.43 ABG pCO2 38.0 ABG pO2 55.0 L* ABG HCO3 26 ABG Total CO2 27 ABG Base Excess 1 Douglas Test + O2 Delivery Device Ra FiO2 % 21.0 Sodium Potassium Chloride Carbon Dioxide Anion Gap BUN Creatinine Estimated GFR (MDRD) BUN/Creatinine Ratio Glucose Calcium Total Bilirubin AST ALT Alkaline Phosphatase Total Creatine Kinase Troponin I Total Protein Albumin Globulin Albumin/Globulin Ratio Orders Category Date Time Status ABG DRAW REQUEST Stat CARDIO 04/11/18 07:56 Completed EKG-(ED ONLY) Stat CARDIO 04/11/18 07:43 Completed ED IV/MEDIPORT/POWERPORT .ONCE EMERGENCY 04/11/18 07:43 Active ABG Stat LAB 04/11/18 07:56 Completed CBC W/ AUTO DIFF Stat LAB 04/11/18 07:35 Completed COMPREHENSIVE METABOLIC PANEL Stat LAB 04/11/18 07:35 Completed CREATINE KINASE Stat LAB 04/11/18 07:35 Completed PARTIAL THROMBOPLASTIN TIME Stat LAB 04/11/18 07:55 Completed PT WITH INR Stat LAB 04/11/18 07:55 Completed TROPONIN I Stat LAB 04/11/18 07:35 Completed 0.9 % Sodium Chloride [Saline Flush] MEDS 04/11/18 07:42 Active 1 syr IVF PRN PRN Metoprolol Tartrate [Lopressor] MEDS 04/11/18 07:43 Discontinued 5 mg IVP ONCE STA Morphine Sulfate [Morphine 4 mg/ml Syringe] MEDS 04/11/18 08:02 Discontinued 4 mg IVP ONCE STA Ondansetron HCl/Pf [Zofran 4 mg/2 ml] MEDS 04/11/18 08:02 Discontinued 4 mg IVP ONCE STA CHEST, 1V AP ONLY Stat RADS 04/11/18 07:42 Completed Medications Generic Name Dose Route Start Last Admin Trade Name Freq PRN Reason Stop Dose Admin Sodium Chloride 1 syr 04/11/18 07:42 Saline Flush IVF PRN PRN To flush IV Discontinued Medications Generic Name Dose Route Start Last Admin Trade Name Freq PRN Reason Stop Dose Admin Metoprolol Tartrate 5 mg 04/11/18 07:43 04/11/18 07:53 Lopressor IVP 04/11/18 07:44 5 mg ONCE STA Administration Morphine Sulfate 4 mg 04/11/18 08:02 04/11/18 08:17 Morphine 4 Mg/Ml Syringe IVP 04/11/18 08:03 4 mg ONCE STA Administration Ondansetron HCl 4 mg 04/11/18 08:02 04/11/18 08:13 Zofran 4 Mg/2 Ml IVP 04/11/18 08:03 4 mg ONCE STA Administration Vital Signs: Temp Pulse Resp BP Pulse Ox 04/11/18 07:29 96.9 F L 85 18 191/112 H 92 L WM Risk Score WM Risk Score: Risk Score Odds of by 30D 0 0.1 (0.1-0.2) 1 0.3 (0.2-0.3) 2 0.4 (0.3-0.5) 3 0.7 (0.6-0.9) 4 1.2 (1.0-1.5) 5 2.2 (1.9-2.6) 6 3.0 (2.5-3.6) 7 4.8 (3.8-6.1) Departure - Departure Time of Disposition: 08:59 Disposition: ADMITTED INPATIENT Discharge Problem: Chest pain Instructions: Angina (ED) Condition: Good Pt referred to PMD for follow-up: Yes IPMP verified?: No Allergies/Adverse Reactions: Allergies No Known Allergies Allergy (Verified 12/11/17 11:07) Home Medications: Ambulatory Orders Aspirin [Adult Low Dose Aspirin EC] 81 mg PO DAILY 06/30/16 Clopidogrel Bisulfate [Plavix] 75 mg PO DAILY 06/30/16 Lisinopril [Zestril] 40 mg PO DAILY 06/30/16 Potassium Chloride [K-Tab ER] 10 meq PO DAILY #30 tablet.er 11/18/16 Furosemide [Lasix Tab] 20 mg PO BID 12/27/16 Hydrocodone Bit/Acetaminophen [[place] 10-325] 1 tab PO BID PRN 12/27/16 Metoprolol Tartrate [Lopressor] 25 mg PO BID 12/27/16 Nitroglycerin [Nitrostat] 0.4 mg SL DIRECTED PRN 08/02/17 Ipratropium/Albuterol Neb [Duoneb] 1 vial NEB TID #40 vial.neb 08/26/17 Budesonide/Formoterol Fumarate [Symbicort 160-4.5 Mcg Inhaler] 2 puff IH DAILY 12/11/17 Buspirone HCl 5 mg PO DAILY 12/11/17 Hydrochlorothiazide 12.5 mg PO DAILY 12/11/17 Prednisone 10 mg PO DAILYWM #15 tablet 12/14/17 Disposition Discussed With: Patient
[2018-04-11] MEDS ORDERED: NON-FORMULARY MEDICATION (Potassium Chloride [K-Tab Er] 10 MEQ) PO SCH (09:00)
[2018-04-11] MEDS ORDERED: NITROSTAT SL PRN (09:00)
[2018-04-11] MEDS ORDERED: LOPRESSOR PO SCH (09:00)
[2018-04-11] MEDS ORDERED: NON-FORMULARY MEDICATION (Hydrochlorothiazide [Hydrochlorothiazide] 12.5 MG) PO SCH (09:00)
[2018-04-11] MEDS ORDERED: ROCEPHIN 1 GM in SODIUM CHLORIDE 50 ML IV STA (09:04)
[2018-04-11] MEDS ORDERED: SOLU-MEDROL 125 MG IVP STA (09:04)
[2018-04-11] MEDS ORDERED: ROCEPHIN ONE (09:38)
[2018-04-11] MEDS: MICRO-K CAP PO SCH (10:49)
[2018-04-11] MEDS: LOPRESSOR PO SCH ×2 (10:50→20:31)
[2018-04-11] MEDS: HYDROCHLOROTHIAZIDE PO SCH (10:50)
[2018-04-11] MEDS: LASIX TAB PO SCH ×2 (10:50→16:16)
[2018-04-11] MEDS: PLAVIX PO SCH (10:50)
[2018-04-11] MEDS: ASPIRIN EC PO SCH (10:50)
[2018-04-11] MEDS: ZESTRIL PO SCH (10:51)
[2018-04-11] MEDS: DUONEB NEB SCH ×2 (11:05→16:35)
[2018-04-11] MEDS: NORCO 10-325 PO PRN ×2 (11:12→18:43)
[2018-04-11 11:17] VITALS: BMI 39.6
[2018-04-11] MEDS ORDERED: NON-FORMULARY MEDICATION (Buspirone Hcl [Buspirone Hcl] 5 MG) PO SCH (13:00)
[2018-04-11] MEDS: SYMBICORT 160-4.5 MCG INHALER IH SCH ×2 (13:23→20:31)
[2018-04-11] MEDS: BUSPAR PO SCH (13:25)
[2018-04-11] MEDS: ZITHROMAX PO SCH (13:26)
[2018-04-11] MEDS ORDERED: MYLANTA SUSP PO PRN (18:44)
[2018-04-11] MEDS: SOLU-MEDROL 40 MG IVP SCH (20:31)
[2018-04-12] MEDS: DUONEB NEB SCH ×2 (00:15→05:28)
[2018-04-12] MEDS: NORCO 10-325 PO PRN ×2 (04:54→09:30)
[2018-04-12] MEDS: LASIX TAB PO SCH (06:15)
[2018-04-12] MEDS ORDERED: PREDNISONE PO SCH (08:00)
[2018-04-12] MEDS: HYDROCHLOROTHIAZIDE PO SCH (08:58)
[2018-04-12] MEDS: SYMBICORT 160-4.5 MCG INHALER IH SCH (08:58)
[2018-04-12] MEDS: PLAVIX PO SCH (08:58)
[2018-04-12] MEDS: LOPRESSOR PO SCH (08:59)
[2018-04-12] MEDS: BUSPAR PO SCH (08:59)
[2018-04-12] MEDS: ZITHROMAX PO SCH (08:59)
[2018-04-12] MEDS: ZESTRIL PO SCH (08:59)
[2018-04-12] MEDS: ASPIRIN EC PO SCH (09:00)
[2018-04-12] MEDS: MICRO-K CAP PO SCH (09:00)
[2018-04-12] MEDS: SOLU-MEDROL 40 MG IVP SCH (09:02)
[2018-04-12 10:17] VITALS: BP 113/60; TEMP 98.4
--- NOTE | 2018-04-12 15:18 | HP ---
DATE OF SERVICE: 04/11/18 REASON FOR HOSPITALIZATION/HISTORY OF PRESENT ILLNESS: This is a 57 year old white male who presented to the emergency room complaining that he had had chest pain this morning which seems to be atypical. He also coincidently happened to run out of pain medication. However he does have a history of severe COPD and has been coughing and congested for the past several days. 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 No fatigue, malaise, lethargy. No fever or chills. HEENT: Eyes: No visual changes. No eye pain. No eye discharge. ENT: No runny nose. No epistaxis. No sinus pain. No sore throat. No odynophagia. No ear pain. No congestion. RESPIRATORY: Cough, no congestion. No hemoptysis. No shortness of breath. CARDIOVASCULAR: No angina symptoms. No CHF symptoms. Atypical chest pain for CAD. No palpitations. No PND. No orthopnea. GASTROINTESTINAL: No abdominal pain. No nausea or vomiting. No diarrhea or constipation. No hematemesis. No hematochezia. GENITOURINARY: No urgency. No frequency. No dysuria. No hematuria. No obstructive symptoms. No discharge. No pain. No significant abnormal bleeding. MUSCULOSKELETAL: No musculoskeletal pain. No joint swelling. No arthritis. NEUROLOGICAL: No headache. No neck pain. No syncope. No seizures. No dizziness. PSYCHIATRIC: Not anxious. No depression. No suicidal thoughts. No homicidal thoughts. SKIN: No rash. No lesions. No wounds. ENDOCRINE: No unexplained weight loss. No weight gain. HEMATOLOGIC/LYMPHATIC: No anemia. No purpura. No petechiae. No prolonged or excessive bleeding. No palpable lymph nodes. PERSONAL/FAMILY/SOCIAL HISTORY: The patient is and lives alone. He is a former smoker who has not consistently quit, he smokes off and on. He denies any alcohol or illicit drug use. He has a tendency to be noncompliant not only with medications but with lifestyle; diet and followup. MEDICATIONS: Zestril 40mg PO daily Aspirin 81mg PO daily Plavix 75mg PO daily K-Tab 10meq PO daily [place] 10-325 PO twice a day PRN Lopressor 25mg PO twice a day Lasix 20mg PO twice a day Nitrostat 0.4mg SL as directed PRN DUO NEB 1 vial NEB three times a day Symbicort 160-4.5mcg two puff IH twice a day Buspirone 5mg PO daily Hydrochlorothiazide 12.5mg PO daily Prednisone 10mg PO daily ALLERGIES: No known allergies. PHYSICAL EXAMINATION: GENERAL: The patient is in no acute distress. HEENT: Head normocephalic, atraumatic. Eyes: Extraocular muscles are intact. Pupils are equal, round and reactive to light and accommodation. Ears: No lesions. Nose appeared normal. Throat: No exudate or erythema. NECK: Supple. No JVD, no carotid bruit. No lymphadenopathy or thyromegaly. LUNGS: Severally diminished breath sounds bilaterally. Clear to auscultation. Percussion note normal. Chest symmetrical. HEART: S1, S2, no S3. No murmurs. No cyanosis or clubbing. No ascites. Pulses: Dorsalis pedis and posterior tibial pulses +1 to +2 bilaterally. ABDOMEN: Soft. Nontender. Bowel sounds active. No CVA tenderness. No mass felt. EXTREMITIES: Trace leg edema. Full range of motion of all extremities, equal. NEUROLOGIC: No focal deficit. Cranial nerves II through XII are grossly intact. No headache, no double vision or headache. SKIN: Not dry. Intact. Turgor - normal. LYMPHATIC: No palpable lymph nodes/no lymphedema. MUSCULOSKELETAL: Normal joints with no swelling. Muscle tone is normal. LABS: ABG on room air pH 7.43, pCo2 38, pO2 55, base excess of 1, bicarb 26, TCO2 27, O2 sat 89, WBC 11.89, hgb 17.6, hct 51.2, plt count 250. Sodium 138, potassium 4.1, BUN 12, creatinine 0.82, glucose 145, GFR 97, AST 27, ALT 35, Total protein 7.4, INR 1.17. Chest x-ray shows mild cardiomegaly along with bilateral perihilar subsegmental atelectasis verus pneumonia. ASSESSMENT: 1. Chest pain, atypical in nature. No signs or symptoms such as sweating, shortness of breath 2. Acute bronchitis 3. Severe COPD 4. Coronary artery disease with history of stent 5. Obesity 6. Noncompliance 7. Hypertension 8. History of CHF 9. Dyslipidemia 10.Osteoarthritis 11.DJD PLAN: 1. Admit 2. Routine telemetry orders 3. CBC and CMP daily 4. Rocephin 1 gram IV dialy 5. Solu-Medrol 125mg IV Q 8 hours 6. Xopenex NEBS treatments Q 6 hours 7. Oxygen at 1-2 liters 8. Continue home medications 9. Low sodium diet 10. Sputum for culture and sensitivity 11. Will follow closely 12. CBC and CMP daily. TIME SPENT: More than 70 minutes. MTDD
--- NOTE | 2018-04-14 11:45 | PN ---
DATE OF SERVICE: 04/11/18 SUBJECTIVE: The patient was hospitalized with pain which was fairly atypical, localized, substernal more like musculoskeletal pain. Two to three hours in the morning prior to coming to the emergency room the patient was given several times Morphine Sulfate. At the time I saw the patient, he was up and about walking around with no distress, no pain. PHYSICAL EXAMINATION: HEENT: Head normocephalic, atraumatic. Eyes: Extraocular muscles are intact. Pupils are equal, round and reactive to light and accommodation. Ears: No lesions. Nose appeared normal. Throat: No exudate or erythema. NECK: Supple. No JVD, no carotid bruit. No lymphadenopathy or thyromegaly. LUNGS: Decreased breath sounds on auscultation of the lungs. Percussion note normal. Chest symmetrical. HEART: S1, S2, no S3. No murmurs. No cyanosis or clubbing. No ascites. Pulses: Dorsalis pedis and posterior tibial pulses +1 to +2 both sides. ABDOMEN: Soft. Nontender. Bowel sounds active. No CVA tenderness. No mass felt. EXTREMITIES: No pedal edema. Full range of motion of all extremities, equal. NEUROLOGIC: No focal deficit. Cranial nerves II through XII are grossly intact. No headache, no double vision or headache. SKIN: Not dry. Intact. Turgor - normal. LYMPHATIC: No palpable lymph nodes/no lymphedema. MUSCULOSKELETAL: Normal joints with no swelling. Muscle tone is normal. LABS: EKG sinus rhythm unchanged from before. Cardiac markers negative. ASSESSMENT: 1. CHEST PAIN SEEMS TO BE NONCARDIAC, PLEURITIC TYPE PLAN: 1. Do serial EKGs, cardiac markers. 2. Advised to lose weight. The patient has lost 10 lbs. He is on diet. 3. Strongly advised to quit smoking. 4. The patient is not still with pain management. TIME SPENT: More than 30 minutes. Plan and coordination of the patient's care discussed in the presence of nurse. MAURICE
--- NOTE | 2018-04-14 11:49 | PN ---
DATE OF SERVICE: 04/12/18 SUBJECTIVE: The patient was hospitalized with chest pain. The patient's cardiac markers are negative. He is up and about, lost 10 lbs, feeling better. PHYSICAL EXAMINATION: HEENT: Head normocephalic, atraumatic. Eyes: Extraocular muscles are intact. Pupils are equal, round and reactive to light and accommodation. Ears: No lesions. Nose appeared normal. Throat: No exudate or erythema. NECK: Supple. No JVD, no carotid bruit. No lymphadenopathy or thyromegaly. LUNGS: Clear to auscultation. Percussion note normal. Chest symmetrical. HEART: S1, S2, no S3. No murmurs. No cyanosis or clubbing. No ascites. Pulses: Dorsalis pedis and posterior tibial pulses +1 to +2 both sides. ABDOMEN: Soft. Nontender. Bowel sounds active. No CVA tenderness. No mass felt. EXTREMITIES: No edema. Full range of motion of all extremities, equal. NEUROLOGIC: No focal deficit. Cranial nerves II through XII are grossly intact. No headache, no double vision or headache. SKIN: Not dry. Intact. Turgor - normal. LYMPHATIC: No palpable lymph nodes/no lymphedema. MUSCULOSKELETAL: Normal joints with no swelling. Muscle tone is normal. The patient will be discharged home on Keflex, Prednisone. The patient was seen with the nurse practitioner. TIME SPENT: More than 30 minutes. Plan and coordination of the patient's care discussed in the presence of nurse. MAURICE
--- NOTE | 2018-04-14 11:51 | PN ---
CODING FOR BILLING 04/11/18 OBSERVATION - LEVEL 5 04/12/18 OBSERVATION - DISCHARGE MTDD
--- NOTE | 2018-06-18 14:00 | SSS ---
DATE OF SERVICE: 04/11/18 (Admit) 04/12/18 (Discharge) REASON FOR CONSULTATION/ADMISSION: Chest pain. Onset of pain/pressure started at 0300. not relieved by Nitroglycerin times three, Baby Aspirin times four. No radiation. HISTORY OF PRESENT ILLNESS: 57-year-old male, who awoke at 0300 with pain/pressure to chest, described as pressure and heaviness to left of sternum, short of air, no radiation, not relieved by ASA or Nitroglycerin. REVIEW OF SYSTEMS: CONSTITUTIONAL: No night sweats. No fatigue, malaise, lethargy. No fever or chills. HEENT: Eyes: No visual changes. No eye pain. No eye discharge. ENT: No runny nose. No epistaxis. No sinus pain. No sore throat. No odynophagia. No ear pain. No congestion. RESPIRATORY: Positive for shortness of air. No diaphoresis. No cough, no congestion. No hemoptysis. CARDIOVASCULAR: Positive for chest pain. No angina symptoms. No CHF symptoms. No palpitations. No orthopnea. GASTROINTESTINAL: No abdominal pain. No nausea or vomiting. No diarrhea or constipation. No hematemesis. No hematochezia. GENITOURINARY: No dysuria. No hematuria. No obstructive symptoms. No discharge. No pain. No significant abnormal bleeding. MUSCULOSKELETAL: No musculoskeletal pain. No joint swelling. NEUROLOGICAL: Awake, alert, oriented to time, place and person. No headache. No neck pain. No syncope. No seizures. No dizziness. PSYCHIATRIC: Not anxious. No depression. No suicidal thoughts. No homicidal thoughts. SKIN: No rash. No lesions. No wounds. ENDOCRINE: No unexplained weight loss. No weight gain. HEMATOLOGIC/LYMPHATIC: No anemia. No purpura. No petechiae. No prolonged or excessive bleeding. No palpable lymph nodes. PAST MEDICAL HISTORY: Hypertension Elevated lipids OH CHF COPD Kidney stones Depression Anxiety CABG - double bypass 2016 Previous smoker Bilateral inguinal hernia repair PERSONAL/FAMILY HISTORY/SOCIAL HISTORY: and lives alone. Independent with ADLs. No alcohol. No smoking now. PHYSICAL EXAMINATION: VITAL SIGNS: Temperature 98.8, pulse 76, respiratory rate 16, pulse ox 95% on 2L. Left 156/76, Right 148/82. DME: 02 nebulizer. HEENT: Head normocephalic, atraumatic. Eyes: Extraocular muscles are intact. Pupils are equal, round and reactive to light and accommodation. Ears: No lesions. Nose appeared normal. Throat: No exudate or erythema. NECK: Supple. No JVD, no carotid bruit. No lymphadenopathy or thyromegaly. LUNGS: Diminished breath sounds. Clear to auscultation. Percussion note normal. Chest symmetrical. HEART: S1, S2, no S3. No murmurs. No cyanosis or clubbing. No ascites. Pulses: Dorsalis pedis and posterior tibial pulses +1 to +2 both sides. ABDOMEN: Soft. Nontender. Bowel sounds active. No CVA tenderness. No mass felt. EXTREMITIES: No edema. Full range of motion of all extremities, equal. NEUROLOGIC: No focal deficit. Cranial nerves II through XII are grossly intact. No headache, no double vision or headache. SKIN: Not dry. Intact. Turgor - normal. LYMPHATIC: No palpable lymph nodes/no lymphedema. MUSCULOSKELETAL: Normal joints with no swelling. Muscle tone is normal. Old/present records reviewed Office records reviewed. ALLERGIES: NKDA MEDICATIONS: Symbicort Plavix BuSpar ASA HCTZ Lasix Hydrocodone Zestril Lopressor Nitroglycerin Duoneb K-Tab Prednisone LABS/EKG'S/X-RAY/ECHO/ABG: Chest x-ray - mild cardiomegaly, bilateral perihilar subsegmental atelectasis or pneumonia. WBC 11.89, glucose 145, CPK, troponin within normal limits. Room air ABGs 89% sat, p02 55. EKG sinus rhythm with PACs. PFT 10/2017 - severe COPD. Echo 10/2017 moderate LVH, LVEF 50%. Enlarged left atrial cavity. PROGRESS NOTES: See dictation. DIAGNOSES: 1. ATYPICAL CHEST PAIN 2. ACUTE BRONCHITIS 3. COPD 4. OBESITY 5. NONCOMPLIANCE RECOMMENDATIONS/PLAN: 1. 04/12/18 Discharge home 2. Appointment April 19, 2018 at 11:[address] Rangel. 3. Prescription for Keflex 500 mg t.i.d. times 7 days. 4. Prednisone 10 mg b.i.d. times 5 days. 5. Continue Duonebs t.i.d. 6. Continue home medications except do not take Prednisone daily. 7. The patient is a full code. EDUCATION CARRIED OUT ABOUT: Hypertension, weight loss, compliance. TIME SPENT: More than 70 minutes. MTDD
== END 2018-04-12 11:00 | disposition home or self-care (01) ==
LOC: ED 07:28 → MEDSURG A 09:40 → INTOOBSV 09:40
PROVIDERS: ADMIT Internal Medicine; ATTEND Internal Medicine
DX: J20.9 Acute bronchitis, unspecified (principal); J44.9 Chronic obstructive pulmonary disease, unspecified; I25.119 Atherosclerotic heart disease of native coronary artery with unspecified angina pectoris; I10 Essential (primary) hypertension; E78.5 Hyperlipidemia, unspecified; M19.90 Unspecified osteoarthritis, unspecified site; Z91.19 Patient's noncompliance with other medical treatment and regimen
CPT/HCPCS: 36415; 80053; 82550; 82803; 84484; 85025; 85610; 85730; 87040; 93005; 93010; 94640; 96365; 96375; 96376; 97802; 99217; 99220; 99284

== ENCOUNTER 2018-08-17 09:54 | Outpatient (CLI) | END 2018-08-17 09:55 | disposition home or self-care (01) | LOC: LAB 09:54 | PROVIDERS: ATTEND Internal Medicine | DX: E78.5 Hyperlipidemia, unspecified (principal); I10 Essential (primary) hypertension; E66.9 Obesity, unspecified | CPT/HCPCS: 36415; 80053; 80061; 82607; 83036; 84439; 84443; 85025 ==

== ENCOUNTER 2018-08-17 12:05 | Emergency (ER) ==
[2018-08-17] MEDS ORDERED: DUONEB NEB ONE (12:07)
[2018-08-17] MEDS ORDERED: DUONEB NEB STA ×2 (12:10→13:27)
[2018-08-17 12:14] VITALS: BP 156/112; TEMP 97.9; BMI 18.4
--- NOTE | 2018-08-17 12:32 | DI ---
EXAM: Single view of the chest HISTORY: Impending respiratory failure. COMPARISON: Chest x-ray 04/11/2018 and multiple priors including CT chest 12/11/2079 FINDINGS: The cardiomediastinal silhouette is mildly enlarged with intact sternotomy wires. There is no pneumothorax. There is minimal blunting of the costophrenic angles bilaterally. There is mild b ibasilar ground-glass opacities most pronounced on the left. There is emphysematous disease in the le ft lung apex. The osseous structures are stable. IMPRESSION: 1. New mild bibasilar ground-glass opacities suggestive of atelectasis. 2. Stable cardiomegaly. 3. Unchanged emphysema.
--- NOTE | 2018-08-17 12:53 | ED.PDOC ---
General ED Provider: Dr. GELY HAYES Chief Complaint: Respiratory Complaint Stated Complaint: SHORTNESS OF BREATH CHEST PAIN Time Seen by Physician: 12:12 (SEEN WITH THE ENTIRE STAFF , LARGE BORE IV SECURED AND STARTED ON IMMEDIATE RESP TX) Mode of Arrival: Walk-In Information Source: Patient Exam Limitations: No limitations Primary Care Provider: ANASTASIA RANDALL Nursing and Triage Documentation Reviewed and Agree: Yes Does patient meet sepsis criteria?: Yes If yes, has appropriate treatment been initiated?: Yes (BLOOD GAS SHORTLY AFTER ARRIVAL SUPPORTIVE FOR HYPOXIA) System Inflammatory Response Syndrome: Resp >20/Minute Sepsis Protocol: For patient's 13 years and over: Temp is 96.8 and below OR 101 and greater Pulse >90 BPM Resp >20/minute Acutely Altered Mental Status Are patient's symptoms suggestive of a new infection, such as: -Pneumonia -Skin, Soft Tissue -Endocarditis -UTI -Bone, Joint Infection -Implantable Device -Acute Abdominal Infection -Wound Infection -Meningitis -Blood Stream Catheter Infection -Unknown Respiratory Complaint Exam - Shortness of Air Complaint/Exam Onset/Duration: 3 DAYS BUT ACUTELY INCREASED JUST PRIOR TO ARRIVAL Symptoms Are: Still present Timing: Constant Initial Severity: Severe (ON ARRIVAL BY 1300 PT WAS COMFORTABLE) Current Severity: Severe Character: Reports: Dyspnea at rest, Dyspnea on exertion, Orthopnea Aggravating: Reports: Recumbent position Alleviating: Reports: Bronchodilators, Upright position, Spontaneous resolution Associated Signs and Symptoms: Reports: Cough, Wheezing, Chest pain with cough, Chest pain, Diaphoresis, Rapid breathing, Labored breathing. Denies: Fever, Chills, Nasal congestion, Dizziness, Calf pain, Calf swelling, Edema, Decreased intake History of Healthcare-Acquired Pneumonia: No Pulmonary Embolism Risk Factors: Reports: None Cardiac Risk Factors: Reports: CAD, Elevated lipids, Hypertension Pseudomonas Risk Factors: Reports: Chronic Lung Disease Tuberculosis Risk Factors: Reports: Chronic Resp. Faliure Home Oxygen Use: No Recent Stress Test: No Recent Echo/LV Function: No Respiratory Distress: None Stridor Present: No Tracheal Deviation: No Subcutaneous Emphysema: No Accessory Muscle Use: No Retractions: Not Present Diminished Breath Sounds: Yes (THROUGH OUT LUNGS ) Prolonged Expiratory Phase: Yes Unable to Speak Full Sentences: Yes Fatigue: No Leg Swelling: No Favio's Sign Present: No Grunting Respirations: No Kussmaul Respirations: No Differential Diagnoses: CHF, Pulmonary Edema, COPD Exacerbation, Pneumonia, Pulmonary Embolism, Bronchitis, URI Quality Indicators for AMI: EKG in 10min. Quality Indicators for Cardiac Chest Pain: EKG in 10min. Quality Indicator For Non-Traumatic Chest Pain/Syncope: EKG Performed Quality Indicators For Pneumonia/CAP: Antibiotics in 6hr-admit, SpO2 assessed, Empiric Antibiotic Rx, Vital signs, Mental status assessed Review of Systems - Review Of Systems Constitutional: Reports: Malaise Eyes: Reports: No symptoms Ears, Nose, Mouth, Throat: Reports: No symptoms Respiratory: Reports: Cough, Short of air, Wheezing Cardiac: Reports: Chest pain GI: Reports: No symptoms : Reports: No symptoms Musculoskeletal: Reports: No symptoms Skin: Reports: No symptoms Neurological: Reports: No symptoms Endocrine: Reports: No symptoms Hematologic/Lymphatic: Reports: No symptoms All Other Systems: Reviewed and Negative Past Medical History - Past Medical History Previously Healthy: No Endocrine: Reports: Dyslipidemia Cardiovascular: Reports: CAD, DC, Hypertension, CHF Respiratory: Reports: COPD Hematological: Reports: None Gastrointestinal: Reports: None Genitourinary: Reports: Kidney stones Neuro/Psych: Reports: Depression Musculoskeletal: Reports: Arthritis, Back Pain ("always painful" no worse this AM) Cancer: Reports: None Other Pertinent Past Medical History: htn chol mi depr cabg hernia - Surgical History General Surgical History: Reports: CABG (double bypass 6 months ago), Hernia Repair - Family History Family History: Reports: Unknown - Social History Smoking Status: Former smoker Hx Substance Use: No Alcohol Screening: None - Immunizations Tetanus Shot up to Date: No Influenza Vaccine within 12 Months: No Pneumococcal Vaccine up to Date: No Physical Exam - Physical Exam Appearance: Ill-appearing, Obese Ill-appearing: Severe Pain Distress: Mild Eyes: WILVER, EOMI, Conjunctiva clear ENT: Dry mucosa Respiratory: Breath sounds diminished (left right lung has ronchi ), Rhonchi, Wheezes Cardiovascular: Tachycardia GI/: Soft, Nontender, No masses, Bowel sounds normal, No Organomegaly Musculoskeletal: Normal strength, ROM intact, No edema, No calf tenderness Skin: Warm, Dry, Normal color Neurological: Sensation intact, Motor intact, Reflexes intact, Cranial nerves intact, Alert, Oriented Psychiatric: Affect appropriate, Mood appropriate Interpretation - Radiology Interpretation Radiology Interpretation By: Radiologist Radiology Results: Positive (moderate size pneumothorax) Exam Interpreted: 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 Rate: Normal Rhythm: Sinus Ectopy: None, PVCs - EKG Interpretation Time of EKG #1: 12:11 Rate: Normal Rhythm: Other Ectopy: None [place]: NL ST Segment: Normal (POOR R WAVE PROGRESSION( HAS HX OF C.H.F) Q WAVE IF LEADS PRESENT ON OLD TRACING) EKG Comparison: No significant changes (EXCEPT ON SECOND EKG HAS SOME UNIFOCAL P.V.CS) Time of EKG #2: 12:41 Rate: Normal Rhythm: Sinus Ectopy: PVCs Re-Evaluation - Re-Evaluation Time of Re-Evaluation: 13:00 Status: Improved Vital Signs Stable: Yes Pain Level: 2/10 Appearance: NAD Lungs: Other (DIMINSHED BREATH SOUND SCATTERED OCCASIONAL WHEEZING) Skin: Warm and Dry Neuro: Alert and Oriented X3 CV: RRR - Re-Evaluation Time of Re-Evaluation: 14:50 Status: Improved Vital Signs Stable: Yes Pain Level: 2/10 Appearance: NAD Skin: Warm and Dry Neuro: Alert and Oriented X3 CV: RRR (o2 sat 88 to 90 on 2l) Physician Notification - Case Discussed Physician Notified: [place] Time of Notification: 14:51 (TRANSFER ) Critical Care Note - Critical Care Note Total Time (mins): 60 Course - Course Hematology/Chemistry: 08/17/18 12:25 08/17/18 12:25 Orders, Labs, Meds: Lab Review 08/17/18 08/17/18 08/17/18 12:00 12:25 12:25 WBC 10.37 H RBC 5.03 Hgb 14.8 Hct 43.6 MCV 86.7 MCH 29.4 MCHC 33.9 RDW Coeff of Moris 13.2 Plt Count 212 Immature Gran % (Auto) 0.4 Neut % (Auto) 70.3 Lymph % (Auto) 20.3 [place] % (Auto) 7.4 Eos % (Auto) 1.3 Baso % (Auto) 0.3 Immature Gran # (Auto) 0.0 Neut # (Auto) 7.3 H Lymph # (Auto) 2.1 [place] # (Auto) 0.8 Eos # (Auto) 0.1 Baso # (Auto) 0.0 PT INR Puncture Site R rad O2 Saturation 87.0 L ABG pH 7.398 ABG pCO2 44.9 ABG pO2 54.0 L* ABG HCO3 27.7 H ABG Total CO2 29 H ABG Base Excess 3 H Douglas Test + FiO2 % 21.0 Sodium 137.3 Potassium 3.55 Chloride 99.2 Carbon Dioxide 29.9 Anion Gap 11.75 BUN 11.7 Creatinine 0.62 Estimated GFR (MDRD) 134.00 BUN/Creatinine Ratio 18.87 Glucose 139.7 H Lactic Acid Calcium 8.23 L Total Bilirubin 0.52 AST 19.0 ALT 18.2 Alkaline Phosphatase 78.9 Total Creatine Kinase 58.2 Troponin I 0.020 Total Protein 7.10 Albumin 4.05 Globulin 3.05 Albumin/Globulin Ratio 1.32 Procalcitonin 08/17/18 08/17/18 08/17/18 12:25 12:25 12:25 WBC RBC Hgb Hct MCV MCH MCHC RDW Coeff of Moris Plt Count Immature Gran % (Auto) Neut % (Auto) Lymph % (Auto) [place] % (Auto) Eos % (Auto) Baso % (Auto) Immature Gran # (Auto) Neut # (Auto) Lymph # (Auto) [place] # (Auto) Eos # (Auto) Baso # (Auto) PT 10.5 INR 1.05 Puncture Site O2 Saturation ABG pH ABG pCO2 ABG pO2 ABG HCO3 ABG Total CO2 ABG Base Excess Douglas Test FiO2 % Sodium Potassium Chloride Carbon Dioxide Anion Gap BUN Creatinine Estimated GFR (MDRD) BUN/Creatinine Ratio Glucose Lactic Acid 2.33 H Calcium Total Bilirubin AST ALT Alkaline Phosphatase Total Creatine Kinase Troponin I Total Protein Albumin Globulin Albumin/Globulin Ratio Procalcitonin < 0.05 Orders Category Date Time Status ABG DRAW REQUEST Stat CARDIO 08/17/18 12:11 Completed EKG-(ED ONLY) Stat CARDIO 08/17/18 12:10 Completed EKG-(ED ONLY) Stat CARDIO 08/17/18 12:55 Completed NEBULIZER TREATMENT Stat CARDIO 08/17/18 12:10 Completed NEBULIZER TREATMENT Stat CARDIO 08/17/18 13:27 Completed NPO REMINDER: IMAGING ONCE CARE 08/17/18 13:10 Completed ED IV/MEDIPORT/POWERPORT .ONCE EMERGENCY 08/17/18 12:10 Active ABG Stat LAB 08/17/18 12:00 Completed BLOOD CULTURE (ED ONLY) Stat LAB 08/17/18 12:25 Received CBC W/ AUTO DIFF Stat LAB 08/17/18 12:25 Completed COMPREHENSIVE METABOLIC PANEL Stat LAB 08/17/18 12:25 Completed CREATINE KINASE Stat LAB 08/17/18 12:25 Completed LACTIC ACID Stat LAB 08/17/18 12:25 Completed PARTIAL THROMBOPLASTIN TIME Stat LAB 08/17/18 12:25 Received PROCALCITONIN Stat LAB 08/17/18 12:25 Completed PT WITH INR Stat LAB 08/17/18 12:25 Completed TROPONIN I Stat LAB 08/17/18 12:25 Completed 0.9 % Sodium Chloride [Saline Flush] MEDS 08/17/18 12:09 Active 1 syr IVF PRN PRN Ceftriaxone Sodium [Rocephin] MEDS 08/17/18 13:35 Discontinued 2 gm .ROUTE .STK-MED ONE Ceftriaxone Sodium [Rocephin] 2 gm MEDS 08/17/18 12:56 Discontinued 0.9 % Sodium Chloride [Sodium Chloride] 100 ml IV ONCE Ipratropium/Albuterol Neb [Duoneb] MEDS 08/17/18 12:07 Discontinued 1 vial NEB .STK-MED ONE Ipratropium/Albuterol Neb [Duoneb] MEDS 08/17/18 12:10 Discontinued 1 vial NEB ONCE STA Ipratropium/Albuterol Neb [Duoneb] MEDS 08/17/18 13:27 Discontinued 1 vial NEB ONCE STA CHEST, 1V AP ONLY Stat RADS 08/17/18 12:[address] CHEST PE PROTOCOL Stat RADS 08/17/18 13:10 Completed Medications Generic Name Dose Route Start Last Admin Trade Name Freq PRN Reason Stop Dose Admin Sodium Chloride 1 syr 08/17/18 12:09 Saline Flush IVF PRN PRN To flush IV Discontinued Medications Generic Name Dose Route Start Last Admin Trade Name Freq PRN Reason Stop Dose Admin Albuterol/Ipratropium 1 vial 08/17/18 12:10 08/17/18 12:26 Duoneb NEB 08/17/18 12:11 Not Given ONCE STA Albuterol/Ipratropium 1 vial 08/17/18 13:27 08/17/18 13:50 Duoneb NEB 08/17/18 13:28 1 vial ONCE STA Administration Ceftriaxone Sodium 2 gm/ 100 mls @ 100 mls/hr 08/17/18 12:56 08/17/18 13:45 Sodium Chloride IV 08/17/18 13:55 100 mls/hr ONCE STA Administration Vital Signs: Temp Pulse Resp BP Pulse Ox 08/17/18 12:11 97.9 F 93 H 22 156/112 H 96 Departure - Departure Time of Disposition: 14:51 Disposition: TSF SHORT-TRM HOSP Discharge Problem: Chest pain Acute respiratory failure Qualifiers: Respiratory failure complication: hypoxia Qualified Code(s): J96.01 - Acute respiratory failure with hypoxia Instructions: Angina (ED) Condition: Good Pt referred to PMD for follow-up: Yes IPMP verified?: No Additional Instructions: Please call your Family Physician as soon as possible to schedule a follow-up appointment. Allergies/Adverse Reactions: Allergies No Known Allergies Allergy (Verified 08/17/18 12:15) Home Medications: Ambulatory Orders Aspirin [Adult Low Dose Aspirin EC] 81 mg PO DAILY 06/30/16 Clopidogrel Bisulfate [Plavix] 75 mg PO DAILY 06/30/16 Lisinopril [Zestril] 40 mg PO DAILY 06/30/16 Potassium Chloride [K-Tab ER] 10 meq PO DAILY #30 tablet.er 11/18/16 Furosemide [Lasix Tab] 20 mg PO BID 12/27/16 Hydrocodone Bit/Acetaminophen [[place] 10-325] 1 tab PO BID PRN 12/27/16 Metoprolol Tartrate [Lopressor] 25 mg PO BID 12/27/16 Nitroglycerin [Nitrostat] 0.4 mg SL DIRECTED PRN 08/02/17 Ipratropium/Albuterol Neb [Duoneb] 1 vial NEB TID #40 vial.neb 08/26/17 Budesonide/Formoterol Fumarate [Symbicort 160-4.5 Mcg Inhaler] 2 puff IH BID Buspirone HCl 5 mg PO DAILY 12/11/17 Hydrochlorothiazide 12.5 mg PO DAILY 12/11/17 Trazodone HCl 50 mg PO DAILY 08/17/18 Disposition Discussed With: Patient
[2018-08-17] MEDS ORDERED: ROCEPHIN 2 GM in SODIUM CHLORIDE 100 ML IV STA (12:56)
[2018-08-17] MEDS ORDERED: ROCEPHIN ONE (13:35)
--- NOTE | 2018-08-17 14:10 | CT ---
EXAM: CTA chest for PE HISTORY: Chest pain and dyspnea COMPARISON: Chest x-ray 08/17/2018 and multiple priors including CT PE [birth year]1927 TECHNIQUE: CTA of the chest was performed from the lung apices to the upper abdomen after 125 ml of Omnipaque IV contrast was administered using PE protocol. 3-D imaging was also provided. FINDINGS: There is no filling defect in the pulmonary arteries to the level of the subsegmental pulm onary arteries. The heart is normal without signs of ventricular strain. The aorta is unremarkable with changes of prior bypass. Heart is unremarkable with no pericardial fluid. Mediastinal and hilar lymph nodes are nonpathologically enlarged. There is anterior left moderate pneumothorax. There is consolidation in the left lung. There is mil d emphysema. Linear consolidations are present in the right upper lobe. The airways are patent The soft tissues are unremarkable. The osseous structures demonstrate degenerative disease of the sp ine. IMPRESSION: 1. There is no pulmonary embolism. 2. There is moderate anterior left pneumothorax. 3. Mild emphysema with patchy consolidations in the lungs. Critical results called Dr. Carvalho at 2:05 p.m. same day as exam.
== END 2018-08-17 15:00 | disposition short-term general hospital (02) ==
LOC: ED 12:05
DX: R07.9 Chest pain, unspecified (principal); J96.01 Acute respiratory failure with hypoxia; R06.02 Shortness of breath; I25.810 Atherosclerosis of coronary artery bypass graft(s) without angina pectoris; E78.5 Hyperlipidemia, unspecified; I10 Essential (primary) hypertension; J44.9 Chronic obstructive pulmonary disease, unspecified; R00.0 Tachycardia, unspecified; I25.2 Old myocardial infarction; Z79.899 Other long term (current) drug therapy; E66.9 Obesity, unspecified
CPT/HCPCS: 36415; 80053; 80061; 82550; 82607; 82803; 83036; 83605; 84145; 84439; 84443; 84484; 85025; 85610; 85730; 87040; 93005; 93010; 94640; 96365; 96375; 99285

== ENCOUNTER 2018-08-17 15:02 | Outpatient (CLI) ==
[2018-08-17 12:14] VITALS: BMI 18.4
== END 2018-08-17 15:26 | disposition short-term general hospital (02) ==
LOC: AMBL 15:02
PROVIDERS: ATTEND Internal Medicine
DX: R07.9 Chest pain, unspecified (principal); R06.02 Shortness of breath; J93.9 Pneumothorax, unspecified

== ENCOUNTER 2018-11-27 12:20 | Emergency (ER) ==
[2018-11-27 12:28] VITALS: TEMP 97; BMI 40.8
[2018-11-27] MEDS ORDERED: DUONEB NEB ONE (12:38)
[2018-11-27] MEDS ORDERED: DUONEB NEB STA (12:41)
--- NOTE | 2018-11-27 12:45 | ED.PDOC ---
General ED Provider: Dr. NAVJOT GUSMAN Chief Complaint: Chest Pain Stated Complaint: CC -"My heart is hurting". HPI:The patient c/o pressure and heaviness to midsternal area for past 3 days. He as well complains of being short of breath and is nauseated. Complains of a prodcutive cough of a clear- white sputum. He stated that he has taken 3 nitro today and 4 baby asa and has not obtained relief. Time Seen by Physician: 12:30 Mode of Arrival: Walk-In Information Source: Patient Exam Limitations: Clinical condition Primary Care Provider: ANASTASIA RANDALL Nursing and Triage Documentation Reviewed and Agree: Yes Does patient meet sepsis criteria?: Yes If yes, has appropriate treatment been initiated?: Yes System Inflammatory Response Syndrome: Pulse >90 BPM, Resp >20/Minute Sepsis Protocol: For patient's 13 years and over: Temp is 96.8 and below OR 101 and greater Pulse >90 BPM Resp >20/minute Acutely Altered Mental Status Are patient's symptoms suggestive of a new infection, such as: -Pneumonia -Skin, Soft Tissue -Endocarditis -UTI -Bone, Joint Infection -Implantable Device -Acute Abdominal Infection -Wound Infection -Meningitis -Blood Stream Catheter Infection -Unknown Cardiovascular Complaint Exam - Chest Pain Complaint/Exam Onset: Gradual Duration: 3 days Symptoms Are: Still present Timing: Intermittent Initial Severity: Moderate Current Severity: Mild Location: Reports: Midsternal Pain Radiates: Reports: Back, Left shoulder Character: Reports: Aching, Pressure Aggravating: Reports: Exertion Alleviating: Reports: None Associated Signs and Symptoms: Reports: Cough. Denies: Diaphoresis, Nausea, Vomiting, Fever, Palpitations, Hemoptysis, Back pain, Abdominal pain, Dizziness , Short of air, Calf pain, Calf swelling Related History: Reports: Similar episode Related Surgical History: Reports: None History of Healthcare-Acquired Pneumonia: Reports: No AMI/ACS Risk Factors: Reports: Nitroglycerine use, Hypertension, CHF, Dyslipidemia TAD Risk Factors: Reports: None Pulmonary Embolism Risk Factors: Reports: None Prior Care for this Complaint: Yes Recent Stress Test: No Recent Echo/LV Function: No JVD Present: No Subcutaneous Emphysema Present: No Diminshed Breath Sounds: No Reproducible Chest Wall Pain: No Bilateral Pulses Present: Yes Unequal Pulses Noted: No If Risk Factors for AMI/ACS Consider: EKG, Cardiac Enzymes, Oxygen, Aspirin Import Export Agent Consulted: No Differential Diagnoses: ACS, Unstable Angina, CHF Quality Indicators For Acute HI or Cardiac Chest Pain: EKG in 10min. Review of Systems - Review Of Systems Constitutional: Reports: Malaise, Weakness Eyes: Reports: No symptoms Ears, Nose, Mouth, Throat: Reports: No symptoms Respiratory: Reports: Cough, Short of air, Wheezing Cardiac: Reports: Chest pain GI: Reports: No symptoms : Reports: No symptoms Musculoskeletal: Reports: No symptoms Skin: Reports: No symptoms Neurological: Reports: No symptoms Endocrine: Reports: No symptoms Hematologic/Lymphatic: Reports: No symptoms All Other Systems: Reviewed and Negative Past Medical History - Past Medical History Previously Healthy: No Endocrine: Reports: Dyslipidemia Cardiovascular: Reports: CAD, HI, Hypertension, CHF Respiratory: Reports: COPD Hematological: Reports: None Gastrointestinal: Reports: None Genitourinary: Reports: Kidney stones Neuro/Psych: Reports: Depression Musculoskeletal: Reports: Arthritis, Back Pain ("always painful" no worse this AM) Cancer: Reports: None Other Pertinent Past Medical History: htn chol mi depr cabg hernia - Surgical History General Surgical History: Reports: CABG (double bypass 6 months ago), Hernia Repair - Family History Family History: Reports: Unknown - Social History Smoking Status: Former smoker Hx Substance Use: No Alcohol Screening: None - Immunizations Influenza Vaccine within 12 Months: No Pneumococcal Vaccine up to Date: No Physical Exam - Physical Exam Appearance: Ill-appearing Ill-appearing: Mild Pain Distress: Mild Eyes: WILVER, EOMI, Conjunctiva clear ENT: Ears normal, Nose normal, Oropharynx normal Neck: Supple Respiratory: Airway patent, Breath sounds clear, Breath sounds equal, Respirations nonlabored Cardiovascular: RRR, Pulses normal, No rub, No murmur GI/: Soft, Nontender, No masses, Bowel sounds normal, No Organomegaly Musculoskeletal: Normal strength, ROM intact, No edema, No calf tenderness Skin: Warm, Dry, Normal color Neurological: Sensation intact, Motor intact, Reflexes intact, Cranial nerves intact, Alert, Oriented Psychiatric: Affect appropriate, Mood appropriate Interpretation - Radiology Interpretation Radiology Interpretation By: Radiologist Exam Interpreted: CT Scan (Chest: Pulm emphysema; Bilat consolidatioh ? atelectassis; R/O scarring /pneumonia or poss neoplasia not ruled/out) Critical Care Note - Critical Care Note Total Time (mins): 60 Course - Course Hematology/Chemistry: 11/27/18 13:20 11/27/18 13:20 Orders, Labs, Meds: Lab Review 11/27/18 11/27/18 11/27/18 12:42 13:20 13:20 WBC 9.04 RBC 5.08 Hgb 14.6 Hct 44.3 MCV 87.2 MCH 28.7 MCHC 33.0 RDW Coeff of Moris 13.0 Plt Count 230 Immature Gran % (Auto) 0.3 Neut % (Auto) 69.5 Lymph % (Auto) 20.8 Sherman % (Auto) 8.2 Eos % (Auto) 1.0 Baso % (Auto) 0.2 Immature Gran # (Auto) 0.0 Neut # (Auto) 6.3 Lymph # (Auto) 1.9 Sherman # (Auto) 0.7 Eos # (Auto) 0.1 Baso # (Auto) 0.0 D-Dimer (Manual) Puncture Site Rrad O2 Saturation 96.0 ABG pH 7.366 ABG pCO2 49.6 H ABG pO2 85.0 ABG HCO3 28.4 H ABG Total CO2 30 H ABG Base Excess 3 H Douglas Test + O2 Delivery Device Nc Oxygen Liter Flow 3.00 Sodium 135.1 Potassium 4.06 Chloride 100.0 Carbon Dioxide 32.7 H Anion Gap 6.46 BUN 11.7 Creatinine 0.58 L Estimated GFR (MDRD) 144.00 BUN/Creatinine Ratio 20.17 Glucose 109.1 H Lactic Acid Calcium 9.23 Total Bilirubin 0.43 AST 34.9 ALT 29.3 Alkaline Phosphatase 81.0 Total Creatine Kinase 101.1 Troponin I NT-Pro-B Natriuret Pep 1870.000 H Total Protein 6.63 Albumin 3.78 Globulin 2.85 Albumin/Globulin Ratio 1.32 Procalcitonin Urine Color Urine Clarity Urine pH Ur Specific [place] Urine Protein Urine Glucose (UA) Urine Ketones Urine Blood Urine Nitrite Urine Bilirubin Urine Urobilinogen Ur Leukocyte Esterase Urine Microscopic RBC Urine Microscopic WBC Ur Squamous Epith Cells Influ A Molecular Assay Influ B Molecular Assay RSV Antigen 11/27/18 11/27/18 11/27/18 13:20 13:20 13:20 WBC RBC Hgb Hct MCV MCH MCHC RDW Coeff of Moris Plt Count Immature Gran % (Auto) Neut % (Auto) Lymph % (Auto) Sherman % (Auto) Eos % (Auto) Baso % (Auto) Immature Gran # (Auto) Neut # (Auto) Lymph # (Auto) Sherman # (Auto) Eos # (Auto) Baso # (Auto) D-Dimer (Manual) 1027.03 Puncture Site O2 Saturation ABG pH ABG pCO2 ABG pO2 ABG HCO3 ABG Total CO2 ABG Base Excess Douglas Test O2 Delivery Device Oxygen Liter Flow Sodium Potassium Chloride Carbon Dioxide Anion Gap BUN Creatinine Estimated GFR (MDRD) BUN/Creatinine Ratio Glucose Lactic Acid 0.90 Calcium Total Bilirubin AST ALT Alkaline Phosphatase Total Creatine Kinase Troponin I NT-Pro-B Natriuret Pep Total Protein Albumin Globulin Albumin/Globulin Ratio Procalcitonin 0.07 Urine Color Urine Clarity Urine pH Ur Specific [place] Urine Protein Urine Glucose (UA) Urine Ketones Urine Blood Urine Nitrite Urine Bilirubin Urine Urobilinogen Ur Leukocyte Esterase Urine Microscopic RBC Urine Microscopic WBC Ur Squamous Epith Cells Influ A Molecular Assay Influ B Molecular Assay RSV Antigen 11/27/18 11/27/18 11/27/18 13:25 13:25 13:27 WBC RBC Hgb Hct MCV MCH MCHC RDW Coeff of Moris Plt Count Immature Gran % (Auto) Neut % (Auto) Lymph % (Auto) Sherman % (Auto) Eos % (Auto) Baso % (Auto) Immature Gran # (Auto) Neut # (Auto) Lymph # (Auto) Sherman # (Auto) Eos # (Auto) Baso # (Auto) D-Dimer (Manual) Puncture Site O2 Saturation ABG pH ABG pCO2 ABG pO2 ABG HCO3 ABG Total CO2 ABG Base Excess Douglas Test O2 Delivery Device Oxygen Liter Flow Sodium Potassium Chloride Carbon Dioxide Anion Gap BUN Creatinine Estimated GFR (MDRD) BUN/Creatinine Ratio Glucose Lactic Acid Calcium Total Bilirubin AST ALT Alkaline Phosphatase Total Creatine Kinase Troponin I NT-Pro-B Natriuret Pep Total Protein Albumin Globulin Albumin/Globulin Ratio Procalcitonin Urine Color Yellow Urine Clarity Clear Urine pH 6.5 Ur Specific [place] 1.020 Urine Protein 3+ Urine Glucose (UA) Negative Urine Ketones Negative Urine Blood 2+ Urine Nitrite Negative Urine Bilirubin Negative Urine Urobilinogen 0.2 Ur Leukocyte Esterase Negative Urine Microscopic RBC 2-5 Urine Microscopic WBC 0-2 Ur Squamous Epith Cells Not present Influ A Molecular Assay Negative by naat Influ B Molecular Assay Negative by naat RSV Antigen Negative by naat Orders Category Date Time Status ABG DRAW REQUEST Stat CARDIO 11/27/18 12:43 Completed EKG-(ED ONLY) Stat CARDIO 11/27/18 12:41 Completed NEBULIZER TREATMENT Stat CARDIO 11/27/18 12:41 Completed OXYGEN Routine CARDIO 11/27/18 12:41 Completed NPO REMINDER: IMAGING ONCE CARE 11/27/18 14:34 Completed NPO REMINDER: IMAGING ONCE CARE 11/27/18 14:41 Completed ABG Stat LAB 11/27/18 12:42 Completed BLOOD CULTURE (ED ONLY) Stat LAB 11/27/18 13:20 Completed CBC W/ AUTO DIFF Stat LAB 11/27/18 13:20 Completed CMP [COMPREHENSIVE METABOLIC PANEL] Stat LAB 11/27/18 13:20 Completed CPK [CREATINE KINASE] Stat LAB 11/27/18 13:20 Completed D-DIMER Stat LAB 11/27/18 13:20 Completed FLU A & B MOLECULAR [FLU A/B MOLECULAR] Stat LAB 11/27/18 13:25 Completed LACTIC ACID Stat LAB 11/27/18 13:20 Completed NT-PROBNP Stat LAB 11/27/18 13:20 Completed PROCALCITONIN Stat LAB 11/27/18 13:20 Completed RSV Stat LAB 11/27/18 13:25 Completed TROPONIN I Stat LAB 11/27/18 13:20 Completed UA [URINALYSIS C & S IF INDICATED] Stat LAB 11/27/18 13:27 Completed 0.9 % Sodium Chloride [Saline Flush] MEDS 11/27/18 12:41 Discontinued 1 syr IVF PRN PRN Aspirin [Aspirin Chewable] MEDS 11/27/18 14:26 Discontinued 324 mg PO ONCE STA Enoxaparin Sodium [Lovenox] MEDS 11/27/18 15:40 Discontinued 100 mg SUBCUT ONCE STA Furosemide [Lasix] MEDS 11/27/18 13:34 Discontinued 40 mg IVP ONCE STA Hydrocodone Bit/Acetaminophen [[place] 5-325] MEDS 11/27/18 15:57 Discontinued 2 tab PO ONCE STA Ipratropium/Albuterol Neb [Duoneb] MEDS 11/27/18 12:38 Discontinued 1 vial NEB .STK-MED ONE Ipratropium/Albuterol Neb [Duoneb] MEDS 11/27/18 12:41 Discontinued 1 vial NEB ONCE STA Isosorbide Dinitrate [Sorbitrate] MEDS 11/27/18 15:38 Discontinued 10 mg PO ONCE STA Morphine Sulfate [Morphine 4 mg/ml Syringe] MEDS 11/27/18 13:29 Discontinued 4 mg IVP ONCE STA Morphine Sulfate [Morphine 4 mg/ml Syringe] MEDS 11/27/18 14:43 Discontinued 4 mg IVP ONCE STA CHEST, 1V AP ONLY Stat RADS 11/27/18 12:[address] CHEST PE PROTOCOL Stat RADS 11/27/18 14:34 Completed Medications Discontinued Medications Generic Name Dose Route Start Last Admin Trade Name Freq PRN Reason Stop Dose Admin Hydrocodone Bitart/Acetaminophen 2 tab 11/27/18 15:57 11/27/18 16:04 [place] 5-325 PO 11/27/18 15:58 2 tab ONCE STA Administration Albuterol/Ipratropium 1 vial 11/27/18 12:41 11/27/18 12:50 Duoneb NEB 11/27/18 12:42 Not Given ONCE STA Aspirin 324 mg 11/27/18 14:26 11/27/18 14:38 Aspirin Chewable PO 11/27/18 14:27 Not Given ONCE STA Enoxaparin Sodium 100 mg 11/27/18 15:40 11/27/18 15:59 Lovenox SUBCUT 11/27/18 15:41 100 mg ONCE STA Administration Furosemide 40 mg 11/27/18 13:34 11/27/18 13:46 Lasix IVP 11/27/18 13:35 40 mg ONCE STA Administration Isosorbide Dinitrate 10 mg 11/27/18 15:38 11/27/18 15:57 Sorbitrate PO 11/27/18 15:39 10 mg ONCE STA Administration Morphine Sulfate 4 mg 11/27/18 13:29 11/27/18 13:45 Morphine 4 Mg/Ml Syringe IVP 11/27/18 13:30 4 mg ONCE STA Administration Morphine Sulfate 4 mg 11/27/18 14:43 11/27/18 14:48 Morphine 4 Mg/Ml Syringe IVP 11/27/18 14:44 4 mg ONCE STA Administration Sodium Chloride 1 syr 11/27/18 12:41 11/27/18 14:49 Saline Flush IVF 1 syr PRN PRN Administration To flush IV Vital Signs: Temp Pulse Resp BP Pulse Ox 11/27/18 14:08 88 20 167/78 H 93 L 11/27/18 12:23 97.0 F L 99 H 28 H 202/91 H 94 L WM Risk Score WM Risk Score: Risk Score Odds of by 30D 0 0.1 (0.1-0.2) 1 0.3 (0.2-0.3) 2 0.4 (0.3-0.5) 3 0.7 (0.6-0.9) 4 1.2 (1.0-1.5) 5 2.2 (1.9-2.6) 6 3.0 (2.5-3.6) 7 4.8 (3.8-6.1) Departure - Departure Time of Disposition: 16:15 Disposition: AMA Discharge Problem: CHF (congestive heart failure), Angina pectoris, COPD (chronic obstructive pulmonary disease) Instructions: Chest Pain (ED) Condition: Fair Pt referred to PMD for follow-up: Yes IPMP verified?: No Additional Instructions: After discussing with Dr Randall, it was felt best that patient be transferred to [facility] for additional evaluation and treatment Patient resistant and refusing to be transferred. Explained risk of not having additional evaluation including sudden Explained results of testing Still insistent on leaving Signs out AMA Allergies/Adverse Reactions: Allergies No Known Allergies Allergy (Verified 11/27/18 12:27) Home Medications: Ambulatory Orders Aspirin [Adult Low Dose Aspirin EC] 81 mg PO DAILY 06/30/16 Clopidogrel Bisulfate [Plavix] 75 mg PO DAILY 06/30/16 Lisinopril [Zestril] 40 mg PO DAILY 06/30/16 Potassium Chloride [K-Tab ER] 10 meq PO DAILY #30 tablet.er 11/18/16 Furosemide [Lasix Tab] 20 mg PO BID 12/27/16 Hydrocodone Bit/Acetaminophen [[place] 10-325] 1 tab PO BID PRN 12/27/16 Metoprolol Tartrate [Lopressor] 25 mg PO BID 12/27/16 Nitroglycerin [Nitrostat] 0.4 mg SL DIRECTED PRN 08/02/17 Ipratropium/Albuterol Neb [Duoneb] 1 vial NEB TID #40 vial.neb 08/26/17 Budesonide/Formoterol Fumarate [Symbicort 160-4.5 Mcg Inhaler] 2 puff IH BID Buspirone HCl 5 mg PO DAILY 12/11/17 Hydrochlorothiazide 12.5 mg PO DAILY 12/11/17 Trazodone HCl 50 mg PO DAILY 08/17/18 Transfer Form Completed: Yes Disposition Discussed With: Patient
[2018-11-27] MEDS ORDERED: MORPHINE 4 MG/ML VIAL IVP STA (12:59)
--- NOTE | 2018-11-27 13:18 | DI ---
EXAM: Single view of the chest. History: Dyspnea and chest pain. Comparison: Chest radiograph 08/17/2018, chest CT 08/17/2018 Findings: Heart is enlarged. There is interstitial edema. Sternotomy wires. No pneumothorax. No definite pleural fluid. Scattered areas of subsegmental atelectasis and scarring again noted. No ac [place] osseous abnormalities. Impression: Cardiomegaly with interstitial edema.
[2018-11-27] MEDS ORDERED: MORPHINE 4 MG/ML SYRINGE IVP STA ×2 (13:29→14:43)
[2018-11-27] MEDS ORDERED: LASIX IVP STA (13:34)
[2018-11-27 14:09] VITALS: BP 167/78
[2018-11-27] MEDS ORDERED: ASPIRIN CHEWABLE PO STA (14:26)
--- NOTE | 2018-11-27 15:36 | CT ---
EXAM: CTA CHEST (PE PROTOCOL) HISTORY: Elevated D-dimer TECHNIQUE: CTA chest with intravenous contrast. Multiplanar images were provided with 3-D reconstru ctions. 100 mL Omnipaque. COMPARISON: 08/17/2018 FINDINGS: No pulmonary arterial filling defect. There is mild to moderate atherosclerotic disease including at the coronary levels. Heart size is approaching upper limit normal. There is no pericardial effusio n. The lungs reveal moderate to severe emphysema. Redemonstration of mass-like and discoid consolidatio ns bilaterally mainly in the mid to upper lung zones which do not appear noticeably changed. The pre viously seen left pneumothorax has resolved. There is no pleural fluid. Bones are within normal limits. IMPRESSION: 1. No pulmonary arterial thromboembolism. 2. Moderate to severe pulmonary emphysema. Stable bilateral discoid and mass-like consolidations wh ich could represent chronic atelectasis, scarring and pneumonia although underlying neoplasia is not excluded. Follow-up chest CT is recommended. 3. Atherosclerotic disease.
[2018-11-27] MEDS ORDERED: SORBITRATE PO STA (15:38)
[2018-11-27] MEDS ORDERED: LOVENOX SUBCUT STA (15:40)
[2018-11-27] MEDS ORDERED: NORCO 5-325 PO STA (15:57)
== END 2018-11-27 16:29 | disposition left against medical advice (07) ==
LOC: ED 12:20
DX: I25.709 Atherosclerosis of coronary artery bypass graft(s), unspecified, with unspecified angina pectoris (principal); I11.0 Hypertensive heart disease with heart failure; I50.9 Heart failure, unspecified; J44.9 Chronic obstructive pulmonary disease, unspecified; I25.2 Old myocardial infarction; E78.5 Hyperlipidemia, unspecified; R06.02 Shortness of breath; Z79.899 Other long term (current) drug therapy
CPT/HCPCS: 36415; 80053; 81001; 82550; 82803; 83605; 83880; 84145; 84484; 85025; 85379; 87040; 87502; 87801; 93005; 93010; 94640; 96372; 96374; 96375; 96376; 99284

== ENCOUNTER 2019-01-16 16:37 | Emergency (ER) ==
[2019-01-16 16:42] VITALS: BP 173/113; TEMP 98.1; BMI 39.1
[2019-01-16] MEDS ORDERED: LOPRESSOR IVP STA (16:56)
[2019-01-16] MEDS ORDERED: NORCO 10-325 PO STA (17:05)
--- NOTE | 2019-01-16 17:30 | DI ---
EXAM: Chest one view HISTORY: Elevated heart rate and pain in chest COMPARISON: 11/27/2018 TECHNIQUE: Single view of the chest was performed FINDINGS: Heart is enlarged, unchanged. Mediastinal contour unchanged. Median sternotomy wires. N o visible pneumothorax. Emphysematous change. Similar appearing band-like opacities throughout the lungs. Possible mild pulmonary vascular congestion. Possible trace pleural effusions. IMPRESSION: 1. Cardiomegaly with possible mild pulmonary vascular congestion. Possible trace pleural effusions. 2. Similar appearing band-like opacities throughout the lungs. These were described on CT 9 and could represent scarring/atelectasis or pneumonia. Follow up CT was recommended as neoplasm no t excluded. 3. Emphysematous change.
--- NOTE | 2019-01-16 18:09 | ED.PDOC ---
General ED Provider: Dr. GELY HAYES Chief Complaint: Chest Pain Stated Complaint: chest pain x 3 days worse about noon took 4 baby asprin and 6 nitro prior to to arrival from noon Time Seen by Physician: 16:40 Mode of Arrival: Walk-In Information Source: Patient Exam Limitations: No limitations Primary Care Provider: ANASTASIA MEYER Nursing and Triage Documentation Reviewed and Agree: Yes Does patient meet sepsis criteria?: No System Inflammatory Response Syndrome: Not Applicable Sepsis Protocol: For patient's 13 years and over: Temp is 96.8 and below OR 101 and greater Pulse >90 BPM Resp >20/minute Acutely Altered Mental Status Are patient's symptoms suggestive of a new infection, such as: -Pneumonia -Skin, Soft Tissue -Endocarditis -UTI -Bone, Joint Infection -Implantable Device -Acute Abdominal Infection -Wound Infection -Meningitis -Blood Stream Catheter Infection -Unknown Review of Systems - Review Of Systems Constitutional: Reports: Malaise Eyes: Reports: No symptoms Ears, Nose, Mouth, Throat: Reports: No symptoms Respiratory: Reports: Cough Cardiac: Reports: Chest pain GI: Reports: No symptoms : Reports: No symptoms Musculoskeletal: Reports: No symptoms Skin: Reports: No symptoms Neurological: Reports: No symptoms Endocrine: Reports: No symptoms Hematologic/Lymphatic: Reports: No symptoms All Other Systems: Reviewed and Negative Past Medical History - Past Medical History Previously Healthy: No Endocrine: Reports: Dyslipidemia Cardiovascular: Reports: CAD, CT, Hypertension, CHF Respiratory: Reports: COPD Hematological: Reports: None Gastrointestinal: Reports: None Genitourinary: Reports: Kidney stones Neuro/Psych: Reports: Depression Musculoskeletal: Reports: Arthritis, Back Pain ("always painful" no worse this AM) Cancer: Reports: None Other Pertinent Past Medical History: htn chol mi depr cabg hernia - Surgical History General Surgical History: Reports: CABG (double bypass 6 months ago), Hernia Repair - Family History Family History: Reports: Unknown - Social History Smoking Status: Former smoker Hx Substance Use: No Alcohol Screening: None - Immunizations Tetanus Shot up to Date: (unknown) Influenza Vaccine within 12 Months: No Pneumococcal Vaccine up to Date: No Physical Exam - Physical Exam Appearance: Ill-appearing Ill-appearing: Mild Pain Distress: Mild Eyes: WILVER, EOMI, Conjunctiva clear ENT: Ears normal, Nose normal, Oropharynx normal Respiratory: Airway patent, Breath sounds clear, Breath sounds equal, Respirations nonlabored Cardiovascular: Tachycardia GI/: Soft, Nontender, No masses, Bowel sounds normal, No Organomegaly Musculoskeletal: Normal strength, ROM intact, No edema, No calf tenderness Skin: Warm, Dry, Normal color Neurological: Sensation intact, Motor intact, Reflexes intact, Cranial nerves intact, Alert, Oriented Psychiatric: Affect appropriate, Mood appropriate Physician Notification - Case Discussed Physician Notified: pmd Time of Notification: 18:13 (transfer ) Physician Notified: meyer Time of Notification: 18:14 (transfer ) Critical Care Note - Critical Care Note Total Time (mins): 0 Course - Course Hematology/Chemistry: 01/16/19 17:03 01/16/19 17:03 Orders, Labs, Meds: Lab Review 01/16/19 01/16/19 01/16/19 16:53 17:03 17:03 WBC 12.11 H RBC 5.80 Hgb 16.7 Hct 51.2 MCV 88.3 MCH 28.8 MCHC 32.6 RDW Coeff of Moris 13.2 Plt Count 268 Immature Gran % (Auto) 0.6 Neut % (Auto) 66.9 Lymph % (Auto) 20.4 [place] % (Auto) 8.9 Eos % (Auto) 2.9 Baso % (Auto) 0.3 Immature Gran # (Auto) 0.1 Neut # (Auto) 8.1 H Lymph # (Auto) 2.5 [place] # (Auto) 1.1 Eos # (Auto) 0.4 Baso # (Auto) 0.0 PT INR APTT Puncture Site Rrad O2 Saturation 94.0 L ABG pH 7.387 ABG pCO2 47.4 H ABG pO2 73.0 L ABG HCO3 28.5 H ABG Total CO2 30 H ABG Base Excess 3 H Douglas Test + O2 Delivery Device Nc Oxygen Liter Flow 2.00 Sodium 140.7 Potassium 3.88 Chloride 100.1 Carbon Dioxide 31.8 H Anion Gap 12.68 BUN 14.1 Creatinine 0.70 Estimated GFR (MDRD) 116.00 BUN/Creatinine Ratio 20.14 Glucose 98.3 Calcium 9.97 Total Bilirubin 0.43 AST 49.7 ALT 34.5 Alkaline Phosphatase 116.6 Total Creatine Kinase 83.5 Troponin I 0.050 Total Protein 8.13 Albumin 4.55 Globulin 3.58 Albumin/Globulin Ratio 1.27 01/16/19 17:03 WBC RBC Hgb Hct MCV MCH MCHC RDW Coeff of Moris Plt Count Immature Gran % (Auto) Neut % (Auto) Lymph % (Auto) [place] % (Auto) Eos % (Auto) Baso % (Auto) Immature Gran # (Auto) Neut # (Auto) Lymph # (Auto) [place] # (Auto) Eos # (Auto) Baso # (Auto) PT 9.8 INR 0.98 APTT 23.4 L Puncture Site O2 Saturation ABG pH ABG pCO2 ABG pO2 ABG HCO3 ABG Total CO2 ABG Base Excess Douglas Test O2 Delivery Device Oxygen Liter Flow Sodium Potassium Chloride Carbon Dioxide Anion Gap BUN Creatinine Estimated GFR (MDRD) BUN/Creatinine Ratio Glucose Calcium Total Bilirubin AST ALT Alkaline Phosphatase Total Creatine Kinase Troponin I Total Protein Albumin Globulin Albumin/Globulin Ratio Orders Category Date Time Status ABG DRAW REQUEST Stat CARDIO 01/16/19 16:53 Completed EKG-(ED ONLY) Stat CARDIO 01/16/19 16:46 Completed EKG-(ED ONLY) Stat CARDIO 01/16/19 17:30 Completed EKG-(ED ONLY) Stat CARDIO 01/16/19 17:34 Completed ED IV/MEDIPORT/POWERPORT .ONCE EMERGENCY 01/16/19 17:04 Active ABG Stat LAB 01/16/19 16:53 Completed CBC W/ AUTO DIFF Stat LAB 01/16/19 17:03 Completed COMPREHENSIVE METABOLIC PANEL Stat LAB 01/16/19 17:03 Completed CREATINE KINASE Stat LAB 01/16/19 17:03 Completed PARTIAL THROMBOPLASTIN TIME Stat LAB 01/16/19 17:03 Completed PT WITH INR Stat LAB 01/16/19 17:03 Completed TROPONIN I Stat LAB 01/16/19 17:03 Completed 0.9 % Sodium Chloride [Saline Flush] MEDS 01/16/19 17:04 Ordered 1 syr IVF PRN PRN Hydrocodone Bit/Acetaminophen [[place] 10-325] MEDS 01/16/19 17:05 Discontinued 1 tab PO ONCE STA Metoprolol Tartrate [Lopressor] MEDS 01/16/19 16:56 Discontinued 5 mg IVP ONCE STA CHEST, 1V AP ONLY Stat RADS 01/16/19 16:55 Completed Medications Generic Name Dose Route Start Last Admin Trade Name Freq PRN Reason Stop Dose Admin Sodium Chloride 1 syr 01/16/19 17:04 Saline Flush IVF PRN PRN To flush IV Discontinued Medications Generic Name Dose Route Start Last Admin Trade Name Liya PRN Reason Stop Dose Admin Hydrocodone Bitart/Acetaminophen 1 tab 01/16/19 17:05 01/16/19 17:09 [place] 10-325 PO 01/16/19 17:06 1 tab ONCE STA Administration Metoprolol Tartrate 5 mg 01/16/19 16:56 Lopressor IVP 01/16/19 16:57 ONCE STA Vital Signs: Temp Pulse Resp BP Pulse Ox 01/16/19 16:37 98.1 F 144 H 20 173/113 H 97 WM Risk Score WM Risk Score: Risk Score Odds of by 30D 0 0.1 (0.1-0.2) 1 0.3 (0.2-0.3) 2 0.4 (0.3-0.5) 3 0.7 (0.6-0.9) 4 1.2 (1.0-1.5) 5 2.2 (1.9-2.6) 6 3.0 (2.5-3.6) 7 4.8 (3.8-6.1) Departure - Departure Time of Disposition: 18:14 Disposition: TSF SHORT-TRM HOSP Discharge Problem: Chest pain Instructions: Angina (ED) Condition: Good Pt referred to PMD for follow-up: Yes IPMP verified?: No Allergies/Adverse Reactions: Allergies No Known Allergies Allergy (Verified 01/16/19 16:48) Home Medications: Ambulatory Orders Aspirin [Adult Low Dose Aspirin EC] 81 mg PO DAILY 06/30/16 Clopidogrel Bisulfate [Plavix] 75 mg PO DAILY 06/30/16 Lisinopril [Zestril] 40 mg PO DAILY 06/30/16 Potassium Chloride [K-Tab ER] 10 meq PO DAILY #30 tablet.er 11/18/16 Furosemide [Lasix Tab] 20 mg PO BID 12/27/16 Hydrocodone Bit/Acetaminophen [[place] 10-325] 1 tab PO BID PRN 12/27/16 Metoprolol Tartrate [Lopressor] 25 mg PO BID 12/27/16 Nitroglycerin [Nitrostat] 0.4 mg SL DIRECTED PRN 08/02/17 Ipratropium/Albuterol Neb [Duoneb] 1 vial NEB TID #40 vial.neb 10/14/17 Budesonide/Formoterol Fumarate [Symbicort 160-4.5 Mcg Inhaler] 2 puff IH BID Buspirone HCl 5 mg PO DAILY 12/11/17 Hydrochlorothiazide 12.5 mg PO DAILY 12/11/17 Trazodone HCl 50 mg PO DAILY 08/17/18
== END 2019-01-16 18:40 | disposition short-term general hospital (02) ==
LOC: ED 16:37
DX: R07.9 Chest pain, unspecified (principal); I25.810 Atherosclerosis of coronary artery bypass graft(s) without angina pectoris; E78.5 Hyperlipidemia, unspecified; I10 Essential (primary) hypertension; I25.2 Old myocardial infarction; J44.9 Chronic obstructive pulmonary disease, unspecified; Z79.899 Other long term (current) drug therapy
CPT/HCPCS: 36415; 80053; 82550; 82803; 84484; 85025; 85610; 85730; 93005; 93010; 99285

== ENCOUNTER 2019-01-16 18:48 | Outpatient (CLI) ==
[2019-01-16 16:42] VITALS: BMI 39.1
== END 2019-01-16 19:09 | disposition short-term general hospital (02) ==
LOC: AMBL 18:48
PROVIDERS: ATTEND Internal Medicine
DX: R07.9 Chest pain, unspecified (principal)

== ENCOUNTER 2019-02-09 19:27 | Outpatient (CLI) | END 2019-02-09 19:49 | disposition short-term general hospital (02) | LOC: AMBL 19:27 | PROVIDERS: ATTEND Family Medicine | DX: R07.9 Chest pain, unspecified (principal); Z95.5 Presence of coronary angioplasty implant and graft; Z98.890 Other specified postprocedural states ==

== ENCOUNTER 2019-04-15 15:09 | Outpatient (CLI) | END 2019-04-15 15:27 | disposition short-term general hospital (02) | LOC: AMBL 15:09 | PROVIDERS: ATTEND Internal Medicine | DX: R07.9 Chest pain, unspecified (principal); R06.02 Shortness of breath; R06.2 Wheezing; Z99.81 Dependence on supplemental oxygen ==

== ENCOUNTER 2019-04-19 07:53 | Outpatient (CLI) | END 2019-04-19 07:54 | disposition home or self-care (01) | LOC: LAB 07:53 | PROVIDERS: ATTEND Internal Medicine | DX: E78.5 Hyperlipidemia, unspecified (principal); I25.10 Atherosclerotic heart disease of native coronary artery without angina pectoris; I10 Essential (primary) hypertension; E66.9 Obesity, unspecified; Z12.5 Encounter for screening for malignant neoplasm of prostate | CPT/HCPCS: 36415; 80053; 80061; 83036; 84439; 84443; 85025; 86695; 86696 ==

== ENCOUNTER 2019-04-21 23:26 | Outpatient (CLI) | END 2019-04-21 23:49 | disposition short-term general hospital (02) | LOC: AMBL 23:26 | PROVIDERS: ATTEND Family Medicine | DX: R06.02 Shortness of breath (principal) ==

== ENCOUNTER 2019-05-01 04:28 | Outpatient (CLI) | END 2019-05-01 04:45 | disposition short-term general hospital (02) | LOC: AMBL 04:28 | PROVIDERS: ATTEND Internal Medicine Geriatric Medicine | DX: R07.9 Chest pain, unspecified (principal) ==

== ENCOUNTER 2019-07-15 18:05 | Outpatient (CLI) | END 2019-07-15 18:21 | disposition short-term general hospital (02) | LOC: AMBL 18:05 | PROVIDERS: ATTEND Internal Medicine | DX: R07.9 Chest pain, unspecified (principal); R06.9 Unspecified abnormalities of breathing; R09.89 Other specified symptoms and signs involving the circulatory and respiratory systems ==

== ENCOUNTER 2019-09-21 17:42 | Observation (INO) ==
[2019-09-21] MEDS ORDERED: MORPHINE 2 MG/ML SYRINGE IM STA (18:04)
[2019-09-21] MEDS ORDERED: DUONEB NEB STA (18:14)
[2019-09-21] MEDS ORDERED: DUONEB NEB ONE (18:15)
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
[2019-09-21] MEDS ORDERED: DILAUDID 1 MG/ML SYRINGE IVP STA ×2 (18:45→19:29)
[2019-09-21] MEDS ORDERED: TENIVAC IM ONE ×2 (18:45→23:29)
[2019-09-21] MEDS ORDERED: NITROSTAT SL PRN (18:52)
[2019-09-21] MEDS ORDERED: NORCO 10-325 PO PRN ×3 (18:52→23:11)
[2019-09-21] MEDS ORDERED: K-DUR PO STA (18:54)
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
[2019-09-21] MEDS ORDERED: XOPENEX 1.25 MG NEB PRN (18:57)
[2019-09-21] MEDS ORDERED: DILAUDID 0.5 MG/0.5 ML SYRINGE ONE (19:30)
[2019-09-21] MEDS ORDERED: DILAUDID 0.5 MG/0.5 ML SYRINGE IVP STA (19:32)
[2019-09-21] MEDS: SILVADENE CREAM TP SCH (20:34)
[2019-09-21] MEDS: BACTROBAN TP SCH ×2 (20:47→22:04)
[2019-09-21] MEDS ORDERED: SYMBICORT 160-4.5 MCG INHALER IH SCH ×2 (21:00)
[2019-09-21] MEDS ORDERED: LOPRESSOR PO SCH (21:00)
[2019-09-21] MEDS ORDERED: LASIX TAB PO SCH (21:00)
[2019-09-21 21:13] VITALS: BMI 35.3
[2019-09-21] MEDS: DILAUDID 1 MG/ML SYRINGE IVP PRN (22:33)
[2019-09-22] MEDS: DILAUDID 1 MG/ML SYRINGE IVP PRN ×4 (01:38→12:23)
[2019-09-22 05:15] VITALS: BP 110/69; TEMP 98.5
[2019-09-22] MEDS: DUONEB NEB SCH ×3 (05:30→05:45)
[2019-09-22] MEDS ORDERED: ASPIRIN EC PO SCH ×4 (08:00→12:00)
[2019-09-22] MEDS ORDERED: HYDROCHLOROTHIAZIDE PO SCH ×2 (09:00)
[2019-09-22] MEDS ORDERED: NITROSTAT SL PRN (09:00)
[2019-09-22] MEDS ORDERED: LASIX TAB PO SCH ×2 (09:00)
[2019-09-22] MEDS ORDERED: PLAVIX PO SCH ×3 (09:00)
[2019-09-22] MEDS ORDERED: BUSPAR PO SCH ×3 (09:00)
[2019-09-22] MEDS ORDERED: DESYREL PO SCH ×3 (09:00→21:00)
[2019-09-22] MEDS ORDERED: LOVENOX SUBCUT SCH (09:00)
[2019-09-22] MEDS ORDERED: ZESTRIL PO SCH ×2 (09:00)
[2019-09-22] MEDS ORDERED: NORCO 10-325 PO PRN (09:00)
[2019-09-22] MEDS ORDERED: MICRO-K CAP PO SCH ×2 (09:00)
[2019-09-22] MEDS ORDERED: SYMBICORT 160-4.5 MCG INHALER IH SCH (09:00)
[2019-09-22] MEDS ORDERED: LOPRESSOR PO SCH (09:00)
[2019-09-22] MEDS ORDERED: DUONEB NEB SCH (10:00)
[2019-09-22] MEDS: BACTROBAN TP SCH (10:42)
[2019-09-22] MEDS: SILVADENE CREAM TP SCH (12:43)
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
== END 2019-09-22 12:35 | disposition home or self-care (01) ==
LOC: MEDSURG B 17:42 → ED 17:42 → MEDSURG B 19:50
PROVIDERS: ADMIT Internal Medicine; ATTEND Internal Medicine
DX: F41.1 Generalized anxiety disorder; E78.5 Hyperlipidemia, unspecified; I25.5 Ischemic cardiomyopathy; R51 Headache; S09.90XA Unspecified injury of head, initial encounter; J96.10 Chronic respiratory failure, unspecified whether with hypoxia or hypercapnia; Z72.0 Tobacco use; J43.9 Emphysema, unspecified; L53.9 Erythematous condition, unspecified; J44.9 Chronic obstructive pulmonary disease, unspecified; I25.10 Atherosclerotic heart disease of native coronary artery without angina pectoris; R06.02 Shortness of breath; T20.06XA Burn of unspecified degree of forehead and cheek, initial encounter; I10 Essential (primary) hypertension